=== PATIENT | female | born 1935 | race Caucasian/White ===

== ENCOUNTER → 2016-09-17 | Outpatient (CLI) | payer BC ==
[~2016-09-17] MED LIST: ATOR-24 PO; AZITTAB PO; DIAZ-165 PO; ERGO500037 PO; FOLI1TAB7 PO; FRS/40 PO; GABA-112 PO; HYDR-3124 PO; HYDR-4079 PO; ISOS60TA25 PO; LOSA25TA18 PO; METH2.5T PO; METO5TAB2 PO; OXGN; RIVA1.5T PO; TPRSR/25 PO; VENL-271 PO; VNTHFA/IN INH
[2016-09-17 12:11] LABS: BASO % 0.4 %; BASO ABS # 0.03 K/uL (0-0.2); COMPLETE YES; EOS % 1.9 %; HEMATOCRIT 44.9 % (37-47); IG% 0.4 %; LYMPH % 13.4 %; LYMPH ABS # 1.15 K/uL (1.2-3.4); MEAN CELL VOLUME 95.7 fL (80-100); MEAN CORPUSCULAR HEMOGLOBIN 30.1 pg (25-34); MEAN CORPUSCULAR HGB CONC 31.4 g/dl (32-36); MEAN PLATELET VOLUME 10.6 fL (7.4-10.4); MONO % 7.8 %; NEUT % 76.1 %; PLATELET COUNT 209 K/uL (130-400); RED BLOOD COUNT 4.69 M/uL (4.2-5.4); WHITE BLOOD COUNT 8.57 K/uL (4.8-10.8)
[2016-09-17 12:28] LABS: ALT/SGPT 19 U/L (12-78); AST/SGOT 14 U/L (15-37); CALCIUM 8.9 mg/dl (8.5-10.1); CREATININE 0.75 mg/dl (0.60-1.20)
[2016-09-17 12:30] LABS: ALKALINE PHOSPHATASE 82 U/L (45-117)
[2016-09-20 16:32] LABS: ALBUMIN 3.3 G/DL (3.8-4.8); GAMMA GLOBULIN 0.9 G/DL (0.8-1.7); TOTAL PROTEIN 6.2 G/DL (6.2-8.3)
== END | disposition home or self-care (01) ==
LOC: C.LAB1850 10:11
PROVIDERS: ATTEND Internal Medicine Rheumatology
DX: E11.49 Type 2 diabetes mellitus with other diabetic neurological complication (principal); M81.0 Age-related osteoporosis without current pathological fracture; E55.9 Vitamin D deficiency, unspecified; E61.8 Deficiency of other specified nutrient elements; L40.50 Arthropathic psoriasis, unspecified

== ENCOUNTER → 2016-10-04 | Outpatient (CLI) | payer BC ==
[2016-10-04 11:07] LABS: BASO % 0.3 %; BASO ABS # 0.02 K/uL (0-0.2); EOS % 1.5 %; HEMATOCRIT 40.8 % (37-47); IG% 0.2 %; LYMPH % 22.8 %; LYMPH ABS # 1.34 K/uL (1.2-3.4); MEAN CORPUSCULAR HEMOGLOBIN 30.9 pg (25-34); MEAN PLATELET VOLUME 9.8 fL (7.4-10.4); MONO % 11.1 %; NEUT % 64.1 %; PLATELET COUNT 259 K/uL (130-400); RED BLOOD COUNT 4.08 M/uL (4.2-5.4); WHITE BLOOD COUNT 5.87 K/uL (4.8-10.8)
[2016-10-04 11:10] LABS: COMPLETE YES; MEAN CORPUSCULAR HGB CONC 30.9 g/dl (32-36)
[2016-10-04 11:31] LABS: FERRITIN 85.4 ng/ml (8.0-388.0)
--- NOTE | 2016-10-04 11:37 | DIAGNOSTIC IMAGING REPORT ---
TWO VIEW CHEST CLINICAL HISTORY: Dyspnea. FINDINGS: PA and lateral chest radiographs are obtained. No prior studies are available for comparison at the time of dictation. The heart is enlarged and there is atherosclerotic calcification of the thoracic aorta. The pulmonary vasculature is noncongested. Nonspecific interstitial thickening is noted. There is no airspace consolidation or pleural effusion. There is no pneumothorax. The skeletal structures are osteopenic. Degenerative change and scoliosis are noted in the thoracic spine. A left shoulder arthroplasty is in place. There are healed right-sided rib fractures. Fusion hardware is partially imaged in the upper lumbar spine. Surgical clips are noted in the left axilla. Cholecystectomy clips are seen in the right upper quadrant. IMPRESSION: Cardiomegaly with no acute cardiopulmonary abnormality. Electronically signed by: Kavon Mohamud M.D. 10/04/2016 11:35 AM Dictated Date/Time: 10/04/2016 11:28 AM
[2016-10-04 11:55] LABS: ALKALINE PHOSPHATASE 76 U/L (45-117); ALT/SGPT 16 U/L (12-78); AST/SGOT 14 U/L (15-37); BLOOD UREA NITROGEN 13 mg/dl (7-18); BUN/CREATININE RATIO 17.3 (10-20); CALCIUM 8.6 mg/dl (8.5-10.1); CARBON DIOXIDE 44 mmol/L (21-32); CHLORIDE 98 mmol/L (98-107); CREATININE 0.74 mg/dl (0.60-1.20); GLUCOSE 117 mg/dl (70-99); MAGNESIUM 2.2 mg/dl (1.8-2.4); POTASSIUM 3.9 mmol/L (3.5-5.1); SODIUM 144 mmol/L (136-145)
== END | disposition home or self-care (01) ==
LOC: C.RAD 10:21
PROVIDERS: ATTEND Nurse Practitioner
DX: R06.02 Shortness of breath (principal); R53.1 Weakness; I51.7 Cardiomegaly

== ENCOUNTER → 2016-10-06 | Outpatient (CLI) | payer BC | END | disposition home or self-care (01) | LOC: C.MAMM 11:24 | PROVIDERS: ATTEND Internal Medicine Rheumatology | DX: M81.0 Age-related osteoporosis without current pathological fracture (principal); E55.9 Vitamin D deficiency, unspecified; E61.8 Deficiency of other specified nutrient elements; L40.50 Arthropathic psoriasis, unspecified ==

== ENCOUNTER → 2016-12-07 | Outpatient (CLI) | payer BC ==
[2016-12-07 12:33] LABS: HEMATOCRIT 40.9 % (37-47); MEAN CELL VOLUME 103.5 fL (80-100); MEAN CORPUSCULAR HEMOGLOBIN 33.7 pg (25-34); MEAN CORPUSCULAR HGB CONC 32.5 g/dl (32-36); MEAN PLATELET VOLUME 10.4 fL (7.4-10.4); PLATELET COUNT 190 K/uL (130-400); RED BLOOD COUNT 3.95 M/uL (4.2-5.4); WHITE BLOOD COUNT 5.37 K/uL (4.8-10.8)
[2016-12-07 13:04] LABS: ALB/GLOB RATIO 1.1 (0.9-2); ALT/SGPT 20 U/L (12-78); AST/SGOT 19 U/L (15-37); BLOOD UREA NITROGEN 22 mg/dl (7-18); BUN/CREATININE RATIO 32.4 (10-20); CALCIUM 8.6 mg/dl (8.5-10.1); CARBON DIOXIDE 38 mmol/L (21-32); CHLORIDE 100 mmol/L (98-107); CREATININE 0.67 mg/dl (0.60-1.20); GLUCOSE 85 mg/dl (70-99); POTASSIUM 3.6 mmol/L (3.5-5.1); SODIUM 142 mmol/L (136-145)
[2016-12-07 13:12] LABS: ALKALINE PHOSPHATASE 84 U/L (45-117); CHOLESTEROL 135 mg/dl (0-200); CHOLESTEROL/HDL RATIO 2.7; HDL CHOLESTEROL 50 mg/dl; LDL CHOLESTEROL CALCULATED 55 mg/dl; TRIGLYCERIDES 151 mg/dl (0-150); VERY LOW DENSITY LIPOPROT CALC 30 mg/dl
[2016-12-07 13:23] LABS: ESTIMATED AVERAGE GLUCOSE 123 mg/dl; HA1C FLAG Normal (Normal)
[2016-12-07 13:52] LABS: RATIO 8.3 mcg/mg (0-30.0)
== END | disposition home or self-care (01) ==
LOC: C.LAB1850 10:28
PROVIDERS: ATTEND Internal Medicine
DX: E78.5 Hyperlipidemia, unspecified (principal); E11.49 Type 2 diabetes mellitus with other diabetic neurological complication; I25.10 Atherosclerotic heart disease of native coronary artery without angina pectoris; Z79.899 Other long term (current) drug therapy

== ENCOUNTER → 2016-12-30 | Outpatient (CLI) | payer BC | END | disposition home or self-care (01) | LOC: C.LAB1850 13:49 | PROVIDERS: ATTEND Internal Medicine Rheumatology | DX: L40.50 Arthropathic psoriasis, unspecified (principal); I25.10 Atherosclerotic heart disease of native coronary artery without angina pectoris; E55.9 Vitamin D deficiency, unspecified; Z79.899 Other long term (current) drug therapy ==

== ENCOUNTER → 2017-01-03 | Outpatient (CLI) | payer BC ==
--- NOTE | 2017-01-03 14:22 | DIAGNOSTIC IMAGING REPORT ---
BONE SCAN WHOLE BODY CLINICAL HISTORY: Long-term immunosuppressant use. Right-sided pain. COMPARISON STUDY: No previous studies for comparison. FINDINGS: The patient was injected with 27 mCi of technetium 99m MDP. Three-hour delayed whole body images were acquired. There is a thoracolumbar scoliosis. There are foci of increased activity within the lower thoracic and lumbar spine. The distribution favors degenerative/arthritic change. There are foci of increased activity within the right wrist likely arthritic. There are photopenic defects and knees, consistent with bilateral knee arthroplasties. There is a subtle focus of increased activity mid left humerus, likely secondary to a muscular insertion. There are no areas of increased activity viewed as suspicious for metastatic disease. IMPRESSION: 1. Multiple foci of increased activity within the lower thoracic and lumbar spine, likely on a degenerative/arthritic basis 2. Area of increased activity within the right wrist likely arthritic. Electronically signed by: Alcon Camp M.D. 01/03/2017 2:20 PM Dictated Date/Time: 01/03/2017 2:18 PM
== END | disposition home or self-care (01) ==
LOC: C.NUCL 09:48
PROVIDERS: ATTEND Internal Medicine Rheumatology
DX: L40.50 Arthropathic psoriasis, unspecified (principal); L40.9 Psoriasis, unspecified; Z79.899 Other long term (current) drug therapy

== ENCOUNTER → 2017-03-23 | Outpatient (CLI) | payer BC ==
[2017-03-23 18:05] LABS: HEMATOCRIT 41.5 % (37-47); MEAN CORPUSCULAR HGB CONC 31.1 g/dl (32-36); MEAN PLATELET VOLUME 10.2 fL (7.4-10.4); PLATELET COUNT 262 K/uL (130-400); RED BLOOD COUNT 4.03 M/uL (4.2-5.4); WHITE BLOOD COUNT 7.09 K/uL (4.8-10.8)
[2017-03-23 18:23] LABS: ALT/SGPT 20 U/L (12-78); AST/SGOT 19 U/L (15-37); BLOOD UREA NITROGEN 19 mg/dl (7-18); BUN/CREATININE RATIO 28.5 (10-20); CALCIUM 8.7 mg/dl (8.5-10.1); CARBON DIOXIDE 38 mmol/L (21-32); CHLORIDE 98 mmol/L (98-107); CREATININE 0.67 mg/dl (0.60-1.20); GLUCOSE 92 mg/dl (70-99); POTASSIUM 3.7 mmol/L (3.5-5.1); SODIUM 142 mmol/L (136-145)
[2017-03-23 18:34] LABS: ALKALINE PHOSPHATASE 78 U/L (45-117)
== END | disposition home or self-care (01) ==
LOC: C.LAB1850 14:29
PROVIDERS: ATTEND Internal Medicine
DX: R53.83 Other fatigue (principal)

== ENCOUNTER → 2017-04-12 | Outpatient (CLI) | payer BC ==
--- NOTE | 2017-04-12 15:07 | DIAGNOSTIC IMAGING REPORT ---
CHEST 2 VIEWS ROUTINE CLINICAL HISTORY: R06.02 Shortness of [id number] dyspnea COMPARISON STUDY: 10/04/2016 FINDINGS: Mild emphysematous change. Stable postoperative changes left axilla. Diaphragms smooth. Lungs are clear. IMPRESSION: No acute process. The above report was generated using voice recognition software. It may contain grammatical, syntax or spelling errors. Electronically signed by: Gilbert Stroud M.D. 04/12/2017 3:05 PM Dictated Date/Time: 04/12/2017 3:01 PM
== END | disposition home or self-care (01) ==
LOC: C.RAD1850 14:47
PROVIDERS: ATTEND Physician Assistant
DX: R06.02 Shortness of breath (principal)

== ENCOUNTER 2017-05-02 15:31 | Emergency (ER) | payer BC ==
[2017-05-02 15:35] VITALS: TEMP 36.7; Ht 162.6 cm
[2017-05-02] MEDS ORDERED: ALBUT/IPRATROP 3MG/0.5MG NEB 3 ML VIAL INH STA (15:49)
[2017-05-02 16:00] VITALS: O2SAT 97
[2017-05-02 16:12] LABS: BASO % 0.3 %; BASO ABS # 0.03 K/uL (0-0.2); COMPLETE YES; EOS % 0.9 %; HEMATOCRIT 41.9 % (37-47); IG% 0.5 %; LYMPH % 18.4 %; LYMPH ABS # 1.62 K/uL (1.2-3.4); MEAN CELL VOLUME 101.5 fL (80-100); MEAN CORPUSCULAR HEMOGLOBIN 33.2 pg (25-34); MEAN CORPUSCULAR HGB CONC 32.7 g/dl (32-36); MEAN PLATELET VOLUME 9.8 fL (7.4-10.4); MONO % 8.6 %; NEUT % 71.3 %; PLATELET COUNT 232 K/uL (130-400); RED BLOOD COUNT 4.13 M/uL (4.2-5.4)
--- NOTE | 2017-05-02 16:20 | EMERGENCY ROOM VISIT NOTE ---
History Report prepared by Josefina: Varun Rodriguez Under the Supervision of: Dr. Kavon Diaz M.D. First contact with patient: 15:45 Chief Complaint: SHORTNESS OF BREATH Stated Complaint: HARD TO BRATH, SHORT OF BREATH History of Present Illness The patient is a 81 year old female who presents to the Emergency Room with complaints of constant shortness of breath beginning last night. She also complains of a cough, and "chest tightness". The patient is on 2 L of supplemental oxygen by nasal canula. She states that she took her pulse ox and found it to be 84 today, and has not been able to get it above 89. She denies any fevers or sore throat. Her shortness of breath and chest pain are worsened with exertion. The patient states that she has a stuffy nose, but this has been present for a while. She is on Xarelto. She notes that her pulse ox is normally 96. Source of History: patient Onset: Last night Quality: other (shortness of breath) Timing: constant Modifying Factors (Worsening): exertion Associated Symptoms: + cough, + chest pain ("tightness"), No fevers Review of Systems See HPI for pertinent positives & negatives. A total of 10 systems reviewed and were otherwise negative. Past Medical & Surgical Medical Problems: (1) Diabetes (2) HTN (hypertension) Family History No pertinent family history stated. Social History Smoking Status: Former Smoker Occupation Status: retired Current/Historical Medications Scheduled Albuterol Hfa (Ventolin Hfa), 3 PUFFS INH Q6H Atorvastatin (Lipitor), 40 MG PO QPM Azithromycin (Zithromax Z-Mikie), 0 PO UD Ergocalciferol (Vitamin D 25513 Unit), 50,000 INTER.UNIT PO 2XWK Folic Acid (Folvite), 1 MG PO DAILY Furosemide (Lasix), 40 MG PO QAM Gabapentin (Neurontin), 200 MG PO AMPM Home O2 Therapy (Oxygen), 2 LITERS NA CONTINOUS Isosorbide Mononitrate Ext Rel (Imdur Ext Rel), 60 MG PO QAM Losartan Potassium (Cozaar), 25 MG PO DAILY Methotrexate (Methotrexate), 6.25 MG PO WK Metoclopramide Hcl (Metoclopramide Hcl), 5 MG PO BID Metoprolol Succinate (Metoprolol Succinate ER), 25 MG PO DAILY Rivaroxaban (Xarelto), 15 MG PO QPM Venlafaxine Hcl (Venlafaxine Hcl Er), 37.5 MG PO DAILY Scheduled PRN Diazepam (Valium), 2.5 MG PO Q6H PRN for Anxiety Hydrocodone/Acetaminophen 10MG/325MG ([place] 10MG/325MG), 1-2 TABS PO DAILY PRN for Pain Hydroxyzine Hcl (Atarax), 25-50 MG PO DAILY PRN for Anxiety Allergies Coded Allergies: No Known Allergies (Unverified , 05/02/17) Physical Exam Vital Signs Date Time Temp Pulse Resp B/P (MAP) Pulse Ox O2 Delivery O2 Flow Rate FiO2 05/02/17 17:22 89 18 134/95 97 Nasal Cannula 2.0 05/02/17 16:20 79 05/02/17 16:00 97 Nasal Cannula 2.0 05/02/17 16:00 97 Nasal Cannula 2.0 05/02/17 15:35 36.7 78 18 130/71 90 Nasal Cannula 2.0 Physical Exam GENERAL: Patient is in no acute distress. HEENT: No acute trauma, normocephalic atraumatic, mucous membranes moist, no nasal congestion, no scleral icterus. NECK: No stridor, no adenopathy, no meningismus, trachea is midline. LUNGS: Significantly diminished breath sounds bilaterally. Breath sounds equal. No wheezing or rhonchi. HEART: 2/6 systolic murmur with an occasional extra beat. Normal rate. ABDOMEN: Soft, nontender, bowel sounds positive, no hernias, no peritonitis. EXTREMITIES: No cyanosis or edema, full range of motion of all the joints without pain or difficulty, no signs for acute trauma. NEUROLOGIC: Oriented x 3, no acute motor or sensory deficits, no focal weakness. SKIN: No rash, no jaundice, no diaphoresis. Medical Decision & Procedures ER Provider Diagnostic Interpretation: X-ray results as stated below per interpretation by me and the radiologist: CHEST ONE VIEW PORTABLE FINDINGS: Cardiomediastinal and hilar silhouettes are within normal limits. There is atherosclerosis of the aorta. No pneumothorax, pleural effusion or focal airspace consolidation. There are chronic appearing reticular opacities within the right perihilar distribution and bilateral lung apices suggesting scarring. Lungs are mildly hyperinflated with increased lucency suggesting emphysema. Surgical clips project over the left axilla. Postoperative changes from left shoulder arthroplasty. There are degenerative changes of the spine and shoulders. Multiple chronic right-sided rib fractures redemonstrated. IMPRESSION: Emphysema without acute cardiopulmonary process. The above report was generated using voice recognition software. It may contain grammatical, syntax or spelling errors. Electronically signed by: Masood Garg M.D. 05/02/2017 4:24 PM Laboratory Results 05/02/17 16:00 Red Blood Count 4.13, Mean Corpuscular Volume 101.5, Mean Corpuscular Hemoglobin 33.2, Mean Corpuscular Hemoglobin Concent 32.7, Mean Platelet Volume 9.8, Neutrophils (%) (Auto) 71.3, Lymphocytes (%) (Auto) 18.4, Monocytes (%) ( Auto) 8.6, Eosinophils (%) (Auto) 0.9, Basophils (%) (Auto) 0.3, Neutrophils # ( Auto) 6.27, Lymphocytes # (Auto) 1.62, Monocytes # (Auto) 0.76, Eosinophils # ( Auto) 0.08, Basophils # (Auto) 0.03 05/02/17 16:00 Test 05/02/17 16:00 White Blood Count 8.80 K/uL (4.8-10.8) Red Blood Count 4.13 M/uL (4.2-5.4) Hemoglobin 13.7 g/dL (12.0-16.0) Hematocrit 41.9 % (37-47) Mean Corpuscular Volume 101.5 fL (80-100) Mean Corpuscular Hemoglobin 33.2 pg (25-34) Mean Corpuscular Hemoglobin Concent 32.7 g/dl (32-36) Platelet Count 232 K/uL (130-400) Mean Platelet Volume 9.8 fL (7.4-10.4) Neutrophils (%) (Auto) 71.3 % Lymphocytes (%) (Auto) 18.4 % Monocytes (%) (Auto) 8.6 % Eosinophils (%) (Auto) 0.9 % Basophils (%) (Auto) 0.3 % Neutrophils # (Auto) 6.27 K/uL (1.4-6.5) Lymphocytes # (Auto) 1.62 K/uL (1.2-3.4) Monocytes # (Auto) 0.76 K/uL (0.11-0.59) Eosinophils # (Auto) 0.08 K/uL (0-0.5) Basophils # (Auto) 0.03 K/uL (0-0.2) RDW Standard Deviation 50.5 fL (36.4-46.3) RDW Coefficient of Variation 13.8 % (11.5-14.5) Immature Granulocyte % (Auto) 0.5 % Immature Granulocyte # (Auto) 0.04 K/uL (0.00-0.02) Prothrombin Time 10.8 SECONDS (9.0-12.0) Prothromb Time International Ratio 1.0 (0.9-1.1) Activated Partial Thromboplast Time 26.9 SECONDS (21.0-31.0) Partial Thromboplastin Ratio 1.0 Anion Gap 6.0 mmol/L (3-11) Estimated GFR () 90.8 Estimated GFR (Non- 78.3 BUN/Creatinine Ratio 15.0 (10-20) Calcium Level 9.0 mg/dl (8.5-10.1) Total Bilirubin 0.3 mg/dl (0.2-1) Aspartate Amino Transf (AST/SGOT) 29 U/L (15-37) Alanine Aminotransferase (ALT/SGPT) 22 U/L (12-78) Alkaline Phosphatase 101 U/L (45-117) Troponin I < 0.015 ng/ml (0-0.045) Total Protein 7.7 gm/dl (6.4-8.2) Albumin 3.7 gm/dl (3.4-5.0) Globulin 4.0 gm/dl (2.5-4.0) Albumin/Globulin Ratio 0.9 (0.9-2) Chemistry Specimen Hemolysis Laboratory results reviewed by me. Medications Administered Medications (Trade) Dose Ordered Sig/Rigoberto Route Start Time Stop Time Status Last Admin Dose Admin Albuterol/ Ipratropium (Duoneb) 3 ml NOW STAT INH 05/02/17 15:49 05/02/17 15:52 DC 05/02/17 16:25 3 ML ECG Indication: SOB/dyspnea Rate (beats per minute): 85 Rhythm: sinus rhythm Findings: PAC, no acute ischemic change, other (LVH. ) ED Course 5055: The patient was evaluated in room C9. A complete history and physical exam was performed. 1549: Ordered DuoNeb 3 mL INH. 1725: Reevaluated the patient. She feels that her symptoms may be related to anxiety. Her blood oxygen saturation stayed above 90% with ambulation. Discussed results and discharge instructions: she verbalized understanding and agreement. The patient is ready for discharge. Medical Decision The patient is a 81 year old female who presents to the ED with complaints of shortness of breath. Differential diagnoses considered include exacerbation of COPD, bronchitis, pneumonia, CHF, cardiac ischemia, anemia, and electrolyte imbalance. There is no leukocytosis or concerning anemia. Renal panel testing shows an elevation to the CO2, this appears chronic though looking back at previous testing. No hepatitis. EKG shows a sinus rhythm with PACs and LVH, no acute ischemia. Cardiac enzyme testing times one is not consistent with acute cardiac injury. Chest x-ray does not show pneumonia or CHF, chronic lung changes were noted. On exam, the patient was not hypoxic or toxic. She did walk around the ER with her walker, her O2 saturation was adequate with her typical 2 L of oxygen. The patient likely has an acute bronchitis. She did receive a DuoNeb while in the emergency room. She will be on albuterol frequently as an outpatient, I will avoid steroids as she is diabetic. The patient will be prescribed a Z-Mikie because of her chronic lung disease and because the diagnosis of acute bronchitis. She asked for a few Valium tablets as she feels anxious, she thinks this is worsening her situation. She has used Valium for anxiety successfully in the past. The patient appears stable, I do think she can be discharged with outpatient follow-up. She was encouraged to return for worsening dyspnea or symptoms. [place] Drug Monitoring Program Search Results: patient reviewed within database, no issues identified Medication Reconcilliation Current Medication List: was personally reviewed by me Blood Pressure Screening Patient's blood pressure: Normal blood pressure Blood pressure disposition: Did not require urgent referral Impression Primary Impression: SOB (shortness of breath) Additional Impressions: Acute bronchitis COPD exacerbation Scribe Attestation The scribe's documentation has been prepared under my direction and personally reviewed by me in its entirety. I confirm that the note above accurately reflects all work, treatment, procedures, and medical decision making performed by me. Departure Information Dispostion Home / Self-Care Prescriptions Diazepam (Valium) 5 Mg Tab 2.5 MG PO Q6H Y for Anxiety, #5 TAB Prov: Kavon Diaz M.D. 05/02/17 Albuterol Hfa (VENTOLIN HFA) 200 Puffs/24334 Mcg Aers 3 PUFFS INH Q6H, #1 INHALER Prov: Kavon Diaz M.D. 05/02/17 Azithromycin (ZITHROMAX Z-MIKIE) 250 Mg Tab 0 PO UD, #1 PKT Prov: Kavon Diaz M.D. 05/02/17 Referrals Jovanny Rae M.D. (PCP) Forms HOME CARE DOCUMENTATION FORM, IMPORTANT VISIT INFORMATION Patient Instructions My [facility] Additional Instructions zpac as directed albuterol by mdi 3 puffs every 4 hours or use your nebulizer valium 1/2 tab up to 3x per day for anxiety return for worsening breathing see onofre rodriguez this week for a recheck lab testing was all ok today Problem Qualifiers
[2017-05-02 16:21] LABS: PROTHROMBIN TIME (PATIENT) 10.8 SECONDS (9.0-12.0)
--- NOTE | 2017-05-02 16:25 | DIAGNOSTIC IMAGING REPORT ---
CHEST ONE VIEW PORTABLE HISTORY: 81 years-old Female EVALUATE RESPIRATORY DISTRESS.DYSPNEA acute respiratory failure COMPARISON: Chest radiograph 04/12/2017 TECHNIQUE: Portable upright AP view of the chest FINDINGS: Cardiomediastinal and hilar silhouettes are within normal limits. There is atherosclerosis of the aorta. No pneumothorax, pleural effusion or focal airspace consolidation. There are chronic appearing reticular opacities within the right perihilar distribution and bilateral lung apices suggesting scarring. Lungs are mildly hyperinflated with increased lucency suggesting emphysema. Surgical clips project over the left axilla. Postoperative changes from left shoulder arthroplasty. There are degenerative changes of the spine and shoulders. Multiple chronic right-sided rib fractures redemonstrated. IMPRESSION: Emphysema without acute cardiopulmonary process. The above report was generated using voice recognition software. It may contain grammatical, syntax or spelling errors. Electronically signed by: Masood Garg M.D. 05/02/2017 4:24 PM Dictated Date/Time: 05/02/2017 4:22 PM
[2017-05-02 16:40] LABS: ALB/GLOB RATIO 0.9 (0.9-2); ALKALINE PHOSPHATASE 101 U/L (45-117); ALT/SGPT 22 U/L (12-78); AST/SGOT 29 U/L (15-37); BLOOD UREA NITROGEN 11 mg/dl (7-18); CARBON DIOXIDE 41 mmol/L (21-32); CHLORIDE 93 mmol/L (98-107); CREATININE 0.73 mg/dl (0.60-1.20); GLUCOSE 177 mg/dl (70-99); POTASSIUM 3.6 mmol/L (3.5-5.1); SODIUM 140 mmol/L (136-145)
[2017-05-02] MEDS ORDERED: RIVA1.5T PO (16:41)
[2017-05-02] MEDS ORDERED: ERGO500037 PO (16:41)
[2017-05-02] MEDS ORDERED: HYDR-3124 PO (16:41)
[2017-05-02] MEDS ORDERED: METO5TAB2 PO (16:41)
[2017-05-02] MEDS ORDERED: LOSA25TA18 PO (16:41)
[2017-05-02] MEDS ORDERED: OXGN (16:41)
[2017-05-02] MEDS ORDERED: TPRSR/25 PO (16:41)
[2017-05-02] MEDS ORDERED: FOLI1TAB7 PO (16:41)
[2017-05-02] MEDS ORDERED: GABA-112 PO (16:41)
[2017-05-02] MEDS ORDERED: HYDR-4079 PO (16:41)
[2017-05-02] MEDS ORDERED: METH2.5T PO (16:41)
[2017-05-02] MEDS ORDERED: ATOR-24 PO (16:41)
[2017-05-02] MEDS ORDERED: ISOS60TA25 PO (16:41)
[2017-05-02] MEDS ORDERED: FRS/40 PO (16:41)
[2017-05-02] MEDS ORDERED: VENL-271 PO (16:41)
[2017-05-02] MEDS ORDERED: VNTHFA/IN INH (17:34)
[2017-05-02] MEDS ORDERED: DIAZ-165 PO (17:34)
[2017-05-02] MEDS ORDERED: AZITTAB PO (17:34)
[2017-05-02 18:07] VITALS: BP 144/57; PULSE 92; O2SAT 97
== END 2017-05-02 18:08 | disposition home or self-care (01) ==
LOC: C.EDB 15:32 → C.EDC 18:08
DX: J44.0 Chronic obstructive pulmonary disease with (acute) lower respiratory infection (principal); J44.1 Chronic obstructive pulmonary disease with (acute) exacerbation; J20.9 Acute bronchitis, unspecified; E11.9 Type 2 diabetes mellitus without complications; I10 Essential (primary) hypertension; Z87.891 Personal history of nicotine dependence; Z99.81 Dependence on supplemental oxygen

== ENCOUNTER → 2017-05-18 | Outpatient (CLI) | payer BC ==
[~2017-05-18] MED LIST changes: -AZITTAB PO
== END | disposition home or self-care (01) ==
LOC: C.RDSM 15:17
PROVIDERS: ATTEND Family Medicine Sports Medicine
DX: M54.5 Low back pain (principal)

== ENCOUNTER 2017-06-27 17:19 | Inpatient (IN) | payer BC, OTHER ==
[~2017-06-27] VITALS: Ht 160 cm; Wt 71.2 kg
[~2017-06-27 17:19] MED LIST changes: -FOLI1TAB7 PO; +FOLI1TAB8 PO
[2017-06-27] MEDS ORDERED: ALBUT/IPRATROP 3MG/0.5MG NEB 3 ML VIAL INH STA ×2 (17:46→19:31)
--- NOTE | 2017-06-27 18:37 | DIAGNOSTIC IMAGING REPORT ---
SINGLE VIEW CHEST CLINICAL HISTORY: Weakness. FINDINGS: An AP, portable, upright chest radiograph is compared to study dated 05/02/2017. The examination is degraded by portable technique and patient rotation. The heart is enlarged and there is atherosclerotic calcification of the thoracic aorta. The pulmonary vasculature is noncongested. Chronic interstitial thickening is unchanged. Trace pleural effusions are identified. There is no airspace consolidation typical for pneumonia. There is no pneumothorax. The skeletal structures are osteopenic. Degenerative change and scoliosis are noted in the thoracic spine. A left shoulder arthroplasty is in place. There are healed right-sided rib fractures. Surgical clips are noted in the left axilla. There is atherosclerotic calcification of the axillary arteries. IMPRESSION: 1. Cardiomegaly without radiographic evidence of congestive failure. 2. Trace pleural effusions. No airspace consolidation is seen typical for pneumonia. Electronically signed by: Kavon Mohamud M.D. 06/27/2017 6:36 PM Dictated Date/Time: 06/27/2017 6:34 PM
[2017-06-27 18:46] LABS: BASO % 0.2 %; BASO ABS # 0.02 K/uL (0-0.2); EOS % 0.2 %; EOS ABS # 0.02 K/uL (0-0.5); HEMATOCRIT 42.7 % (37-47); HEMOGLOBIN 13.2 g/dL (12.0-16.0); IG# 0.03 K/uL (0.00-0.02); LYMPH % 16.4 %; LYMPH ABS # 1.57 K/uL (1.2-3.4); MEAN CELL VOLUME 106.8 fL (80-100); MEAN CORPUSCULAR HGB CONC 30.9 g/dl (32-36); MEAN PLATELET VOLUME 10.5 fL (7.4-10.4); MONO ABS # 1.05 K/uL (0.11-0.59); NEUT % 71.9 %; NEUT ABS # 6.89 K/uL (1.4-6.5); PLATELET COUNT 231 K/uL (130-400); WHITE BLOOD COUNT 9.58 K/uL (4.8-10.8)
[2017-06-27 18:57] LABS: ALBUMIN 3.7 gm/dl (3.4-5.0); ALT/SGPT 18 U/L (12-78); AST/SGOT 15 U/L (15-37); BLOOD UREA NITROGEN 16 mg/dl (7-18); CALCIUM 8.9 mg/dl (8.5-10.1); CREATININE 0.75 mg/dl (0.60-1.20); GLUCOSE 128 mg/dl (70-99); POTASSIUM 3.2 mmol/L (3.5-5.1); SODIUM 138 mmol/L (136-145)
--- NOTE | 2017-06-27 18:57 | DIAGNOSTIC IMAGING REPORT ---
CT SCAN OF THE BRAIN WITHOUT IV CONTRAST CLINICAL HISTORY: Change in mental status. COMPARISON STUDY: No priors. TECHNIQUE: Unenhanced axial CT scan of the brain is performed from the vertex to the skull base. A dose lowering technique was utilized adhering to the principles of ALARA. CT DOSE: 537.48 mGy.cm FINDINGS: Brain parenchyma: There are age-related involutional changes noting mild/moderate patchy subcortical and periventricular microangiopathic change. There is no hemorrhage, mass effect, or evidence of acute territorial ischemia by CT criteria. Chronic lacunar infarcts are identified in the right basal ganglia. Aviles-white matter is preserved. No extra-axial fluid collection is seen. Ventricles, sulci, cisterns: Prominent secondary to involutional change. Intracranial vasculature: There is atherosclerotic calcification of the cavernous carotid and vertebral arteries. Calvarium: Unremarkable. Sinuses and mastoids: The visualized paranasal sinuses are clear. The mastoid air cells are well pneumatized. Orbits: The bony orbits are grossly intact. There are bilateral ocular lens implants. IMPRESSION: There is no hemorrhage, mass effect, or evidence of acute territorial ischemia by CT criteria. Electronically signed by: Kavon Mohamud M.D. 06/27/2017 6:56 PM Dictated Date/Time: 06/27/2017 6:54 PM
[2017-06-27 18:58] LABS: PTT PATIENT 24.4 SECONDS (21.0-31.0)
[2017-06-27] MEDS ORDERED: POTASSIUM CHLORIDE 10 MEQ TABCR PO STA ×2 (18:59→21:42)
[2017-06-27 19:07] LABS: ALKALINE PHOSPHATASE 83 U/L (45-117); TOTAL PROTEIN 7.4 gm/dl (6.4-8.2)
[2017-06-27 19:13] LABS: CARBON DIOXIDE 48 mmol/L (21-32)
[2017-06-27 19:20] LABS: INFLUENZA B ANTIGEN Neg for Influ B (NEG)
[2017-06-27] MEDS ORDERED: ETAN25IN2 INJ (19:21)
[2017-06-27] MEDS ORDERED: METHYLPREDNISOLONE 125 MG VIAL IV STA (19:31)
[2017-06-27 21:01] VITALS: PULSE 89; O2SAT 93
[2017-06-27] MEDS ORDERED: VANCOMYCIN INJ 1,000 MG in SODIUM CHLORIDE 0.9% 250ML 250 ML IV STA (21:37)
[2017-06-27] MEDS ORDERED: ONDANSETRON INJ 2 MG/ML 2 ML VIAL IV PRN (21:45)
[2017-06-27] MEDS ORDERED: HYDROCODONE/ACETAMI 10/325 TAB PO PRN (21:45)
[2017-06-27] MEDS ORDERED: ONDANSETRON 8MG OD TAB PO PRN (21:45)
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
[2017-06-27] MEDS ORDERED: LEVALBUTEROL 1.25MG/0.5ML NEB INH PRN (22:00)
[2017-06-27] MEDS ORDERED: IPRATROPIUM BROMIDE NEB SOLN 0.02% 2.5 ML VIAL INH PRN (22:00)
[2017-06-27] MEDS ORDERED: PIPERACILL/TAZOBAC IV 3.375 GM in DEXTROSE 5% 100ML 100 ML IV SCH (22:00)
[2017-06-27] MEDS ORDERED: OPTIRAY 320 IV PRN (22:15)
[2017-06-27] MEDS ORDERED: PATIENT'S HEIGHT AND/OR WEIGHT NEEDED SCH (22:30)
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
[2017-06-27 22:45] VITALS: BP 112/67; PULSE 90; TEMP 36.9; BMI 28.0
--- NOTE | 2017-06-27 22:57 | DIAGNOSTIC IMAGING REPORT ---
CT ANGIOGRAM OF THE CHEST CLINICAL HISTORY: Hypoxia. COMPARISON STUDY: Chest x-ray dated 06/27/2017. TECHNIQUE: Following the IV administration of 73 cc of Optiray 320, CT angiogram of the chest was performed from the upper abdomen to the thoracic inlet utilizing the pulmonary embolus protocol. Images are reviewed in the axial, sagittal, and coronal planes. 3-D MIPS images are created and assessed. IV contrast was administered without complication. A dose lowering technique was utilized adhering to the principles of ALARA. The examination is degraded by motion artifact, as well as by streak artifact from the arms which could not be elevated above the chest. CT DOSE: 484.22 mGy.cm FINDINGS: Thyroid: Imaged portions of the thyroid gland are normal in size and attenuation. Subcentimeter low-attenuation thyroid nodules are observed. Thoracic aorta: There is atherosclerotic calcification of the thoracic aorta, which is normal in caliber and demonstrates standard 3-vessel arch anatomy. No dissection is seen. Pulmonary vasculature: The pulmonary trunk is normal in caliber. There are no filling defects identified in main, lobar, or proximal segmental pulmonary branches to suggest pulmonary embolus. Evaluation of the peripheral branches is degraded by streak and motion artifact. Heart: The heart is enlarged and without pericardial effusion. The coronary arteries are densely calcified. Lungs and pleural spaces: There is a small right pleural effusion. Bibasilar atelectasis is observed. Scarring/fibrosis is present in the right middle lobe. No airspace consolidation is seen typical for pneumonia. The trachea and central airways are clear. There is a 2 cm tubular branching structure seen at the left apex on image #214. This likely represents mucus with an impacted bronchus. Mediastinum: There is no mediastinal lymphadenopathy. Roseann: Clear. Axillae: Surgical clips are noted in the left axilla. There is no axillary lymphadenopathy. 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 Upper abdomen: There is a tiny hiatal hernia. Adrenal adenomas are partially visualized. Skeletal structures: The skeletal structures are osteopenic. Degenerative change and scoliosis are noted throughout the thoracic spine. No lytic or blastic bony lesions are seen. A left shoulder arthroplasty is in place. Advanced arthritic change is seen in the right shoulder. IMPRESSION: 1. Streak and motion degraded examination. 2. There is no evidence of pulmonary embolus in the main, lobar, or proximal segmental pulmonary arteries. 3. Small right pleural effusion. 4. Cardiomegaly. 5. No airspace consolidation is seen typical for pneumonia. 6. A 2 cm branching tubular structure the left apex likely represents an impacted bronchus. This can be followed if clinically warranted. 7. Additional findings as above. Electronically signed by: Kavon Mohamud M.D. 06/27/2017 10:56 PM Dictated Date/Time: 06/27/2017 10:49 PM
[2017-06-28] VITALS (18 sets, daily range): BP systolic 133–181; BP diastolic 68–99; PULSE 71–109; TEMP 36.2–36.5; O2SAT 80–96; BMI 28.2
[2017-06-28] MEDS ORDERED: LEVOFLOXACIN / D5W 500 MG in PREMIXED IN D5W 100 ML IV SCH
[2017-06-28] MEDS ORDERED: PIPERACILL/TAZOBAC IV 3.375 GM in DEXTROSE 5% 100ML IV ONE (01:30)
[2017-06-28] MEDS ORDERED: VANCOMYCIN INJ 1,500 MG in SODIUM CHLORIDE 0.9% 500ML 500 ML IV SCH (01:30)
[2017-06-28] MEDS ORDERED: PIPERACILL/TAZOBAC CONSULT ACTIVE PRN (01:30)
[2017-06-28] MEDS ORDERED: VANCOMYCIN CONSULT ACTIVE PRN (01:30)
[2017-06-28] MEDS ORDERED: METHYLPREDNISOLONE IV 60 MG in SYRINGE 0 ML IV SCH (02:00)
[2017-06-28] MEDS ORDERED: LEVALBUTEROL/IPRATROPIUM NEB INH SCH (03:00)
[2017-06-28] MEDS ORDERED: PIPERACILL/TAZOBAC IV 3.375 GM in DEXTROSE 5% 100ML IV SCH (04:00)
[2017-06-28] MEDS: PIPERACILL/TAZOBAC IV 3.375 GM in DEXTROSE 5% 100ML IV SCH ×3 (05:58→21:30)
[2017-06-28] MEDS ORDERED: GLUCOSE 40% GEL 15 GM TUBE PO PRN (06:45)
[2017-06-28] MEDS ORDERED: DEXTROSE 50% 50 ML SYR IV PRN (06:45)
[2017-06-28] MEDS ORDERED: GLUCOSE 10 TABS/TUBE PO PRN (06:45)
[2017-06-28] MEDS ORDERED: GLUCAGON FOR INJ 1 MG VIAL SQ PRN (06:45)
[2017-06-28] MEDS: LEVALBUTEROL 1.25MG/0.5ML NEB INH SCH ×2 (07:03→13:32)
[2017-06-28] MEDS: IPRATROPIUM BROMIDE NEB SOLN 0.02% 2.5 ML VIAL INH SCH ×3 (07:03→19:08)
[2017-06-28] MEDS: BUDESONIDE 0.5 MG/2 ML VIAL (PULMICORT) INH SCH ×2 (07:08→19:09)
[2017-06-28 08:24] LABS: BASO % 0.1 %; BASO ABS # 0.01 K/uL (0-0.2); HEMATOCRIT 43.9 % (37-47); HEMOGLOBIN 14.3 g/dL (12.0-16.0); IG# 0.02 K/uL (0.00-0.02); LYMPH % 6.4 %; LYMPH ABS # 0.58 K/uL (1.2-3.4); MEAN CELL VOLUME 102.1 fL (80-100); MEAN CORPUSCULAR HEMOGLOBIN 33.3 pg (25-34); MEAN CORPUSCULAR HGB CONC 32.6 g/dl (32-36); MEAN PLATELET VOLUME 10.4 fL (7.4-10.4); MONO % 0.8 %; MONO ABS # 0.07 K/uL (0.11-0.59); NEUT % 92.5 %; NEUT ABS # 8.39 K/uL (1.4-6.5); PLATELET COUNT 197 K/uL (130-400); RED CELL DISTRIBUTION WIDTH CV 13.8 % (11.5-14.5); RED CELL DISTRIBUTION WIDTH SD 51.3 fL (36.4-46.3); WHITE BLOOD COUNT 9.07 K/uL (4.8-10.8)
[2017-06-28] MEDS: VENLAFAXINE HCL XR 37.5 MG CAPXR PO SCH (08:24)
[2017-06-28] MEDS: GUAIFENESIN 600 MG TABCR PO SCH ×2 (08:25→20:33)
[2017-06-28] MEDS: ISOSORBIDE MONONITRATE 60 MG TABCR PO SCH (08:25)
[2017-06-28] MEDS: GABAPENTIN 100 MG CAP PO SCH ×2 (08:25→20:33)
[2017-06-28] MEDS: METOCLOPRAMIDE HCL 5 MG TAB PO SCH ×2 (08:25→20:33)
[2017-06-28] MEDS: METOPROLOL SUCC 25MG EXT REL TAB PO SCH (08:26)
[2017-06-28] MEDS: INSULIN ASPART 100 UNITS/ML 3 ML PEN SC SCH ×4 (08:43→21:34)
[2017-06-28 09:12] LABS: CALCIUM 9.2 mg/dl (8.5-10.1); CREATININE 0.76 mg/dl (0.60-1.20); POTASSIUM 3.7 mmol/L (3.5-5.1)
--- NOTE | 2017-06-28 09:31 | Pharmacy Progress Note ---
Pharmacy Abx Initial Consult Date of Service Jun 28, 2017. Pharmacy Dosing Scope Date of Consult: 06/28/17 Pharmacy is consulted to initiate Vancomycin/Zosyn IV dosing therapy, order appropriate labs and adjust drug dose/frequency. Subjective The patient is a 82 year old female admitted on Jun 27, 2017 at 21:28 with weakness. Objective Height (Feet): 5 Height (Inches): 3.00 Weight (Kilograms): 72.300 Vital Signs (Past 12Hrs) Vital Signs Past 12 Hours Date Time Temp Pulse Resp B/P (MAP) Pulse Ox O2 Delivery O2 Flow Rate FiO2 06/28/17 07:09 82 18 94 Nasal Cannula 3.0 06/28/17 06:48 36.3 80 20 164/85 (111) 90 Humidified Oxygen 3.0 06/28/17 04:00 Nasal Cannula 3.0 06/28/17 03:17 36.5 75 18 147/71 (96) 90 Nasal Cannula 3.0 06/28/17 00:00 Nasal Cannula 3.0 06/27/17 22:45 36.9 90 24 112/67 5.0 06/27/17 22:01 36.6 89 22 100/52 93 06/27/17 21:55 5.0 Lab Results (24Hrs) Laboratory Tests (24 Hours) Test 06/27/17 21:51 06/28/17 08:13 Lactic Acid Level 1.9 mmol/L (0.4-2.0) White Blood Count 9.07 K/uL (4.8-10.8) Red Blood Count 4.30 M/uL (4.2-5.4) Hemoglobin 14.3 g/dL (12.0-16.0) Hematocrit 43.9 % (37-47) Mean Corpuscular Volume 102.1 fL (80-100) H Mean Corpuscular Hemoglobin 33.3 pg (25-34) Mean Corpuscular Hemoglobin Concent 32.6 g/dl (32-36) Platelet Count 197 K/uL (130-400) Mean Platelet Volume 10.4 fL (7.4-10.4) Neutrophils (%) (Auto) 92.5 % Lymphocytes (%) (Auto) 6.4 % Monocytes (%) (Auto) 0.8 % Eosinophils (%) (Auto) 0.0 % Basophils (%) (Auto) 0.1 % Neutrophils # (Auto) 8.39 K/uL (1.4-6.5) H Lymphocytes # (Auto) 0.58 K/uL (1.2-3.4) L Monocytes # (Auto) 0.07 K/uL (0.11-0.59) L Eosinophils # (Auto) 0.00 K/uL (0-0.5) Basophils # (Auto) 0.01 K/uL (0-0.2) Risk Factors for Resistance * Resident in a longterm or extended-care facility * Hospitalization for 48 hours or more within the past 90 days * Current hospitalization > 5 days * Chronic dialysis within the past 30 days * Immunocompromised (chronic steroid therapy, chemotherapy, immunomodulators) * History of infection with a multidrug-resistant organism: [organism] [site of infection] [date] * Antimicrobial use within the last 90 days [include specific drugs, if known] Assessment & Plan Assessment 82 year old female admitted with respiratory failure/pneumonia, initiated on Vancomycin/Zosyn IV. No cultures pending. Added MRSA nasal swab today. Plan Vancomycin IV * Loading dose: 1500 mg (21 mg/kg) * Maintenance dose: 1000 mg IV (14 mg/kg) every 14 hours * Goal trough level for lung source: 15 to 20 mcg/mL * Trough level ordered for 06/30/16 prior to 0930 dose. Piperacillin/tazobactam * 3.375 g bolus administered over 30 minutes, then 3.375 g IV extended infusion every 8 hours for CrCl greater than 20 mL/min Pharmacy will continue to follow and will adjust dose/frequency as necessary. Thank you.
[2017-06-28] MEDS: DIAZEPAM 5MG TAB PO PRN (10:23)
[2017-06-28] MEDS: MAGNESIUM SULFATE 1GM / D5W 1 GM in PREMIXED IN D5W 100 ML IV SCH ×2 (11:03→12:21)
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
[2017-06-28] MEDS ORDERED: HydrALAZINE HCL 20 MG/ML VIAL IV. PRN (12:15)
[2017-06-28] MEDS ORDERED: PANTOprazole SOD 40 MG TAB PO ONE (12:56)
[2017-06-28] MEDS ORDERED: INSULIN GLARGINE SOLOSTAR 100 UNITS/ML 3 ML PEN SC ONE (13:00)
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
[2017-06-28] MEDS ORDERED: hydrOXYzine HCL 25 MG TAB PO PRN (13:45)
[2017-06-28] MEDS: LOSARTAN POTASSIUM 25 MG TAB PO SCH (14:37)
[2017-06-28] MEDS: VANCOMYCIN INJ 1,000 MG in SODIUM CHLORIDE 0.9% 250ML 250 ML IV SCH (16:25)
[2017-06-28] MEDS: RIVAROXABAN TAB 15 MG TAB PO SCH (20:33)
[2017-06-28] MEDS: ATORVASTATIN 40 MG TAB PO SCH (20:33)
[2017-06-28] MEDS: METHYLPREDNISOLONE IV 40 MG in SYRINGE 0 ML IV SCH (20:39)
[2017-06-29] VITALS (11 sets, daily range): BP systolic 110–167; BP diastolic 56–78; PULSE 58–91; TEMP 35.9–37.1; O2SAT 85–95
[2017-06-29] MEDS: LEVALBUTEROL 1.25MG/0.5ML NEB INH SCH ×4 (02:07→20:50)
[2017-06-29] MEDS: IPRATROPIUM BROMIDE NEB SOLN 0.02% 2.5 ML VIAL INH SCH ×4 (02:08→20:50)
[2017-06-29] MEDS: VANCOMYCIN INJ 1,000 MG in SODIUM CHLORIDE 0.9% 250ML 250 ML IV SCH ×2 (05:44→20:00)
[2017-06-29] MEDS: PIPERACILL/TAZOBAC IV 3.375 GM in DEXTROSE 5% 100ML IV SCH ×3 (05:44→22:21)
[2017-06-29] MEDS: METHYLPREDNISOLONE IV 40 MG in SYRINGE 0 ML IV SCH ×2 (05:46→13:53)
[2017-06-29 06:02] LABS: HEMATOCRIT 42.7 % (37-47); HEMOGLOBIN 13.4 g/dL (12.0-16.0); IG# 0.03 K/uL (0.00-0.02); LYMPH % 5.2 %; MEAN CELL VOLUME 104.9 fL (80-100); MEAN CORPUSCULAR HEMOGLOBIN 32.9 pg (25-34); MEAN CORPUSCULAR HGB CONC 31.4 g/dl (32-36); MONO % 5.1 %; MONO ABS # 0.59 K/uL (0.11-0.59); NEUT % 89.4 %; NEUT ABS # 10.28 K/uL (1.4-6.5); PLATELET COUNT 226 K/uL (130-400); RED CELL DISTRIBUTION WIDTH SD 53.2 fL (36.4-46.3)
[2017-06-29 06:35] LABS: CALCIUM 9.4 mg/dl (8.5-10.1); CREATININE 0.63 mg/dl (0.60-1.20)
[2017-06-29 07:26] LABS: HEMOGLOBIN A1C 6.5 % (4.5-5.6)
[2017-06-29] MEDS: BUDESONIDE 0.5 MG/2 ML VIAL (PULMICORT) INH SCH ×2 (07:38→19:05)
[2017-06-29] MEDS: METOPROLOL SUCC 25MG EXT REL TAB PO SCH (08:24)
[2017-06-29] MEDS: METOCLOPRAMIDE HCL 5 MG TAB PO SCH ×2 (08:24→20:02)
[2017-06-29] MEDS: GUAIFENESIN 600 MG TABCR PO SCH ×2 (08:25→20:02)
[2017-06-29] MEDS: ISOSORBIDE MONONITRATE 60 MG TABCR PO SCH (08:25)
[2017-06-29] MEDS: LOSARTAN POTASSIUM 25 MG TAB PO SCH (08:26)
[2017-06-29] MEDS: GABAPENTIN 100 MG CAP PO SCH ×2 (08:26→20:02)
[2017-06-29] MEDS: VENLAFAXINE HCL XR 37.5 MG CAPXR PO SCH (08:26)
[2017-06-29] MEDS: PANTOprazole SOD 40 MG TAB PO SCH (08:27)
[2017-06-29] MEDS: FUROSEMIDE 40 MG TAB PO SCH (08:27)
[2017-06-29] MEDS: INSULIN ASPART 100 UNITS/ML 3 ML PEN SC SCH ×4 (08:30→20:11)
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
[2017-06-29] MEDS ORDERED: ACETAMINOPHEN 325 MG TAB PO PRN (12:15)
--- NOTE | 2017-06-29 13:26 | DIAGNOSTIC IMAGING REPORT ---
CHEST ONE VIEW PORTABLE HISTORY: Persistent hypoxia COMPARISON: Chest 06/27/2017. FINDINGS: Old, healed right-sided rib fractures. Left shoulder prosthesis is again noted. Surgical clips within the left axilla. The heart remains mildly enlarged. The upper lung zones are clear. No pneumothorax. No evidence for pulmonary edema. Trace bilateral pleural effusions. Bibasilar densities persist. IMPRESSION: 1. No change in the trace bilateral pleural effusions and bibasilar densities. This may represent atelectasis or pneumonia. 2. Stable cardiomegaly. No evidence for pulmonary edema. Electronically signed by: Kian Butler M.D. 06/29/2017 1:24 PM Dictated Date/Time: 06/29/2017 1:23 PM
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
[2017-06-29] MEDS ORDERED: INSULIN GLARGINE SOLOSTAR 100 UNITS/ML 3 ML PEN SC ONE ×2 (14:45→15:30)
--- NOTE | 2017-06-29 15:09 | DIAGNOSTIC IMAGING REPORT ---
BILATERAL CAROTID DOPPLER STUDY HISTORY: carotid bruit COMPARISON: None. TECHNIQUE: Real-time, grayscale, and color Doppler sonography of the carotid arteries was performed. Imaging reviewed in the transverse and longitudinal planes. All measurements were calculated based on NASCET criteria. FINDINGS: Antegrade flow is seen in the bilateral vertebral arteries. The brachial pressures were unable to be performed. Moderate calcified plaque seen within the right carotid bifurcation and bilateral common carotid arteries. Mild calcified plaque within the left carotid bifurcation. The peak systolic velocity within the right ICA is 292 cm/s proximally. The right systolic ratio is 2.1. Severe stenosis within the right external carotid artery with a peak systolic velocity of 519 cm/s. The peak systolic velocity within the left ICA is 174 cm/s proximally. The left systolic ratio is 0.9. Provided images suggest 50% stenosis within the mid common carotid artery. There is also likely 50% stenosis of the proximal left internal carotid artery. Moderate to severe stenosis within the left external carotid artery with a peak systolic velocity of 192 cm/s. IMPRESSION: 1. Greater than 70% stenosis within the proximal right internal carotid artery. 2. Approximately 50% stenosis within the left proximal internal carotid artery and left common carotid artery. 3. Bilateral external carotid artery stenosis. Electronically signed by: Kian Butler M.D. 06/29/2017 3:07 PM Dictated Date/Time: 06/29/2017 3:02 PM
[2017-06-29] MEDS: ATORVASTATIN 40 MG TAB PO SCH (20:02)
[2017-06-29] MEDS: RIVAROXABAN TAB 15 MG TAB PO SCH (20:02)
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
[2017-06-30] VITALS (15 sets, daily range): BP systolic 134–178; BP diastolic 68–82; PULSE 59–97; TEMP 36.3–36.8; O2SAT 90–97
[2017-06-30] MEDS: IPRATROPIUM BROMIDE NEB SOLN 0.02% 2.5 ML VIAL INH SCH ×4 (01:35→19:48)
[2017-06-30] MEDS: LEVALBUTEROL 1.25MG/0.5ML NEB INH SCH ×4 (01:35→19:48)
[2017-06-30] MEDS: METHYLPREDNISOLONE IV 40 MG in SYRINGE 0 ML IV SCH ×2 (02:31→14:09)
[2017-06-30] MEDS: PIPERACILL/TAZOBAC IV 3.375 GM in DEXTROSE 5% 100ML IV SCH ×3 (05:29→22:11)
[2017-06-30 05:46] LABS: HEMATOCRIT 43.7 % (37-47); HEMOGLOBIN 13.9 g/dL (12.0-16.0); MEAN CELL VOLUME 104.8 fL (80-100); MEAN CORPUSCULAR HEMOGLOBIN 33.3 pg (25-34); MEAN CORPUSCULAR HGB CONC 31.8 g/dl (32-36); MEAN PLATELET VOLUME 10.3 fL (7.4-10.4); PLATELET COUNT 205 K/uL (130-400); RED CELL DISTRIBUTION WIDTH CV 13.9 % (11.5-14.5); RED CELL DISTRIBUTION WIDTH SD 53.4 fL (36.4-46.3); WHITE BLOOD COUNT 9.78 K/uL (4.8-10.8)
[2017-06-30 06:40] LABS: CREATININE 0.67 mg/dl (0.60-1.20); POTASSIUM 3.4 mmol/L (3.5-5.1)
[2017-06-30] MEDS: BUDESONIDE 0.5 MG/2 ML VIAL (PULMICORT) INH SCH ×2 (07:04→19:48)
[2017-06-30] MEDS: INSULIN ASPART 100 UNITS/ML 3 ML PEN SC SCH ×4 (07:45→20:34)
[2017-06-30] MEDS: INSULIN GLARGINE SOLOSTAR 100 UNITS/ML 3 ML PEN SC SCH (07:45)
[2017-06-30] MEDS: ISOSORBIDE MONONITRATE 60 MG TABCR PO SCH (07:49)
[2017-06-30] MEDS: FUROSEMIDE 40 MG TAB PO SCH (07:49)
[2017-06-30] MEDS: GUAIFENESIN 600 MG TABCR PO SCH ×2 (07:50→20:35)
[2017-06-30] MEDS: METOCLOPRAMIDE HCL 5 MG TAB PO SCH ×2 (07:50→20:36)
[2017-06-30] MEDS: GABAPENTIN 100 MG CAP PO SCH ×2 (07:50→20:35)
[2017-06-30] MEDS: LOSARTAN POTASSIUM 25 MG TAB PO SCH (07:50)
[2017-06-30] MEDS: PANTOprazole SOD 40 MG TAB PO SCH (07:51)
[2017-06-30] MEDS: VENLAFAXINE HCL XR 37.5 MG CAPXR PO SCH (07:51)
[2017-06-30] MEDS: METOPROLOL SUCC 25MG EXT REL TAB PO SCH (07:51)
[2017-06-30] MEDS: DIAZEPAM 5MG TAB PO PRN (07:56)
[2017-06-30] MEDS ORDERED: POTASSIUM CHLORIDE 20 MEQ TABCR PO ONE (08:30)
[2017-06-30] MEDS ORDERED: VANCOMYCIN TROUGH SCH (09:30)
--- NOTE | 2017-06-30 10:30 | Pharmacy Progress Note ---
Pharmacy Abx Dose Short Note Date of Service Jun 30, 2017. Assessment & Plan Assessment 82 year old female receiving Vancomycin for treatment of pneumonia Day # 3 of antimicrobial therapy. Plan Vancomycin * Trough level of 12.9 mcg/mL is subtherapeutic. * Change to 1000 mg IV every 12 hours * Goal trough level for pneumonia : 15 to 20 mcg/mL * Trough level ordered for: 07/02/17 ~30 minutes before the 4th maintenance dose Pharmacy will continue to follow and will adjust dose/frequency as necessary. Thank you.
[2017-06-30] MEDS: VANCOMYCIN INJ 1,000 MG in SODIUM CHLORIDE 0.9% 250ML 250 ML IV SCH (10:55)
[2017-06-30] MEDS: BISACODYL 5 MG TABEC PO PRN (10:55)
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
--- NOTE | 2017-06-30 16:10 | Pulmonology Progress Note ---
Pulmonary Progress Note Date of Service Jun 30, 2017. Attending Dr. Curtis Subjective Mrs. Conn is an 82-year-old female who was admitted for shortness of breath. She was found to have hypoxia with hypercapnia. She has been placed on BiPAP and is showing some improvement however it is slow. She has been on high- dose steroids with methylprednisolone as well as leave albuterol bronchodilators with ipratropium. She was also placed on Pulmicort nebulizer treatments. Regarding antibiotics the patient is now on Zosyn. Vancomycin is been held. Patient is requiring more BiPAP. At this time she is on 14/6 with O2 bleeding and at 4 L/m. Patient continues to have trouble with oxygenation and is saturating in the low 90s with good effort. Initially patient's SaO2 on my exam was 84%. However, BiPAP mask showed a leak of 104. Leak was adjusted to below 30 and saturations improved to the low to mid 90s. Patient reports no fever or shortness breath. She does still have considerable amounts of anxiety and admits that this contributes to her shortness of breath. She has no other constitutional complaints. Objective Vital Signs - as noted below Laboratory Data - as noted below Physical Exam: General - NAD Eyes - No icterus, gaze conjugate ENT - Mucosa moist, no lesions or candidiasis Neck - Supple, No JVD Lungs - No rhonchi. Patient continues with scattered expiratory wheezes. She also continues with minimal aeration Heart - Regular, rate controlled Abdomen - Soft, NT, ND, BS present Extremities - No edema, pedal pulses intact. Patient does have generalized weakness of the upper extremities as well as lower extremities. Neuro - A&OX3. The patient does have significant weakness. Assessment & Plan Patient continues with respiratory distress. She is a level V DNR/DNI. If there is no improvement by the middle of the day tomorrow, we will need to discuss ongoing care which may involve palliative measures. ACUTE ON CHRONIC RESPIRATORY FAILURE * Hypoxia and Hypercapnia are persistent. ABGs this morning revealed a pH of 7.37/PCO2 79/PaO2 49/HCO3 45/81.3% on 3 L * Obstructive as well as restrictive airway disease * BiPAP adjusted to 14/6 * Continue antibiotic treatment for presumed pneumonia with Zosyn - Pro calcitonin elevated at 0.68. Check repeat Pro calcitonin tomorrow with a.m. labs * Will need pulmonary follow up as an outpatient * Continue Nebs, abx, and supplemental O2 * Patient with considerable anxiety and on anxiolytics at home. This may be contributing to hypercapnia. Limit anxiolytics as possible RIGHT PLEURAL EFFUSION * This is too small to significantly impact respiratory status * No current plans for thoracentesis * No change on yesterday's chest x-ray DVT PROPHYLAXIS * On Xarelto as an outpatient * TEDs/SCDs DISPOSITION * Patient will need outpatient follow-up with full PFTs on discharge Thank you for including us in the care of this patient. We will continue to follow. Please refer to Dr. Curtis's addendum for further recommendations Physician Supervision Note: I was present with Kavon Dominguez during the history and exam. I discussed the case with him and agree with the findings and plan as documented in the note. Any exceptions or clarifications are listed here: Patient with h/o rib fractures and TBI, RA on methotrexate, afib, admitted for acute on chronic respiratory failure with hypercarbia. At some point she was nearly comatose, but improved with bi-level NIV. Etiology is multifactorial, has restrictive and obstructive lung disease. Has some collapse of RML, AGUSTÍN nodule. Also has a small pleural effusion on the right. Imrpoved over the last couple of days Continue nocturnal NIV, avoid sedating agents. Doubt that the effusion is contributing to her symptoms, I see no benefit in tapping it. Continue steroids, bronchodilators She must wear nocturnal and prn BIPAP Empiric Abx for PNA Zac Curtis MD Data Medications: Current Inpatient Medications Medications (Trade) Dose Ordered Sig/Rigoberto Route Start Time Stop Time Status Last Admin Dose Admin Ondansetron HCl (Zofran Odt) 8 mg Q6H PRN PO 06/27/17 21:45 07/27/17 21:44 Ondansetron HCl (Zofran Inj) 4 mg Q6H PRN IV 06/27/17 21:45 07/27/17 21:44 Guaifenesin (Mucinex Contr Rel Tab) 600 mg BID PO 06/28/17 09:00 07/28/17 08:59 06/30/17 07:50 600 MG Atorvastatin Calcium (Lipitor Tab) 40 mg QPM PO 06/28/17 21:00 2/8/18 20:59 06/29/17 20:02 40 MG Diazepam (Valium Tab) 2.5 mg Q6H PRN PO 06/27/17 21:45 07/27/17 21:44 06/30/17 07:56 2.5 MG Folic Acid (Folvite Tab) 1 mg DAILY PO 06/28/17 09:00 07/28/17 08:59 06/30/17 07:52 1 MG Gabapentin (Neurontin Cap) 200 mg BID PO 06/28/17 09:00 07/28/17 08:59 06/30/17 07:50 200 MG Isosorbide Mononitrate (Imdur Ext Rel Tab) 60 mg QAM PO 06/28/17 09:00 07/28/17 08:59 06/30/17 07:49 60 MG Metoclopramide HCl (Reglan Tab) 5 mg BID PO 06/28/17 09:00 07/28/17 08:59 06/30/17 07:50 5 MG Metoprolol Succinate (Toprol Xl Tab) 25 mg DAILY PO 06/28/17 09:00 07/28/17 08:59 06/30/17 07:51 25 MG Rivaroxaban (Xarelto Tab) 15 mg QPM PO 06/28/17 21:00 07/28/17 20:59 06/29/17 20:02 15 MG Venlafaxine HCl (effeXOR EXTENDED REL CAP) 37.5 mg QAM PO 06/28/17 09:00 07/28/17 08:59 06/30/17 07:51 37.5 MG Ipratropium [place] (Atrovent 0.02% 0.5MG/2.5ML Neb) 0.5 mg Q6R INH 06/28/17 03:00 07/28/17 02:59 06/30/17 14:05 0.5 MG Levalbuterol (Xopenex 1.25MG/ 0.5ML Neb) 1.25 mg Q6R INH 06/28/17 03:00 07/28/17 02:59 06/30/17 14:05 1.25 MG Ipratropium [place] (Atrovent 0.02% 0.5MG/2.5ML Neb) 0.5 mg Q2H PRN INH 06/27/17 22:00 07/27/17 21:59 Levalbuterol (Xopenex 1.25MG/ 0.5ML Neb) 1.25 mg Q2H PRN INH 06/27/17 22:00 07/27/17 21:59 Ioversol (Optiray 320) 100 ml UD PRN IV 06/27/17 22:15 07/01/17 22:14 Piperacillin Sod/ Tazobactam Sod (Consult) 1 ea UD PRN N/A 06/28/17 01:30 07/28/17 01:29 Piperacillin Sod/ Tazobactam Sod 3.375 gm/Dextrose 115 ml @ 28.75 mls/ hr Q8H IV 06/28/17 06:00 07/05/17 05:59 06/30/17 14:09 28.75 MLS/HR Budesonide (Pulmicort Respules 0.5MG/ 2ML Neb Soln) 0.5 mg BIDR INH 06/28/17 08:00 07/28/17 07:59 06/30/17 07:04 0.5 MG Insulin Aspart (novoLOG ASPART) SLIDING SCALE If C... ACHS SC 06/28/17 07:00 07/28/17 06:59 06/30/17 11:54 5 UNITS Glucose (Glucose 40% Gel) UD PRN PO 06/28/17 06:45 07/28/17 06:44 Glucose (Glucose Chew Tab) 1 tabs UD PRN PO 06/28/17 06:45 07/28/17 06:44 Dextrose (Dextrose 50% 50ML Syringe) 50 ml UD PRN IV 06/28/17 06:45 07/28/17 06:44 Glucagon (Glucagon Inj) 1 mg UD PRN SQ 06/28/17 06:45 07/28/17 06:44 Hydralazine HCl (HydrALAZINE INJ) 10 mg Q8H PRN IV. 06/28/17 12:15 07/28/17 12:14 06/28/17 12:58 10 MG Losartan Potassium (coZAAR TAB) 25 mg DAILY PO 06/28/17 13:00 07/28/17 12:59 06/30/17 07:50 25 MG Furosemide (Lasix Tab) 40 mg QAM PO 06/29/17 09:00 07/29/17 08:59 06/30/17 07:49 40 MG Pantoprazole Sodium (Protonix Tab) 40 mg QAM PO 06/29/17 09:00 07/01/17 09:01 06/30/17 07:51 40 MG Acetaminophen (Tylenol Tab) 650 mg Q4H PRN PO 06/29/17 12:15 07/29/17 12:14 06/29/17 12:37 650 MG Methylprednisolone Sodium Succinate 40 mg/Syringe 0.64 ml @ 1.5 mls/min Q12H IV 06/30/17 02:00 06/30/17 21:59 06/30/17 14:09 1.5 MLS/MIN Insulin Glargine (Lantus Solostar Pen) 6 units DAILY SC 06/30/17 09:00 07/30/17 08:59 06/30/17 07:45 6 UNITS Bisacodyl (Dulcolax Tab) 5 mg DAILY PRN PO 06/30/17 10:00 07/30/17 09:59 06/30/17 10:55 5 MG Methylprednisolone Sodium Succinate 40 mg/Syringe 0.64 ml @ 1.5 mls/min DAILY@0900 IV 07/01/17 09:00 07/31/17 08:59 I & O: 24-Hour Column 07/01/17 07:59 Intake Total 360 ml Output Total 1050 ml Balance -690 ml Vital Signs: Date Time Temp Pulse Resp B/P (MAP) Pulse Ox O2 Delivery O2 Flow Rate FiO2 06/30/17 15:49 36.5 84 20 157/69 (98) 91 BiPAP 06/30/17 15:44 36.7 59 18 149/80 (103) 95 Room Air 06/30/17 14:07 78 20 90 BiPAP/CPAP 6.0 06/30/17 12:20 92 90 6.0 06/30/17 12:00 Nasal Cannula 3.0 06/30/17 11:02 36.3 97 24 147/82 (103) 90 Nasal Cannula 3.0 06/30/17 08:00 Nasal Cannula 3.0 06/30/17 07:25 36.8 80 24 160/81 (107) 95 BiPAP 6.0 06/30/17 07:17 92 6.0 06/30/17 07:04 82 20 92 BiPAP/CPAP 6.0 06/30/17 04:00 BiPAP 6.0 06/30/17 03:46 36.6 86 20 178/72 (107) 92 Nasal Cannula 6.0 06/30/17 01:35 83 20 95 BiPAP/CPAP 6.0 06/30/17 00:10 BiPAP 6.0 06/29/17 23:00 36.6 91 20 129/78 (95) 95 BiPAP 6.0 06/29/17 20:21 37.1 87 18 110/56 (74) 92 BiPAP 06/29/17 20:00 BiPAP 6.0 06/29/17 19:05 87 92 6.0 06/29/17 19:05 87 20 92 BiPAP/CPAP 6.0 Laboratory Results: Last 24 Hours Test 06/29/17 16:28 06/29/17 20:09 06/30/17 05:23 06/30/17 06:46 Bedside Glucose 142 mg/dl 198 mg/dl 204 mg/dl White Blood Count 9.78 K/uL Red Blood Count 4.17 M/uL Hemoglobin 13.9 g/dL Hematocrit 43.7 % Mean Corpuscular Volume 104.8 fL Mean Corpuscular Hemoglobin 33.3 pg Mean Corpuscular Hemoglobin Concent 31.8 g/dl RDW Standard Deviation 53.4 fL RDW Coefficient of Variation 13.9 % Platelet Count 205 K/uL Mean Platelet Volume 10.3 fL Sodium Level 140 mmol/L Potassium Level 3.4 mmol/L Chloride Level 91 mmol/L Carbon Dioxide Level 47 mmol/L Anion Gap 2.0 mmol/L Blood Urea Nitrogen 18 mg/dl Creatinine 0.67 mg/dl Est Creatinine Clear Calc Drug Dose 63.7 ml/min Estimated GFR () 96.2 Estimated GFR (Non- 83.0 BUN/Creatinine Ratio 26.9 Random Glucose 167 mg/dl Calcium Level 9.0 mg/dl Test 06/30/17 09:37 06/30/17 11:25 Arterial Blood pH 7.37 Arterial Blood Partial Pressure CO2 79 mmHg Arterial Blood Partial Pressure O2 49 mm/Hg Arterial Blood HCO3 45 mmol/L Arterial Blood Oxygen Saturation 81.3 % Arterial Blood Base Excess 15.5 mEq/L Arterial Blood Gas Delivery 3 L Leonidas Test POS Vancomycin Level Trough 12.9 mcg/ml Bedside Glucose 188 mg/dl
[2017-06-30] MEDS ORDERED: NURSING VERBAL MED ORDER ONE (18:30)
[2017-06-30] MEDS ORDERED: BISACODYL 5 MG TABEC PO SCH (18:45)
[2017-06-30] MEDS: RIVAROXABAN TAB 15 MG TAB PO SCH (20:35)
[2017-06-30] MEDS: ATORVASTATIN 40 MG TAB PO SCH (20:35)
[2017-06-30] MEDS ORDERED: VANCOMYCIN INJ 1,000 MG in SODIUM CHLORIDE 0.9% 250ML 250 ML IV SCH (22:00)
[2017-07-01] VITALS (15 sets, daily range): BP systolic 114–150; BP diastolic 65–86; PULSE 73–100; TEMP 36.5–36.9; O2SAT 82–98; Ht 160 cm; Wt 71.2 kg
[2017-07-01] MEDS: LEVALBUTEROL 1.25MG/0.5ML NEB INH SCH ×4 (01:53→19:25)
[2017-07-01] MEDS: IPRATROPIUM BROMIDE NEB SOLN 0.02% 2.5 ML VIAL INH SCH ×4 (01:53→19:25)
[2017-07-01] MEDS: PIPERACILL/TAZOBAC IV 3.375 GM in DEXTROSE 5% 100ML IV SCH ×3 (05:41→20:24)
[2017-07-01] MEDS: BUDESONIDE 0.5 MG/2 ML VIAL (PULMICORT) INH SCH ×2 (07:07→19:25)
[2017-07-01] MEDS: INSULIN ASPART 100 UNITS/ML 3 ML PEN SC SCH ×4 (08:05→20:22)
[2017-07-01] MEDS: METHYLPREDNISOLONE IV 40 MG in SYRINGE 0 ML IV SCH (08:06)
[2017-07-01] MEDS: INSULIN GLARGINE SOLOSTAR 100 UNITS/ML 3 ML PEN SC SCH (08:06)
[2017-07-01] MEDS: GUAIFENESIN 600 MG TABCR PO SCH ×2 (08:07→20:21)
[2017-07-01] MEDS: LOSARTAN POTASSIUM 25 MG TAB PO SCH (08:07)
[2017-07-01] MEDS: ISOSORBIDE MONONITRATE 60 MG TABCR PO SCH (08:07)
[2017-07-01] MEDS: PANTOprazole SOD 40 MG TAB PO SCH (08:09)
[2017-07-01] MEDS: VENLAFAXINE HCL XR 37.5 MG CAPXR PO SCH (08:09)
[2017-07-01] MEDS: GABAPENTIN 100 MG CAP PO SCH ×2 (08:09→20:19)
[2017-07-01] MEDS: METOPROLOL SUCC 25MG EXT REL TAB PO SCH (08:10)
[2017-07-01] MEDS: FUROSEMIDE 40 MG TAB PO SCH (08:10)
[2017-07-01] MEDS: METOCLOPRAMIDE HCL 5 MG TAB PO SCH ×2 (08:10→20:21)
--- NOTE | 2017-07-01 08:12 | DIAGNOSTIC IMAGING REPORT ---
CHEST ONE VIEW PORTABLE CLINICAL HISTORY: Persistent respiratory failure. COMPARISON STUDY: Chest CT June 27, 2017 and chest radiograph June 29, 2017. FINDINGS: Cardiomegaly is unchanged. There is no evidence for pulmonary edema. A left shoulder arthroplasty and left axillary surgical clips are noted. There are old right rib fractures. Small bilateral pleural effusions with associated bibasilar opacities persist. These are unchanged. There is no pneumothorax. IMPRESSION: 1. No change in small bilateral pleural effusions with bibasilar opacities which may reflect atelectasis or pneumonia. 2. Cardiomegaly without evidence for pulmonary edema. Electronically signed by: Francisco Ramos M.D. 07/01/2017 8:10 AM Dictated Date/Time: 07/01/2017 8:08 AM
[2017-07-01 08:41] LABS: HEMATOCRIT 43.5 % (37-47); HEMOGLOBIN 13.4 g/dL (12.0-16.0); MEAN CELL VOLUME 106.6 fL (80-100); MEAN CORPUSCULAR HEMOGLOBIN 32.8 pg (25-34); MEAN CORPUSCULAR HGB CONC 30.8 g/dl (32-36); MEAN PLATELET VOLUME 10.3 fL (7.4-10.4); PLATELET COUNT 189 K/uL (130-400); RED CELL DISTRIBUTION WIDTH SD 53.7 fL (36.4-46.3); WHITE BLOOD COUNT 9.85 K/uL (4.8-10.8)
[2017-07-01 09:12] LABS: CALCIUM 8.7 mg/dl (8.5-10.1); CREATININE 0.66 mg/dl (0.60-1.20); POTASSIUM 3.4 mmol/L (3.5-5.1)
[2017-07-01] MEDS ORDERED: POTASSIUM CHLORIDE 20 MEQ TABCR PO ONE (11:15)
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
[2017-07-01] MEDS: POTASSIUM CHLORIDE 20 MEQ TABCR PO SCH (20:20)
[2017-07-01] MEDS: RIVAROXABAN TAB 15 MG TAB PO SCH (20:20)
[2017-07-01] MEDS: ATORVASTATIN 40 MG TAB PO SCH (20:21)
[2017-07-02] VITALS (17 sets, daily range): BP systolic 97–151; BP diastolic 59–76; PULSE 64–97; TEMP 36.6–37.5; O2SAT 87–100
[2017-07-02] MEDS: IPRATROPIUM BROMIDE NEB SOLN 0.02% 2.5 ML VIAL INH SCH ×4 (03:07→19:12)
[2017-07-02] MEDS: LEVALBUTEROL 1.25MG/0.5ML NEB INH SCH ×4 (03:07→19:12)
[2017-07-02] MEDS: PIPERACILL/TAZOBAC IV 3.375 GM in DEXTROSE 5% 100ML IV SCH (05:23)
[2017-07-02] MEDS: BUDESONIDE 0.5 MG/2 ML VIAL (PULMICORT) INH SCH ×2 (06:55→19:12)
[2017-07-02] MEDS: METHYLPREDNISOLONE IV 40 MG in SYRINGE 0 ML IV SCH (08:31)
[2017-07-02] MEDS: LOSARTAN POTASSIUM 25 MG TAB PO SCH (08:32)
[2017-07-02] MEDS: ISOSORBIDE MONONITRATE 60 MG TABCR PO SCH (08:32)
[2017-07-02] MEDS: METOPROLOL SUCC 25MG EXT REL TAB PO SCH (08:32)
[2017-07-02] MEDS: GUAIFENESIN 600 MG TABCR PO SCH ×2 (08:33→20:33)
[2017-07-02] MEDS: FUROSEMIDE 40 MG TAB PO SCH (08:33)
[2017-07-02] MEDS: METOCLOPRAMIDE HCL 5 MG TAB PO SCH ×2 (08:34→20:33)
[2017-07-02] MEDS: VENLAFAXINE HCL XR 37.5 MG CAPXR PO SCH (08:35)
[2017-07-02 08:38] LABS: HEMOGLOBIN 13.2 g/dL (12.0-16.0); MEAN CELL VOLUME 107.8 fL (80-100); MEAN CORPUSCULAR HEMOGLOBIN 32.4 pg (25-34); MEAN PLATELET VOLUME 10.4 fL (7.4-10.4); PLATELET COUNT 182 K/uL (130-400); RED CELL DISTRIBUTION WIDTH CV 13.6 % (11.5-14.5); RED CELL DISTRIBUTION WIDTH SD 53.2 fL (36.4-46.3); WHITE BLOOD COUNT 9.64 K/uL (4.8-10.8)
[2017-07-02] MEDS: GABAPENTIN 100 MG CAP PO SCH ×2 (08:38→20:34)
[2017-07-02] MEDS: POTASSIUM CHLORIDE 20 MEQ TABCR PO SCH ×2 (08:38→20:34)
[2017-07-02] MEDS: INSULIN ASPART 100 UNITS/ML 3 ML PEN SC SCH ×4 (08:41→20:31)
[2017-07-02] MEDS: INSULIN GLARGINE SOLOSTAR 100 UNITS/ML 3 ML PEN SC SCH (08:42)
[2017-07-02 09:28] LABS: CALCIUM 8.6 mg/dl (8.5-10.1); CREATININE 0.66 mg/dl (0.60-1.20); POTASSIUM 4.1 mmol/L (3.5-5.1)
[2017-07-02] MEDS ORDERED: VANCOMYCIN TROUGH ONE (09:30)
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
--- NOTE | 2017-07-02 15:46 | Pulmonology Progress Note ---
Pulmonary Progress Note Date of Service Jul 02, 2017. Attending Dr. Curtis Subjective Patient appears more comfortable this morning and is in no acute distress. She slept well last night and tolerated the BiPAP well. She is on nasal cannula this morning with no distress. She denies a significant cough. Anxiety is been generally controlled. She denies any fever or chills. No sputum production. No hemoptysis. No pleuritic pain. She is tolerating diet with no evidence of dysphagia or aspiration Objective Vital Signs - as noted below Laboratory Data - as noted below Physical Exam: General - NAD Eyes - No icterus, gaze conjugate ENT - Mucosa moist, no lesions or candidiasis Neck - Supple, No JVD Lungs - Breath sounds continue to be decreased. Persistent scattered expiratory wheezes but improved from yesterday Heart - Regular, rate controlled Abdomen - Soft, NT, ND, BS present Extremities - No edema, pedal pulses intact. Persistent muscular weakness Neuro - A&OX3. The patient does have significant weakness. Assessment & Plan ACUTE ON CHRONIC RESPIRATORY FAILURE * Hypoxia and Hypercapnia are persistent. ABGs continue to reflect a normal pH with a and elevated PCO2 and low PaO2 * Obstructive as well as restrictive airway disease * BiPAP as tolerated * Continue antibiotic treatment for presumed pneumonia with Zosyn (Day #6) - Pro calcitonin elevated at 0.68. Repeat Pro calcitonin 0.39 (0.0 - 0.5) * Will need pulmonary follow up as an outpatient * Continue Nebs and supplemental O2 * Patient titrated off methylprednisolone and started on oral prednisone * Patient with considerable anxiety and on anxiolytics at home. This may be contributing to hypercapnia. Limit anxiolytics as possible RIGHT PLEURAL EFFUSION * This is too small to significantly impact respiratory status * Clinically improving * No current plans for thoracentesis DVT PROPHYLAXIS * On Xarelto as an outpatient * TEDs/SCDs DISPOSITION * Patient will need outpatient follow-up with full PFTs on discharge Thank you for including us in the care of this patient. We will continue to follow. Please refer to Dr. Curtis's addendum for further recommendations Data Medications: Current Inpatient Medications Medications (Trade) Dose Ordered Sig/Rigoberto Route Start Time Stop Time Status Last Admin Dose Admin Ondansetron HCl (Zofran Odt) 8 mg Q6H PRN PO 06/27/17 21:45 07/27/17 21:44 Ondansetron HCl (Zofran Inj) 4 mg Q6H PRN IV 06/27/17 21:45 07/27/17 21:44 Guaifenesin (Mucinex Contr Rel Tab) 600 mg BID PO 06/28/17 09:00 07/28/17 08:59 07/02/17 08:33 600 MG Atorvastatin Calcium (Lipitor Tab) 40 mg QPM PO 06/28/17 21:00 07/28/17 20:59 07/01/17 20:21 40 MG Diazepam (Valium Tab) 2.5 mg Q6H PRN PO 06/27/17 21:45 07/27/17 21:44 06/30/17 07:56 2.5 MG Folic Acid (Folvite Tab) 1 mg DAILY PO 06/28/17 09:00 07/28/17 08:59 07/02/17 08:35 1 MG Gabapentin (Neurontin Cap) 200 mg BID PO 06/28/17 09:00 07/28/17 08:59 07/02/17 08:38 200 MG Isosorbide Mononitrate (Imdur Ext Rel Tab) 60 mg QAM PO 06/28/17 09:00 07/28/17 08:59 07/02/17 08:32 60 MG Metoclopramide HCl (Reglan Tab) 5 mg BID PO 06/28/17 09:00 07/28/17 08:59 07/02/17 08:34 5 MG Metoprolol Succinate (Toprol Xl Tab) 25 mg DAILY PO 06/28/17 09:00 07/28/17 08:59 07/02/17 08:32 25 MG Rivaroxaban (Xarelto Tab) 15 mg QPM PO 06/28/17 21:00 07/28/17 20:59 07/01/17 20:20 15 MG Venlafaxine HCl (effeXOR EXTENDED REL CAP) 37.5 mg QAM PO 06/28/17 09:00 07/28/17 08:59 07/02/17 08:35 37.5 MG Ipratropium Moran (Atrovent 0.02% 0.5MG/2.5ML Neb) 0.5 mg Q6R INH 06/28/17 03:00 07/28/17 02:59 07/02/17 11:22 0.5 MG Levalbuterol (Xopenex 1.25MG/ 0.5ML Neb) 1.25 mg Q6R INH 06/28/17 03:00 07/28/17 02:59 07/02/17 11:22 1.25 MG Ipratropium Moran (Atrovent 0.02% 0.5MG/2.5ML Neb) 0.5 mg Q2H PRN INH 06/27/17 22:00 07/27/17 21:59 Levalbuterol (Xopenex 1.25MG/ 0.5ML Neb) 1.25 mg Q2H PRN INH 06/27/17 22:00 07/27/17 21:59 Budesonide (Pulmicort Respules 0.5MG/ 2ML Neb Soln) 0.5 mg BIDR INH 06/28/17 08:00 07/28/17 07:59 07/02/17 06:55 0.5 MG Insulin Aspart (novoLOG ASPART) SLIDING SCALE If C... ACHS SC 06/28/17 07:00 07/28/17 06:59 07/02/17 12:44 8 UNITS Glucose (Glucose 40% Gel) UD PRN PO 06/28/17 06:45 07/28/17 06:44 Glucose (Glucose Chew Tab) 1 tabs UD PRN PO 06/28/17 06:45 07/28/17 06:44 Dextrose (Dextrose 50% 50ML Syringe) 50 ml UD PRN IV 06/28/17 06:45 07/28/17 06:44 Glucagon (Glucagon Inj) 1 mg UD PRN SQ 06/28/17 06:45 07/28/17 06:44 Hydralazine HCl (HydrALAZINE INJ) 10 mg Q8H PRN IV. 06/28/17 12:15 07/28/17 12:14 06/28/17 12:58 10 MG Losartan Potassium (coZAAR TAB) 25 mg DAILY PO 06/28/17 13:00 07/28/17 12:59 07/02/17 08:32 25 MG Furosemide (Lasix Tab) 40 mg QAM PO 06/29/17 09:00 07/29/17 08:59 07/02/17 08:33 40 MG Acetaminophen (Tylenol Tab) 650 mg Q4H PRN PO 06/29/17 12:15 07/29/17 12:14 06/29/17 12:37 650 MG Insulin Glargine (Lantus Solostar Pen) 6 units DAILY SC 06/30/17 09:00 07/30/17 08:59 07/02/17 08:42 6 UNITS Bisacodyl (Dulcolax Tab) 5 mg DAILY PRN PO 06/30/17 10:00 07/30/17 09:59 06/30/17 10:55 5 MG Potassium Chloride (Klor-Con Tab) 20 meq BID PO 07/01/17 21:00 07/31/17 20:59 07/02/17 08:38 20 MEQ Amoxicillin/ Clavulanate Potassium (Augmentin Tab) 875 mg BIDM PO 07/02/17 16:45 07/05/17 23:59 Prednisone (PredniSONE TAB) 40 mg DAILY PO 07/03/17 09:00 08/02/17 08:59 Acetazolamide (Diamox Tab) 250 mg BID17 PO 07/02/17 17:00 08/01/17 16:59 I & O: 24-Hour Column 07/03/17 08:00 Intake Total 550 ml Output Total 900 ml Balance -350 ml Vital Signs: Date Time Temp Pulse Resp B/P (MAP) Pulse Ox O2 Delivery O2 Flow Rate FiO2 07/02/17 14:58 36.8 90 134/74 (94) 91 Nasal Cannula 5.0 07/02/17 12:00 91 Nasal Cannula 5.0 07/02/17 11:50 36.9 90 20 117/62 (80) 100 Nasal Cannula 5.0 07/02/17 11:23 64 16 96 Nasal Cannula 6.0 07/02/17 08:00 98 Nasal Cannula 5.0 07/02/17 07:26 36.6 97 20 151/70 (97) 91 BiPAP 07/02/17 06:55 81 16 87 BiPAP/CPAP 6.0 07/02/17 06:55 81 87 6.0 07/02/17 05:41 74 96 5.0 07/02/17 04:25 36.7 85 18 142/59 (86) 94 BiPAP 07/02/17 04:00 BiPAP 6.0 07/02/17 03:08 81 18 93 BiPAP/CPAP 6.0 07/02/17 00:19 37.0 83 16 108/68 (81) 94 BiPAP 07/02/17 00:00 BiPAP 6.0 07/01/17 22:40 82 96 5.0 07/01/17 20:00 95 Nasal Cannula 5.0 07/01/17 19:27 86 20 93 Nasal Cannula 4.0 07/01/17 18:57 36.6 100 22 139/65 (89) 97 Nasal Cannula 5.0 07/01/17 16:00 82 Nasal Cannula 6.0 Laboratory Results: Last 24 Hours Test 07/01/17 16:10 07/01/17 20:02 07/02/17 06:49 07/02/17 08:21 Bedside Glucose 325 mg/dl 121 mg/dl 130 mg/dl White Blood Count 9.64 K/uL Red Blood Count 4.08 M/uL Hemoglobin 13.2 g/dL Hematocrit 44.0 % Mean Corpuscular Volume 107.8 fL Mean Corpuscular Hemoglobin 32.4 pg Mean Corpuscular Hemoglobin Concent 30.0 g/dl RDW Standard Deviation 53.2 fL RDW Coefficient of Variation 13.6 % Platelet Count 182 K/uL Mean Platelet Volume 10.4 fL Sodium Level 143 mmol/L Potassium Level 4.1 mmol/L Chloride Level 92 mmol/L Carbon Dioxide Level 53 mmol/L Blood Urea Nitrogen 22 mg/dl Creatinine 0.66 mg/dl Est Creatinine Clear Calc Drug Dose 65.5 ml/min Estimated GFR () 96.7 Estimated GFR (Non- 83.4 BUN/Creatinine Ratio 33.4 Random Glucose 146 mg/dl Calcium Level 8.6 mg/dl Test 07/02/17 08:27 07/02/17 11:12 Arterial Blood pH 7.37 Arterial Blood Partial Pressure CO2 84 mmHg Arterial Blood Partial Pressure O2 93 mm/Hg Arterial Blood HCO3 48 mmol/L Arterial Blood Oxygen Saturation 96.5 % Arterial Blood Base Excess 18.5 mEq/L Arterial Blood Gas Delivery 5L Leonidas Test POS Bedside Glucose 233 mg/dl
[2017-07-02] MEDS: AMOXICILLIN/CLAVULANATE TAB 875 MG TAB PO SCH (18:11)
[2017-07-02] MEDS: AcetaZOLAMIDE 250 MG TAB PO SCH (18:11)
[2017-07-02] MEDS: RIVAROXABAN TAB 15 MG TAB PO SCH (20:33)
[2017-07-02] MEDS: ATORVASTATIN 40 MG TAB PO SCH (20:33)
[2017-07-03] VITALS (13 sets, daily range): BP systolic 99–133; BP diastolic 57–74; PULSE 73–87; TEMP 36.7–37.1; O2SAT 87–98
[2017-07-03] MEDS: IPRATROPIUM BROMIDE NEB SOLN 0.02% 2.5 ML VIAL INH SCH ×4 (01:45→20:13)
[2017-07-03] MEDS: LEVALBUTEROL 1.25MG/0.5ML NEB INH SCH ×4 (01:45→20:13)
[2017-07-03 07:23] LABS: HEMATOCRIT 42.8 % (37-47); HEMOGLOBIN 13.5 g/dL (12.0-16.0); MEAN CELL VOLUME 105.9 fL (80-100); MEAN CORPUSCULAR HEMOGLOBIN 33.4 pg (25-34); MEAN CORPUSCULAR HGB CONC 31.5 g/dl (32-36); MEAN PLATELET VOLUME 10.3 fL (7.4-10.4); PLATELET COUNT 184 K/uL (130-400); RED CELL DISTRIBUTION WIDTH CV 13.8 % (11.5-14.5); RED CELL DISTRIBUTION WIDTH SD 52.7 fL (36.4-46.3); WHITE BLOOD COUNT 9.99 K/uL (4.8-10.8)
[2017-07-03] MEDS: BUDESONIDE 0.5 MG/2 ML VIAL (PULMICORT) INH SCH ×2 (07:38→20:13)
[2017-07-03] MEDS: AMOXICILLIN/CLAVULANATE TAB 875 MG TAB PO SCH ×2 (07:51→17:13)
[2017-07-03] MEDS: POTASSIUM CHLORIDE 20 MEQ TABCR PO SCH ×2 (07:51→19:59)
[2017-07-03] MEDS: AcetaZOLAMIDE 250 MG TAB PO SCH ×2 (07:51→17:13)
[2017-07-03] MEDS: ISOSORBIDE MONONITRATE 60 MG TABCR PO SCH (07:52)
[2017-07-03] MEDS: GUAIFENESIN 600 MG TABCR PO SCH ×2 (07:52→20:00)
[2017-07-03] MEDS: LOSARTAN POTASSIUM 25 MG TAB PO SCH (07:52)
[2017-07-03] MEDS: GABAPENTIN 100 MG CAP PO SCH ×2 (07:52→20:00)
[2017-07-03] MEDS: METOCLOPRAMIDE HCL 5 MG TAB PO SCH ×2 (07:53→19:58)
[2017-07-03] MEDS: VENLAFAXINE HCL XR 37.5 MG CAPXR PO SCH (07:53)
[2017-07-03] MEDS: METOPROLOL SUCC 25MG EXT REL TAB PO SCH (07:53)
[2017-07-03] MEDS: FUROSEMIDE 40 MG TAB PO SCH (07:53)
[2017-07-03] MEDS: INSULIN GLARGINE SOLOSTAR 100 UNITS/ML 3 ML PEN SC SCH (07:59)
[2017-07-03] MEDS: INSULIN ASPART 100 UNITS/ML 3 ML PEN SC SCH ×4 (08:07→20:05)
[2017-07-03 08:10] LABS: CREATININE 0.66 mg/dl (0.60-1.20)
--- NOTE | 2017-07-03 10:22 | Pulmonology Progress Note ---
Pulmonary Progress Note Date of Service Jul 03, 2017. Attending Dr. Curtis Subjective Ms. Biswas seems to be improving daily but at a slow rate. She still requires BiPAP at night and with rest but is tolerating well. She is maintaining SaO2 with nasal cannula during the day. She spent several hours in a chair at bedside yesterday. She is tolerating diet without aspiration. She has no acute complaints. No further feelings of fever or chills. She continues with some anxiety that also seems to be better controlled. No other acute complaints Objective Vital Signs - as noted below Laboratory Data - as noted below Physical Exam: General - NAD Eyes - No icterus, gaze conjugate ENT - Mucosa moist, no lesions or candidiasis Neck - Supple, No JVD Lungs - Breath sounds continue to be decreased but this morning she is clear of any bronchospasm. There is no appreciation of rhonchi or Rales. Heart - Regular, rate controlled Abdomen - Soft, NT, ND, BS present Extremities - No edema, pedal pulses intact. Persistent muscular weakness Neuro - A&OX3. The patient does have significant weakness. Assessment & Plan ACUTE ON CHRONIC RESPIRATORY FAILURE * Hypoxia and Hypercapnia are persistent. ABGs continue to reflect a normal pH with a and elevated PCO2 and low PaO2 * Does not require further ABGs * Could check VBG's with a.m. lab if concerned * Obstructive as well as restrictive airway disease * BiPAP as tolerated * Continue antibiotic treatment for presumed pneumonia with Zosyn (Day #7) - Pro calcitonin elevated at 0.68. Repeat Pro calcitonin (07/01/17) 0.39 (0.0 - 0.5 ) * Check Pro calcitonin with tomorrow's a.m. labs * Will need pulmonary follow up as an outpatient * Continue Nebs and supplemental O2 * Patient titrated off methylprednisolone and started on oral prednisone 2017 * Patient with considerable anxiety and on anxiolytics at home. This may be contributing to hypercapnia. Limit anxiolytics as possible RIGHT PLEURAL EFFUSION * This is too small to significantly impact respiratory status * Clinically improving * No current plans for thoracentesis DVT PROPHYLAXIS * On Xarelto as an outpatient * TEDs/SCDs DISPOSITION * Patient will need outpatient follow-up with full PFTs on discharge Thank you for including us in the care of this patient. We will continue to follow. Please refer to Dr. Curtis's addendum for further recommendations. Dr. Hopkins will sweet pickle maker the service tomorrow. Data Medications: Current Inpatient Medications Medications (Trade) Dose Ordered Sig/Rigoberto Route Start Time Stop Time Status Last Admin Dose Admin Ondansetron HCl (Zofran Odt) 8 mg Q6H PRN PO 06/27/17 21:45 07/27/17 21:44 07/03/17 07:53 8 MG Ondansetron HCl (Zofran Inj) 4 mg Q6H PRN IV 06/27/17 21:45 07/27/17 21:44 Guaifenesin (Mucinex Contr Rel Tab) 600 mg BID PO 06/28/17 09:00 07/28/17 08:59 07/03/17 07:52 600 MG Atorvastatin Calcium (Lipitor Tab) 40 mg QPM PO 06/28/17 21:00 07/28/17 20:59 07/02/17 20:33 40 MG Diazepam (Valium Tab) 2.5 mg Q6H PRN PO 06/27/17 21:45 07/27/17 21:44 06/30/17 07:56 2.5 MG Folic Acid (Folvite Tab) 1 mg DAILY PO 06/28/17 09:00 07/28/17 08:59 07/03/17 07:52 1 MG Gabapentin (Neurontin Cap) 200 mg BID PO 06/28/17 09:00 07/28/17 08:59 07/03/17 07:52 200 MG Isosorbide Mononitrate (Imdur Ext Rel Tab) 60 mg QAM PO 06/28/17 09:00 07/28/17 08:59 07/03/17 07:52 60 MG Metoclopramide HCl (Reglan Tab) 5 mg BID PO 06/28/17 09:00 07/28/17 08:59 07/03/17 07:53 5 MG Metoprolol Succinate (Toprol Xl Tab) 25 mg DAILY PO 06/28/17 09:00 07/28/17 08:59 07/03/17 07:53 25 MG Rivaroxaban (Xarelto Tab) 15 mg QPM PO 06/28/17 21:00 07/28/17 20:59 07/02/17 20:33 15 MG Venlafaxine HCl (effeXOR EXTENDED REL CAP) 37.5 mg QAM PO 06/28/17 09:00 07/28/17 08:59 07/03/17 07:53 37.5 MG Ipratropium [place] (Atrovent 0.02% 0.5MG/2.5ML Neb) 0.5 mg Q6R INH 06/28/17 03:00 07/28/17 02:59 07/03/17 07:38 0.5 MG Levalbuterol (Xopenex 1.25MG/ 0.5ML Neb) 1.25 mg Q6R INH 06/28/17 03:00 07/28/17 02:59 07/03/17 07:38 1.25 MG Ipratropium [place] (Atrovent 0.02% 0.5MG/2.5ML Neb) 0.5 mg Q2H PRN INH 06/27/17 22:00 07/27/17 21:59 Levalbuterol (Xopenex 1.25MG/ 0.5ML Neb) 1.25 mg Q2H PRN INH 06/27/17 22:00 07/27/17 21:59 Budesonide (Pulmicort Respules 0.5MG/ 2ML Neb Soln) 0.5 mg BIDR INH 06/28/17 08:00 07/28/17 07:59 07/03/17 07:38 0.5 MG Insulin Aspart (novoLOG ASPART) SLIDING SCALE If C... ACHS SC 06/28/17 07:00 07/28/17 06:59 07/03/17 08:07 5 UNITS Glucose (Glucose 40% Gel) UD PRN PO 06/28/17 06:45 07/28/17 06:44 Glucose (Glucose Chew Tab) 1 tabs UD PRN PO 06/28/17 06:45 07/28/17 06:44 Dextrose (Dextrose 50% 50ML Syringe) 50 ml UD PRN IV 06/28/17 06:45 07/28/17 06:44 Glucagon (Glucagon Inj) 1 mg UD PRN SQ 06/28/17 06:45 07/28/17 06:44 Hydralazine HCl (HydrALAZINE INJ) 10 mg Q8H PRN IV. 06/28/17 12:15 2/8/18 12:14 06/28/17 12:58 10 MG Losartan Potassium (coZAAR TAB) 25 mg DAILY PO 06/28/17 13:00 07/28/17 12:59 07/03/17 07:52 25 MG Furosemide (Lasix Tab) 40 mg QAM PO 06/29/17 09:00 07/29/17 08:59 07/03/17 07:53 40 MG Acetaminophen (Tylenol Tab) 650 mg Q4H PRN PO 06/29/17 12:15 07/29/17 12:14 06/29/17 12:37 650 MG Insulin Glargine (Lantus Solostar Pen) 6 units DAILY SC 06/30/17 09:00 07/30/17 08:59 07/03/17 07:59 6 UNITS Bisacodyl (Dulcolax Tab) 5 mg DAILY PRN PO 06/30/17 10:00 07/30/17 09:59 06/30/17 10:55 5 MG Potassium Chloride (Klor-Con Tab) 20 meq BID PO 07/01/17 21:00 07/31/17 20:59 07/03/17 07:51 20 MEQ Amoxicillin/ Clavulanate Potassium (Augmentin Tab) 875 mg BIDM PO 07/02/17 16:45 07/05/17 23:59 07/03/17 07:51 875 MG Prednisone (PredniSONE TAB) 40 mg DAILY PO 07/03/17 09:00 08/02/17 08:59 07/03/17 07:51 40 MG Acetazolamide (Diamox Tab) 250 mg BID17 PO 07/02/17 17:00 08/01/17 16:59 07/03/17 07:51 250 MG Vital Signs: Date Time Temp Pulse Resp B/P (MAP) Pulse Ox O2 Delivery O2 Flow Rate FiO2 07/03/17 08:05 95 Nasal Cannula 4.0 07/03/17 07:56 36.7 81 20 124/61 (82) 97 BiPAP 07/03/17 07:43 77 16 96 BiPAP/CPAP 5.0 07/03/17 07:41 77 96 5.0 07/03/17 04:00 BiPAP 4.0 07/03/17 03:39 37.1 73 18 123/74 (90) 96 BiPAP 4.0 07/03/17 03:34 80 16 87 BiPAP/CPAP 4.0 07/03/17 00:00 92 BiPAP 4.0 07/02/17 23:15 37.5 79 16 97/59 (72) 97 BiPAP 4.0 07/02/17 22:11 85 94 4.0 07/02/17 20:00 96 Nasal Cannula 4.0 07/02/17 19:22 37.1 86 18 128/76 (93) 92 Nasal Cannula 4.0 07/02/17 19:15 96 16 91 Nasal Cannula 5.0 07/02/17 16:00 91 Nasal Cannula 5.0 07/02/17 14:58 36.8 90 134/74 (94) 91 Nasal Cannula 5.0 07/02/17 12:00 91 Nasal Cannula 5.0 07/02/17 11:50 36.9 90 20 117/62 (80) 100 Nasal Cannula 5.0 07/02/17 11:23 64 16 96 Nasal Cannula 6.0 Laboratory Results: Last 24 Hours Test 07/02/17 11:12 07/02/17 16:23 07/02/17 20:28 07/03/17 06:49 Bedside Glucose 233 mg/dl 177 mg/dl 127 mg/dl 155 mg/dl Test 07/03/17 07:03 White Blood Count 9.99 K/uL Red Blood Count 4.04 M/uL Hemoglobin 13.5 g/dL Hematocrit 42.8 % Mean Corpuscular Volume 105.9 fL Mean Corpuscular Hemoglobin 33.4 pg Mean Corpuscular Hemoglobin Concent 31.5 g/dl RDW Standard Deviation 52.7 fL RDW Coefficient of Variation 13.8 % Platelet Count 184 K/uL Mean Platelet Volume 10.3 fL Sodium Level 142 mmol/L Potassium Level 4.0 mmol/L Chloride Level 98 mmol/L Carbon Dioxide Level 40 mmol/L Anion Gap 1.0 mmol/L Blood Urea Nitrogen 26 mg/dl Creatinine 0.66 mg/dl Est Creatinine Clear Calc Drug Dose 65.2 ml/min Estimated GFR () 96.7 Estimated GFR (Non- 83.4 BUN/Creatinine Ratio 38.5 Random Glucose 136 mg/dl Calcium Level 9.0 mg/dl
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
[2017-07-03] MEDS: BISACODYL 5 MG TABEC PO PRN (17:17)
[2017-07-03] MEDS: ATORVASTATIN 40 MG TAB PO SCH (20:00)
[2017-07-03] MEDS: RIVAROXABAN TAB 15 MG TAB PO SCH (20:00)
[2017-07-04] VITALS (8 sets, daily range): BP systolic 96–148; BP diastolic 57–83; PULSE 72–87; TEMP 36.4–37.2; O2SAT 92–100
[2017-07-04] MEDS: LEVALBUTEROL 1.25MG/0.5ML NEB INH SCH ×4 (02:22→19:42)
[2017-07-04] MEDS: IPRATROPIUM BROMIDE NEB SOLN 0.02% 2.5 ML VIAL INH SCH ×4 (02:22→19:42)
[2017-07-04] MEDS: BUDESONIDE 0.5 MG/2 ML VIAL (PULMICORT) INH SCH ×2 (07:00→19:42)
[2017-07-04 08:56] LABS: CALCIUM 9.3 mg/dl (8.5-10.1); CREATININE 0.63 mg/dl (0.60-1.20); POTASSIUM 4.1 mmol/L (3.5-5.1)
[2017-07-04] MEDS: AcetaZOLAMIDE 250 MG TAB PO SCH ×2 (09:55→17:19)
[2017-07-04] MEDS: AMOXICILLIN/CLAVULANATE TAB 875 MG TAB PO SCH ×2 (09:55→17:19)
[2017-07-04] MEDS: METOPROLOL SUCC 25MG EXT REL TAB PO SCH (09:56)
[2017-07-04] MEDS: VENLAFAXINE HCL XR 37.5 MG CAPXR PO SCH (09:56)
[2017-07-04] MEDS: GABAPENTIN 100 MG CAP PO SCH ×2 (09:56→20:02)
[2017-07-04] MEDS: ISOSORBIDE MONONITRATE 60 MG TABCR PO SCH (09:56)
[2017-07-04] MEDS: FUROSEMIDE 40 MG TAB PO SCH (09:56)
[2017-07-04] MEDS: POTASSIUM CHLORIDE 20 MEQ TABCR PO SCH ×2 (09:56→20:02)
[2017-07-04] MEDS: GUAIFENESIN 600 MG TABCR PO SCH ×2 (09:56→20:03)
[2017-07-04] MEDS: LOSARTAN POTASSIUM 25 MG TAB PO SCH (09:57)
[2017-07-04] MEDS: METOCLOPRAMIDE HCL 5 MG TAB PO SCH ×2 (09:58→20:02)
[2017-07-04] MEDS: INSULIN ASPART 100 UNITS/ML 3 ML PEN SC SCH ×4 (10:03→20:01)
[2017-07-04] MEDS: INSULIN GLARGINE SOLOSTAR 100 UNITS/ML 3 ML PEN SC SCH (10:04)
[2017-07-04] MEDS: BISACODYL 5 MG TABEC PO SCH (13:08)
--- NOTE | 2017-07-04 16:31 | Hospitalist Progress Note ---
Hospitalist Progress Note Date of Service Jul 04, 2017. Subjective Pt evaluation today including: conversation w/ patient, physical exam, chart review, lab review, review of inpatient medication list Voiding: no voiding problems Ms. Biswas is feeling better today however she continues to be sob, requiring 1 more liter than her baseline home O2 at 4L NC. She does not feel confused and is appropriate in conversation. Her is bedside and is unsure if she has any confusion. She is very fatigued. ROS Constitutional: no chills, aches, sweats or fever Respiratory: see HPI Cardiac: no chest pain, palpitations, edema, orthopnea or lightheadedness GI: no abdominal pain, nausea, vomiting, she is experiencing some constipation : no dysuria or hesitancy Extremities: no joint pain or weakness Skin: no rash All other systems reviewed and negative Medications Medications Administered Medications (Trade) Dose Ordered Sig/Rigoberto Route Start Time Stop Time Status Last Admin Dose Admin Albuterol/ Ipratropium (Duoneb) 3 ml NOW STAT INH 06/27/17 17:46 06/27/17 17:48 DC 06/27/17 18:07 3 ML Potassium Chloride (Klor-Con M10) 40 meq NOW STAT PO 06/27/17 18:59 06/27/17 19:00 DC 06/27/17 19:21 40 MEQ Albuterol/ Ipratropium (Duoneb) 3 ml NOW STAT INH 06/27/17 19:31 06/27/17 19:33 DC 06/27/17 19:31 3 ML Methylprednisolone Sodium Succinate (Solu-Medrol IV) 125 mg NOW STAT IV 06/27/17 19:31 06/27/17 19:33 DC 06/27/17 19:31 125 MG Ondansetron HCl (Zofran Odt) 8 mg Q6H PRN PO 06/27/17 21:45 07/27/17 21:44 07/03/17 07:53 8 MG Methylprednisolone Sodium Succinate 60 mg/Syringe 0.96 ml @ 1.5 mls/min Q6H IV 06/28/17 02:00 06/28/17 06:46 DC 06/28/17 01:29 1.5 MLS/MIN Levofloxacin 500 mg/Prmx 100 ml @ 100 mls/hr TODAY@0000 IV 06/28/17 00:00 06/28/17 00:59 DC 06/28/17 00:14 100 MLS/HR Guaifenesin (Mucinex Contr Rel Tab) 600 mg BID PO 06/28/17 09:00 07/28/17 08:59 07/04/17 09:56 600 MG Atorvastatin Calcium (Lipitor Tab) 40 mg QPM PO 06/28/17 21:00 07/28/17 20:59 07/03/17 20:00 40 MG Diazepam (Valium Tab) 2.5 mg Q6H PRN PO 06/27/17 21:45 07/27/17 21:44 06/30/17 07:56 2.5 MG Folic Acid (Folvite Tab) 1 mg DAILY PO 06/28/17 09:00 07/28/17 08:59 07/04/17 09:55 1 MG Gabapentin (Neurontin Cap) 200 mg BID PO 06/28/17 09:00 07/28/17 08:59 07/04/17 09:56 200 MG Isosorbide Mononitrate (Imdur Ext Rel Tab) 60 mg QAM PO 06/28/17 09:00 07/28/17 08:59 07/04/17 09:56 60 MG Metoclopramide HCl (Reglan Tab) 5 mg BID PO 06/28/17 09:00 07/28/17 08:59 07/04/17 09:58 5 MG Metoprolol Succinate (Toprol Xl Tab) 25 mg DAILY PO 06/28/17 09:00 07/28/17 08:59 07/04/17 09:56 25 MG Rivaroxaban (Xarelto Tab) 15 mg QPM PO 06/28/17 21:00 07/28/17 20:59 07/03/17 20:00 15 MG Venlafaxine HCl (effeXOR EXTENDED REL CAP) 37.5 mg QAM PO 06/28/17 09:00 07/28/17 08:59 07/04/17 09:56 37.5 MG Ipratropium [place] (Atrovent 0.02% 0.5MG/2.5ML Neb) 0.5 mg Q6R INH 06/28/17 03:00 07/28/17 02:59 07/04/17 14:22 0.5 MG Levalbuterol (Xopenex 1.25MG/ 0.5ML Neb) 1.25 mg Q6R INH 06/28/17 03:00 07/28/17 02:59 07/04/17 14:22 1.25 MG Vancomycin HCl 1500 mg/Sodium Chloride 530 ml @ 200 mls/hr TODAY@0130 IV 06/28/17 01:30 06/28/17 04:08 DC 06/28/17 02:14 200 MLS/HR Piperacillin Sod/ Tazobactam Sod 3.375 gm/Dextrose 115 ml @ 230 mls/hr NOW ONCE IV 06/28/17 01:30 06/28/17 01:59 DC 06/28/17 01:29 230 MLS/HR Piperacillin Sod/ Tazobactam Sod 3.375 gm/Dextrose 115 ml @ 28.75 mls/ hr Q8H IV 06/28/17 06:00 07/02/17 12:43 DC 07/02/17 05:23 28.75 MLS/HR Budesonide (Pulmicort Respules 0.5MG/ 2ML Neb Soln) 0.5 mg BIDR INH 06/28/17 08:00 07/28/17 07:59 07/04/17 07:00 0.5 MG Insulin Aspart (novoLOG ASPART) SLIDING SCALE If C... ACHS SC 06/28/17 07:00 07/28/17 06:59 07/04/17 13:07 5 UNITS Vancomycin HCl 1000 mg/Sodium Chloride 270 ml @ 125 mls/hr Q14H IV 06/28/17 16:00 06/30/17 13:00 DC 06/30/17 10:55 125 MLS/HR Magnesium Sulfate 1 gm/Prmx 100 ml @ 100 mls/hr Q1H IV 06/28/17 11:00 06/28/17 12:59 DC 06/28/17 12:21 100 MLS/HR Hydralazine HCl (HydrALAZINE INJ) 10 mg Q8H PRN IV. 06/28/17 12:15 07/28/17 12:14 06/28/17 12:58 10 MG Losartan Potassium (coZAAR TAB) 25 mg DAILY PO 06/28/17 13:00 07/28/17 12:59 07/04/17 09:57 25 MG Furosemide (Lasix Tab) 40 mg QAM PO 06/29/17 09:00 07/29/17 08:59 07/04/17 09:56 40 MG Pantoprazole Sodium (Protonix Tab) 40 mg QAM PO 06/29/17 09:00 07/01/17 09:01 DC 07/01/17 08:09 40 MG Pantoprazole Sodium (Protonix Tab) 40 mg 1256 ONCE PO 06/28/17 12:56 06/28/17 13:28 DC 06/28/17 14:36 40 MG Insulin Glargine (Lantus Solostar Pen) 6 units NOW ONCE SC 06/28/17 13:00 06/28/17 13:32 DC 06/28/17 14:38 6 UNITS Hydroxyzine HCl (Vistaril Tab) 25 mg DAILY PRN PO 06/28/17 13:45 06/28/17 16:59 DC 06/28/17 14:40 25 MG Methylprednisolone Sodium Succinate 40 mg/Syringe 0.64 ml @ 1.5 mls/min Q8 IV 06/28/17 22:00 06/29/17 15:18 DC 06/29/17 13:53 1.5 MLS/MIN Acetaminophen (Tylenol Tab) 650 mg Q4H PRN PO 06/29/17 12:15 07/29/17 12:14 06/29/17 12:37 650 MG Methylprednisolone Sodium Succinate 40 mg/Syringe 0.64 ml @ 1.5 mls/min Q12H IV 06/30/17 02:00 06/30/17 21:59 DC 06/30/17 14:09 1.5 MLS/MIN Insulin Glargine (Lantus Solostar Pen) 6 units DAILY SC 06/30/17 09:00 07/30/17 08:59 07/04/17 10:04 6 UNITS Insulin Glargine (Lantus Solostar Pen) 6 units 1530 ONCE SC 06/29/17 15:30 06/29/17 15:31 DC 06/29/17 16:04 6 UNITS Potassium Chloride (Klor-Con Tab) 20 meq 0830 ONCE PO 06/30/17 08:30 06/30/17 08:31 DC 06/30/17 08:57 20 MEQ Bisacodyl (Dulcolax Tab) 5 mg DAILY PRN PO 06/30/17 10:00 07/04/17 11:02 DC 07/03/17 17:17 5 MG Methylprednisolone Sodium Succinate 40 mg/Syringe 0.64 ml @ 1.5 mls/min DAILY@0900 IV 07/01/17 09:00 07/02/17 12:43 DC 07/02/17 08:31 1.5 MLS/MIN Bisacodyl (Dulcolax Tab) 5 mg 1845 PO 06/30/17 18:45 06/30/17 18:46 DC 06/30/17 20:34 5 MG Potassium Chloride (Klor-Con Tab) 20 meq BID PO 07/01/17 21:00 07/31/17 20:59 07/04/17 09:56 20 MEQ Potassium Chloride (Klor-Con Tab) 20 meq NOW ONCE PO 07/01/17 11:15 07/01/17 11:16 DC 07/01/17 11:23 20 MEQ Amoxicillin/ Clavulanate Potassium (Augmentin Tab) 875 mg BIDM PO 07/02/17 16:45 07/05/17 23:59 07/04/17 09:55 875 MG Prednisone (PredniSONE TAB) 40 mg DAILY PO 07/03/17 09:00 08/02/17 08:59 07/04/17 09:56 40 MG Acetazolamide (Diamox Tab) 250 mg BID17 PO 07/02/17 17:00 08/01/17 16:59 07/04/17 09:55 250 MG Bisacodyl (Dulcolax Tab) 5 mg DAILY PO 07/04/17 11:15 07/30/17 09:59 07/04/17 13:08 5 MG Objective Vital Signs Date Time Temp Pulse Resp B/P (MAP) Pulse Ox O2 Delivery O2 Flow Rate FiO2 07/04/17 14:47 37.2 78 20 96/57 (70) 97 07/04/17 14:24 86 15 94 Nasal Cannula 5.0 07/04/17 08:10 Nasal Cannula 4.0 07/04/17 07:35 36.5 73 18 148/83 (104) 99 BiPAP 07/04/17 07:02 83 18 92 BiPAP/CPAP 5.0 07/04/17 07:02 76 98 5.0 07/04/17 02:23 72 16 97 BiPAP/CPAP 5.0 07/04/17 00:00 BiPAP 07/03/17 22:57 37.0 74 18 133/60 (84) 98 BiPAP 07/03/17 20:14 76 98 5.0 07/03/17 20:14 76 16 98 BiPAP/CPAP 5.0 07/03/17 20:00 BiPAP Physical Exam Notes: General: no distress Eyes: normal inspection, PERLL Respiratory: chest non tender, clear to auscultation, normal breath sounds, no respiratory distress, no accessory muscle use Cardiac: regular rate and rhythm, no rub or gallop, no murmur, no edema, no jvd GI/: active bowel sounds, no abd pain or tenderness, soft, non distended Extremities: normal range of motion, normal strength, non tender Neuro/Psych: alert and oriented x 3, normal mood and affect Skin: normal color, dry Laboratory Results Last 24 Hours Test 07/03/17 16:31 07/03/17 19:44 07/04/17 07:39 07/04/17 07:58 Bedside Glucose 240 mg/dl 174 mg/dl 137 mg/dl Sodium Level 141 mmol/L Potassium Level 4.1 mmol/L Chloride Level 98 mmol/L Carbon Dioxide Level 39 mmol/L Anion Gap 4.0 mmol/L Blood Urea Nitrogen 30 mg/dl Creatinine 0.63 mg/dl Est Creatinine Clear Calc Drug Dose 69.2 ml/min Estimated GFR () 98.2 Estimated GFR (Non- 84.7 BUN/Creatinine Ratio 47.6 Random Glucose 139 mg/dl Calcium Level 9.3 mg/dl Magnesium Level 2.1 mg/dl Test 07/04/17 11:00 Bedside Glucose 212 mg/dl Assessment and Plan The patient is an 82-year-old female here for respiratory failure and pneumonia. Acute on chronic respiratory failure w/ hypoxia and hypercapnia- on chronic 3 L O2, PNA, COPD, restrictive lung disease: - Cardiac enzymes negative x1 - IV Vancomycin + Zosyn + IV Levaquin in ED- Vancomycin + Zosyn at admission- d/ c'd Vancomycin, on Zosyn since 06/28- transition to PO Augmentin BID on 07/02 - Procalcitonin trended down from 0.68 - continue DuoNeb QID and PRN for SOB/wheezing - continue Mucinex 600 mg BID - Initially on IV Solu-Medrol 40 mg BID- started Prednisone 40 mg daily on - will continue to taper - Influenza negative; MRSA swab negative - Chest CT and CXR on 06/27- negative for infectious process or PE -- Repeat CXR on 06/29- atelectasis vs PNA -- repeat CXR 07/04 pending - Followed ABGs- STABLE - OOB in chair Qshift, continue working w/ PT - consulted pulmonology Metabolic alkalosis, compensation for chronic respiratory acidosis: continue Diamox 250mg BID Hypomagnesemia - replaced Confusion, hallucinations, disorientation, weakness, slurred speech: - TSH, b12/folate WNL - Head CT unremarkable for acute findings - UA negative - Consulted neurology -- Recommended brain MRI and carotid US - Patient does not think she can tolerate MRI- spoke w/ neurology, CT of little use - >70% stenosis on R- discussed w/ patient/family- agree to hold pending workup/treatment until outpatient when acute issues resolved - appears to have resolved a.fib, HTN, diastolic CHF, HLD: - Monitor I&Os and daily weights - No evidence of fluid overload on exam/imaging - Continue Imdur 30 mg QAM, Metoprolol 25 mg daily, Xarelto 15 mg daily, Lipitor 40 mg daily - Continue Lasix 40 mg daily and Losartan 25 mg daily - Hydralazine IV PRN T2DM w/ hyperglycemia, likely secondary to IV steroids- hgbA1c 6.5%: - Metformin 1000 mg BID held while inpatient - Hyperglycemia- continue Lantus 6 u daily while on IV steroids - BSG ACHS and ISS Arthritis, chronic pain syndrome: - Continue [place] 10/325 q6 hrs PRN discontinued due to respiratory depression effects - Continue Folic acid 1 mg daily, Enbrel and Methotrexate weekly - Tylenol PRN TBI, anxiety, depression: - Continue Gabapentin 200 mg BID, Effexor 37.5 mg daily, Diazepam 2.5 mg q6 hrs PRN - Hydroxyzine 25 mg daily PRN discontinued due to respiratory depression effects INGRIS: - Noncompliant w/ BiPAP at home - BiPAP HS and PRN throughout the day as needed GI prophylaxis: Protonix DVT prophylaxis: Xarelto Code Status: LEVEL V, DNR Dispo: From home, lives w/ - PT/OT and CM consulted- planning for rehab at discharge
--- NOTE | 2017-07-04 18:05 | PROGRESS NOTE ---
DATE: 07/04/2017 ATTENDING: Andrea Curtis MD. SUBJECTIVE: An 82-year-old white female who has tolerated BiPAP nocturnally and seems to be improving. Her O2 sats have been adequate and she feels less congested, less dyspneic with exertion. OBJECTIVE: VITAL SIGNS: Temperature 37.2, pulse 78 and regular, respiratory rate 20, blood pressure 196/57, O2 sat 97% on 5 liters nasal cannula. SKIN: Without lesion. HEENT: Atraumatic, normocephalic. PERRLA. LUNGS: Decreased breath sounds at the bases, otherwise distant P&A. CARDIAC: Regular rate and rhythm. I do not appreciate a gallop. ABDOMEN: Soft, scaphoid. No evidence of hepatosplenomegaly. EXTREMITIES: No significant pedal edema, clubbing or cyanosis. NEUROLOGIC: Intact. No lateralizing signs. LABORATORY DATA: Last white count 9900, H&H 13 and 42. ABGs: pH 7.37, pCO2 of 84, pO2 of 93 on 5 liters. PRP adequate. Serology negative for influenza A and B antigen. Chest x-ray on 07/01/2017 showed cardiomegaly with small bilateral pleural effusions and bibasilar opacities. CT angiogram performed on 06/27/2017 was reviewed. There is no evidence of pulmonary thromboembolic disease and small right greater than left pleural effusion was noted and a 2 cm branching tubular structure left apex, probably represented an impacted bronchus, although an underlying neoplasm cannot be ruled out. OVERALL ASSESSMENT AND PLAN: Acute on chronic respiratory failure. The patient is clearly well compensated and would continue BiPAP therapy. In fact, the patient would qualify for BiPAP therapy at home or at an extended care facility if that is where she is placed. I do think there is a degree of mucoid impaction but also she will continue to respond to methylprednisolone and now oral prednisone along with aerosolized bronchodilator and pulmonary toilet that would include mobilizing patient and restarting her anticoagulant therapy. I would be happy to follow patient as an outpatient once discharged and would repeat a chest x-ray tomorrow to reassess.
[2017-07-04] MEDS: ATORVASTATIN 40 MG TAB PO SCH (20:02)
[2017-07-04] MEDS: RIVAROXABAN TAB 15 MG TAB PO SCH (20:02)
[2017-07-05] VITALS (11 sets, daily range): BP systolic 113–142; BP diastolic 69–74; PULSE 74–97; TEMP 36.6–37.1; O2SAT 92–98
[2017-07-05] MEDS: LEVALBUTEROL 1.25MG/0.5ML NEB INH SCH ×4 (02:00→19:19)
[2017-07-05] MEDS: IPRATROPIUM BROMIDE NEB SOLN 0.02% 2.5 ML VIAL INH SCH ×4 (02:00→19:19)
[2017-07-05] MEDS: BUDESONIDE 0.5 MG/2 ML VIAL (PULMICORT) INH SCH ×2 (07:22→19:19)
[2017-07-05 07:28] LABS: CALCIUM 9.3 mg/dl (8.5-10.1); CREATININE 0.67 mg/dl (0.60-1.20)
--- NOTE | 2017-07-05 08:17 | DIAGNOSTIC IMAGING REPORT ---
CHEST 1 VW FRONT-NOT PORTABLE HISTORY: bilat pleural effusions COMPARISON: Chest 07/01/2017. FINDINGS: No change in the small bilateral pleural effusions. Bibasilar densities also persist and may be due to atelectasis from the pleural fluid. The heart remains mildly enlarged. The upper lung zones are clear. Old, healed right-sided rib fractures. Surgical clips within the left axilla. No pneumothorax. IMPRESSION: No change in the small bilateral pleural effusions. Electronically signed by: Kian Butler M.D. 07/05/2017 8:16 AM Dictated Date/Time: 07/05/2017 8:15 AM
[2017-07-05] MEDS: ISOSORBIDE MONONITRATE 60 MG TABCR PO SCH (08:48)
[2017-07-05] MEDS: AMOXICILLIN/CLAVULANATE TAB 875 MG TAB PO SCH ×2 (08:48→17:31)
[2017-07-05] MEDS: LOSARTAN POTASSIUM 25 MG TAB PO SCH (08:49)
[2017-07-05] MEDS: FUROSEMIDE 40 MG TAB PO SCH (08:49)
[2017-07-05] MEDS: VENLAFAXINE HCL XR 37.5 MG CAPXR PO SCH (08:50)
[2017-07-05] MEDS: POTASSIUM CHLORIDE 20 MEQ TABCR PO SCH ×2 (08:50→20:15)
[2017-07-05] MEDS: GUAIFENESIN 600 MG TABCR PO SCH ×2 (08:50→20:16)
[2017-07-05] MEDS: METOCLOPRAMIDE HCL 5 MG TAB PO SCH ×2 (08:51→20:17)
[2017-07-05] MEDS: METOPROLOL SUCC 25MG EXT REL TAB PO SCH (08:52)
[2017-07-05] MEDS: GABAPENTIN 100 MG CAP PO SCH ×2 (08:52→20:15)
[2017-07-05] MEDS: BISACODYL 5 MG TABEC PO SCH ×2 (08:55→20:20)
[2017-07-05] MEDS: INSULIN ASPART 100 UNITS/ML 3 ML PEN SC SCH ×4 (09:04→20:18)
[2017-07-05] MEDS: INSULIN GLARGINE SOLOSTAR 100 UNITS/ML 3 ML PEN SC SCH (09:05)
[2017-07-05] MEDS ORDERED: INSULIN GLARGINE SOLOSTAR 100 UNITS/ML 3 ML PEN SQ STA (12:15)
--- NOTE | 2017-07-05 12:18 | Hospitalist Progress Note ---
Hospitalist Progress Note Date of Service Jul 05, 2017. Subjective Pt evaluation today including: conversation w/ patient, physical exam, chart review, lab review, review of inpatient medication list Voiding: no voiding problems Ms. Biswas feels fatigued today but otherwise well. She denies sob or chest pain. She is sating 92% on 4L nc, baseline is 3L NC. ROS Constitutional: no chills, aches, sweats or fever Respiratory: no sob,cough, sputum, or wheezing Cardiac: no chest pain, palpitations, edema, orthopnea or lightheadedness GI: no abdominal pain, nausea, vomiting, diarrhea or constipation : no dysuria or hesitancy Extremities: no joint pain or weakness Skin: no rash All other systems reviewed and negative Medications Medications Administered Medications (Trade) Dose Ordered Sig/Rigoberto Route Start Time Stop Time Status Last Admin Dose Admin Albuterol/ Ipratropium (Duoneb) 3 ml NOW STAT INH 06/27/17 17:46 06/27/17 17:48 DC 06/27/17 18:07 3 ML Potassium Chloride (Klor-Con M10) 40 meq NOW STAT PO 06/27/17 18:59 06/27/17 19:00 DC 06/27/17 19:21 40 MEQ Albuterol/ Ipratropium (Duoneb) 3 ml NOW STAT INH 06/27/17 19:31 06/27/17 19:33 DC 06/27/17 19:31 3 ML Methylprednisolone Sodium Succinate (Solu-Medrol IV) 125 mg NOW STAT IV 06/27/17 19:31 06/27/17 19:33 DC 06/27/17 19:31 125 MG Ondansetron HCl (Zofran Odt) 8 mg Q6H PRN PO 06/27/17 21:45 07/27/17 21:44 07/03/17 07:53 8 MG Methylprednisolone Sodium Succinate 60 mg/Syringe 0.96 ml @ 1.5 mls/min Q6H IV 06/28/17 02:00 06/28/17 06:46 DC 06/28/17 01:29 1.5 MLS/MIN Levofloxacin 500 mg/Prmx 100 ml @ 100 mls/hr TODAY@0000 IV 06/28/17 00:00 06/28/17 00:59 DC 06/28/17 00:14 100 MLS/HR Guaifenesin (Mucinex Contr Rel Tab) 600 mg BID PO 06/28/17 09:00 07/28/17 08:59 07/05/17 08:50 600 MG Atorvastatin Calcium (Lipitor Tab) 40 mg QPM PO 06/28/17 21:00 07/28/17 20:59 07/04/17 20:02 40 MG Diazepam (Valium Tab) 2.5 mg Q6H PRN PO 06/27/17 21:45 07/27/17 21:44 06/30/17 07:56 2.5 MG Folic Acid (Folvite Tab) 1 mg DAILY PO 06/28/17 09:00 07/28/17 08:59 07/05/17 08:50 1 MG Gabapentin (Neurontin Cap) 200 mg BID PO 06/28/17 09:00 07/28/17 08:59 07/05/17 08:52 200 MG Isosorbide Mononitrate (Imdur Ext Rel Tab) 60 mg QAM PO 06/28/17 09:00 07/28/17 08:59 07/05/17 08:48 60 MG Metoclopramide HCl (Reglan Tab) 5 mg BID PO 06/28/17 09:00 07/28/17 08:59 07/05/17 08:51 5 MG Metoprolol Succinate (Toprol Xl Tab) 25 mg DAILY PO 06/28/17 09:00 07/28/17 08:59 07/05/17 08:52 25 MG Rivaroxaban (Xarelto Tab) 15 mg QPM PO 06/28/17 21:00 07/28/17 20:59 07/04/17 20:02 15 MG Venlafaxine HCl (effeXOR EXTENDED REL CAP) 37.5 mg QAM PO 06/28/17 09:00 07/28/17 08:59 07/05/17 08:50 37.5 MG Ipratropium [place] (Atrovent 0.02% 0.5MG/2.5ML Neb) 0.5 mg Q6R INH 06/28/17 03:00 07/28/17 02:59 07/05/17 07:22 0.5 MG Levalbuterol (Xopenex 1.25MG/ 0.5ML Neb) 1.25 mg Q6R INH 06/28/17 03:00 07/28/17 02:59 07/05/17 07:22 1.25 MG Vancomycin HCl 1500 mg/Sodium Chloride 530 ml @ 200 mls/hr TODAY@0130 IV 06/28/17 01:30 06/28/17 04:08 DC 06/28/17 02:14 200 MLS/HR Piperacillin Sod/ Tazobactam Sod 3.375 gm/Dextrose 115 ml @ 230 mls/hr NOW ONCE IV 06/28/17 01:30 06/28/17 01:59 DC 06/28/17 01:29 230 MLS/HR Piperacillin Sod/ Tazobactam Sod 3.375 gm/Dextrose 115 ml @ 28.75 mls/ hr Q8H IV 06/28/17 06:00 07/02/17 12:43 DC 07/02/17 05:23 28.75 MLS/HR Budesonide (Pulmicort Respules 0.5MG/ 2ML Neb Soln) 0.5 mg BIDR INH 06/28/17 08:00 07/28/17 07:59 07/05/17 07:22 0.5 MG Insulin Aspart (novoLOG ASPART) SLIDING SCALE If C... ACHS SC 06/28/17 07:00 07/28/17 06:59 07/05/17 09:04 4 UNITS Vancomycin HCl 1000 mg/Sodium Chloride 270 ml @ 125 mls/hr Q14H IV 06/28/17 16:00 06/30/17 13:00 DC 06/30/17 10:55 125 MLS/HR Magnesium Sulfate 1 gm/Prmx 100 ml @ 100 mls/hr Q1H IV 06/28/17 11:00 06/28/17 12:59 DC 06/28/17 12:21 100 MLS/HR Hydralazine HCl (HydrALAZINE INJ) 10 mg Q8H PRN IV. 06/28/17 12:15 07/28/17 12:14 06/28/17 12:58 10 MG Losartan Potassium (coZAAR TAB) 25 mg DAILY PO 06/28/17 13:00 07/28/17 12:59 07/05/17 08:49 25 MG Furosemide (Lasix Tab) 40 mg QAM PO 06/29/17 09:00 07/29/17 08:59 07/05/17 08:49 40 MG Pantoprazole Sodium (Protonix Tab) 40 mg QAM PO 06/29/17 09:00 07/01/17 09:01 DC 07/01/17 08:09 40 MG Pantoprazole Sodium (Protonix Tab) 40 mg 1256 ONCE PO 06/28/17 12:56 06/28/17 13:28 DC 06/28/17 14:36 40 MG Insulin Glargine (Lantus Solostar Pen) 6 units NOW ONCE SC 06/28/17 13:00 06/28/17 13:32 DC 06/28/17 14:38 6 UNITS Hydroxyzine HCl (Vistaril Tab) 25 mg DAILY PRN PO 06/28/17 13:45 06/28/17 16:59 DC 06/28/17 14:40 25 MG Methylprednisolone Sodium Succinate 40 mg/Syringe 0.64 ml @ 1.5 mls/min Q8 IV 06/28/17 22:00 06/29/17 15:18 DC 06/29/17 13:53 1.5 MLS/MIN Acetaminophen (Tylenol Tab) 650 mg Q4H PRN PO 06/29/17 12:15 07/29/17 12:14 06/29/17 12:37 650 MG Methylprednisolone Sodium Succinate 40 mg/Syringe 0.64 ml @ 1.5 mls/min Q12H IV 06/30/17 02:00 06/30/17 21:59 DC 06/30/17 14:09 1.5 MLS/MIN Insulin Glargine (Lantus Solostar Pen) 6 units DAILY SC 06/30/17 09:00 07/30/17 08:59 07/05/17 09:05 6 UNITS Insulin Glargine (Lantus Solostar Pen) 6 units 1530 ONCE SC 06/29/17 15:30 06/29/17 15:31 DC 06/29/17 16:04 6 UNITS Potassium Chloride (Klor-Con Tab) 20 meq 0830 ONCE PO 06/30/17 08:30 06/30/17 08:31 DC 06/30/17 08:57 20 MEQ Bisacodyl (Dulcolax Tab) 5 mg DAILY PRN PO 06/30/17 10:00 07/04/17 11:02 DC 07/03/17 17:17 5 MG Methylprednisolone Sodium Succinate 40 mg/Syringe 0.64 ml @ 1.5 mls/min DAILY@0900 IV 07/01/17 09:00 07/02/17 12:43 DC 07/02/17 08:31 1.5 MLS/MIN Bisacodyl (Dulcolax Tab) 5 mg 1845 PO 06/30/17 18:45 06/30/17 18:46 DC 06/30/17 20:34 5 MG Potassium Chloride (Klor-Con Tab) 20 meq BID PO 07/01/17 21:00 07/31/17 20:59 07/05/17 08:50 20 MEQ Potassium Chloride (Klor-Con Tab) 20 meq NOW ONCE PO 07/01/17 11:15 07/01/17 11:16 DC 07/01/17 11:23 20 MEQ Amoxicillin/ Clavulanate Potassium (Augmentin Tab) 875 mg BIDM PO 07/02/17 16:45 07/05/17 23:59 07/05/17 08:48 875 MG Prednisone (PredniSONE TAB) 40 mg DAILY PO 07/03/17 09:00 07/05/17 11:15 DC 07/05/17 08:51 40 MG Acetazolamide (Diamox Tab) 250 mg BID17 PO 07/02/17 17:00 07/05/17 08:05 DC 07/04/17 17:19 250 MG Bisacodyl (Dulcolax Tab) 5 mg DAILY PO 07/04/17 11:15 07/05/17 11:15 DC 07/05/17 08:55 5 MG Objective Vital Signs Date Time Temp Pulse Resp B/P (MAP) Pulse Ox O2 Delivery O2 Flow Rate FiO2 07/05/17 10:41 92 Nasal Cannula 4.0 07/05/17 08:00 92 Nasal Cannula 4.5 07/05/17 07:52 37.1 74 20 142/74 (96) 92 Nasal Cannula 4.5 07/05/17 07:22 77 16 94 Nasal Cannula 4.0 07/05/17 02:00 74 16 96 BiPAP/CPAP 5.0 07/05/17 02:00 74 96 5.0 07/05/17 00:58 76 98 5.0 07/04/17 23:41 36.4 79 20 119/83 (95) 100 BiPAP 5.0 07/04/17 22:17 98 6.0 07/04/17 20:00 Nasal Cannula 4.0 07/04/17 19:43 87 15 95 Nasal Cannula 5.0 07/04/17 16:20 Nasal Cannula 4.0 07/04/17 14:47 37.2 78 20 96/57 (70) 97 07/04/17 14:24 86 15 94 Nasal Cannula 5.0 Physical Exam Notes: General: no distress Eyes: normal inspection, PERLL Respiratory: chest non tender, diminished breath sounds in the bases, no respiratory distress, no accessory muscle use Cardiac: regular rate and rhythm, no rub or gallop, no murmur, no edema, no jvd GI/: active bowel sounds, no abd pain or tenderness, soft, non distended Extremities: normal range of motion, normal strength, non tender Neuro/Psych: alert and oriented x 3, normal mood and affect Skin: normal color, dry Laboratory Results Last 24 Hours Test 07/04/17 16:19 07/04/17 19:39 07/05/17 06:32 07/05/17 07:40 Bedside Glucose 204 mg/dl 203 mg/dl Sodium Level 142 mmol/L Potassium Level mmol/L 4.0 mmol/L Chloride Level 100 mmol/L Carbon Dioxide Level 39 mmol/L Anion Gap 3.0 mmol/L Blood Urea Nitrogen 31 mg/dl Creatinine 0.67 mg/dl Est Creatinine Clear Calc Drug Dose 65.0 ml/min Estimated GFR () 96.2 Estimated GFR (Non- 83.0 BUN/Creatinine Ratio 46.8 Random Glucose 98 mg/dl Calcium Level 9.3 mg/dl Magnesium Level mg/dl 2.0 mg/dl Test 07/05/17 07:45 07/05/17 10:58 Bedside Glucose 80 mg/dl 157 mg/dl Assessment and Plan The patient is an 82-year-old female here for respiratory failure and pneumonia. Acute on chronic respiratory failure w/ hypoxia and hypercapnia- on chronic 3 L O2, PNA, COPD, restrictive lung disease: - Cardiac enzymes negative x1 - IV Vancomycin + Zosyn + IV Levaquin in ED- Vancomycin + Zosyn at admission- d/ c'd Vancomycin, on Zosyn since 06/28- transition to PO Augmentin BID on 07/02 - will continue for a 10 day regimen - Procalcitonin trended down from 0.68 - continue DuoNeb QID and PRN for SOB/wheezing - continue Mucinex 600 mg BID - Initially on IV Solu-Medrol 40 mg BID- started Prednisone 40 mg daily on - will continue to taper - Influenza negative; MRSA swab negative - Chest CT and CXR on 06/27- negative for infectious process or PE -- Repeat CXR on 06/29- atelectasis vs PNA -- repeat CXR 07/04 pending - Followed ABGs- STABLE - OOB in chair Qshift, continue working w/ PT - consulted pulmonology Metabolic alkalosis, compensation for chronic respiratory acidosis: continue Diamox 250mg BID Hypomagnesemia - replaced Confusion, hallucinations, disorientation, weakness, slurred speech: - TSH, b12/folate WNL - Head CT unremarkable for acute findings - UA negative - Consulted neurology -- Recommended brain MRI and carotid US - Patient does not think she can tolerate MRI- spoke w/ neurology, CT of little use - >70% stenosis on R- discussed w/ patient/family- agree to hold pending workup/treatment until outpatient when acute issues resolved - appears to have resolved a.fib, HTN, diastolic CHF, HLD: - Monitor I&Os and daily weights - No evidence of fluid overload on exam/imaging - Continue Imdur 30 mg QAM, Metoprolol 25 mg daily, Xarelto 15 mg daily, Lipitor 40 mg daily - Continue Lasix 40 mg daily and Losartan 25 mg daily - Hydralazine IV PRN T2DM w/ hyperglycemia, likely secondary to IV steroids- hgbA1c 6.5%: - Metformin 1000 mg BID held while inpatient - Hyperglycemia- blood sugars running a little high towards evening - increased insulin glargine to 8 units daily - BSG ACHS and ISS Arthritis, chronic pain syndrome: - Continue [place] 10/325 q6 hrs PRN discontinued due to respiratory depression effects - Continue Folic acid 1 mg daily, Enbrel and Methotrexate weekly - Tylenol PRN TBI, anxiety, depression: - Continue Gabapentin 200 mg BID, Effexor 37.5 mg daily, Diazepam 2.5 mg q6 hrs PRN - Hydroxyzine 25 mg daily PRN discontinued due to respiratory depression effects [facility]GR[facility]: - Noncompliant w/ BiPAP at home - BiPAP HS and PRN throughout the day as needed Constipation - increased dulcolax tabs to bid per patient request GI prophylaxis: Protonix DVT prophylaxis: Xarelto Code Status: LEVEL V, DNR Dispo: To go to SNF, awaiting approval for [facility]
[2017-07-05] MEDS: RIVAROXABAN TAB 15 MG TAB PO SCH (20:15)
[2017-07-05] MEDS: ATORVASTATIN 40 MG TAB PO SCH (20:16)
[2017-07-06 01:25] VITALS: PULSE 80; O2SAT 97
[2017-07-06] MEDS: LEVALBUTEROL 1.25MG/0.5ML NEB INH SCH ×2 (01:25→07:06)
[2017-07-06] MEDS: IPRATROPIUM BROMIDE NEB SOLN 0.02% 2.5 ML VIAL INH SCH ×2 (01:25→07:06)
[2017-07-06 06:34] LABS: CALCIUM 8.8 mg/dl (8.5-10.1); CREATININE 0.64 mg/dl (0.60-1.20); POTASSIUM 4.1 mmol/L (3.5-5.1)
[2017-07-06] MEDS: BUDESONIDE 0.5 MG/2 ML VIAL (PULMICORT) INH SCH (07:06)
[2017-07-06 07:56] VITALS: PULSE 82; O2SAT 90
[2017-07-06 08:06] VITALS: BP 70/51; PULSE 89; TEMP 36.8; O2SAT 94
[2017-07-06] MEDS: LOSARTAN POTASSIUM 25 MG TAB PO SCH (08:28)
[2017-07-06 08:30] VITALS: BP 153/76; PULSE 109
[2017-07-06] MEDS: ISOSORBIDE MONONITRATE 60 MG TABCR PO SCH (08:31)
[2017-07-06] MEDS: METOCLOPRAMIDE HCL 5 MG TAB PO SCH (08:31)
[2017-07-06] MEDS: METOPROLOL SUCC 25MG EXT REL TAB PO SCH (08:32)
[2017-07-06] MEDS: GUAIFENESIN 600 MG TABCR PO SCH (08:33)
[2017-07-06] MEDS: VENLAFAXINE HCL XR 37.5 MG CAPXR PO SCH (08:34)
[2017-07-06] MEDS: GABAPENTIN 100 MG CAP PO SCH (08:34)
[2017-07-06] MEDS: FUROSEMIDE 40 MG TAB PO SCH (08:35)
[2017-07-06] MEDS: POTASSIUM CHLORIDE 20 MEQ TABCR PO SCH (08:36)
[2017-07-06] MEDS: BISACODYL 5 MG TABEC PO SCH (08:40)
[2017-07-06] MEDS: INSULIN ASPART 100 UNITS/ML 3 ML PEN SC SCH ×2 (08:44→12:23)
[2017-07-06] MEDS ORDERED: INSULIN GLARGINE SOLOSTAR 100 UNITS/ML 3 ML PEN SC SCH (09:00)
[2017-07-06 09:33] LABS: HEMATOCRIT 42.2 % (37-47); HEMOGLOBIN 13.3 g/dL (12.0-16.0); MEAN CELL VOLUME 105.2 fL (80-100); MEAN CORPUSCULAR HEMOGLOBIN 33.2 pg (25-34); PLATELET COUNT 202 K/uL (130-400); RED CELL DISTRIBUTION WIDTH CV 13.9 % (11.5-14.5); RED CELL DISTRIBUTION WIDTH SD 52.9 fL (36.4-46.3); WHITE BLOOD COUNT 10.23 K/uL (4.8-10.8)
[2017-07-06 09:35] LABS: MEAN CORPUSCULAR HGB CONC 31.5 g/dl (32-36)
[2017-07-06 09:52] LABS: CREATININE 0.68 mg/dl (0.60-1.20)
[2017-07-06 10:04] VITALS: BP 153/76; PULSE 109; TEMP 36.8; O2SAT 94
[2017-07-06] MEDS ORDERED: DLC5 PO (10:23)
[2017-07-06] MEDS ORDERED: PLMINS INH (10:23)
[2017-07-06] MEDS ORDERED: PRD10 PO (10:23)
[2017-07-06] MEDS ORDERED: MCRK20 PO (10:23)
[2017-07-06] MEDS ORDERED: DIAZ-165 PO (10:23)
[2017-07-06] MEDS ORDERED: INSDGIPEN SC (10:28)
[2017-07-06] MEDS ORDERED: NVLGIPEN SC (10:28)
--- NOTE | 2017-07-06 10:33 | Discharge Instructions ---
Discharge Instructions Date of Service Jul 06, 2017. Admission Reason for Admission: Acute Respiratory Failure W/ Hypoxia, Hypercapnia Discharge Discharge Diagnosis / Problem: Acute respiratory failure with hypoxia, pneumonia Discharge Goals Goal(s): Improve disease control Activity Recommendations Activity Level: Assistance Required Therapies: Physical Therapy, Occupational Therapy . Additional Information Patient informed of condition: Yes Advance Directives: No DNR: Yes Level of Care: Acute Rehab Communicable Disease: No Prognosis: Improving Oxygen at (LPM): 4 Ho Catheter: No Instructions / Follow-Up Instructions / Follow-Up Please have patient follow up with pulmonology within a week. Patient was started on insulin as her blood sugars began to rise while she was on prednisone. Would continue with insulin while finishing the prednisone taper Prednisone taper is as follows: 20 mg x 2 days 10 mg x 2 days Current Hospital Diet Patient's current hospital diet: AHA Diet (Heart Healthy), Diabetes Type 2 Diet Discharge Diet Recommended Diet: AHA Diet (Heart Healthy), Diabetes Type 2 Diet Pending Studies Studies pending at discharge: no Physician Orders On Transfer POLST Discussion: without POLST completion Laboratory Results Last 24 Hours Test 07/05/17 10:58 07/05/17 16:27 07/05/17 20:15 07/06/17 05:39 Bedside Glucose 157 mg/dl 190 mg/dl 151 mg/dl Sodium Level 141 mmol/L Potassium Level 4.1 mmol/L Chloride Level 99 mmol/L Carbon Dioxide Level 40 mmol/L Anion Gap 2.0 mmol/L Blood Urea Nitrogen 33 mg/dl Creatinine 0.64 mg/dl Est Creatinine Clear Calc Drug Dose 68.1 ml/min Estimated GFR () 97.7 Estimated GFR (Non- 84.3 BUN/Creatinine Ratio 52.0 Random Glucose 102 mg/dl Calcium Level 8.8 mg/dl Magnesium Level 2.0 mg/dl Test 07/06/17 07:34 07/06/17 09:23 Bedside Glucose 109 mg/dl White Blood Count 10.23 K/uL Red Blood Count 4.01 M/uL Hemoglobin 13.3 g/dL Hematocrit 42.2 % Mean Corpuscular Volume 105.2 fL Mean Corpuscular Hemoglobin 33.2 pg Mean Corpuscular Hemoglobin Concent 31.5 g/dl RDW Standard Deviation 52.9 fL RDW Coefficient of Variation 13.9 % Platelet Count 202 K/uL Mean Platelet Volume 10.0 fL Sodium Level 142 mmol/L Potassium Level 4.0 mmol/L Chloride Level 98 mmol/L Carbon Dioxide Level 40 mmol/L Anion Gap 4.0 mmol/L Blood Urea Nitrogen 30 mg/dl Creatinine 0.68 mg/dl Est Creatinine Clear Calc Drug Dose 62.4 ml/min Estimated GFR () 95.8 Estimated GFR (Non- 82.6 BUN/Creatinine Ratio 43.5 Random Glucose 189 mg/dl Calcium Level 9.0 mg/dl Magnesium Level 2.0 mg/dl Hemoglobin A1c Test 06/29/17 05:35 Range/Units Estimated Average Glucose 140 mg/dl Hemoglobin A1c 6.5 H 4.5-5.6 % Medical Emergencies . Who to Call and When: Medical Emergencies: If at any time you feel your situation is an emergency, please call 911 immediately. . Non-Emergent Contact Non-Emergency issues call your: Primary Care Provider Call Non-Emergent contact if: you have any medication questions . Past History Medical & Surgical History: (1) Acute respiratory failure with hypoxia and hypercapnia (2) Pneumonia involving right lung (3) Altered mental status (4) COPD (chronic obstructive pulmonary disease) (5) Diabetes (6) HTN (hypertension) (7) Anxiety (8) Constipation . "Provider Documentation" section prepared by Fanny Mustafa. . Core Measure Problem Core Measures: None
--- NOTE | 2017-07-06 11:33 | Consultant Recommendations ---
[employer] Recommendations Date of Service Jul 06, 2017. [employer] Recommendations Follow up with Pulmonary 07/11/17 at 3:15pm with Renetta Parra PA-C at [address] [place] [address] option #3
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
== END 2017-07-06 13:05 | DRG 189 ==
LOC: C.EDB 17:21 → C.2T 21:28 → ENRESERV 21:51 → C.MS2W 07-03 12:34
PROVIDERS: ADMIT Hospitalist; ATTEND Hospitalist
DX: J96.21 Acute and chronic respiratory failure with hypoxia (principal); J44.1 Chronic obstructive pulmonary disease with (acute) exacerbation; E87.2 Acidosis; I50.30 Unspecified diastolic (congestive) heart failure; E11.65 Type 2 diabetes mellitus with hyperglycemia; Z87.891 Personal history of nicotine dependence; S06.9X9S Unspecified intracranial injury with loss of consciousness of unspecified duration, sequela; E87.6 Hypokalemia; J96.02 Acute respiratory failure with hypercapnia; Z99.81 Dependence on supplemental oxygen; I48.91 Unspecified atrial fibrillation; I11.0 Hypertensive heart disease with heart failure; G89.4 Chronic pain syndrome; E83.42 Hypomagnesemia; T38.0X5A Adverse effect of glucocorticoids and synthetic analogues, initial encounter; Y92.019 Unspecified place in single-family (private) house as the place of occurrence of the external cause; E78.5 Hyperlipidemia, unspecified; Z79.84 Long term (current) use of oral hypoglycemic drugs; M19.90 Unspecified osteoarthritis, unspecified site; G47.33 Obstructive sleep apnea (adult) (pediatric); K59.00 Constipation, unspecified; V89.2XXS Person injured in unspecified motor-vehicle accident, traffic, sequela; Z79.01 Long term (current) use of anticoagulants

== ENCOUNTER → 2017-07-26 | Outpatient (CLI) | payer BC ==
[~2017-07-26] MED LIST changes: +DLC5 PO; +ETAN25IN2 INJ; -HYDR-3124 PO; -HYDR-4079 PO; +INSDGIPEN SC; +MCRK20 PO; +NVLGIPEN SC; +PLMINS INH; +PRD10 PO
[2017-07-26 15:26] LABS: ALBUMIN 3.2 gm/dl (3.4-5.0); ALKALINE PHOSPHATASE 99 U/L (45-117); ALT/SGPT 22 U/L (12-78); AST/SGOT 13 U/L (15-37); BLOOD UREA NITROGEN 23 mg/dl (7-18); CALCIUM 9.2 mg/dl (8.5-10.1); CARBON DIOXIDE 45 mmol/L (21-32); CREATININE 0.68 mg/dl (0.60-1.20); GLUCOSE 256 mg/dl (70-99); POTASSIUM 3.9 mmol/L (3.5-5.1); SODIUM 137 mmol/L (136-145); TOTAL PROTEIN 7.1 gm/dl (6.4-8.2); TRANSFERRIN 217 mg/dl (200-360)
[2017-07-27 06:53] LABS: HEMOGLOBIN A1C 6.6 % (4.5-5.6)
== END | disposition home or self-care (01) ==
LOC: C.LAB1850 13:56
PROVIDERS: ATTEND Physician Assistant
DX: R53.81 Other malaise (principal); E11.49 Type 2 diabetes mellitus with other diabetic neurological complication

== ENCOUNTER 2017-08-09 10:38 | Inpatient (IN) | payer BC, OTHER ==
[~2017-08-09] VITALS: Ht 160 cm; Wt 73.7 kg
[2017-08-09] VITALS (9 sets, daily range): BP systolic 104–141; BP diastolic 55–83; PULSE 77–124; TEMP 37.1–37.3; O2SAT 92–99; Ht 160 cm; Wt 73.7 kg
[2017-08-09] MEDS ORDERED: ALBUT/IPRATROP 3MG/0.5MG NEB 3 ML VIAL ONE (10:42)
[2017-08-09] MEDS ORDERED: ALBUTEROL 0.083% NEBU SOLN 3 ML VIAL INH ONE (10:43)
[2017-08-09] MEDS ORDERED: GLC/500 PO (11:07)
[2017-08-09] MEDS ORDERED: XPNINS NEB (11:07)
[2017-08-09] MEDS ORDERED: CLR10 PO (11:07)
[2017-08-09] MEDS ORDERED: LEVAQUIN 750MG / 150ML D5W IV STA (11:20)
[2017-08-09] MEDS ORDERED: ALBUTEROL 0.083% NEBU SOLN 3 ML VIAL INH STA (11:22)
[2017-08-09] MEDS ORDERED: METHYLPREDNISOLONE IV 125 MG in SYRINGE 0 ML IV ONE (11:30)
[2017-08-09] MEDS ORDERED: METHYLPREDNISOLONE 125 MG VIAL ONE (11:32)
--- NOTE | 2017-08-09 12:06 | DIAGNOSTIC IMAGING REPORT ---
CHEST ONE VIEW PORTABLE HISTORY: EVALUATE RESPIRATORY DISTRESS.DYSPNEA COMPARISON: Chest 07/05/2017. FINDINGS: Trace bilateral pleural effusions have improved. The heart remains mildly enlarged. No evidence for pulmonary edema. Mild bibasilar interstitial thickening has also improved. Old, healed right-sided rib fractures. Surgical clips within the left axilla. Left shoulder prosthesis remains unchanged. This continues to demonstrate superior subluxation of the humeral head in relation to the glenoid. No pneumothorax. IMPRESSION: 1. Interval improvement in the trace bilateral pleural effusions and bibasilar interstitial thickening. 2. Stable cardiomegaly. Electronically signed by: Kian Butler M.D. 08/09/2017 12:05 PM Dictated Date/Time: 08/09/2017 12:03 PM
[2017-08-09 12:07] LABS: BASO % 0.2 %; BASO ABS # 0.03 K/uL (0-0.2); EOS % 0.2 %; EOS ABS # 0.02 K/uL (0-0.5); HEMATOCRIT 39.4 % (37-47); HEMOGLOBIN 12.4 g/dL (12.0-16.0); IG# 0.08 K/uL (0.00-0.02); LYMPH % 14.4 %; LYMPH ABS # 1.91 K/uL (1.2-3.4); MEAN CELL VOLUME 105.3 fL (80-100); MEAN CORPUSCULAR HEMOGLOBIN 33.2 pg (25-34); MEAN CORPUSCULAR HGB CONC 31.5 g/dl (32-36); MEAN PLATELET VOLUME 9.8 fL (7.4-10.4); MONO % 6.5 %; MONO ABS # 0.87 K/uL (0.11-0.59); NEUT % 78.1 %; NEUT ABS # 10.38 K/uL (1.4-6.5); PLATELET COUNT 240 K/uL (130-400); RED CELL DISTRIBUTION WIDTH CV 14.7 % (11.5-14.5); RED CELL DISTRIBUTION WIDTH SD 54.9 fL (36.4-46.3); WHITE BLOOD COUNT 13.29 K/uL (4.8-10.8)
[2017-08-09 12:21] LABS: INR 1.1 (0.9-1.1)
[2017-08-09 12:34] LABS: ALBUMIN 3.2 gm/dl (3.4-5.0); ALT/SGPT 14 U/L (12-78); AST/SGOT 14 U/L (15-37); BLOOD UREA NITROGEN 14 mg/dl (7-18); CALCIUM 9.2 mg/dl (8.5-10.1); CARBON DIOXIDE 44 mmol/L (21-32); GLUCOSE 176 mg/dl (70-99); POTASSIUM 3.8 mmol/L (3.5-5.1); SODIUM 139 mmol/L (136-145)
[2017-08-09 12:37] LABS: ALKALINE PHOSPHATASE 89 U/L (45-117); TOTAL PROTEIN 7.3 gm/dl (6.4-8.2)
[2017-08-09] MEDS ORDERED: METHOTREXATE 2.5 MG TAB PO ONE (13:08)
[2017-08-09] MEDS ORDERED: GABAPENTIN 100 MG CAP PO ONE (13:08)
[2017-08-09] MEDS ORDERED: ONDANSETRON INJ 2 MG/ML 2 ML VIAL IV PRN (13:15)
[2017-08-09] MEDS ORDERED: ETANERCEPT INJ SCH (13:15)
[2017-08-09] MEDS ORDERED: MAGNESIUM HYDROXIDE SUSP 30 ML UDC PO PRN (13:15)
[2017-08-09] MEDS ORDERED: ACETAMINOPHEN 325 MG TAB PO PRN (13:15)
--- NOTE | 2017-08-09 13:40 | History and Physical ---
History & Physical Date & Time of Service: Aug 09, 2017 at 13:17 Chief Complaint: SOB Primary Care Physician: Jovanny Rae M.D. History of Present Illness Source: patient, family 82 y/o F who was brought to the ED by her family due to AMS. Daughter states that pt was a bit confused yesterday when she called her, but that it was worse today. Daughter last saw pt last Tuesday and has been out of town. She lives with her who is her main health care legal assistant. Pt was so weak today that she could not move per daughter. Pt was d/c'd from [facility] to [facility] on . She left [facility] about 2 weeks ago and had been doing well until the last two days. She does note that she felt confused during this time. She has been nauseated without emesis during the 2 weeks since her d/c from [facility] , but states she was started on a new "stomach pill" and that her appetite has been much better. She was eating only a few bites at a time prior to this and is now eating entire meals. She has not had a bowel movement x5 days. Denies abd pain. She was quite SOB prior, but feels this is improving. Pt denies fever, chest pain, LE pain or swelling. Pt has had a neb, solu-medrol, levaquin, and BIPAP since arrival to the ED. She has no SOB now and feels that her confusion is improving. Daughter states that when this happened last month, pt had been with increasing confusion for about 1 week. Pt wears 3L continuous at home with BIPAP for sleep. She does occasionally turn her O2 to 4L. She states she wears her O2 continuously as she should and her BIPAP regularly at night and her family agrees to this. does state that she frequently takes an afternoon nap and does not wear her BIPAP for this. She is also supposed to use her nebs TID but he states she generally only gets one tx a day. Daughter states pt is a mouth breather even when at rest. Her home O2 is NC. Past Medical/Surgical History Medical Problems: (1) Diabetes Status: Chronic (2) HTN (hypertension) Status: Chronic COPD with CRF, baseline is 3L continuous with HS BIPAP Afib, xarelto Anxiety Psoriatic arthritis Recent PNA with d/c to [facility] and home x2 weeks Family History Mother with hx of CVA Social History Smoking Status: Former Smoker (quit x25 years) Alcohol Use: none Drug Use: none Marital Status: Housing status: lives with family Occupational Status: retired Multi-Drug Resistant Organisms History of MDRO: No Allergies Coded Allergies: No Known Allergies (Unverified , 08/09/17) Home Medications Scheduled Albuterol Hfa (Ventolin Hfa), 3 PUFFS INH Q6H Atorvastatin (Lipitor), 40 MG PO QPM Budesonide (Inhalation) (Pulmicort Respules 0.5MG/2ML), 0.5 MG INH BIDR Ergocalciferol (Vitamin D 62727 Unit), 50,000 INTER.UNIT PO 2XWK Etanercept (Enbrel), 1 DOSE INJ WK Folic Acid (Folvite), 1 MG PO DAILY Furosemide (Lasix), 40 MG PO QAM Gabapentin (Neurontin), 200 MG PO AMPM Home O2 Therapy (Oxygen), 3-4 LITERS NA CONTINOUS Isosorbide Mononitrate Ext Rel (Imdur Ext Rel), 60 MG PO QAM Levalbuterol (Levalbuterol HCl), 1 DOSE NEB TID Loratadine (Claritin), 10 MG PO DAILY Losartan Potassium (Cozaar), 25 MG PO DAILY Metformin Hcl (Glucophage), 500 MG PO DAILY Methotrexate (Methotrexate), 6 TAB PO WK Metoclopramide Hcl (Metoclopramide Hcl), 5 MG PO BID Metoprolol Succinate (Metoprolol Succinate ER), 25 MG PO DAILY Potassium Chloride (Klor-Con M20), 20 MEQ PO BID Rivaroxaban (Xarelto), 15 MG PO QPM Venlafaxine Hcl (Venlafaxine Hcl Er), 37.5 MG PO DAILY Scheduled PRN Bisacodyl (Bisacodyl EC), 5 MG PO BID PRN for constipation Review of Systems Pertinent positives and negatives reviewed in HPI--all others negative Physical Exam Vital Signs Date Time Temp Pulse Resp B/P (MAP) Pulse Ox O2 Delivery O2 Flow Rate FiO2 08/09/17 12:34 124 96 60 08/09/17 12:18 94 BiPAP 08/09/17 12:08 112 26 94 08/09/17 11:38 102 19 96 08/09/17 11:23 96 Oxymask 10.0 08/09/17 11:23 96 Oxymask 10.0 08/09/17 11:08 102 19 95 08/09/17 10:51 113 08/09/17 10:44 92 Nasal Cannula 6.0 08/09/17 10:44 36.7 112 18 159/75 90 Nasal Cannula 6.0 08/09/17 10:42 159/75 General Appearance: WD/WN, no apparent distress Head: normocephalic, atraumatic Eyes: EOMI, sclerae normal Respiratory/Chest: no respiratory distress, + decreased breath sounds, + pertinent finding (neg for crackles or wheezing) Cardiovascular: no edema, normal peripheral pulses, + tachycardia Abdomen/GI: non tender, soft Extremities/Musculoskelatal: no calf tenderness, no pedal edema Neurologic/Psych: alert, normal mood/affect, oriented x 3 Skin: normal color, warm/dry Diagnostics Laboratory Results Results Past 24 Hours Test 08/09/17 11:49 Range/Units White Blood Count 13.29 4.8-10.8 K/uL Red Blood Count 3.74 4.2-5.4 M/uL Hemoglobin 12.4 12.0-16.0 g/dL Hematocrit 39.4 37-47 % Mean Corpuscular Volume 105.3 80-100 fL Mean Corpuscular Hemoglobin 33.2 25-34 pg Mean Corpuscular Hemoglobin Concent 31.5 32-36 g/dl Platelet Count 240 130-400 K/uL Mean Platelet Volume 9.8 7.4-10.4 fL Neutrophils (%) (Auto) 78.1 % Lymphocytes (%) (Auto) 14.4 % Monocytes (%) (Auto) 6.5 % Eosinophils (%) (Auto) 0.2 % Basophils (%) (Auto) 0.2 % Neutrophils # (Auto) 10.38 1.4-6.5 K/uL Lymphocytes # (Auto) 1.91 1.2-3.4 K/uL Monocytes # (Auto) 0.87 0.11-0.59 K/uL Eosinophils # (Auto) 0.02 0-0.5 K/uL Basophils # (Auto) 0.03 0-0.2 K/uL RDW Standard Deviation 54.9 36.4-46.3 fL RDW Coefficient of Variation 14.7 11.5-14.5 % Immature Granulocyte % (Auto) 0.6 % Immature Granulocyte # (Auto) 0.08 0.00-0.02 K/uL Prothrombin Time 11.9 9.0-12.0 SECONDS Prothromb Time International Ratio 1.1 0.9-1.1 Activated Partial Thromboplast Time 30.0 21.0-31.0 SECONDS Partial Thromboplastin Ratio 1.2 Venous Blood pH 7.29 7.36-7.41 Venous Blood Partial Pressure CO2 102 38.0-50.0 mmHg Venous Blood Partial Pressure O2 42 mmHg Venous Blood HCO3 48 mmol/L Venous Blood Oxygen Saturation 71.5 % Venous Blood Base Excess 16.6 mEq/L Sodium Level 139 136-145 mmol/L Potassium Level 3.8 3.5-5.1 mmol/L Chloride Level 92 98-107 mmol/L Carbon Dioxide Level 44 21-32 mmol/L Anion Gap 3.0 3-11 mmol/L Blood Urea Nitrogen 14 7-18 mg/dl Creatinine 0.70 0.60-1.20 mg/dl Est Creatinine Clear Calc Drug Dose 61.8 ml/min Estimated GFR () 94.8 Estimated GFR (Non- 81.8 BUN/Creatinine Ratio 19.3 10-20 Random Glucose 176 70-99 mg/dl Calcium Level 9.2 8.5-10.1 mg/dl Total Bilirubin 0.4 0.2-1 mg/dl Aspartate Amino Transf (AST/SGOT) 14 15-37 U/L Alanine Aminotransferase (ALT/SGPT) 14 12-78 U/L Alkaline Phosphatase 89 45-117 U/L Troponin I < 0.015 0-0.045 ng/ml Pro-B-Type Natriuretic Peptide 407 0-1800 pg/ml Total Protein 7.3 6.4-8.2 gm/dl Albumin 3.2 3.4-5.0 gm/dl Globulin 4.1 2.5-4.0 gm/dl Albumin/Globulin Ratio 0.8 0.9-2 Diagnostic Radiology CXR neg for acute Impression Assessment and Plan 82 y/o F who was admitted on 08/09 with AMS AMS: resulting from acute on chronic respiratory failure with hypercapnia and hx of COPD Likely related at least in part to pt noncompliance Advised to use BIPAP/CPAP with all sleep, including naps (which she does not do currently) Advised compliance with nebs TID as written (only taking them QD) Advised to switch to simple face mask from NC given mouth breathing or even using BIPAP when awake and not ambulating Improving s/p neb, steroids, BIPAP Continue with xopenex amber and solu-medrol 60mg BID Hold on abx for now given no s/sx of PNA on CXR with WBC WNL and afebrile Will need script for facemask on d/c if this is plan of care DM: holding metformin given uncertain PO intake with BIPAP SSI PRN (insulin naive) HTN/afib: continue home meds, including xarelto Psoriatic arthritis: continue methotrexate Embral weekly, due today to administer and will bring in Other: For cardiac resuscitation but DNI, family is present and agrees Xarelto for DVT proph DM diet if able to tolerate breaks from BIPAP, currently on low level IVF in case of low PO intake Level of Care Telemetry Advanced Directives Existing Living Will: Yes Existing Power of School Curriculum Developer: Yes Resuscitation Status FULL NO MECH VENTILATION VTE Prophylaxis VTE Risk Assessment Done? Y/N: Yes Risk Level: Low
[2017-08-09] MEDS ORDERED: DEXTROSE 50% 50 ML SYR IV PRN (13:45)
[2017-08-09] MEDS ORDERED: GLUCAGON FOR INJ 1 MG VIAL SQ PRN (13:45)
[2017-08-09] MEDS ORDERED: GLUCOSE 40% GEL 15 GM TUBE PO PRN (13:45)
[2017-08-09] MEDS ORDERED: GLUCOSE 10 TABS/TUBE PO PRN (13:45)
--- NOTE | 2017-08-09 14:55 | EMERGENCY ROOM VISIT NOTE ---
History Report prepared by Josefina: Ezio Morales Under the Supervision of: Dr. Rober Tapia D.O. 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 Patient on 3L O2 chronically at home. Increased home O2 to 4L. Shortness of breath progressed this morning. Contacted EMS. Per EMS, patient's SpO2 on 4L at home was 85%. Denies any recent sick contacts. No cough. History of Present Illness The patient is an 82 year old female who presents to the Emergency Room with complaints of constant shortness of breath starting yesterday. The patient additionally has been nauseous for the past two weeks, and she notes that she has not had a bowel movement for the past 5 days. The patient's family states that the patient was discharged from [facility] two weeks ago after having COPD, restrictive lung disease, and a case of pneumonia. The patient is additionally complaining of some urinary burning for the past few days, and she has been weaker the last few days. She reports that she has a chronic runny nose , and this has been unchanged. The family additionally notes that the patient has been disoriented, confused, and her words were slurred. The family notes that the symptoms are similar to the last time that the patient was admitted. The patient has a history of A-fib, and she is currently on Xarelto and has not missed any doses. Pt denies headache, change in vision, fevers, chest pain, nausea, vomiting, diarrhea, and melena. Source of History: patient, family Onset: yesterday Position: other (global) Quality: other (shortness of breath) Timing: constant Associated Symptoms: + nausea, + weakness Note: Associated symptoms: Urinary burning, disoriented, confused, and words are slurred. Review of Systems See HPI for pertinent positives & negatives. A total of 10 systems reviewed and were otherwise negative. Past Medical & Surgical Medical Problems: (1) Acute respiratory failure with hypoxia and hypercapnia (2) Anxiety (3) Constipation (4) COPD (chronic obstructive pulmonary disease) (5) Diabetes (6) HTN (hypertension) (7) Pneumonia involving right lung (8) Traumatic brain injury Social History Smoking Status: Former Smoker Drug Use: none Marital Status: Housing Status: lives with family Occupation Status: retired Current/Historical Medications Scheduled Albuterol Hfa (Ventolin Hfa), 3 PUFFS INH Q6H Atorvastatin (Lipitor), 40 MG PO QPM Budesonide (Inhalation) (Pulmicort Respules 0.5MG/2ML), 0.5 MG INH BIDR Ergocalciferol (Vitamin D 82310 Unit), 50,000 INTER.UNIT PO 2XWK Etanercept (Enbrel), 1 DOSE INJ WK Folic Acid (Folvite), 1 MG PO DAILY Furosemide (Lasix), 40 MG PO QAM Gabapentin (Neurontin), 200 MG PO AMPM Home O2 Therapy (Oxygen), 3-4 LITERS NA CONTINOUS Isosorbide Mononitrate Ext Rel (Imdur Ext Rel), 60 MG PO QAM Levalbuterol (Levalbuterol HCl), 1 DOSE NEB TID Loratadine (Claritin), 10 MG PO DAILY Losartan Potassium (Cozaar), 25 MG PO DAILY Metformin Hcl (Glucophage), 500 MG PO DAILY Methotrexate (Methotrexate), 6 TAB PO WK Metoclopramide Hcl (Metoclopramide Hcl), 5 MG PO BID Metoprolol Succinate (Metoprolol Succinate ER), 25 MG PO DAILY Potassium Chloride (Klor-Con M20), 20 MEQ PO BID Rivaroxaban (Xarelto), 15 MG PO QPM Venlafaxine Hcl (Venlafaxine Hcl Er), 37.5 MG PO DAILY Scheduled PRN Bisacodyl (Bisacodyl EC), 5 MG PO BID PRN for constipation Allergies Coded Allergies: No Known Allergies (Unverified , 08/09/17) Physical Exam Vital Signs Date Time Temp Pulse Resp B/P (MAP) Pulse Ox O2 Delivery O2 Flow Rate FiO2 08/09/17 13:13 107 13 95 08/09/17 12:43 110 24 98 08/09/17 12:34 124 96 60 08/09/17 12:18 94 BiPAP 08/09/17 12:13 114 29 95 08/09/17 12:08 112 26 94 08/09/17 11:38 102 19 96 08/09/17 11:23 96 Oxymask 10.0 08/09/17 11:23 96 Oxymask 10.0 08/09/17 11:08 102 19 95 08/09/17 10:51 113 08/09/17 10:44 92 Nasal Cannula 6.0 08/09/17 10:44 36.7 112 18 159/75 90 Nasal Cannula 6.0 08/09/17 10:42 159/75 Physical Exam GENERAL: Sitting up in bed, moderate distress, on face mask oxygen at 10L EYE EXAM: normal conjunctiva. OROPHARYNX: no exudate, no erythema, lips, buccal mucosa, and tongue normal and mucous membranes are moist NECK: supple, no nuchal rigidity, no adenopathy, non-tender LUNGS: Minimal air movement bilaterally. Normal chest wall mechanics HEART: tachycardic, no murmurs, S1 normal and S2 normal ABDOMEN: abdomen soft, non-tender, normo-active bowel sounds, no masses, no rebound or guarding. BACK: Back is symmetrical on inspection and there is no deformity, no midline tenderness, no CVA tenderness. SKIN: no rashes and no bruising UPPER EXTREMITIES: upper extremities are grossly normal. LOWER EXTREMITIES: Calves are equal bilaterally. No pitting edema. NEURO EXAM: Normal sensorium, cranial nerves II-XII grossly intact, normal speech, no gross weakness of arms, no gross weakness of legs. Medical Decision & Procedures ER Provider Diagnostic Interpretation: Radiology results as stated below per my review and the radiologist's interpretation: CHEST ONE VIEW PORTABLE HISTORY: EVALUATE RESPIRATORY DISTRESS.DYSPNEA COMPARISON: Chest 07/05/2017. FINDINGS: Trace bilateral pleural effusions have improved. The heart remains mildly enlarged. No evidence for pulmonary edema. Mild bibasilar interstitial thickening has also improved. Old, healed right-sided rib fractures. Surgical clips within the left axilla. Left shoulder prosthesis remains unchanged. This continues to demonstrate superior subluxation of the humeral head in relation to the glenoid. No pneumothorax. IMPRESSION: 1. Interval improvement in the trace bilateral pleural effusions and bibasilar interstitial thickening. 2. Stable cardiomegaly. Electronically signed by: Kian Butler M.D. 08/09/2017 12:05 PM Dictated Date/Time: 08/09/2017 12:03 PM Laboratory Results 08/09/17 11:49 Red Blood Count 3.74, Mean Corpuscular Volume 105.3, Mean Corpuscular Hemoglobin 33.2, Mean Corpuscular Hemoglobin Concent 31.5, Mean Platelet Volume 9.8, Neutrophils (%) (Auto) 78.1, Lymphocytes (%) (Auto) 14.4, Monocytes (%) ( Auto) 6.5, Eosinophils (%) (Auto) 0.2, Basophils (%) (Auto) 0.2, Neutrophils # ( Auto) 10.38, Lymphocytes # (Auto) 1.91, Monocytes # (Auto) 0.87, Eosinophils # ( Auto) 0.02, Basophils # (Auto) 0.03 08/09/17 11:49 Test 08/09/17 11:49 White Blood Count 13.29 K/uL (4.8-10.8) Red Blood Count 3.74 M/uL (4.2-5.4) Hemoglobin 12.4 g/dL (12.0-16.0) Hematocrit 39.4 % (37-47) Mean Corpuscular Volume 105.3 fL (80-100) Mean Corpuscular Hemoglobin 33.2 pg (25-34) Mean Corpuscular Hemoglobin Concent 31.5 g/dl (32-36) Platelet Count 240 K/uL (130-400) Mean Platelet Volume 9.8 fL (7.4-10.4) Neutrophils (%) (Auto) 78.1 % Lymphocytes (%) (Auto) 14.4 % Monocytes (%) (Auto) 6.5 % Eosinophils (%) (Auto) 0.2 % Basophils (%) (Auto) 0.2 % Neutrophils # (Auto) 10.38 K/uL (1.4-6.5) Lymphocytes # (Auto) 1.91 K/uL (1.2-3.4) Monocytes # (Auto) 0.87 K/uL (0.11-0.59) Eosinophils # (Auto) 0.02 K/uL (0-0.5) Basophils # (Auto) 0.03 K/uL (0-0.2) RDW Standard Deviation 54.9 fL (36.4-46.3) RDW Coefficient of Variation 14.7 % (11.5-14.5) Immature Granulocyte % (Auto) 0.6 % Immature Granulocyte # (Auto) 0.08 K/uL (0.00-0.02) Prothrombin Time 11.9 SECONDS (9.0-12.0) Prothromb Time International Ratio 1.1 (0.9-1.1) Activated Partial Thromboplast Time 30.0 SECONDS (21.0-31.0) Partial Thromboplastin Ratio 1.2 Venous Blood pH 7.29 (7.36-7.41) Venous Blood Partial Pressure CO2 102 mmHg (38.0-50.0) Venous Blood Partial Pressure O2 42 mmHg Venous Blood HCO3 48 mmol/L Venous Blood Oxygen Saturation 71.5 % Venous Blood Base Excess 16.6 mEq/L Anion Gap 3.0 mmol/L (3-11) Est Creatinine Clear Calc Drug Dose 61.8 ml/min Estimated GFR () 94.8 Estimated GFR (Non- 81.8 BUN/Creatinine Ratio 19.3 (10-20) Calcium Level 9.2 mg/dl (8.5-10.1) Total Bilirubin 0.4 mg/dl (0.2-1) Aspartate Amino Transf (AST/SGOT) 14 U/L (15-37) Alanine Aminotransferase (ALT/SGPT) 14 U/L (12-78) Alkaline Phosphatase 89 U/L (45-117) Troponin I < 0.015 ng/ml (0-0.045) Pro-B-Type Natriuretic Peptide 407 pg/ml (0-1800) Total Protein 7.3 gm/dl (6.4-8.2) Albumin 3.2 gm/dl (3.4-5.0) Globulin 4.1 gm/dl (2.5-4.0) Albumin/Globulin Ratio 0.8 (0.9-2) Laboratory results per my review. Medications Administered Medications (Trade) Dose Ordered Sig/Rigoberto Route Start Time Stop Time Status Last Admin Dose Admin Levofloxacin (Levaquin / D5W) 750 mg NOW STAT IV 08/09/17 11:20 08/09/17 11:21 DC 08/09/17 11:34 750 MG Albuterol Sulfate (Ventolin 0.083% 2.5MG/3ML [facility]) 5 mg NOW STAT INH 08/09/17 11:22 08/09/17 11:23 DC 08/09/17 11:34 5 MG Methylprednisolone Sodium Succinate 125 mg/Syringe 2 ml @ 1.5 mls/min ONE ONCE IV 08/09/17 11:30 08/09/17 11:31 DC 2/20/18 11:34 1.5 MLS/MIN ECG Per My Interpretation Indication: SOB/dyspnea Rate (beats per minute): 117 Rhythm: sinus tachycardia Findings: nonspecific-ST abn (Lateral), PAC, other (Poor baseline) ED Course ED COURSE: Vital signs were reviewed and showed hypoxia and tachycardia The patients medical record was reviewed The above diagnostic studies were performed and reviewed. ED treatments and interventions as stated above. 1111: The patient was evaluated in room B2. A complete history and physical examination was performed. 1120: Levofloxacin 750mg IV 1122: Albuterol Sulfate 5mg INH 1130: Methylprednisone Sodium Succinate 125mg 2ml @ 1.5mls/min IV 1224: Upon reevaluation, the patient is going to put on BIPAP.I discussed my findings with the patient and she understands and agrees with the treatment plan. Based on the patients age, coexisting illnesses, exam and lab findings the decision to treat as an inpatient was made. The patient remained stable while under my care. The patient will be evaluated for further management. 1226: I reviewed the patient's case with Dr. Juan Carlos BACK Hospitalist. She will evaluate the patient for further management. 1256: I reevaluated the patient, and she was doing fine. Medical Decision Differential diagnoses includes but is not limited to pneumonia, bronchitis, COPD/Asthma exacerbation, pneumothorax, pulmonary embolism, congestive heart failure, acute coronary syndrome. Patient is an 82-year-old female who presents the ER for shortness of breath thought in by EMS. She is on oxygen mask at 10-11 L. She is significantly short of breath and has been also some pain with urination. CBC shows a mild leukocytosis. Troponin was negative. LFTs and bilirubin were normal. ABG shows a pH of 7.29 along with a CO2 of 102. She does take a Xa inhibitor and has not missed any doses. Chest x-ray shows improvement from previous x-rays. She was given neb treatment and steroids. She is also covered with antibiotics. She continued to be significantly short of breath and slightly hypoxic. She is placed on BiPAP and had significant improvement of her symptoms. She is monitored closely. She was admitted to internal medicine with hypercarbic respiratory failure and hypoxia on BiPAP. Medication Reconcilliation Current Medication List: was personally reviewed by me Blood Pressure Screening Patient's blood pressure: Elevated blood pressure Monitored by the hospitalist Consults Time Called: 1223 Consulting Physician: Dr. Juan Carlos BACK Hospitalist Returned Call: 1226 I reviewed the patient's case with Dr. Juan Carlos BACK Hospitalist. She will evaluate the patient for further management. Impression Primary Impression: Acute respiratory failure with hypoxia and hypercapnia Additional Impression: COPD (chronic obstructive pulmonary disease) Critical Care I have personally spent 35 minutes of critical care time in the direct management of this patient. This includes bedside care, interpretation of diagnostic studies, and testing, discussion with consultants, patient, and family members, and other required patient management activities. This 35 minutes is in excess of all separately billable procedures. Scribe Attestation The scribe's documentation has been prepared under my direction and personally reviewed by me in its entirety. I confirm that the note above accurately reflects all work, treatment, procedures, and medical decision making performed by me. Departure Information Dispostion Being Evaluated By Hospitalist Referrals Jovanny Rae M.D. (PCP) Patient Instructions My [facility] Problem Qualifiers Additional Impression: COPD (chronic obstructive pulmonary disease) COPD type: unspecified COPD Qualified Codes: J44.9 - Chronic obstructive pulmonary disease, unspecified
[2017-08-09] MEDS ORDERED: ISOSORBIDE MONONITRATE 60 MG TABCR PO ONE (14:57)
[2017-08-09] MEDS ORDERED: LORATADINE 10 MG TAB PO ONE (14:57)
[2017-08-09] MEDS ORDERED: LOSARTAN POTASSIUM 25 MG TAB PO ONE (14:58)
[2017-08-09] MEDS ORDERED: METOPROLOL SUCC 25MG EXT REL TAB PO ONE (14:58)
[2017-08-09] MEDS ORDERED: FUROSEMIDE 40 MG TAB PO ONE (15:00)
[2017-08-09] MEDS: NSS + 20MEQ KCL 1000ML 1,000 ML IV SCH (15:05)
[2017-08-09] MEDS: LEVALBUTEROL 0.63MG/3 ML NEB INH SCH ×2 (15:19→19:09)
[2017-08-09] MEDS ORDERED: NURSING VERBAL MED ORDER ONE (16:00)
[2017-08-09] MEDS: INSULIN ASPART 100 UNITS/ML 3 ML PEN SC SCH ×2 (17:59→21:51)
[2017-08-09] MEDS ORDERED: ALBUTEROL HFA 8 GM INHALER INH SCH (18:00)
[2017-08-09] MEDS: BUDESONIDE 0.5 MG/2 ML VIAL (PULMICORT) INH SCH (19:09)
[2017-08-09] MEDS: GABAPENTIN 100 MG CAP PO SCH (19:38)
[2017-08-09] MEDS: RIVAROXABAN TAB 15 MG TAB PO SCH (19:38)
[2017-08-09] MEDS: METOCLOPRAMIDE HCL 5 MG TAB PO SCH (19:38)
[2017-08-09] MEDS: POTASSIUM CHLORIDE 20 MEQ TABCR PO SCH (19:38)
[2017-08-09] MEDS: ATORVASTATIN 40 MG TAB PO SCH (19:38)
[2017-08-09] MEDS: METHYLPREDNISOLONE IV 60 MG in SYRINGE 0 ML IV SCH (21:49)
[2017-08-10] VITALS (17 sets, daily range): BP systolic 94–126; BP diastolic 56–84; PULSE 63–100; TEMP 36.5–37.1; O2SAT 87–100
[2017-08-10] MEDS: LEVALBUTEROL 0.63MG/3 ML NEB INH SCH ×4 (01:42→19:20)
[2017-08-10] MEDS: BUDESONIDE 0.5 MG/2 ML VIAL (PULMICORT) INH SCH ×2 (07:04→19:20)
[2017-08-10 07:30] LABS: CALCIUM 8.7 mg/dl (8.5-10.1); CREATININE 0.75 mg/dl (0.60-1.20)
[2017-08-10] MEDS: METHYLPREDNISOLONE IV 60 MG in SYRINGE 0 ML IV SCH ×2 (07:51→20:18)
[2017-08-10] MEDS: LOSARTAN POTASSIUM 25 MG TAB PO SCH (07:52)
[2017-08-10] MEDS: LORATADINE 10 MG TAB PO SCH (07:52)
[2017-08-10] MEDS: VENLAFAXINE HCL XR 37.5 MG CAPXR PO SCH (07:52)
[2017-08-10] MEDS: ISOSORBIDE MONONITRATE 60 MG TABCR PO SCH (07:53)
[2017-08-10] MEDS: METOCLOPRAMIDE HCL 5 MG TAB PO SCH ×2 (07:54→20:18)
[2017-08-10] MEDS: POTASSIUM CHLORIDE 20 MEQ TABCR PO SCH ×2 (07:54→20:18)
[2017-08-10] MEDS: FUROSEMIDE 40 MG TAB PO SCH (07:54)
[2017-08-10] MEDS: GABAPENTIN 100 MG CAP PO SCH ×2 (07:54→20:17)
[2017-08-10] MEDS: METOPROLOL SUCC 25MG EXT REL TAB PO SCH (07:55)
--- NOTE | 2017-08-10 08:27 | Hospitalist Progress Note ---
Hospitalist Progress Note Date of Service Aug 10, 2017. (Teresa Medrano PA-C) Subjective Pt evaluation today including: conversation w/ patient, conversation w/ family , physical exam, chart review, lab review, review of studies, review of inpatient medication list Patient seen and evaluated. Feeling a little bit better but states she only feels good when on bipap. States this came on suddenly for her and didn't have any symptoms leading up to this. Currently does not feel like she has congestion in her chest but reports sinus congestion and post-nasal drip. Constitutional: No fever, No chills, No fatigue ENT: + nasal symptoms, + sore throat, No trouble swallowing Respiratory: + cough, + wheezing, + shortness of breath, No sputum Cardiovascular: No chest pain Abdomen: No pain, No nausea, No vomiting, No diarrhea, No constipation Musculoskeletal: No swelling, No calf pain Female : No dysuria Heme: No abnormal bleeding/bruising Skin: No rash (Teresa Medrano, LESLYEC) Medications Current Inpatient Medications Medications (Trade) Dose Ordered Sig/Rigoberto Route Start Time Stop Time Status Last Admin Dose Admin Potassium Chloride/Sodium Chloride 1,000 ml @ 50 mls/hr Q20H IV 08/09/17 15:00 09/08/17 13:07 08/09/17 15:05 50 MLS/HR Acetaminophen (Tylenol Tab) 650 mg Q4H PRN PO 08/09/17 13:15 09/08/17 13:14 Magnesium Hydroxide (Milk Of Magnesia Susp) 30 ml Q12H PRN PO 08/09/17 13:15 09/08/17 13:14 Ondansetron HCl (Zofran Inj) 4 mg Q6H PRN IV 08/09/17 13:15 09/08/17 13:14 Atorvastatin Calcium (Lipitor Tab) 40 mg QPM PO 08/09/17 21:00 09/08/17 20:59 08/09/17 19:38 40 MG Bisacodyl (Dulcolax Tab) 5 mg BID PRN PO 08/09/17 13:15 09/08/17 13:14 Budesonide (Pulmicort Respules 0.5MG/ 2ML Neb Soln) 0.5 mg BIDR INH 08/09/17 20:00 09/08/17 19:59 08/10/17 07:04 0.5 MG Folic Acid (Folvite Tab) 1 mg DAILY PO 08/10/17 09:00 09/09/17 08:59 08/10/17 07:53 1 MG Furosemide (Lasix Tab) 40 mg QAM PO 08/10/17 09:00 09/09/17 08:59 08/10/17 07:54 40 MG Gabapentin (Neurontin Cap) 200 mg BID PO 08/09/17 21:00 09/08/17 20:59 08/10/17 07:54 200 MG Isosorbide Mononitrate (Imdur Ext Rel Tab) 60 mg QAM PO 08/10/17 09:00 09/09/17 08:59 08/10/17 07:53 60 MG Loratadine (Claritin Tab) 10 mg DAILY PO 08/10/17 09:00 09/09/17 08:59 08/10/17 07:52 10 MG Losartan Potassium (coZAAR TAB) 25 mg DAILY PO 08/10/17 09:00 09/09/17 08:59 08/10/17 07:52 25 MG Methotrexate (Methotrexate Tab) 15 mg Mo@0900 PO 08/15/17 09:00 09/14/17 08:59 Metoclopramide HCl (Reglan Tab) 5 mg BID PO 08/09/17 21:00 09/08/17 20:59 08/10/17 07:54 5 MG Metoprolol Succinate (Toprol Xl Tab) 25 mg DAILY PO 08/10/17 09:00 09/09/17 08:59 08/10/17 07:55 25 MG Potassium Chloride (Klor-Con Tab) 20 meq BID PO 08/09/17 21:00 09/08/17 20:59 08/10/17 07:54 20 MEQ Rivaroxaban (Xarelto Tab) 15 mg QPM PO 08/09/17 21:00 09/08/17 20:59 08/09/17 19:38 15 MG Venlafaxine HCl (effeXOR EXTENDED REL CAP) 37.5 mg DAILY PO 08/10/17 09:00 09/09/17 08:59 08/10/17 07:52 37.5 MG Miscellaneous Information (Order Awaiting Action) 1 ea QS N/A 08/09/17 16:00 09/08/17 15:59 Levalbuterol (Xopenex 0.63 Mg/ 3 Ml Neb) 0.63 mg Q6R INH 08/09/17 15:00 09/08/17 14:59 08/10/17 07:04 0.63 MG Methylprednisolone Sodium Succinate 60 mg/Syringe 0.96 ml @ 1.5 mls/min BID IV 08/09/17 21:00 09/08/17 20:59 08/10/17 07:51 1.5 MLS/MIN Insulin Aspart (novoLOG ASPART) SLIDING SCALE If C... ACHS SC 08/09/17 16:15 09/08/17 16:14 08/09/17 21:51 3 UNITS Glucose (Glucose 40% Gel) 15-30 GRAMS 15 GRAMS... UD PRN PO 08/09/17 13:45 09/08/17 13:44 Glucose (Glucose Chew Tab) 4-8 Tablets 4 Tabl... UD PRN PO 08/09/17 13:45 09/08/17 13:44 Dextrose (Dextrose 50% 50ML Syringe) 25-50ML OF 50% DW IV FOR... UD PRN IV 08/09/17 13:45 09/08/17 13:44 Glucagon (Glucagon Inj) 1 mg UD PRN SQ 08/09/17 13:45 09/08/17 13:44 (Teresa Medrano, PA-C) Objective Vital Signs Date Time Temp Pulse Resp B/P (MAP) Pulse Ox O2 Delivery O2 Flow Rate FiO2 08/10/17 07:41 36.9 100 114/56 (75) 87 Room Air 3.0 08/10/17 07:16 36.6 77 24 123/63 (83) 97 BiPAP 08/10/17 07:06 72 18 97 BiPAP/CPAP 60 08/10/17 07:06 72 97 60 08/10/17 04:02 36.7 71 18 96/63 (74) 98 08/10/17 04:00 93 BiPAP 08/10/17 01:43 88 18 96 BiPAP/CPAP 60 08/10/17 00:08 36.9 81 18 94/61 (72) 99 08/10/17 00:00 93 BiPAP 08/09/17 20:00 93 BiPAP 08/09/17 19:10 92 96 60 08/09/17 19:09 95 18 96 BiPAP/CPAP 60 08/09/17 18:57 37.1 78 22 104/64 (77) 98 BiPAP 08/09/17 16:00 BiPAP 08/09/17 15:58 92 95 60 08/09/17 15:23 99 18 92 Mask 6.0 08/09/17 15:00 37.3 77 18 113/83 (93) 93 Oxymask 6.0 08/09/17 15:00 106 22 141/55 (83) 99 Non-Rebreather 15.0 08/09/17 14:14 109 13 159/75 95 08/09/17 13:52 109 08/09/17 13:13 107 13 95 08/09/17 12:43 110 24 98 08/09/17 12:34 124 96 60 08/09/17 12:18 94 BiPAP 08/09/17 12:13 114 29 95 08/09/17 12:08 112 26 94 08/09/17 11:38 102 19 96 08/09/17 11:23 96 Oxymask 10.0 08/09/17 11:23 96 Oxymask 10.0 08/09/17 11:08 102 19 95 08/09/17 10:51 113 08/09/17 10:44 92 Nasal Cannula 6.0 08/09/17 10:44 36.7 112 18 159/75 90 Nasal Cannula 6.0 08/09/17 10:42 159/75 (Teresa Medrano, PA-C) Physical Exam General Appearance: WD/WN, no apparent distress, + pertinent finding (on BiPap Mask) ENT: hearing grossly normal Neck: supple, no JVD, trachea midline Respiratory/Chest: no respiratory distress, no accessory muscle use, + decreased breath sounds (bases b/l with reduced air flow - airflow improves approx mid lung to apices; no wheezing) Cardiovascular: regular rate, rhythm, no murmur Abdomen: normal bowel sounds, non tender, soft Neurologic/Psychiatric: alert Skin: normal color, warm/dry (Teresa Medrano, PA-C) Laboratory Results Last 24 Hours Test 08/09/17 11:49 08/09/17 20:19 08/10/17 06:21 08/10/17 06:30 White Blood Count 13.29 K/uL Red Blood Count 3.74 M/uL Hemoglobin 12.4 g/dL Hematocrit 39.4 % Mean Corpuscular Volume 105.3 fL Mean Corpuscular Hemoglobin 33.2 pg Mean Corpuscular Hemoglobin Concent 31.5 g/dl Platelet Count 240 K/uL Mean Platelet Volume 9.8 fL Neutrophils (%) (Auto) 78.1 % Lymphocytes (%) (Auto) 14.4 % Monocytes (%) (Auto) 6.5 % Eosinophils (%) (Auto) 0.2 % Basophils (%) (Auto) 0.2 % Neutrophils # (Auto) 10.38 K/uL Lymphocytes # (Auto) 1.91 K/uL Monocytes # (Auto) 0.87 K/uL Eosinophils # (Auto) 0.02 K/uL Basophils # (Auto) 0.03 K/uL RDW Standard Deviation 54.9 fL RDW Coefficient of Variation 14.7 % Immature Granulocyte % (Auto) 0.6 % Immature Granulocyte # (Auto) 0.08 K/uL Prothrombin Time 11.9 SECONDS Prothromb Time International Ratio 1.1 Activated Partial Thromboplast Time 30.0 SECONDS Partial Thromboplastin Ratio 1.2 Venous Blood pH 7.29 Venous Blood Partial Pressure CO2 102 mmHg Venous Blood Partial Pressure O2 42 mmHg Venous Blood HCO3 48 mmol/L Venous Blood Oxygen Saturation 71.5 % Venous Blood Base Excess 16.6 mEq/L Sodium Level 139 mmol/L 139 mmol/L Potassium Level 3.8 mmol/L 5.0 mmol/L Chloride Level 92 mmol/L 92 mmol/L Carbon Dioxide Level 44 mmol/L 45 mmol/L Anion Gap 3.0 mmol/L 2.0 mmol/L Blood Urea Nitrogen 14 mg/dl 19 mg/dl Creatinine 0.70 mg/dl 0.75 mg/dl Est Creatinine Clear Calc Drug Dose 61.8 ml/min 57.3 ml/min Estimated GFR () 94.8 87.3 Estimated GFR (Non- 81.8 75.3 BUN/Creatinine Ratio 19.3 25.4 Random Glucose 176 mg/dl 188 mg/dl Calcium Level 9.2 mg/dl 8.7 mg/dl Total Bilirubin 0.4 mg/dl Aspartate Amino Transf (AST/SGOT) 14 U/L Alanine Aminotransferase (ALT/SGPT) 14 U/L Alkaline Phosphatase 89 U/L Troponin I < 0.015 ng/ml Pro-B-Type Natriuretic Peptide 407 pg/ml Total Protein 7.3 gm/dl Albumin 3.2 gm/dl Globulin 4.1 gm/dl Albumin/Globulin Ratio 0.8 Bedside Glucose 233 mg/dl Urine Color YELLOW Urine Appearance CLEAR Urine pH 5.0 Urine Specific Strang 1.014 Urine Protein NEG Urine Glucose (UA) NEG Urine Ketones NEG Urine Occult Blood NEG Urine Nitrite NEG Urine Bilirubin NEG Urine Urobilinogen NEG Urine Leukocyte Esterase MODERATE Urine WBC (Auto) >30 /hpf Urine RBC (Auto) 0-4 /hpf Urine Hyaline Casts (Auto) >30 /lpf Urine Epithelial Cells (Auto) >30 /lpf Urine Bacteria (Auto) NEG Urine Renal Epithelial Cells /lpf Urine Pathogenic Casts 0-3 GRANULAR CASTS /lpf Test 08/10/17 06:53 Bedside Glucose 158 mg/dl (Teresa Medrano, PAAishwaryaC) Assessment and Plan 82 y/o F who was admitted on 08/09 with AMS Metabolic Encephalopathy 2/2 Hypoxia: RESOLVED - Treatment as below Acute on Chronic Hypoxic/Hypercarbic Respiratory Failure 2/2 COPD Exacerbation with Respiratory Acidosis - Element of noncompliance as she has not used bipap with naps and only using home nebs daily instead of TID as prescribed - may need Rx for face mask on D/C as patient is largely a mouth breather - Reviewed outpatient pulm records - PFTs from October 2016 reveal mild obstructive disease but moderate to severe restrictive findings that did not improve with bronchodilator administration - Continue BiPAP at rest with trials of wean - per outpatient Pulm they would recommend maintaining sats between 88-92% as patient has long standing CO2 retention - patient seems to not tolerate when sats go around 89% - continue to try and wean - Solu-Medrol 60 mg IV BID - Continue nebulizers; Pulmicort BID; T2DM: - Hold Metformin and cover with SSI given limited po intake with BiPAP and steroids Paroxysmal Atrial Fibrillation and HTN: Currently NSR - Toprol XL 25 mg daily and Xarelto 15 mg daily - Losartan 25 mg daily Psoriatic Arthritis: STABLE - Methotrexate 15 mg on Mondays; Enbrel given on 08/09 HLD: - Lipitor 40 mg daily DVT Prophylaxis: Xarelto Code Status: FULL WITHOUT MECH VENTILATION Disposition: - Continue to wean O2 Continued [facility] stay due to: abnormal vital signs Discharge planning: home (Teresa Medrano, PAAishwaryaC) Attending Attestation: Pt seen/examined, chart reviewed, care plan d/w MARIA ISABEL Medrano. I agree w/ the hawkins components of her documentation. Tele overnight normal. Feels "a little better." Reports that her breathing issues started about 1 year ago. Was never a smoker. BIPAP off this AM; now on NC O2. VSS afebrile o2 sats wnl gen - nad neck - no JVD heart - RRR lungs - very poor air movement, no adventitious sounds, no distress abd - soft, NT ext - no edema A/P: 1. acute/chronic hypercarbic/hypoxic resp failure - improving; BIPAP at HS/naps , NC O2 during the day 2. metabolic encephalopathy 2nd to hypercarbia - resolved. 3. COPD w/ exacerbation - steroids. 4. T2DM - adjust novolog; may need basal insulin. leave on tele Zachary Mcghee MD (Zachary Mcghee MD)
[2017-08-10] MEDS: INSULIN ASPART 100 UNITS/ML 3 ML PEN SC SCH ×4 (08:38→20:17)
[2017-08-10] MEDS: BISACODYL 5 MG TABEC PO PRN (08:42)
[2017-08-10] MEDS: NSS + 20MEQ KCL 1000ML 1,000 ML IV SCH (09:23)
--- NOTE | 2017-08-10 10:21 | Clinical Documentation Query ---
CLINICAL DOCUMENTATION QUERY 82 yo female admitted with altered mental status from acute respiratory failure. In your clinical opinion is this patient being managed for: ( x ) Encephalopathy ( ) Not Agree ( ) Other explanation of clinical findings (Please Explain) ( ) Unable to determine (Please Define) ( ) Need to Discuss The medical record reflects the following clinical findings, treatment, and risk factors. Clinical Indicators: As above Treatment: O2, telemetry, albuterol nebulizers, pulmicort, methylprednisolone Risk Factors: Age, COPD, noncompliance Please clarify and document your clinical opinion in the progress notes and discharge summary. Terms such as "probable", "suspected", "likely", "questionable", "possible", or "still to be ruled out" are acceptable. IF IN AGREEMENT, YOU MUST DOCUMENT ABOVE DIAGNOSTIC STATEMENT IN DAILY PROGRESS NOTES AND DISCHARGE SUMMARY. This document is not part of the patient's record. Thank You, Lamar Aguilar RN [phone]
[2017-08-10 14:52] LABS: INFLUENZA B ANTIGEN Neg for Influ B (NEG)
[2017-08-10] MEDS ORDERED: BISACODYL 10 MG SUPP PR STA (17:41)
[2017-08-10] MEDS: RIVAROXABAN TAB 15 MG TAB PO SCH (20:18)
[2017-08-10] MEDS: ATORVASTATIN 40 MG TAB PO SCH (20:19)
[2017-08-11] VITALS (14 sets, daily range): BP systolic 119–175; BP diastolic 52–80; PULSE 75–92; TEMP 36.5–37; O2SAT 91–100
[2017-08-11] MEDS: LEVALBUTEROL 0.63MG/3 ML NEB INH SCH ×2 (02:25→09:00)
[2017-08-11] MEDS: NSS + 20MEQ KCL 1000ML 1,000 ML IV SCH (05:27)
[2017-08-11 06:48] LABS: HEMATOCRIT 35.5 % (37-47); HEMOGLOBIN 11.2 g/dL (12.0-16.0); MEAN CELL VOLUME 102.9 fL (80-100); MEAN CORPUSCULAR HEMOGLOBIN 32.5 pg (25-34); MEAN CORPUSCULAR HGB CONC 31.5 g/dl (32-36); MEAN PLATELET VOLUME 10.1 fL (7.4-10.4); PLATELET COUNT 240 K/uL (130-400); RED CELL DISTRIBUTION WIDTH CV 14.2 % (11.5-14.5); RED CELL DISTRIBUTION WIDTH SD 52.9 fL (36.4-46.3); WHITE BLOOD COUNT 9.79 K/uL (4.8-10.8)
[2017-08-11 07:22] LABS: CALCIUM 8.1 mg/dl (8.5-10.1); CREATININE 0.68 mg/dl (0.60-1.20); POTASSIUM 5.1 mmol/L (3.5-5.1)
[2017-08-11] MEDS: BUDESONIDE 0.5 MG/2 ML VIAL (PULMICORT) INH SCH ×2 (08:00→18:56)
[2017-08-11] MEDS: METHYLPREDNISOLONE IV 60 MG in SYRINGE 0 ML IV SCH ×2 (08:03→19:57)
[2017-08-11] MEDS: FUROSEMIDE 40 MG TAB PO SCH (08:04)
[2017-08-11] MEDS: POTASSIUM CHLORIDE 20 MEQ TABCR PO SCH ×2 (08:04→19:59)
[2017-08-11] MEDS: VENLAFAXINE HCL XR 37.5 MG CAPXR PO SCH (08:04)
[2017-08-11] MEDS: METOCLOPRAMIDE HCL 5 MG TAB PO SCH ×2 (08:04→19:58)
[2017-08-11] MEDS: ISOSORBIDE MONONITRATE 60 MG TABCR PO SCH (08:05)
[2017-08-11] MEDS: LOSARTAN POTASSIUM 25 MG TAB PO SCH (08:05)
[2017-08-11] MEDS: GABAPENTIN 100 MG CAP PO SCH ×2 (08:05→19:59)
[2017-08-11] MEDS: LORATADINE 10 MG TAB PO SCH (08:05)
[2017-08-11] MEDS: METOPROLOL SUCC 25MG EXT REL TAB PO SCH (08:05)
[2017-08-11] MEDS: INSULIN ASPART 100 UNITS/ML 3 ML PEN SC SCH ×4 (08:20→20:12)
[2017-08-11] MEDS ORDERED: MAGNESIUM SULFATE 1GM / D5W 1 GM in PREMIXED IN D5W 100 ML IV ONE (08:30)
[2017-08-11] MEDS ORDERED: MAGNESIUM SULFATE 1GM / D5W 1 GM in PREMIXED IN D5W 100 ML IV SCH (08:45)
[2017-08-11] MEDS ORDERED: IPRATROPIUM BROMIDE NEB SOLN 0.02% 2.5 ML VIAL INH SCH (09:00)
[2017-08-11] MEDS ORDERED: ALBUT/IPRATROP 3MG/0.5MG NEB 3 ML VIAL INH PRN (12:30)
--- NOTE | 2017-08-11 13:08 | Hospitalist Progress Note ---
Hospitalist Progress Note Date of Service Aug 11, 2017. (Teresa Medrano PA-C) Subjective Pt evaluation today including: conversation w/ patient, conversation w/ family , physical exam, chart review, lab review, review of inpatient medication list Patient seen and evaluated. Reports having some "loopy" feelings overnight and confusion that she recalls. States she leslie that way after her breathing treatment and refused further breathing treatments. Also states that she had 2 panic attacks last night. She was hoping for something to help with this but states she knows "those anxiety pills are not good for people with breathing problems" States she was on Valium in the past for anxiety and reports she was tapered from this and rarely took it as needed. Review of outpatient notes state she has known issues with hallucinations which may be related to possible hypoxia? But question if this is more ? Daughter is concerned about generalized weakness and patient agrees she is weak but does not want to go to SNF. Will assess PT/OT. Constitutional: + weakness (generalized), No fever, No chills ENT: + nasal symptoms Respiratory: + cough, + shortness of breath (intermittent but improved from yesterday), No sputum Cardiovascular: No chest pain, No orthopnea Abdomen: No pain, No nausea, No vomiting, No diarrhea, No constipation Musculoskeletal: No swelling, No calf pain Female : No dysuria Heme: No abnormal bleeding/bruising Skin: No rash (Teresa Medrano, MARIA ISABEL-C) Medications Current Inpatient Medications Medications (Trade) Dose Ordered Sig/Rigoberto Route Start Time Stop Time Status Last Admin Dose Admin Acetaminophen (Tylenol Tab) 650 mg Q4H PRN PO 08/09/17 13:15 09/08/17 13:14 Magnesium Hydroxide (Milk Of Magnesia Susp) 30 ml Q12H PRN PO 08/09/17 13:15 09/08/17 13:14 Ondansetron HCl (Zofran Inj) 4 mg Q6H PRN IV 08/09/17 13:15 09/08/17 13:14 Atorvastatin Calcium (Lipitor Tab) 40 mg QPM PO 08/09/17 21:00 09/08/17 20:59 08/10/17 20:19 40 MG Bisacodyl (Dulcolax Tab) 5 mg BID PRN PO 2/20/18 13:15 09/08/17 13:14 08/10/17 08:42 5 MG Budesonide (Pulmicort Respules 0.5MG/ 2ML Neb Soln) 0.5 mg BIDR INH 08/09/17 20:00 09/08/17 19:59 08/10/17 19:20 0.5 MG Folic Acid (Folvite Tab) 1 mg DAILY PO 08/10/17 09:00 09/09/17 08:59 08/11/17 08:04 1 MG Furosemide (Lasix Tab) 40 mg QAM PO 08/10/17 09:00 09/09/17 08:59 08/11/17 08:04 40 MG Gabapentin (Neurontin Cap) 200 mg BID PO 08/09/17 21:00 09/08/17 20:59 08/11/17 08:05 200 MG Isosorbide Mononitrate (Imdur Ext Rel Tab) 60 mg QAM PO 08/10/17 09:00 09/09/17 08:59 08/11/17 08:05 60 MG Loratadine (Claritin Tab) 10 mg DAILY PO 08/10/17 09:00 09/09/17 08:59 08/11/17 08:05 10 MG Losartan Potassium (coZAAR TAB) 25 mg DAILY PO 08/10/17 09:00 09/09/17 08:59 08/11/17 08:05 25 MG Methotrexate (Methotrexate Tab) 15 mg Mo@0900 PO 08/15/17 09:00 09/14/17 08:59 Metoclopramide HCl (Reglan Tab) 5 mg BID PO 08/09/17 21:00 09/08/17 20:59 08/11/17 08:04 5 MG Metoprolol Succinate (Toprol Xl Tab) 25 mg DAILY PO 08/10/17 09:00 09/09/17 08:59 08/11/17 08:05 25 MG Potassium Chloride (Klor-Con Tab) 20 meq BID PO 08/09/17 21:00 09/08/17 20:59 08/11/17 08:04 20 MEQ Rivaroxaban (Xarelto Tab) 15 mg QPM PO 08/09/17 21:00 09/08/17 20:59 08/10/17 20:18 15 MG Venlafaxine HCl (effeXOR EXTENDED REL CAP) 37.5 mg DAILY PO 08/10/17 09:00 09/09/17 08:59 08/11/17 08:04 37.5 MG Miscellaneous Information (Order Awaiting Action) 1 ea QS N/A 08/09/17 16:00 09/08/17 15:59 08/10/17 08:00 1 EA Methylprednisolone Sodium Succinate 60 mg/Syringe 0.96 ml @ 1.5 mls/min BID IV 08/09/17 21:00 09/08/17 20:59 08/11/17 08:03 1.5 MLS/MIN Insulin Aspart (novoLOG ASPART) SLIDING SCALE If C... ACHS SC 08/09/17 16:15 09/08/17 16:14 08/11/17 08:20 7 UNITS Glucose (Glucose 40% Gel) 15-30 GRAMS 15 GRAMS... UD PRN PO 08/09/17 13:45 09/08/17 13:44 Glucose (Glucose Chew Tab) 4-8 Tablets 4 Tabl... UD PRN PO 08/09/17 13:45 09/08/17 13:44 Dextrose (Dextrose 50% 50ML Syringe) 25-50ML OF 50% DW IV FOR... UD PRN IV 08/09/17 13:45 09/08/17 13:44 Glucagon (Glucagon Inj) 1 mg UD PRN SQ 08/09/17 13:45 09/08/17 13:44 Albuterol/ Ipratropium (Duoneb) 3 ml Q6R INH 08/11/17 15:00 09/10/17 14:59 Albuterol/ Ipratropium (Duoneb) 3 ml Q2H PRN INH 08/11/17 12:30 09/10/17 12:29 (Teresa Medrano, RUDDY) Objective Vital Signs Date Time Temp Pulse Resp B/P (MAP) Pulse Ox O2 Delivery O2 Flow Rate FiO2 08/11/17 11:49 36.7 84 22 175/77 (109) 91 Nasal Cannula 4.0 08/11/17 08:03 85 16 147/73 (97) 92 Nasal Cannula 5.0 08/11/17 08:00 BiPAP 08/11/17 05:25 83 92 40 08/11/17 04:00 BiPAP 08/11/17 03:38 36.9 81 16 150/69 (96) 97 08/11/17 02:25 91 94 40 08/11/17 02:06 147/61 (89) 08/11/17 00:13 37.0 92 18 119/62 (81) 100 08/11/17 00:00 BiPAP 08/10/17 23:43 98 99 50 08/10/17 20:00 BiPAP 08/10/17 19:32 36.9 94 22 118/67 (84) 100 BiPAP 08/10/17 19:20 83 28 98 BiPAP/CPAP 50 08/10/17 19:11 83 98 50 08/10/17 16:00 BiPAP 08/10/17 15:26 36.9 90 23 112/60 (77) 94 BiPAP 08/10/17 14:14 78 96 50 08/10/17 14:12 78 28 96 BiPAP/CPAP 50 (Teresa Medrano, PA-C) Physical Exam General Appearance: no apparent distress, + pertinent finding (currently on NC and no respiratory distress) Eyes: sclerae normal ENT: hearing grossly normal Neck: supple, no JVD, trachea midline Respiratory/Chest: no respiratory distress, no accessory muscle use, + decreased breath sounds (with improvement in airflow in upper rust) Cardiovascular: regular rate, rhythm, no gallop, no murmur Abdomen: normal bowel sounds, non tender, soft Extremities: no pedal edema Neurologic/Psychiatric: alert Skin: normal color, warm/dry (Teresa Medrano, PA-C) Laboratory Results Last 24 Hours Test 08/10/17 16:32 08/10/17 20:10 08/11/17 06:22 08/11/17 06:27 Bedside Glucose 175 mg/dl 178 mg/dl 173 mg/dl White Blood Count 9.79 K/uL Red Blood Count 3.45 M/uL Hemoglobin 11.2 g/dL Hematocrit 35.5 % Mean Corpuscular Volume 102.9 fL Mean Corpuscular Hemoglobin 32.5 pg Mean Corpuscular Hemoglobin Concent 31.5 g/dl RDW Standard Deviation 52.9 fL RDW Coefficient of Variation 14.2 % Platelet Count 240 K/uL Mean Platelet Volume 10.1 fL Sodium Level 140 mmol/L Potassium Level 5.1 mmol/L Chloride Level 100 mmol/L Carbon Dioxide Level 39 mmol/L Anion Gap 1.0 mmol/L Blood Urea Nitrogen 25 mg/dl Creatinine 0.68 mg/dl Est Creatinine Clear Calc Drug Dose 63.2 ml/min Estimated GFR () 95.8 Estimated GFR (Non- 82.6 BUN/Creatinine Ratio 36.8 Random Glucose 180 mg/dl Calcium Level 8.1 mg/dl Magnesium Level 1.7 mg/dl Chemistry Specimen Hemolysis Test 08/11/17 11:21 Bedside Glucose 270 mg/dl (Teresa Medrano, PAAishwaryaC) Assessment and Plan 82 y/o F who was admitted on 08/09 with AMS Metabolic Encephalopathy 2/2 Hypoxia: Wax and Wanes - Largely appearing baseline but likely having some sundowning at night; review of outpatient records state she has had hallucinations in the past and she was reporting this last night with panic attacks - Avoid benzos given CO2 retention; will start Seroquel 12.5 mg HS Acute on Chronic Hypoxic/Hypercarbic Respiratory Failure 2/2 COPD Exacerbation with Respiratory Acidosis: IMPROVING - Has not been compliant with nebs here stating they are "too strong" will convert to Duoneb and try this - Obtain CT Chest to assess for any interstitial lung disease given her immunological history - PFTs from October 2016 reveal mild obstructive disease but moderate to severe restrictive findings that did not improve with bronchodilator administration - Continue BiPAP at rest with trials of wean - per outpatient Pulm they would recommend maintaining sats between 88-92% as patient has long standing CO2 retention - Will change Solu-Medrol to 60 mg IV daily - Continue nebulizers; Pulmicort BID T2DM: Averaging 170s and hopefully will improve with steroid tapering - Hold Metformin and cover with SSI Paroxysmal Atrial Fibrillation and HTN: Currently NSR - Has intermittent A Fib on monitor overnight - Toprol XL 25 mg daily and Xarelto 15 mg daily - Losartan 25 mg daily Psoriatic Arthritis: STABLE - Methotrexate 15 mg on Mondays; Enbrel given on 08/09 HLD: - Lipitor 40 mg daily DVT Prophylaxis: Xarelto Code Status: FULL WITHOUT MECH VENTILATION Disposition: - Continue to wean O2 - Obtain PT/OT evaluations - likely will need rehab however patient is somewhat reluctant at this time Continued [facility] stay due to: multiple IV medications needed Discharge planning: uncertain (Teresa Medrano, PAAishwaryaC) Attending Attestation: Pt seen/examined, chart reviewed, care plan d/w MARIA ISABEL Medrano. I agree w/ the hawkins components of her documentation. Tele normal. Feeling better. Minimal cough. +dyspnea. No pain in any location. VSS afebrile o2 sats wnl on NC o2 gen - nad neck - no JVD heart - RRR lungs - air movement much improved today; some scattered wheezes; no rales abd - soft, NT ext - no edema A/P: 1. acute/chronic hypercarbic/hypoxic resp failure - improving; can wean steroids; BIPAP at HS/naps, NC O2 during the day 2. metabolic encephalopathy 2nd to hypercarbia - largely resolved; some nocturnal sundowning; agree w/ seroquel. 3. COPD w/ exacerbation - steroids, but wean today. nebs, pulmonary toilet. agree w/ Chest CT to r/o ILD given her autoimmune arthritis. 4. T2DM - adjust novolog; add lantus daily and titrate. leave on tele overall improving Zachary Mcghee MD (Zachary Mcghee MD)
[2017-08-11] MEDS: ALBUT/IPRATROP 3MG/0.5MG NEB 3 ML VIAL INH SCH ×2 (14:04→18:56)
--- NOTE | 2017-08-11 15:12 | DIAGNOSTIC IMAGING REPORT ---
CT SCAN OF THE CHEST WITHOUT IV CONTRAST CLINICAL HISTORY: Dyspnea. COPD. COMPARISON STUDY: Chest CT scan dated 06/27/2017 and chest x-ray dated 08/09/2017. TECHNIQUE: CT scan of the thorax was performed from the thoracic inlet to the upper abdomen. Images are reviewed in the axial, sagittal, and coronal planes. IV contrast was not administered for this examination as per the referring clinician. A dose lowering technique was utilized adhering to the principles of ALARA. The examination is degraded by motion artifact, as well as by streak artifact from the arms which could not be elevated above the chest. CT DOSE: 441.36 mGy.cm FINDINGS: Thyroid: Atrophic. Thoracic aorta: There is atherosclerotic calcification of the thoracic aorta. There is mild ectasia of the ascending thoracic aorta which measures up to 3.9 cm. The remainder of the thoracic aorta is normal in caliber. The arch demonstrates standard 3-vessel anatomy. Heart: The heart is enlarged and without pericardial effusion. The coronary arteries are densely calcified. Lungs and pleural spaces: There are small pleural effusions with bibasilar atelectasis. The trachea and central airways are clear. No airspace consolidation is seen typical for pneumonia. Segmental atelectasis is present in the right middle lobe. Nodularity at the left apex has resolved as compared to 06/27/2017. This was likely on an inflammatory basis. Mediastinum: There is no mediastinal lymphadenopathy. Roseann: Not well assessed without IV contrast. Axillae: There is no axillary lymphadenopathy. Surgical clips are noted in the left axilla. Upper abdomen: There is a tiny hiatal hernia. Bilateral adrenal adenomas are unchanged. Skeletal structures: The skeletal structures are osteopenic. There is degenerative change and kyphoscoliosis noted in the thoracic spine. Advanced arthritic change is seen in the right shoulder. No lytic or blastic bony lesions are seen. There are healed right-sided rib fractures. A left shoulder arthroplasty is in place. Soft tissues: The left breast is surgically absent. IMPRESSION: 1. Streak and motion compromised examination. 2. Small pleural effusions with bibasilar atelectasis. 3. No airspace consolidation is seen typical for pneumonia. 4. Cardiomegaly. 5. Additional findings as above. Electronically signed by: Kavon Mohamud M.D. 08/11/2017 3:11 PM Dictated Date/Time: 08/11/2017 3:06 PM
[2017-08-11] MEDS ORDERED: INSULIN GLARGINE SOLOSTAR 100 UNITS/ML 3 ML PEN SC ONE (16:15)
[2017-08-11] MEDS: RIVAROXABAN TAB 15 MG TAB PO SCH (19:57)
[2017-08-11] MEDS: ATORVASTATIN 40 MG TAB PO SCH (19:58)
[2017-08-11] MEDS: QUETIAPINE FUMARATE 25 MG TAB PO SCH (19:58)
[2017-08-12] VITALS (17 sets, daily range): BP systolic 114–142; BP diastolic 54–77; PULSE 66–104; TEMP 36.4–37; O2SAT 92–100
[2017-08-12] MEDS: ALBUT/IPRATROP 3MG/0.5MG NEB 3 ML VIAL INH SCH ×4 (01:30→19:47)
[2017-08-12 06:04] LABS: HEMATOCRIT 36.5 % (37-47); HEMOGLOBIN 11.6 g/dL (12.0-16.0); MEAN CELL VOLUME 103.7 fL (80-100); MEAN CORPUSCULAR HGB CONC 31.8 g/dl (32-36); PLATELET COUNT 232 K/uL (130-400); RED CELL DISTRIBUTION WIDTH CV 14.6 % (11.5-14.5); RED CELL DISTRIBUTION WIDTH SD 54.9 fL (36.4-46.3); WHITE BLOOD COUNT 8.72 K/uL (4.8-10.8)
[2017-08-12 06:58] LABS: CALCIUM 8.8 mg/dl (8.5-10.1); CREATININE 0.71 mg/dl (0.60-1.20)
[2017-08-12] MEDS: BUDESONIDE 0.5 MG/2 ML VIAL (PULMICORT) INH SCH ×2 (07:14→19:47)
[2017-08-12] MEDS: LORATADINE 10 MG TAB PO SCH (08:31)
[2017-08-12] MEDS: LOSARTAN POTASSIUM 25 MG TAB PO SCH (08:31)
[2017-08-12] MEDS: ISOSORBIDE MONONITRATE 60 MG TABCR PO SCH (08:31)
[2017-08-12] MEDS: METOCLOPRAMIDE HCL 5 MG TAB PO SCH ×2 (08:32→19:54)
[2017-08-12] MEDS: VENLAFAXINE HCL XR 37.5 MG CAPXR PO SCH (08:32)
[2017-08-12] MEDS: METOPROLOL SUCC 25MG EXT REL TAB PO SCH (08:32)
[2017-08-12] MEDS: POTASSIUM CHLORIDE 20 MEQ TABCR PO SCH ×2 (08:33→19:55)
[2017-08-12] MEDS: GABAPENTIN 100 MG CAP PO SCH ×2 (08:33→19:55)
[2017-08-12] MEDS: FUROSEMIDE 40 MG TAB PO SCH (08:33)
[2017-08-12] MEDS: INSULIN ASPART 100 UNITS/ML 3 ML PEN SC SCH ×4 (08:42→20:40)
[2017-08-12] MEDS: INSULIN GLARGINE SOLOSTAR 100 UNITS/ML 3 ML PEN SC SCH (08:46)
[2017-08-12] MEDS ORDERED: INSULIN GLARGINE SOLOSTAR 100 UNITS/ML 3 ML PEN SC SCH (09:00)
[2017-08-12] MEDS: POLYETHYLENE (MIRALAX) 17 GM PACK PO SCH (09:28)
[2017-08-12] MEDS: SENNA 8.6 MG TAB PO SCH (09:28)
[2017-08-12] MEDS: METHYLPREDNISOLONE IV 30 MG in SYRINGE 0 ML IV SCH ×2 (09:29→19:56)
[2017-08-12 10:50] LABS: POTASSIUM 4.2 mmol/L (3.5-5.1)
[2017-08-12] MEDS ORDERED: NURSING VERBAL MED ORDER ONE (12:15)
[2017-08-12] MEDS: ATORVASTATIN 40 MG TAB PO SCH (19:54)
[2017-08-12] MEDS: FEXOFENADINE HCL 60 MG TAB PO SCH (19:54)
[2017-08-12] MEDS: RIVAROXABAN TAB 15 MG TAB PO SCH (19:55)
[2017-08-12] MEDS: QUETIAPINE FUMARATE 25 MG TAB PO SCH (19:55)
[2017-08-13] VITALS (13 sets, daily range): BP systolic 131–157; BP diastolic 64–83; PULSE 62–91; TEMP 36.5–36.8; O2SAT 93–100
--- NOTE | 2017-08-13 01:02 | Progress Note ---
Subjective Date of Service: late entry for visit Aug 12, 2017. Subjective Pt evaluation today including: conversation w/ patient, conversation w/ family ( at bedside), physical exam, chart review, lab review, review of studies (outpatient records from [facility], old echo (dated August 2016 - diastolic CHF, but normal EF, and normal RV function)), review of inpatient medication list Pain: denies PO Intake: normal Voiding: no voiding problems tele - several brief runs of PAF vs PAT; favor former she has occasional palpitations from the PAF she reports her breathing is much improved no cough still dyspneic with moving/going to the bathroom IS willing to reconsider rehab but NOT at [facility] she reports she slept better last night but still woke up with "hallucinations" reports memory loss for the last 6 months, maybe longer Problem List Medical Problems: (1) Acute bronchitis Status: Acute (2) Altered mental status Status: Acute (3) Anemia Status: Acute (4) COPD exacerbation Status: Acute (5) Hypercapnic respiratory failure Status: Acute (6) Hypokalemia Status: Acute (7) SOB (shortness of breath) Status: Acute Review of Systems Constitutional: No fever Respiratory: No cough, No wheezing Cardiac: + palpitations, No chest pain, No orthopnea, No edema Abdomen: + constipation, No pain Objective Vital Signs Date Time Temp Pulse Resp B/P (MAP) Pulse Ox O2 Delivery O2 Flow Rate FiO2 08/13/17 00:01 BiPAP 3.0 40 08/12/17 23:00 37.0 81 18 114/64 (81) 98 BiPAP 40 08/12/17 22:03 100 92 40 08/12/17 20:00 Nasal Cannula 3.0 08/12/17 19:47 104 22 95 Nasal Cannula 3.0 08/12/17 18:42 36.9 94 19 137/77 (97) 93 Nasal Cannula 4.0 08/12/17 16:00 98 BiPAP 40 08/12/17 15:20 36.8 86 21 136/71 (92) 98 BiPAP 08/12/17 14:35 75 97 40 08/12/17 14:34 75 26 97 BiPAP/CPAP 40 08/12/17 12:11 36.8 83 20 137/70 (92) 100 Nasal Cannula 4.0 83 08/12/17 12:00 Nasal Cannula 3.0 08/12/17 08:00 98 BiPAP 40 08/12/17 07:36 36.4 66 22 122/60 (80) 98 BiPAP 4.0 08/12/17 07:34 71 98 40 08/12/17 07:32 71 28 98 BiPAP/CPAP 40 08/12/17 05:15 75 95 40 08/12/17 04:05 BiPAP 08/12/17 03:37 36.5 84 18 142/54 (83) 99 BiPAP 08/12/17 01:30 71 24 98 BiPAP/CPAP 40 08/12/17 01:30 71 98 40 Physical Exam General Appearance: no apparent distress ENT: pharynx normal Neck: no JVD Respiratory/Chest: no respiratory distress, no accessory muscle use, + wheezing (very mild end-exp), + pertinent finding (air movement fair today) Cardiovascular: regular rate, rhythm, no gallop, + systolic murmur (2/6 LLSB) Abdomen: normal bowel sounds, non tender, soft, no organomegaly Extremities: no pedal edema Neurologic/Psychiatric: alert, oriented x 3 Laboratory Results Last 24 Hours Test 08/12/17 05:37 08/12/17 06:41 08/12/17 09:50 08/12/17 11:51 White Blood Count 8.72 K/uL Red Blood Count 3.52 M/uL Hemoglobin 11.6 g/dL Hematocrit 36.5 % Mean Corpuscular Volume 103.7 fL Mean Corpuscular Hemoglobin 33.0 pg Mean Corpuscular Hemoglobin Concent 31.8 g/dl RDW Standard Deviation 54.9 fL RDW Coefficient of Variation 14.6 % Platelet Count 232 K/uL Mean Platelet Volume 10.0 fL Sodium Level 141 mmol/L Potassium Level mmol/L 4.2 mmol/L Chloride Level 97 mmol/L Carbon Dioxide Level 43 mmol/L Anion Gap 1.0 mmol/L Blood Urea Nitrogen 30 mg/dl Creatinine 0.71 mg/dl Est Creatinine Clear Calc Drug Dose 60.6 ml/min Estimated GFR () 93.2 Estimated GFR (Non- 80.4 BUN/Creatinine Ratio 42.2 Random Glucose 219 mg/dl Calcium Level 8.8 mg/dl Magnesium Level mg/dl 2.2 mg/dl Bedside Glucose 209 mg/dl 251 mg/dl Test 08/12/17 16:16 08/12/17 20:29 Bedside Glucose 159 mg/dl 124 mg/dl Assessment and Plan 82yo female with: 1. acute/chronic hypercarbic/hypoxic resp failure - improving; can wean steroids once gain (start prednisone 60mg qam tomorrow); BIPAP at HS/naps, NC O2 during the day 3 L; o2 sat goal 88-92% * outpatient records reviewed - mild obstruction, mod-severe restriction on PFTs ; cause of latter is uncertain; CT chest this admission without ILD/PF 2. metabolic encephalopathy 2nd to hypercarbia - largely resolved; some nocturnal sundowning; cont seroqule * patient seems to have mild cognitive impairment at baseline at least per the 's history; b12, TSH, etc in the past all normal; check B1 level to be complete 3. COPD w/ exacerbation - improved; wean steroids. Continue nebs, pulmonary toilet. 4. T2DM - improved with addition of lantus. 5. pulmonary HTN - as seen on echo in the outpatient record from 08/2016; repeat echo this admission to reassess EF, RV function, PA pressures, etc 6. PAF - continue xarelto but dose should be 20mg once daily based on renal function. 7. macrocytosis - B12, TSH, folate levels all wnl; uncertain etiology. 8. ?INGRIS - outpatient records talk about sleep study but I don't see a result in the EMR. Will check overnight oximetry to see if current amount of blended O2 is sufficient or does she need more/less. 9. DVT proph - xarelto 10. h/o CAD - no ischemic symptoms at this time; continue BB, imdur, etc. Uncertain why she is not on aspirin. 11. deconditioning - PT, OT; both modalities recommending rehab again; she is considering such. 12. psoriatic arthritis - enbrel, weekly methotrexate, folic acid. No PF on CT chest. 13. gastroparesis - reglan. updated will address rehab issue in am if tele is stable overnight can likely go to med/surg time spent today about 50 minutes including researching outpatient records Continued [facility] stay due to: multiple IV medications needed Discharge planning: uncertain
[2017-08-13] MEDS: ALBUT/IPRATROP 3MG/0.5MG NEB 3 ML VIAL INH SCH ×4 (01:50→19:35)
[2017-08-13] MEDS: BUDESONIDE 0.5 MG/2 ML VIAL (PULMICORT) INH SCH ×2 (07:26→19:36)
[2017-08-13] MEDS: INSULIN ASPART 100 UNITS/ML 3 ML PEN SC SCH ×4 (07:52→20:40)
[2017-08-13] MEDS: INSULIN GLARGINE SOLOSTAR 100 UNITS/ML 3 ML PEN SC SCH (08:20)
[2017-08-13] MEDS: METOPROLOL SUCC 25MG EXT REL TAB PO SCH (08:21)
[2017-08-13] MEDS: FEXOFENADINE HCL 60 MG TAB PO SCH ×2 (08:21→19:21)
[2017-08-13] MEDS: VENLAFAXINE HCL XR 37.5 MG CAPXR PO SCH (08:21)
[2017-08-13] MEDS: METOCLOPRAMIDE HCL 5 MG TAB PO SCH ×2 (08:21→19:22)
[2017-08-13] MEDS: FUROSEMIDE 40 MG TAB PO SCH (08:21)
[2017-08-13] MEDS: SENNA 8.6 MG TAB PO SCH (08:22)
[2017-08-13] MEDS: LOSARTAN POTASSIUM 25 MG TAB PO SCH (08:22)
[2017-08-13] MEDS: ISOSORBIDE MONONITRATE 60 MG TABCR PO SCH (08:22)
[2017-08-13] MEDS: POLYETHYLENE (MIRALAX) 17 GM PACK PO SCH ×2 (08:23→19:22)
[2017-08-13] MEDS: GABAPENTIN 100 MG CAP PO SCH ×2 (08:23→19:22)
[2017-08-13 09:31] LABS: CALCIUM 8.7 mg/dl (8.5-10.1); CREATININE 0.83 mg/dl (0.60-1.20); POTASSIUM 4.2 mmol/L (3.5-5.1)
[2017-08-13] MEDS: POTASSIUM CHLORIDE 20 MEQ TABCR PO SCH ×2 (11:48→19:22)
--- NOTE | 2017-08-13 17:36 | ECHOCARDIOGRAM REPORT ---
*NOTICE TO RECEIVING LIBERTARIAN AGENCY This information is strictly Confidential and protected under [place] law. [place] law prohibits you from making any further disclosure of this information unless further disclosure is expressly permitted by the written consent of the person to whom it pertains or is authorized by law. A general authorization for the release of medical or other information is not sufficient for this purpose. Hospital accepts no responsibility if the information is made available to any other person, INCLUDING THE PATIENT. Interpretation Summary * Name: MARTHA VELASCO Study Date: 08/13/2017 06:27 AM BP: 125/79 mmHg * Patient Location: C.2T\S\S238\S\2 HR: 66 * : 1935 (M/d/yyyy) Gender: Female Height: 63 in * Age: 82 yrs Ethnicity: [place] Weight: 161 lb * Ordering Physician: Zachary Mcghee * Referring Physician: Self, Referred * Performed By: Bryan Brown RDCS * * Reason For Study: A-fib, Severe respiratory failure, SOB, COPD * BSA: 1.8 m2 * -- Conclusions -- * 1. Normal left ventricular size and systolic function. EF 55-60%. No regional wall motion abnormalities. No left ventricular hypertrophy. Type 1 diastolic dysfunction. * 2. Aortic valve sclerosis mild, without significant aortic valvular stenosis. Mild aortic regurgitation. * 3. Mildly elevated right ventricular systolic pressure; 41mmHg. * 4. No prior study available for comparison. Procedure Details * A complete two-dimensional transthoracic echocardiogram was performed (2D, M-mode, Doppler and color flow Doppler). * The study was technically adequate. Left Ventricle * Normal left ventricular size and systolic function. EF 55-60%. No regional wall motion abnormalities. No left ventricular hypertrophy. Type 1 diastolic dysfunction. Right Ventricle * The right ventricle is normal in size and function. * The right ventricular systolic function is normal as assessed by tricuspid annular plane systolic excursion (TAPSE) (normal >1.5 cm). Atria * The left atrial size is normal. * Right atrial size is normal. * There is no evidence of atrial septal defect, but resolution does not allow assessment for a patent foramen ovale. Mitral Valve * The mitral valve is grossly normal. * There is no mitral valve stenosis. * There is trace mitral regurgitation. Tricuspid Valve * The tricuspid valve is not well visualized, but is grossly normal. * There is no tricuspid stenosis. * There is mild tricuspid regurgitation. Aortic Valve * The aortic valve is trileaflet. * Aortic valve sclerosis mild, without significant aortic valvular stenosis. * No hemodynamically significant valvular aortic stenosis. * Mild aortic regurgitation. Pulmonic Valve * The pulmonary valve is inadequately visualized, but the Doppler data is adequate for interpretation. * There is no pulmonic valvular stenosis. * Trace pulmonic valvular regurgitation. Great Vessels * The aortic root is normal size. * Ascending aorta of normal dimension * Normal pulmonary venous flow pattern. Pericardium/Pleural * There is no pericardial effusion. Great Vessels * Normal IVC size without significant inspiratory collapse. MMode 2D Measurements and Calculations IVSd 1.1 cm IVSs 1.2 cm LVIDd 4.5 cm LVIDs 3.4 cm LVPWd 0.98 cm LVPWs 1.3 cm IVS/LVPW 1.1 FS 25.8 % EDV(Teich) 94.5 ml ESV(Teich) 46.5 ml EF(Teich) 50.8 % EDV(cubed) 93.7 ml ESV(cubed) 38.3 ml EF(cubed) 59.1 % % IVS thick 14.7 % % LVPW thick 28.7 % LV mass(C)d 159.3 grams LV mass(C)dI 90.4 grams/m\S\2 LV mass(C)s 134.7 grams LV mass(C)sI 76.4 grams/m\S\2 SV(Teich) 48.0 ml SI(Teich) 27.2 ml/m\S\2 SV(cubed) 55.3 ml SI(cubed) 31.4 ml/m\S\2 Ao root diam 3.3 cm Ao root area 8.4 cm\S\2 ACS 1.4 cm LA dimension 3.5 cm asc Aorta Diam 3.2 cm LA/Ao 1.1 LVOT diam 2.0 cm LVOT area 3.1 cm\S\2 LVAd ap4 26.4 cm\S\2 LVLd ap4 7.3 cm EDV(MOD-sp4) 78.1 ml EDV(sp4-el) 81.0 ml LVAs ap4 15.7 cm\S\2 LVLs ap4 6.5 cm ESV(MOD-sp4) 31.4 ml ESV(sp4-el) 32.0 ml EF(MOD-sp4) 59.8 % EF(sp4-el) 60.4 % LVAd ap2 27.4 cm\S\2 LVLd ap2 8.0 cm EDV(MOD-sp2) 80.6 ml EDV(sp2-el) 79.6 ml LVAs ap2 15.1 cm\S\2 LVLs ap2 6.3 cm ESV(MOD-sp2) 32.0 ml ESV(sp2-el) 30.6 ml EF(MOD-sp2) 60.3 % EF(sp2-el) 61.5 % LVLd %diff 8.9 % EDV(MOD-bp) 81.2 ml LVLs %diff -3.54 % ESV(MOD-bp) 31.6 ml EF(MOD-bp) 61.1 % SV(MOD-sp4) 46.7 ml SI(MOD-sp4) 26.5 ml/m\S\2 SV(MOD-sp2) 48.6 ml SI(MOD-sp2) 27.6 ml/m\S\2 SV(MOD-bp) 49.6 ml SI(MOD-bp) 28.1 ml/m\S\2 SV(sp4-el) 48.9 ml SI(sp4-el) 27.7 ml/m\S\2 SV(sp2-el) 48.9 ml SI(sp2-el) 27.8 ml/m\S\2 Doppler Measurements and Calculations MV E max turner 101.1 cm/sec MV A max turner 109.3 cm/sec MV E/A 0.93 MV dec time 0.16 sec Ao V2 max 118.6 cm/sec Ao max PG 5.6 mmHg Ao max PG (full) 2.8 mmHg ELKIN(V,A) 2.2 cm\S\2 ELKIN(V,D) 2.2 cm\S\2 AI max turner 386.1 cm/sec AI max PG 59.6 mmHg AI dec slope 229.1 cm/sec\S\2 AI P1/2t 493.5 msec LV V1 max PG 2.8 mmHg LV V1 max 83.7 cm/sec PA V2 max 82.2 cm/sec PA max PG 2.7 mmHg PA acc slope 744.1 cm/sec\S\2 PA acc time 0.08 sec PI end-d turner 95.0 cm/sec TR max turner 288.8 cm/sec RVSP(TR) 41.4 mmHg RAP systole 8.0 mmHg PA pr(Accel) 41.5 mmHg
--- NOTE | 2017-08-13 18:40 | Progress Note ---
Subjective Date of Service: Aug 13, 2017. Subjective Pt evaluation today including: conversation w/ patient, conversation w/ family ( at bedside; daughter by phone ), physical exam, chart review, lab review, review of studies (echo), review of inpatient medication list Pain: denies PO Intake: normal Voiding: no voiding problems tele - occasional run of PAF no issues overnight slept well no sundowning/hallucinations overnight oximetry study reviewed - no desats detected on current O2 amount she denies any dyspnea at rest, orthopnea, or significant cough patient IS willing to go to rehab after d/c patient reports having a muscle bx years ago in [place] and was 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 that did not require treatment then but "would ultimately get worse and need Rx" she cannot recall where the bx was done or who did it she mentions fasciculations of her muscles for about 6 months as well Problem List Medical Problems: (1) Acute bronchitis Status: Acute (2) Altered mental status Status: Acute (3) Anemia Status: Acute (4) COPD exacerbation Status: Acute (5) Hypercapnic respiratory failure Status: Acute (6) Hypokalemia Status: Acute (7) SOB (shortness of breath) Status: Acute Review of Systems Constitutional: No fever Respiratory: No cough, No sputum Cardiac: No chest pain, No orthopnea, No PND, No edema Abdomen: No pain, No nausea Objective Vital Signs Date Time Temp Pulse Resp B/P (MAP) Pulse Ox O2 Delivery O2 Flow Rate FiO2 08/13/17 16:00 99 Room Air 3.0 40 08/13/17 15:50 36.6 65 18 131/72 (91) 99 08/13/17 14:40 77 97 40 08/13/17 14:38 77 22 97 BiPAP/CPAP 40 08/13/17 11:48 36.7 70 18 93 3.0 08/13/17 11:34 36.7 70 18 146/83 (104) 93 Room Air 08/13/17 08:00 BiPAP 3.0 08/13/17 07:40 36.8 71 20 157/64 (95) 99 BiPAP 08/13/17 07:26 76 20 96 Nasal Cannula 3.0 08/13/17 05:24 91 16 93 BiPAP 40 08/13/17 04:00 BiPAP 40 08/13/17 03:57 36.5 73 18 139/73 (95) 100 BiPAP 40 08/13/17 02:02 62 93 40 08/13/17 00:01 BiPAP 40 08/12/17 23:00 37.0 81 18 114/64 (81) 98 BiPAP 40 08/12/17 22:03 100 92 40 08/12/17 20:00 Nasal Cannula 3.0 08/12/17 19:47 104 22 95 Nasal Cannula 3.0 08/12/17 18:42 36.9 94 19 137/77 (97) 93 Nasal Cannula 4.0 Physical Exam General Appearance: no apparent distress, + pertinent finding (sitting in chair comfortably) ENT: pharynx normal Neck: no JVD Respiratory/Chest: no respiratory distress, no accessory muscle use, + pertinent finding (air movement unchanged from yesterday; scant end-exp wheeze; no distress) Cardiovascular: regular rate, rhythm, no gallop, + systolic murmur (1/6 LLSB) Abdomen: normal bowel sounds, non tender, soft, no organomegaly Extremities: no pedal edema Neurologic/Psychiatric: alert, oriented x 3 Laboratory Results Last 24 Hours Test 08/12/17 20:29 08/13/17 07:13 08/13/17 08:43 08/13/17 11:02 Bedside Glucose 124 mg/dl 160 mg/dl 173 mg/dl Sodium Level 140 mmol/L Potassium Level 4.2 mmol/L Chloride Level 95 mmol/L Carbon Dioxide Level 41 mmol/L Anion Gap 5.0 mmol/L Blood Urea Nitrogen 30 mg/dl Creatinine 0.83 mg/dl Est Creatinine Clear Calc Drug Dose 52.0 ml/min Estimated GFR () 77.2 Estimated GFR (Non- 66.6 BUN/Creatinine Ratio 36.2 Random Glucose 209 mg/dl Calcium Level 8.7 mg/dl Test 08/13/17 17:06 Bedside Glucose 193 mg/dl Assessment and Plan 82yo female with: 1. acute/chronic hypercarbic/hypoxic resp failure - acute component resolved; start prednisone 60mg qam today; BIPAP at HS/naps, NC O2 during the day 3 L; o2 sat goal 88-92% * outpatient records reviewed - mild obstruction, mod-severe restriction on PFTs ; cause of latter is uncertain; CT chest this admission without ILD/PF 2. metabolic encephalopathy 2nd to hypercarbia - largely resolved. * cont seroquel at HS * patient seems to have mild cognitive impairment at baseline at least per the 's history; b12, TSH, etc in the past all normal; checked B1 level to be complete - pending 3. COPD w/ exacerbation - improved; wean steroids. Continue nebs, pulmonary toilet. 4. T2DM - improved with addition of lantus. 5. pulmonary HTN - as seen on echo in the outpatient record from 08/2016; repeat echo this admission with mild pul HTN only; RV function NORMAL 6. PAF - continue xarelto 20mg daily 7. macrocytosis - B12, TSH, folate levels all wnl; uncertain etiology. 8. ?INGRIS - outpatient records talk about sleep study but I don't see a result in the EMR. Overnight oximetry study showed that amount of current O2 w/ her BIPAP was adequate 9. DVT proph - xarelto 10. h/o CAD - no ischemic symptoms at this time; continue BB, imdur, etc. Uncertain why she is not on aspirin. 11. deconditioning - PT, OT; both modalities recommending rehab again; she is willing; make referral on Tuesday 12. psoriatic arthritis - enbrel, weekly methotrexate, folic acid. No PF on CT chest. 13. gastroparesis - reglan. 14. restrictive lung disease - uncertain etiology. could she have a neuromuscular disease causing such?? d/w neuro by phone today - outpatient f/u recommended. check sed rate, CPK, and aldolase in AM. updated daughter updated by phone total time about 50 min today spent at bedside, talking with daughter by phone, talking with neuro by phone, researching records once again, etc Continued [facility] stay due to: ambulation difficulties Discharge planning: [facility] facility
[2017-08-13] MEDS: RIVAROXABAN 10 MG TAB PO SCH (19:21)
[2017-08-13] MEDS: ATORVASTATIN 40 MG TAB PO SCH (19:21)
[2017-08-13] MEDS: QUETIAPINE FUMARATE 25 MG TAB PO SCH (19:23)
[2017-08-14] VITALS (10 sets, daily range): BP systolic 97–163; BP diastolic 59–78; PULSE 68–80; TEMP 36.3–36.8; O2SAT 95–100
[2017-08-14] MEDS: ALBUT/IPRATROP 3MG/0.5MG NEB 3 ML VIAL INH SCH ×4 (01:31→20:03)
[2017-08-14] MEDS: BUDESONIDE 0.5 MG/2 ML VIAL (PULMICORT) INH SCH ×2 (07:54→20:03)
[2017-08-14] MEDS: METOPROLOL SUCC 25MG EXT REL TAB PO SCH (09:07)
[2017-08-14] MEDS: METOCLOPRAMIDE HCL 5 MG TAB PO SCH ×2 (09:07→20:39)
[2017-08-14] MEDS: FEXOFENADINE HCL 60 MG TAB PO SCH ×2 (09:08→20:41)
[2017-08-14] MEDS: SENNA 8.6 MG TAB PO SCH (09:09)
[2017-08-14] MEDS: FUROSEMIDE 40 MG TAB PO SCH (09:14)
[2017-08-14] MEDS: VENLAFAXINE HCL XR 37.5 MG CAPXR PO SCH (09:14)
[2017-08-14] MEDS: ISOSORBIDE MONONITRATE 60 MG TABCR PO SCH (09:15)
[2017-08-14] MEDS: POLYETHYLENE (MIRALAX) 17 GM PACK PO SCH ×2 (09:15→20:37)
[2017-08-14] MEDS: GABAPENTIN 100 MG CAP PO SCH ×2 (09:15→20:37)
[2017-08-14] MEDS: POTASSIUM CHLORIDE 20 MEQ TABCR PO SCH ×2 (09:16→20:39)
[2017-08-14] MEDS: INSULIN ASPART 100 UNITS/ML 3 ML PEN SC SCH ×4 (09:18→20:36)
[2017-08-14] MEDS: INSULIN GLARGINE SOLOSTAR 100 UNITS/ML 3 ML PEN SC SCH (09:19)
[2017-08-14] MEDS: LOSARTAN POTASSIUM 25 MG TAB PO SCH (09:20)
[2017-08-14 09:33] LABS: CALCIUM 8.9 mg/dl (8.5-10.1); CREATININE 0.55 mg/dl (0.60-1.20); POTASSIUM 4.6 mmol/L (3.5-5.1)
[2017-08-14] MEDS ORDERED: BISACODYL 5 MG TABEC PO ONE (11:45)
[2017-08-14] MEDS: DOXYCYCLINE HYCLATE 100 MG CAP PO SCH ×2 (12:25→20:41)
--- NOTE | 2017-08-14 15:29 | Progress Note ---
Subjective Date of Service: Aug 14, 2017. Subjective Pt evaluation today including: conversation w/ patient, conversation w/ family ( at bedside), physical exam, chart review, lab review, review of inpatient medication list Pain: none PO Intake: good breakfast today Voiding: no voiding problems no issues overnight feels pretty good some cough with occasional sputum no dyspnea at rest slept good last pm with use of seroquel no hallucinations or sundowning still willing to go to rehab at a SNF in [place] pt DOES remember name of physician who did muscle bx -- Dr. Arcos at [facility] Problem List Medical Problems: (1) Acute bronchitis Status: Acute (2) Altered mental status Status: Acute (3) Anemia Status: Acute (4) COPD exacerbation Status: Acute (5) Hypercapnic respiratory failure Status: Acute (6) Hypokalemia Status: Acute (7) SOB (shortness of breath) Status: Acute Review of Systems Constitutional: No fever Respiratory: + cough, No dyspnea at rest, No hemoptysis Cardiac: No chest pain, No orthopnea, No edema Abdomen: + constipation, No pain Objective Vital Signs Date Time Temp Pulse Resp B/P (MAP) Pulse Ox O2 Delivery O2 Flow Rate FiO2 08/14/17 14:11 75 18 98 BiPAP/CPAP 40 08/14/17 14:11 98 40 08/14/17 10:41 99 BiPAP 08/14/17 07:57 73 20 96 BiPAP/CPAP 40 08/14/17 07:56 36.3 76 20 163/78 (106) 99 BiPAP 2.0 08/14/17 01:32 74 20 95 BiPAP/CPAP 40 08/14/17 00:14 36.3 74 18 128/71 (90) 100 BiPAP 08/14/17 00:05 Room Air 3.0 08/13/17 21:04 79 97 40 08/13/17 19:36 71 20 94 Nasal Cannula 3.0 08/13/17 16:00 99 Room Air 3.0 40 08/13/17 15:50 36.6 65 18 131/72 (91) 99 Physical Exam General Appearance: no apparent distress ENT: pharynx normal Neck: no JVD Respiratory/Chest: no respiratory distress, no accessory muscle use, + pertinent finding (lungs clear but airation/air movement is quite poor (baseline )) Cardiovascular: regular rate, rhythm, no gallop, + systolic murmur (1/6 LLSB) Abdomen: normal bowel sounds, non tender, soft, no organomegaly Extremities: no pedal edema Neurologic/Psychiatric: alert, oriented x 3 Laboratory Results Last 24 Hours Test 08/13/17 17:06 08/13/17 19:55 08/14/17 07:48 08/14/17 08:16 Bedside Glucose 193 mg/dl 236 mg/dl 78 mg/dl Erythrocyte Sedimentation Rate 19 mm/hr Sodium Level 143 mmol/L Potassium Level 4.6 mmol/L Chloride Level 96 mmol/L Carbon Dioxide Level 46 mmol/L Anion Gap 1.0 mmol/L Blood Urea Nitrogen 25 mg/dl Creatinine 0.55 mg/dl Est Creatinine Clear Calc Drug Dose 78.4 ml/min Estimated GFR () 102.7 Estimated GFR (Non- 88.6 BUN/Creatinine Ratio 44.7 Random Glucose 89 mg/dl Calcium Level 8.9 mg/dl Total Creatine Kinase 32 U/L Test 08/14/17 11:22 Bedside Glucose 202 mg/dl Assessment and Plan 82yo female with: 1. acute/chronic hypercarbic/hypoxic resp failure - acute component resolved. Acute component was 2nd to COPD flare. Wean prednisone to 50mg qam tomorrow; BIPAP at HS/naps, NC O2 during the day 3 L; o2 sat goal 88-92% * outpatient records reviewed - mild obstruction, mod-severe restriction on PFTs ; cause of latter is uncertain; CT chest this admission without ILD/PF 2. metabolic encephalopathy 2nd to hypercarbia - resolved with seroquel at HS * patient seems to have mild cognitive impairment at baseline at least per the 's history; b12, TSH, etc in the past all normal; checked B1 level to be complete - pending 3. COPD w/ exacerbation - improved; wean steroids. Continue nebs, pulmonary toilet. 4. T2DM - improved with addition of lantus but ac sugars still uncontrolled; adjust novolog today 5. pulmonary HTN - as seen on echo in the outpatient record from 08/2016; repeat echo this admission with mild pulmonary HTN only; RV function NORMAL 6. PAF - continue xarelto 20mg daily 7. macrocytosis - B12, TSH, folate levels all wnl; uncertain etiology. 8. ?INGRIS - outpatient records talk about sleep study but I don't see a result in the EMR. Overnight oximetry study showed that amount of current O2 w/ her BIPAP was adequate 9. DVT proph - xarelto 10. h/o CAD - no ischemic symptoms at this time; continue BB, imdur, etc. Uncertain why she is not on aspirin. 11. deconditioning - PT, OT; both modalities recommending rehab again; she is willing; make referral on Tuesday to local SNF (does NOT want to return to [facility]) 12. psoriatic arthritis - enbrel, weekly methotrexate, folic acid. No pulmonary fibrosis on CT chest. 13. gastroparesis - reglan. 14. restrictive lung disease - uncertain etiology. could she have a neuromuscular disease causing such?? She reports muscle fasciculations at times - ALS? Other primary muscle disorder leading to chest wall muscle weakness? d/w neuro by phone today - outpatient f/u recommended. patient reports having had a muscle biopsy in [place] years ago and was told she had "some condition" that did not require treatment but would ultimately cause problems down the line (and hence need treatment). She cannot recall the name of the condition. records requested from [facility] for that muscle bx. She thinks a Dr. Arcos performed the biopsy. aldolase level sent and is pending. updated once again today daughter updated by phone 08/13/17 dispo - patient requesting referral to SNF in [place] for rehab Continued [facility] stay due to: ambulation difficulties Discharge planning: nursing home facility
[2017-08-14] MEDS: ATORVASTATIN 40 MG TAB PO SCH (20:39)
[2017-08-14] MEDS: QUETIAPINE FUMARATE 25 MG TAB PO SCH (20:39)
[2017-08-14] MEDS: RIVAROXABAN 10 MG TAB PO SCH (20:40)
[2017-08-15] VITALS (13 sets, daily range): BP systolic 89–171; BP diastolic 49–85; PULSE 54–99; TEMP 34.7–36.7; O2SAT 90–97
[2017-08-15] MEDS: ALBUT/IPRATROP 3MG/0.5MG NEB 3 ML VIAL INH SCH ×4 (01:52→18:59)
[2017-08-15 07:21] LABS: CALCIUM 8.7 mg/dl (8.5-10.1); CREATININE 0.54 mg/dl (0.60-1.20); POTASSIUM 4.3 mmol/L (3.5-5.1)
[2017-08-15] MEDS: BUDESONIDE 0.5 MG/2 ML VIAL (PULMICORT) INH SCH ×2 (07:24→18:59)
[2017-08-15] MEDS: DOXYCYCLINE HYCLATE 100 MG CAP PO SCH ×2 (08:28→20:34)
[2017-08-15] MEDS: VENLAFAXINE HCL XR 37.5 MG CAPXR PO SCH (08:29)
[2017-08-15] MEDS: GABAPENTIN 100 MG CAP PO SCH ×2 (08:29→20:33)
[2017-08-15] MEDS: SENNA 8.6 MG TAB PO SCH (08:29)
[2017-08-15] MEDS: LOSARTAN POTASSIUM 25 MG TAB PO SCH (08:30)
[2017-08-15] MEDS: POTASSIUM CHLORIDE 20 MEQ TABCR PO SCH ×2 (08:30→20:33)
[2017-08-15] MEDS: METOCLOPRAMIDE HCL 5 MG TAB PO SCH ×2 (08:31→20:33)
[2017-08-15] MEDS: FUROSEMIDE 40 MG TAB PO SCH (08:31)
[2017-08-15] MEDS: ISOSORBIDE MONONITRATE 60 MG TABCR PO SCH (08:31)
[2017-08-15] MEDS: METOPROLOL SUCC 25MG EXT REL TAB PO SCH (08:35)
[2017-08-15] MEDS: POLYETHYLENE (MIRALAX) 17 GM PACK PO SCH ×2 (08:36→20:00)
[2017-08-15] MEDS: FEXOFENADINE HCL 60 MG TAB PO SCH ×2 (08:37→20:33)
[2017-08-15] MEDS: INSULIN GLARGINE SOLOSTAR 100 UNITS/ML 3 ML PEN SC SCH (08:44)
[2017-08-15] MEDS: INSULIN ASPART 100 UNITS/ML 3 ML PEN SC SCH ×4 (08:51→20:42)
[2017-08-15] MEDS ORDERED: METHOTREXATE 2.5 MG TAB PO SCH (09:00)
[2017-08-15] MEDS ORDERED: ALL60 PO (14:57)
[2017-08-15] MEDS ORDERED: MRLP17 PO (14:57)
[2017-08-15] MEDS ORDERED: XRL10 PO (14:57)
[2017-08-15] MEDS ORDERED: PRD10 PO (14:57)
[2017-08-15] MEDS ORDERED: SENN-61 PO (14:57)
[2017-08-15] MEDS ORDERED: SRQ25 PO (14:57)
[2017-08-15] MEDS ORDERED: IPRASOL4 INH (15:00)
[2017-08-15] MEDS ORDERED: DXY100 PO (15:00)
--- NOTE | 2017-08-15 15:06 | Discharge Instructions ---
Discharge Instructions Date of Service Aug 16, 2017. Admission Reason for Admission: Acute Resp Failure W/Hypoxia And Hypercapnia Discharge Discharge Diagnosis / Problem: Acute respiratory failure Discharge Goals Goal(s): Decrease discomfort, Improve function, Diagnostic testing, Therapeutic intervention Activity Recommendations Activity Limitations: resume your previous activity (as tolerated) . Instructions / Follow-Up Instructions / Follow-Up You were admitted to the hospital with acute on chronic respiratory failure, COPD exacerbation, and restrictive lung disease. You were treated with nebulizers, steroids, antibiotics, and BiPAP. As your breathing has improved, you are medically stable for discharge. Medications: *Please use DuoNeb nebulizers four times a day. You may stop the levalbuterol nebulizer as a similar medication is included in the DuoNeb. *Please take doxycycline 100 mg twice a day for 3 more days. This is an antibiotic to cover for possible bacterial infection. *Please take Nallely 60 mg twice a day. *Please take the following prednisone taper: -Take 50 mg (5 tablets) by mouth daily for 2 more days, first dose on 08/17, then -Take 40 mg (4 tablets) by mouth daily for 3 days, then -Take 30 mg (3 tablets) by mouth daily for 3 days, then -Take 20 mg (2 tablets) by mouth daily for 3 days, then -Take 10 mg (1 tablet) by mouth daily for 3 days, then stop. *You may take Seroquel 12.5 mg at bedtime to help you sleep. *You can take MiraLAX twice a day and Senokot (2 tablets) daily for constipation. *Your Xarelto dose was corrected to 20 mg as your kidney function is improved. *Hold your losartan (blood pressure medication) for now until you follow up with Dr. Rae and have your blood pressure checked again. If your blood pressure has remained stable, you may be able to resume this medication then. *Your dose of isosorbide was also lowered to 30mg (from 60mg) due to low blood pressures. *Continue your other home medications as prescribed. Follow up: *Please keep your previously scheduled appointment with your primary doctor on and your appointment with Dr. Porter on Tuesday. *You will be scheduled to follow up with neurology to help rule out a neuromuscular disorder that may be contributing to your troubles breathing. Please seek medical attention if you experience fevers, chills, sweats, dizziness/lightheadedness, loss of consciousness, chest pain, shortness of breath, nausea, vomiting, numbness or tingling. Current Hospital Diet Patient's current hospital diet: Diabetes Type 2 Diet Discharge Diet Recommended Diet: Diabetes Type 2 Diet Pending Studies Studies pending at discharge: no Laboratory Results Hemoglobin A1c Test 07/26/17 14:05 Range/Units Estimated Average Glucose 143 mg/dl Hemoglobin A1c 6.6 H 4.5-5.6 % Medical Emergencies . Who to Call and When: Medical Emergencies: If at any time you feel your situation is an emergency, please call 911 immediately. . Non-Emergent Contact Non-Emergency issues call your: Primary Care Provider, Building Energy Retrofit Technician Call Non-Emergent contact if: you have a fever, you have any medication questions . Past History Medical & Surgical History: (1) Acute respiratory failure with hypoxia and hypercapnia (2) COPD (chronic obstructive pulmonary disease) . "Provider Documentation" section prepared by Annmarie Haywood. . VTE Core Measure Inpt VTE Proph given/why not?: Other Anticoagulation
--- NOTE | 2017-08-15 15:27 | Discharge Summary ---
Discharge Summary Date of Service Aug 16, 2017. Discharge Summary Admission Date: Aug 09, 2017 at 13:16 Discharge Date: Aug 16, 2017 Discharge Disposition: Home with services Principal Diagnosis: Acute respiratory failure, COPD exacerbation Problems/Secondary Diagnoses: Respiratory acidosis, metabolic encephalopathy, DM II, PAF, HTN, HLD, psoriatic arthritis Procedures: CHEST ONE VIEW PORTABLE HISTORY: EVALUATE RESPIRATORY DISTRESS.DYSPNEA COMPARISON: Chest 07/05/2017. FINDINGS: Trace bilateral pleural effusions have improved. The heart remains mildly enlarged. No evidence for pulmonary edema. Mild bibasilar interstitial thickening has also improved. Old, healed right-sided rib fractures. Surgical clips within the left axilla. Left shoulder prosthesis remains unchanged. This continues to demonstrate superior subluxation of the humeral head in relation to the glenoid. No pneumothorax. IMPRESSION: 1. Interval improvement in the trace bilateral pleural effusions and bibasilar interstitial thickening. 2. Stable cardiomegaly. CT SCAN OF THE CHEST WITHOUT IV CONTRAST CLINICAL HISTORY: Dyspnea. COPD. COMPARISON STUDY: Chest CT scan dated 06/27/2017 and chest x-ray dated 08/09/2017. TECHNIQUE: CT scan of the thorax was performed from the thoracic inlet to the upper abdomen. Images are reviewed in the axial, sagittal, and coronal planes. IV contrast was not administered for this examination as per the referring clinician. A dose lowering technique was utilized adhering to the principles of ALARA. The examination is degraded by motion artifact, as well as by streak artifact from the arms which could not be elevated above the chest. CT DOSE: 441.36 mGy.cm FINDINGS: Thyroid: Atrophic. Thoracic aorta: There is atherosclerotic calcification of the thoracic aorta. There is mild ectasia of the ascending thoracic aorta which measures up to 3.9 cm. The remainder of the thoracic aorta is normal in caliber. The arch demonstrates standard 3-vessel anatomy. Heart: The heart is enlarged and without pericardial effusion. The coronary arteries are densely calcified. Lungs and pleural spaces: There are small pleural effusions with bibasilar atelectasis. The trachea and central airways are clear. No airspace consolidation is seen typical for pneumonia. Segmental atelectasis is present in the right middle lobe. Nodularity at the left apex has resolved as compared to 06/27/2017. This was likely on an inflammatory basis. Mediastinum: There is no mediastinal lymphadenopathy. Roseann: Not well assessed without IV contrast. Axillae: There is no axillary lymphadenopathy. Surgical clips are noted in the left axilla. Upper abdomen: There is a tiny hiatal hernia. Bilateral adrenal adenomas are unchanged. Skeletal structures: The skeletal structures are osteopenic. There is degenerative change and kyphoscoliosis noted in the thoracic spine. Advanced arthritic change is seen in the right shoulder. No lytic or blastic bony lesions are seen. There are healed right-sided rib fractures. A left shoulder arthroplasty is in place. Soft tissues: The left breast is surgically absent. IMPRESSION: 1. Streak and motion compromised examination. 2. Small pleural effusions with bibasilar atelectasis. 3. No airspace consolidation is seen typical for pneumonia. 4. Cardiomegaly. 5. Additional findings as above. Interpretation Summary * Name: MARTHA VELASCO Study Date: 08/13/2017 06:27 AM BP: 125/79 mmHg * Patient Location: [facility]\S\38\S\2 HR: 66 * : 1935 (M/d/yyyy) Gender: Female Height: 63 in * Age: 82 yrs Ethnicity: [place] Weight: 161 lb * Ordering Physician: Zachary Mcghee * Referring Physician: Self, Referred * Performed By: Bryan Brown RDCS * * Reason For Study: A-fib, Severe respiratory failure, SOB, COPD * BSA: 1.8 m2 * -- Conclusions -- * 1. Normal left ventricular size and systolic function. EF 55-60%. No regional wall motion abnormalities. No left ventricular hypertrophy. Type 1 diastolic dysfunction. * 2. Aortic valve sclerosis mild, without significant aortic valvular stenosis. Mild aortic regurgitation. * 3. Mildly elevated right ventricular systolic pressure; 41mmHg. * 4. No prior study available for comparison. Procedure Details * A complete two-dimensional transthoracic echocardiogram was performed (2D, M- mode, Doppler and color flow Doppler). * The study was technically adequate. Left Ventricle * Normal left ventricular size and systolic function. EF 55-60%. No regional wall motion abnormalities. No left ventricular hypertrophy. Type 1 diastolic dysfunction. Right Ventricle * The right ventricle is normal in size and function. * The right ventricular systolic function is normal as assessed by tricuspid annular plane systolic excursion (TAPSE) (normal >1.5 cm). Atria * The left atrial size is normal. * Right atrial size is normal. * There is no evidence of atrial septal defect, but resolution does not allow assessment for a patent foramen ovale. Mitral Valve * The mitral valve is grossly normal. * There is no mitral valve stenosis. * There is trace mitral regurgitation. Tricuspid Valve * The tricuspid valve is not well visualized, but is grossly normal. * There is no tricuspid stenosis. * There is mild tricuspid regurgitation. Aortic Valve * The aortic valve is trileaflet. * Aortic valve sclerosis mild, without significant aortic valvular stenosis. * No hemodynamically significant valvular aortic stenosis. * Mild aortic regurgitation. Pulmonic Valve * The pulmonary valve is inadequately visualized, but the Doppler data is adequate for interpretation. * There is no pulmonic valvular stenosis. * Trace pulmonic valvular regurgitation. Great Vessels * The aortic root is normal size. * Ascending aorta of normal dimension * Normal pulmonary venous flow pattern. Pericardium/Pleural * There is no pericardial effusion. Great Vessels * Normal IVC size without significant inspiratory collapse. Medication Reconciliation New Medications: Prednisone (Prednisone) 10 Mg Tab 10 MG PO UD for 14 Days, #40 TABS 50 mg (5 tabs) x 2 days, 40 mg (4 tabs) x 3 days, 30 mg (3 tabs) x 3 days, 20 mg (2 tabs) x 3 days, 10 mg (1 tab) x 3 days Doxycycline Hyclate (Doxycycline Hyclate) 100 Mg Cap 100 MG PO BID for 3 Days, #6 CAP Fexofenadine HCl (Fexofenadine HCl) 60 Mg Tab 60 MG PO BID for 30 Days, #60 TAB Ipratropium-Albuterol (Duoneb) 3 Ml Nebu 3 ML INH Q6R for 30 Days, #120 DOSE Polyethylene (Miralax) 17 Gm Pow 17 GM PO BID for 30 Days, #60 DOSE Quetiapine Fumarate (Quetiapine Fumarate) 25 Mg Tab 12.5 MG PO HS for 30 Days, #15 TAB Take half tablet at bedtime. Rivaroxaban (Xarelto) 10 Mg Tab 20 MG PO QPM for 30 Days, #30 TAB Senna (Senokot) 8.6 Mg Tab 17.2 MG PO QAM for 30 Days, #60 TAB Continued Medications: Albuterol Hfa (Ventolin Hfa) 200 Puffs/92350 Mcg Aers 3 PUFFS INH Q6H, #1 INHALER Atorvastatin (Lipitor) 40 Mg Tab 40 MG PO QPM, TAB Bisacodyl (Bisacodyl EC) 5 Mg Tabec 5 MG PO BID PRN for constipation for 30 Days, #60 TAB Budesonide (Inhalation) (Pulmicort Respules 0.5MG/2ML) 0.5 Mg/2 Ml Jessica 0.5 MG INH BIDR for 30 Days, #1 INHALER Ergocalciferol (Vitamin D 68074 Unit) 50,000 Unit Cap 46412 INTER.UNIT PO 2XWK, CAP TAKE ONE CAPSULE EVERY TUESDAY AND TUESDAY Etanercept (Enbrel) 25 Mg Inj 1 DOSE INJ WK Folic Acid (Folvite) 1 Mg Tab 1 MG PO DAILY, TAB Furosemide (Lasix) 40 Mg Tab 40 MG PO QAM, TAB Gabapentin (Neurontin) 100 Mg Cap 200 MG PO AMPM, CAP Home O2 Therapy (Oxygen) Gas 3-4 LITERS NA CONTINOUS, BTL Isosorbide Mononitrate Ext Rel (Imdur Ext Rel) 60 Mg Ertab 60 MG PO QAM, TAB Loratadine (Claritin) 10 Mg Tab 10 MG PO DAILY, TAB Losartan Potassium (Cozaar) 25 Mg Tab 25 MG PO DAILY, TAB Metformin Hcl (Glucophage) 500 Mg Tab 500 MG PO DAILY, TAB Methotrexate (Methotrexate) 2.5 Mg Tab 6 TAB PO WK, TAB TAKE THIS MEDICATION EVERY TUESDAY Metoclopramide Hcl (Metoclopramide Hcl) 5 Mg Tab 5 MG PO BID Metoprolol Succinate (Metoprolol Succinate ER) 25 Mg Tabcr 25 MG PO DAILY Potassium Chloride (Klor-Con M20) 20 Meq Tabcr 20 MEQ PO BID for 30 Days, #30 DOSE Venlafaxine Hcl (Venlafaxine Hcl Er) 37.5 Mg Tab 37.5 MG PO DAILY Discontinued Medications: Levalbuterol (Levalbuterol HCl) 0.63 Mg/3 Ml Nebu 1 DOSE NEB TID Rivaroxaban (Xarelto) 15 Mg Tab 15 MG PO QPM, TAB Discharge Exam Patient reports feeling well and is eager to return home. She denies any complaints. The patient denies fevers, chills, sweats, chest pain, palpitations , claudication, cough, wheezing, shortness of breath, nausea, vomiting, abdominal pain, dysuria, hematuria, urinary retention, paralysis, weakness, numbness and tingling. Constitutional: No fever, No chills, No sweats Eyes: No worsening of vision, No eye pain, No diplopia ENT: No hearing loss, No nasal symptoms, No trouble swallowing Respiratory: No cough, No wheezing, No shortness of breath Cardiovascular: No chest pain, No claudication, No palpitations Abdomen: No pain, No nausea, No vomiting Musculoskeletal: No joint pain, No muscle pain, No swelling Genitourinary - Female: No dysuria, No urinary retention, No hematuria Neurologic: No paralysis, No weakness, No numbness/tingling Integumentary: No rash, No itch, No color change General appearance: Well-developed, well-nourished, no apparent distress Head: Normocephalic, atraumatic Eyes: Normal inspection, PERRL, EOMI ENT: Normal ENT inspection, hearing grossly normal, pharynx normal Neck: Supple, no JVD, trachea midline Respiratory/Chest: +Markedly decreased breath sounds throughout, at baseline. Lungs clear to auscultation, no respiratory distress Cardiovascular: Regular rate & rhythm, no gallop, no murmur Abdomen/GI: Normal bowel sounds, non-tender, soft Extremities/Musculoskeletal: Normal inspection, no calf tenderness, no pedal edema Neurological/Psych: Alert, normal mood/affect, oriented x 3 Skin: Normal color, warm/dry, no rash Hospital Course 82 y/o female with a history of PAF, HTN, HLD, DM II and psoriatic arthritis who presents with altered mental status. Metabolic Encephalopathy secondary to Hypoxia--resolved - Question of sundowning at night - Started on Seroquel 12.5 mg PO hs, pt has been tolerating well and sleeping through the night. No hallucinations Acute on Chronic Hypoxic/Hypercarbic Respiratory Failure due COPD Exacerbation with Respiratory Acidosis--resolving, about baseline - DuoNebs Q6R, Pulmicort BID - Chest CT no acute findings - PFTs from October 2016 reveal mild obstructive disease but moderate to severe restrictive findings that did not improve with bronchodilator administration - Continue BiPAP w/naps and at bedtime - Per outpatient Pulm recommend maintaining sats between 88-92% as patient has long standing CO2 retention - Prednisone 50 mg today, d/c with taper: 50 mg x 2 more days, 40 mg x 3 days, 30 mg x 3 days, 20 mg x 3 days, 10 mg x 3 days, then stop - Doxycycline 100 mg PO BID, received 2 days while inpatient, continue at d/c for total 5 day course Restrictive lung disease - uncertain etiology -Reportedly had muscle biopsy some years ago and was diagnosed with some muscular disorder, not clear which. Was told no tx needed at that time but could progress and require tx eventually -Case d/w neuro, recommend outpatient follow up to assess for possible neuromuscular disease that could be contributing to restrictive disease Paroxysmal Atrial Fibrillation--stable, NSR - Continue Toprol 25 mg PO qd and Xarelto 20 mg PO qd HTN, HLD--stable -Had some low BPs yesterday/last night -Losartan held and Imdur decreased to 30 mg PO qd. BP improved prior to discharge. Pt instructed to continue to hold losartan until f/u with PCP on 08/18 and maintain lowered Imdur dose -Continue metoprolol as above, Lipitor 40 mg PO qd DM II--HgbA1c 6.6 on 07/26/17 - Hold Metformin, resume on discharge. Steroids tapering down - Lantus 15 units SC qam while inpt due to IV steroids - Insulin sliding scale - Check BSGs q ac and qhs Psoriatic Arthritis--stable - Methotrexate 15 mg on Mondays; Enbrel given on 08/09 DVT Prophylaxis -Xarelto Code Status -Level III, FULL WITHOUT MECH VENTILATION Disposition: - PT/OT recommend rehab, pt refusing. D/c home with home health Total Time Spent: Greater than 30 minutes This includes examination of the patient, discharge planning, medication reconciliation, and communication with other providers. Discharge Instructions Please refer to the electronic Patient Visit Report (Discharge Instructions) for additional information. Additional Copies To Bryan Porter DO; Jovanny Rae M.D.
--- NOTE | 2017-08-15 17:31 | Progress Note ---
Progress Note Date of Service Aug 15, 2017. (Annmarie Haywood ., RUDDY) Progress Note Patient reports feeling well. She reports feeling slightly more short of breath today but is on her baseline O2. She denies any other complaints currently and states she slept well. The patient denies fevers, chills, sweats , chest pain, palpitations, claudication, cough, wheezing, nausea, vomiting, abdominal pain, dysuria, hematuria, urinary retention, paralysis, weakness, numbness and tingling. Constitutional: No fever, No chills, No sweats Eyes: No worsening of vision, No eye pain, No diplopia ENT: No hearing loss, No nasal symptoms, No trouble swallowing Respiratory: +SOB. No cough, No wheezing Cardiovascular: No chest pain, No claudication, No palpitations Abdomen: No pain, No nausea, No vomiting Musculoskeletal: No joint pain, No muscle pain, No swelling Genitourinary - Female: No dysuria, No urinary retention, No hematuria Neurologic: No paralysis, No weakness, No numbness/tingling Integumentary: No rash, No itch, No color change General appearance: Well-developed, well-nourished, no apparent distress Head: Normocephalic, atraumatic Eyes: Normal inspection, PERRL, EOMI ENT: Normal ENT inspection, hearing grossly normal, pharynx normal Neck: Supple, no JVD, trachea midline Respiratory/Chest: +Markedly decreased breath sounds throughout. Lungs clear to auscultation, no respiratory distress Cardiovascular: Regular rate & rhythm, no gallop, no murmur Abdomen/GI: Normal bowel sounds, non-tender, soft Extremities/Musculoskeletal: Normal inspection, no calf tenderness, no pedal edema Neurological/Psych: Alert, normal mood/affect, oriented x 3 Skin: Normal color, warm/dry, no rash A/P: 82 y/o female with a history of PAF, HTN, HLD, DM II and psoriatic arthritis who presents with altered mental status. Metabolic Encephalopathy secondary to Hypoxia--resolved - Question of sundowning at night - Started on Seroquel 12.5 mg PO hs, pt has been tolerating well and sleeping through the night. No hallucinations Acute on Chronic Hypoxic/Hypercarbic Respiratory Failure due COPD Exacerbation with Respiratory Acidosis--resolving, about baseline - DuoNebs Q6R, Pulmicort BID - Chest CT no acute findings - PFTs from October 2016 reveal mild obstructive disease but moderate to severe restrictive findings that did not improve with bronchodilator administration - Continue BiPAP w/naps and at bedtime - Per outpatient Pulm recommend maintaining sats between 88-92% as patient has long standing CO2 retention - Prednisone 50 mg today, d/c with taper: 50 mg x 2 more days, 40 mg x 3 days, 30 mg x 3 days, 20 mg x 3 days, 10 mg x 3 days, then stop - Doxycycline 100 mg PO BID, received 2 days while inpatient, continue at d/c for total 5 day course Restrictive lung disease - uncertain etiology -Reportedly had muscle biopsy some years ago and was diagnosed with some muscular disorder, not clear which. Was told no tx needed at that time but could progress and require tx eventually -Case d/w neuro, recommend outpatient follow up to assess for possible neuromuscular disease that could be contributing to restrictive disease Paroxysmal Atrial Fibrillation--stable, NSR - Continue Toprol 25 mg PO qd and Xarelto 20 mg PO qd HTN, HLD--stable -Continue metoprolol as above, losartan 25 mg PO qd, Lipitor 40 mg PO qd DM II--HgbA1c 6.6 on 07/26/17 - Hold Metformin, resume on discharge. Steroids tapering down - Lantus 15 units SC qam while inpt due to IV steroids - Insulin sliding scale - Check BSGs q ac and qhs Psoriatic Arthritis--stable - Methotrexate 15 mg on Mondays; Enbrel given on 08/09 DVT Prophylaxis -Xarelto Code Status -Level III, FULL WITHOUT MECH VENTILATION Disposition: - PT/OT recommend rehab, pt refusing. D/c home with home health - Hold off discharge today, no ride (Annmarie Haywood ., PAAishwaryaC) Attending Note & Attestation: Pt seen/examined, chart reviewed, care plan d/w MARIA ISABEL Haywood. I agree w/ the hawkins components of her documentation. Pt denies any complaints today; no issues per staff. She refuses to go to SNF for rehab. apparently left the hospital and by report (from daughter in law) they were disagreeing about the SNF placement. She states "I can do just as much at home as they did for me at rehab" Last PT note states only walked 12 feet. Mild cough, but no dyspnea at rest or orthopnea. VSS except BPs low or low-normal o2 sats wnl gen - nad neck - no JVD heart - RRR, s1, s2 lungs - poor airation throughout with scant end-exp wheeze; no rales abd - soft ext - no edema A/P: 1. acute/chronic hypercarbic/hypoxic resp failure - acute component 2nd to COPD flare - finish doxy course, finish slow prednisone taper 2. mod-severe restrictive lung disease - etiology uncertain; neuromuscular in origin? awaiting muscle bx pathology report from [facility] - have not received yet; neuro referral after d/c; awaiting aldolase level 3. severe deconditioning - I am disappointed she changed her mind at the last second about rehab; she is incredibly weak and only walking 12 feet with PT counseled her today she is at high risk of readmission - she voiced understanding since she is declining rehab will get home PT, OT for her 4. psoriatic arthritis - followed by Dr. Seo 5. low normal BPs - hold ARB, lower imdur to 30mg daily; CBC, BMP am home tomorrow daughter in law updated by phone Zachary Mcghee MD (Zachary Mcghee MD)
[2017-08-15] MEDS: ATORVASTATIN 40 MG TAB PO SCH (20:34)
[2017-08-15] MEDS: RIVAROXABAN 10 MG TAB PO SCH (20:34)
[2017-08-15] MEDS: QUETIAPINE FUMARATE 25 MG TAB PO SCH (20:35)
[2017-08-16] VITALS (7 sets, daily range): BP systolic 100–137; BP diastolic 63–73; PULSE 72–78; TEMP 36.6–36.7; O2SAT 97–98
[2017-08-16] MEDS: ALBUT/IPRATROP 3MG/0.5MG NEB 3 ML VIAL INH SCH ×3 (02:00→14:10)
[2017-08-16] MEDS: BUDESONIDE 0.5 MG/2 ML VIAL (PULMICORT) INH SCH (07:10)
[2017-08-16] MEDS ORDERED: ISOSORBIDE MONONITRATE 30 MG TABCR PO SCH (08:00)
[2017-08-16] MEDS: SENNA 8.6 MG TAB PO SCH (08:00)
[2017-08-16 08:20] LABS: HEMATOCRIT 41.6 % (37-47); HEMOGLOBIN 13.2 g/dL (12.0-16.0); MEAN CELL VOLUME 104.3 fL (80-100); MEAN CORPUSCULAR HEMOGLOBIN 33.1 pg (25-34); MEAN CORPUSCULAR HGB CONC 31.7 g/dl (32-36); PLATELET COUNT 225 K/uL (130-400); RED CELL DISTRIBUTION WIDTH CV 14.8 % (11.5-14.5); RED CELL DISTRIBUTION WIDTH SD 56.8 fL (36.4-46.3); WHITE BLOOD COUNT 10.82 K/uL (4.8-10.8)
[2017-08-16] MEDS: VENLAFAXINE HCL XR 37.5 MG CAPXR PO SCH (08:41)
[2017-08-16] MEDS: METOPROLOL SUCC 25MG EXT REL TAB PO SCH (08:41)
[2017-08-16] MEDS: FUROSEMIDE 40 MG TAB PO SCH (08:41)
[2017-08-16] MEDS: METOCLOPRAMIDE HCL 5 MG TAB PO SCH (08:42)
[2017-08-16] MEDS: DOXYCYCLINE HYCLATE 100 MG CAP PO SCH (08:42)
[2017-08-16] MEDS: GABAPENTIN 100 MG CAP PO SCH (08:43)
[2017-08-16] MEDS: FEXOFENADINE HCL 60 MG TAB PO SCH (08:43)
[2017-08-16] MEDS: POTASSIUM CHLORIDE 20 MEQ TABCR PO SCH (08:43)
[2017-08-16] MEDS: POLYETHYLENE (MIRALAX) 17 GM PACK PO SCH (08:47)
[2017-08-16] MEDS: INSULIN ASPART 100 UNITS/ML 3 ML PEN SC SCH ×2 (08:50→12:46)
[2017-08-16] MEDS: INSULIN GLARGINE SOLOSTAR 100 UNITS/ML 3 ML PEN SC SCH (08:51)
[2017-08-16] MEDS: BISACODYL 5 MG TABEC PO PRN (08:54)
[2017-08-16 09:03] LABS: CALCIUM 9.2 mg/dl (8.5-10.1); CREATININE 0.66 mg/dl (0.60-1.20); POTASSIUM 3.8 mmol/L (3.5-5.1)
[2017-08-16] MEDS ORDERED: IMDSR30 PO (13:55)
[2017-08-19] MEDS ORDERED: THM100 PO (16:27)
== END 2017-08-16 15:12 | disposition home health service (06) | DRG 189 ==
LOC: EDBD 10:38 → C.EDB 10:41 → C.2T 13:16 → ENRESERV 14:04 → C.2T 17:42 → C.MS4W 08-13 09:39 → ENRESERV 08-13 10:10
PROVIDERS: ADMIT Family Medicine; ATTEND Family Medicine
DX: J96.22 Acute and chronic respiratory failure with hypercapnia (principal); G93.41 Metabolic encephalopathy; F05 Delirium due to known physiological condition; J44.1 Chronic obstructive pulmonary disease with (acute) exacerbation; E87.2 Acidosis; J96.21 Acute and chronic respiratory failure with hypoxia; Z99.81 Dependence on supplemental oxygen; Z91.128 Patient's intentional underdosing of medication regimen for other reason; J98.4 Other disorders of lung; E11.43 Type 2 diabetes mellitus with diabetic autonomic (poly)neuropathy; I27.20 Pulmonary hypertension, unspecified; I10 Essential (primary) hypertension; I48.0 Paroxysmal atrial fibrillation; D75.89 Other specified diseases of blood and blood-forming organs; G47.33 Obstructive sleep apnea (adult) (pediatric); M62.81 Muscle weakness (generalized); L40.50 Arthropathic psoriasis, unspecified; E78.5 Hyperlipidemia, unspecified; Z86.79 Personal history of other diseases of the circulatory system; Z79.01 Long term (current) use of anticoagulants; Z79.51 Long term (current) use of inhaled steroids; Z79.899 Other long term (current) drug therapy; Z82.3 Family history of stroke

== ENCOUNTER → 2017-09-23 | Outpatient (CLI) | payer BC ==
[~2017-09-23] MED LIST changes: +ALL60 PO; +CLR10 PO; -DIAZ-165 PO; +DXY100 PO; +GLC/500 PO; +IMDSR30 PO; -INSDGIPEN SC; +IPRASOL4 INH; -ISOS60TA25 PO; +MRLP17 PO; -NVLGIPEN SC; -RIVA1.5T PO; +SENN-61 PO; +SRQ25 PO; +THM100 PO; +XRL10 PO
[2017-09-23 12:25] LABS: BASO % 0.9 %; BASO ABS # 0.07 K/uL (0-0.2); EOS % 0.5 %; EOS ABS # 0.04 K/uL (0-0.5); HEMATOCRIT 36.8 % (37-47); HEMOGLOBIN 11.7 g/dL (12.0-16.0); IG# 0.08 K/uL (0.00-0.02); LYMPH % 17.6 %; LYMPH ABS # 1.43 K/uL (1.2-3.4); MEAN CELL VOLUME 103.1 fL (80-100); MEAN CORPUSCULAR HEMOGLOBIN 32.8 pg (25-34); MEAN CORPUSCULAR HGB CONC 31.8 g/dl (32-36); MEAN PLATELET VOLUME 10.1 fL (7.4-10.4); MONO % 8.3 %; MONO ABS # 0.67 K/uL (0.11-0.59); NEUT % 71.7 %; NEUT ABS # 5.83 K/uL (1.4-6.5); PLATELET COUNT 288 K/uL (130-400); RED CELL DISTRIBUTION WIDTH CV 14.8 % (11.5-14.5); RED CELL DISTRIBUTION WIDTH SD 55.2 fL (36.4-46.3); WHITE BLOOD COUNT 8.12 K/uL (4.8-10.8)
[2017-09-23 16:17] LABS: ALBUMIN 3.2 gm/dl (3.4-5.0); TOTAL PROTEIN 6.8 gm/dl (6.4-8.2)
== END | disposition home or self-care (01) ==
LOC: C.LAB1850 10:50
PROVIDERS: ATTEND Internal Medicine Rheumatology
DX: L40.50 Arthropathic psoriasis, unspecified (principal); Z79.899 Other long term (current) drug therapy

== ENCOUNTER 2017-09-30 16:49 | Emergency (ER) | payer BC ==
[2017-09-30 17:07] VITALS: TEMP 36.7
[2017-09-30 17:31] LABS: HEMATOCRIT 36.8 % (37-47); HEMOGLOBIN 11.6 g/dL (12.0-16.0); MEAN CELL VOLUME 102.8 fL (80-100); MEAN CORPUSCULAR HEMOGLOBIN 32.4 pg (25-34); MEAN CORPUSCULAR HGB CONC 31.5 g/dl (32-36); PLATELET COUNT 301 K/uL (130-400); RED CELL DISTRIBUTION WIDTH CV 14.7 % (11.5-14.5)
[2017-09-30 17:39] LABS: INR 1.1 (0.9-1.1); PTT PATIENT 28.9 SECONDS (21.0-31.0)
[2017-09-30 17:48] LABS: ALBUMIN 3.5 gm/dl (3.4-5.0); ALT/SGPT 19 U/L (12-78); BLOOD UREA NITROGEN 11 mg/dl (7-18); CALCIUM 8.9 mg/dl (8.5-10.1); CARBON DIOXIDE 39 mmol/L (21-32); GLUCOSE 134 mg/dl (70-99); POTASSIUM 4.5 mmol/L (3.5-5.1); SODIUM 140 mmol/L (136-145)
[2017-09-30 17:51] LABS: ALKALINE PHOSPHATASE 66 U/L (45-117); AST/SGOT 19 U/L (15-37); TOTAL PROTEIN 6.7 gm/dl (6.4-8.2)
[2017-09-30] MEDS ORDERED: METOCLOPRAMIDE HCL INJ 5 MG/ML 2 ML VIAL IV. STA (18:39)
[2017-09-30] MEDS ORDERED: LACTULOSE SYRUP 20 GM/30 ML UDC PO STA (18:39)
--- NOTE | 2017-09-30 18:42 | EMERGENCY ROOM VISIT NOTE ---
History Report prepared by Josefina: Wei Salas Under the Supervision of: Dr. Ancelmo Manrique M.D. First contact with patient: 18:01 Chief Complaint: CONSTIPATION Stated Complaint: RETUM BLEEDING,CAN NOT MAKE IT STOP Nursing Triage Summary: constipation hx of hemorrhoids History of Present Illness The patient is a 82 year old white female with a past medical history of hemorrhoids, COPD, HT, DM who presents to the ED with a cc of intermittent rectal bleeding beginning today. She rates her discomfort as an 8/10 in severity. The patient states her last bowel movement was two days ago. She reports she has not been able to have bowel movement since despite Laxative use since. The patient states she tried to have a bowel movement today and notes she had to strain. She reports that since her attempt at having bowel movement, she has noticed some bright red blood from her rectum. The patient states she put a paper towel by her rectum and saw some drops of blood after wearing the paper towel. Positive constipation. Negative prior rectal bleeding, trauma, injury, lightheadedness, dizziness, abdominal pain, bruising anywhere. The patient states she uses 3 L of oxygen at baseline. She reports she takes Xarelto for her history of atrial fibrillation. The patient states she also had a recent ear infection, which she has been taking antibiotics for. Source of History: patient Onset: today Position: other (rectum) Symptom Intensity: 8/10 Quality: other (bleeding) Timing: intermittent Associated Symptoms: No abdominal pain Note: Positive: Constipation Negative prior rectal bleeding, trauma, injury, lightheadedness, dizziness, bruising anywhere Review of Systems See HPI for pertinent positives and negatives. A total of ten systems were reviewed and were otherwise negative. Past Medical & Surgical Medical Problems: (1) Acute respiratory failure with hypoxia and hypercapnia (2) Anxiety (3) Constipation (4) COPD (chronic obstructive pulmonary disease) (5) Diabetes (6) HTN (hypertension) (7) Pneumonia involving right lung (8) Traumatic brain injury Family History Patient reports no known family medical history. Social History Smoking Status: Never Smoker Drug Use: none Marital Status: Housing Status: lives with family Occupation Status: retired Current/Historical Medications Scheduled Albuterol Hfa (Ventolin Hfa), 3 PUFFS INH Q6H Atorvastatin (Lipitor), 40 MG PO QPM Budesonide (Inhalation) (Pulmicort Respules 0.5MG/2ML), 0.5 MG INH BIDR Doxycycline Hyclate (Doxycycline Hyclate), 100 MG PO BID Ergocalciferol (Vitamin D 35646 Unit), 50,000 INTER.UNIT PO 2XWK Etanercept (Enbrel), 1 DOSE INJ WK Fexofenadine HCl (Fexofenadine HCl), 60 MG PO BID Folic Acid (Folvite), 1 MG PO DAILY Furosemide (Lasix), 40 MG PO QAM Gabapentin (Neurontin), 200 MG PO AMPM Home O2 Therapy (Oxygen), 3-4 LITERS NA CONTINOUS Ipratropium-Albuterol (Duoneb), 3 ML INH Q6R Isosorbide Mononitrate (Isosorbide Mononitrate ER), 30 MG PO QAM Loratadine (Claritin), 10 MG PO DAILY Losartan Potassium (Cozaar), 25 MG PO DAILY Metformin Hcl (Glucophage), 500 MG PO DAILY Methotrexate (Methotrexate), 6 TAB PO WK Metoclopramide Hcl (Metoclopramide Hcl), 5 MG PO BID Metoprolol Succinate (Metoprolol Succinate ER), 25 MG PO DAILY Polyethylene (Miralax), 17 GM PO BID Potassium Chloride (Klor-Con M20), 20 MEQ PO BID Prednisone (Prednisone), 10 MG PO UD Quetiapine Fumarate (Quetiapine Fumarate), 12.5 MG PO HS Rivaroxaban (Xarelto), 20 MG PO QPM Senna (Senokot), 17.2 MG PO QAM Thiamine HCl (Vitamin B-1), 200 MG PO BID Venlafaxine Hcl (Venlafaxine Hcl Er), 37.5 MG PO DAILY Scheduled PRN Bisacodyl (Bisacodyl EC), 5 MG PO BID PRN for constipation Allergies Coded Allergies: No Known Allergies (Unverified , 08/09/17) Physical Exam Vital Signs Date Time Temp Pulse Resp B/P (MAP) Pulse Ox O2 Delivery O2 Flow Rate FiO2 09/30/17 18:18 82 18 118/49 95 Nasal Cannula 2.0 09/30/17 17:07 36.7 87 18 90/54 97 Nasal Cannula 3.0 Physical Exam GENERAL: Wearing glasses, awake, alert, well-appearing, NAD, nasal canula in place. HENT: Normocephalic, atraumatic. EYES: Normal conjunctiva. Sclera non-icteric. NECK: Supple. No nuchal rigidity. FROM. RESPIRATORY: CTAB, no rhonchi, wheezing, crackles CARDIAC: RRR, no MRG, systolic ejection murmur at aortic position. ABDOMEN: Soft, NTND, BS+ MSK: No chest wall TTP, no LE edema NEURO: GCS 15, CN 2-12 intact, moves all 4s on command SKIN: No rash or jaundice noted. RECTUM: One external hemorrhoid noted. Stool in vault. No bright red blood. No melanic stool. Hemoccult positive. Medical Decision & Procedures Laboratory Results 09/30/17 17:17 09/30/17 17:17 Test 09/30/17 17:17 Red Blood Count 3.58 M/uL (4.2-5.4) Mean Corpuscular Volume 102.8 fL (80-100) Mean Corpuscular Hemoglobin 32.4 pg (25-34) Mean Corpuscular Hemoglobin Concent 31.5 g/dl (32-36) RDW Standard Deviation 55.0 fL (36.4-46.3) RDW Coefficient of Variation 14.7 % (11.5-14.5) Mean Platelet Volume 10.0 fL (7.4-10.4) Prothrombin Time 11.8 SECONDS (9.0-12.0) Prothromb Time International Ratio 1.1 (0.9-1.1) Activated Partial Thromboplast Time 28.9 SECONDS (21.0-31.0) Partial Thromboplastin Ratio 1.1 Anion Gap 2.0 mmol/L (3-11) Estimated GFR () 80.7 Estimated GFR (Non- 69.6 BUN/Creatinine Ratio 14.0 (10-20) Calcium Level 8.9 mg/dl (8.5-10.1) Total Bilirubin 0.4 mg/dl (0.2-1) Aspartate Amino Transf (AST/SGOT) 19 U/L (15-37) Alanine Aminotransferase (ALT/SGPT) 19 U/L (12-78) Alkaline Phosphatase 66 U/L (45-117) Total Protein 6.7 gm/dl (6.4-8.2) Albumin 3.5 gm/dl (3.4-5.0) Globulin 3.2 gm/dl (2.5-4.0) Albumin/Globulin Ratio 1.1 (0.9-2) Laboratory results reviewed by me ED Course 1803: The patient was evaluated in room B10. A complete history and physical exam was performed. 1841: I reevaluated the patient. Discussed results and discharge instructions: She verbalized understanding and agreement. The patient is ready for discharge. Medical Decision Nursing notes reviewed. Ancillary studies and prior records reviewed. The patient is a 82 year old white female with a past medical history of hemorrhoids, COPD, HT, DM who presents to the ED with a cc of intermittent rectal bleeding beginning today. The patient's presentation and history were concerning for etiologies such as diverticulosis, AVM, coagulopathy, colitis, inflammatory bowel disease, malignancy, Yeni-Valadez tear, esophagitis, peptic ulcer disease, variceal bleed, gastritis, epistaxis, fissure, hemorrhoids, as well as others were entertained. Patient was seen and evaluated the bedside. Patient is an 82-year-old with a prior history of medical comorbidities including COPD on 2-3 L chronically paroxysmal A. fib on Xarelto. Patient is noticed some constipation with a bowel movement 2 days prior. Patient noted that she had a little bit of scant rectal bleeding today. Patient denies any dizziness or lightheadedness. Patient states when she wore depends she had some scant drops in the diaper. Patient denies any trauma. Patient has used antibiotics of late for some sort of sinus or ear infection. On exam the patient is well-appearing given her chronic comorbidities. Patient did have a questionable lower blood pressure however the patient is not tachycardic and the patient is otherwise a symptomatically. Patient did have blood work completed. Patient does have some chronic but stable anemia. Platelet count normal. Coags normal. Exam did show a external hemorrhoid and she may have an area internally that is exposed. No bright red blood per rectum the patient did not have melanotic stool. It was Hemoccult positive. Patient states that it is mildly uncomfortable. I believe this may be related to straining and/or the hemorrhoid. Patient was given some medications to help with her bowel movement. I do not believe that she requires any further imaging or treatment at this time as the patient has chronic but stable anemia with normal platelets and coagulation studies. Patient has soft abdomen without any nausea vomiting. Patient was told to follow-up with her PCP and return if she any worsening symptoms. Patient was told to continue to take docusate and senna high fiber in the diet as well as fluids as tolerated. Patient was given strict follow-up, discharge, and return precautions. All questions were answered. Patient was deemed suitable for outpatient follow-up at this time. Patient agreed with the plan of care and was safely discharged home. Medication Reconcilliation Current Medication List: was personally reviewed by me Blood Pressure Screening Patient's blood pressure: Normal blood pressure Impression Primary Impression: Constipation Additional Impressions: Hemorrhoid Rectal bleeding Anemia Scribe Attestation The scribe's documentation has been prepared under my direction and personally reviewed by me in its entirety. I confirm that the note above accurately reflects all work, treatment, procedures, and medical decision making performed by me. Departure Information Dispostion Home / Self-Care Referrals Jovanny Rae M.D. (PCP) Patient Instructions Bleeding Rectal, Bleeding Rectal Evaluate Treat, Diet High Fiber, Hemorrhoids Self Care, My [facility] Additional Instructions Please return to the emergency department if you have worsening or recurrent symptoms not amenable to at-home treatment. Please call for a follow-up appointment with her primary care physician. Please take your medications as prescribed. If you have other concerns and/or complaints please feel free to also call your primary care physician's office or return the ED for further evaluation, management, and treatment. Consider diet high in fiber, increase fluid intake as you were able and only up to the amount if you have any restrictions with fluid intake, docusate and senna , and a laxative to help with her bowel movements. Take your medications as prescribed. You have been examined and treated today on an emergency basis only. This is not a substitute for, or an effort to provide, complete comprehensive medical care. It is impossible to recognize and treat all injuries or illnesses in a single emergency department visit. It is therefore important that you follow up closely with [facility], your PCP, and/or your specialist(s). Call as soon as possible for an appointment. Thank you for your time and consideration. I look forward to speaking with you again soon. Please don't hesitate to call us if you have any questions. Problem Qualifiers Primary Impression: Constipation Constipation type: unspecified constipation type Qualified Codes: K59.00 - Constipation, unspecified Additional Impressions: Hemorrhoid Hemorrhoid type: unspecified Qualified Codes: K64.9 - Unspecified hemorrhoids Anemia Anemia type: unspecified type Qualified Codes: D64.9 - Anemia, unspecified
[2017-09-30] MEDS ORDERED: DOCUSATE SODIUM/SENNA 50/8.6MG TAB PO ONE (18:45)
[2017-09-30 19:36] VITALS: BP 136/65; PULSE 88; O2SAT 96
== END 2017-09-30 19:35 | disposition home or self-care (01) ==
LOC: C.EDB 16:50
DX: K59.00 Constipation, unspecified (principal); K64.9 Unspecified hemorrhoids; D64.9 Anemia, unspecified; J44.9 Chronic obstructive pulmonary disease, unspecified; Z99.81 Dependence on supplemental oxygen; Z79.01 Long term (current) use of anticoagulants; I48.91 Unspecified atrial fibrillation; F41.9 Anxiety disorder, unspecified; E11.9 Type 2 diabetes mellitus without complications; I10 Essential (primary) hypertension; Z87.01 Personal history of pneumonia (recurrent); Z87.820 Personal history of traumatic brain injury; Z79.84 Long term (current) use of oral hypoglycemic drugs; Z79.899 Other long term (current) drug therapy

== ENCOUNTER 2017-10-13 22:30 | Inpatient (IN) | payer BC, OTHER ==
[~2017-10-13] VITALS: Ht 162.6 cm; Wt 75.7 kg
[~2017-10-13 22:30] MED LIST changes: -ATR25 PO; -ATRINS INH; -ATRINS NEB; -BSP5 PO; -FEXO5TAB2 PO; -ISOS30TA35 PO; -LVQ500 PO; -NITR-5 PO; -ONDA4TAB10 SL; -PLMINSR5 INH; -POTA-639 PO; -PRED10TA PO; -QUET1TAB30 PO; -RIVA1TAB4 PO; -THIA1TAB11 PO; -XPNINS INH
[2017-10-13] MEDS ORDERED: CEFTRIAXONE SOD INJ 1 GM ADDVIAL IV STA (22:47)
[2017-10-13] MEDS ORDERED: SODIUM CHLORIDE 0.9% 500ML 500 ML IV STA ×2 (22:47→23:32)
[2017-10-13] MEDS ORDERED: ACETAMINOPHEN 500 MG TAB PO STA (22:51)
[2017-10-13] MEDS ORDERED: DAPTOMYCIN IV STA (23:03)
[2017-10-13] MEDS ORDERED: IMIPENEM/CILASTATIN IV 500 MG in DEXTROSE 5% 100ML 100 ML IV STA (23:03)
[2017-10-13] MEDS ORDERED: SODIUM CHLORIDE 0.9% IV STA (23:03)
[2017-10-13] MEDS ORDERED: SODIUM CHLORIDE 0.9% 150ML 150 ML IV STA (23:16)
[2017-10-13] MEDS ORDERED: SODIUM CHLORIDE 0.9% 1000ML 2,000 ML IV STA (23:16)
[2017-10-13 23:32] LABS: BASO % 0.4 %; BASO ABS # 0.04 K/uL (0-0.2); EOS % 1.3 %; EOS ABS # 0.13 K/uL (0-0.5); HEMATOCRIT 36.6 % (37-47); HEMOGLOBIN 11.8 g/dL (12.0-16.0); IG# 0.03 K/uL (0.00-0.02); LYMPH ABS # 2.46 K/uL (1.2-3.4); MEAN CELL VOLUME 101.7 fL (80-100); MEAN CORPUSCULAR HEMOGLOBIN 32.8 pg (25-34); MEAN CORPUSCULAR HGB CONC 32.2 g/dl (32-36); MEAN PLATELET VOLUME 9.7 fL (7.4-10.4); MONO % 8.5 %; MONO ABS # 0.87 K/uL (0.11-0.59); NEUT % 65.5 %; NEUT ABS # 6.73 K/uL (1.4-6.5); PLATELET COUNT 241 K/uL (130-400); RED CELL DISTRIBUTION WIDTH CV 14.4 % (11.5-14.5); RED CELL DISTRIBUTION WIDTH SD 53.2 fL (36.4-46.3); WHITE BLOOD COUNT 10.26 K/uL (4.8-10.8)
[2017-10-13 23:41] LABS: INR 1.4 (0.9-1.1); PTT PATIENT 36.4 SECONDS (21.0-31.0)
[2017-10-13 23:54] LABS: ALBUMIN 3.6 gm/dl (3.4-5.0); ALT/SGPT 20 U/L (12-78); AST/SGOT 19 U/L (15-37); BLOOD UREA NITROGEN 14 mg/dl (7-18); CALCIUM 9.4 mg/dl (8.5-10.1); CARBON DIOXIDE 39 mmol/L (21-32); CREATININE 0.83 mg/dl (0.60-1.20); GLUCOSE 159 mg/dl (70-99); LIPASE 198 U/L (73-393); POTASSIUM 3.5 mmol/L (3.5-5.1); SODIUM 140 mmol/L (136-145)
[2017-10-13] MEDS ORDERED: POTA-639 PO (23:56)
[2017-10-13] MEDS ORDERED: ISOS30TA35 PO (23:56)
[2017-10-13] MEDS ORDERED: RIVA1TAB4 PO (23:56)
[2017-10-13] MEDS ORDERED: QUET1TAB30 PO (23:56)
[2017-10-13] MEDS ORDERED: VNTHFA/IN INH (23:56)
[2017-10-13] MEDS ORDERED: THIA1TAB11 PO (23:56)
[2017-10-13] MEDS ORDERED: PLMINSR5 INH (23:56)
[2017-10-13] MEDS ORDERED: XPNINS INH (23:58)
[2017-10-13] MEDS ORDERED: ONDA4TAB10 SL (23:58)
[2017-10-13] MEDS ORDERED: FEXO5TAB2 PO (23:58)
[2017-10-13 23:59] LABS: ALKALINE PHOSPHATASE 75 U/L (45-117); TOTAL PROTEIN 7.2 gm/dl (6.4-8.2)
[2017-10-14] VITALS (12 sets, daily range): BP systolic 120–156; BP diastolic 55–79; PULSE 82–107; TEMP 36.5–37.1; O2SAT 92–99; Ht 162.6 cm; Wt 75.7 kg
[2017-10-14] MEDS ORDERED: MAGNESIUM SULFATE 1GM / D5W 1 GM BAG IV STA (00:04)
[2017-10-14 00:40] LABS: INFLUENZA A PCR Neg for Influ A (NEG); INFLUENZA B PCR Neg for Influ B (NEG)
--- NOTE | 2017-10-14 01:00 | EMERGENCY ROOM VISIT NOTE ---
History First contact with patient: 22:37 Chief Complaint: SHORTNESS OF BREATH Stated Complaint: SOB Nursing Triage Summary: Patient arrived via ALS from home. Patient c/o increasing SOB over the last week with chest heaviness. Patient states has hx of anxiety, believes it might be somewhat related to her anxiety. Patient wears 3-4L O2 chronically. Patient received duoneb en route, SAT 100% on 4L O2. Patient went to see PCP today and was diagnosed with UTI. History of Present Illness The patient is a 82 year old female who presents to the Emergency Room with complaints of not feeling well with fever and chills and urinary problems for the past day who has had increasing mild shortness of breath for the past week. Patient dropped her urine off the family doctor's office today and was told she had a urine infection. Patient denies chest pain, abdominal pain, vomiting , diarrhea, headache, sore throat. She is tolerating p.o. fluids and food. She is chronically on 3-4 L of oxygen who has COPD. No history of CHF. Review of Systems An 10 system review of systems was completed with positives and pertinent negatives listed in the HPI. Past Medical/Surgical History Medical Problems: (1) Acute respiratory failure with hypoxia and hypercapnia (2) Anxiety (3) Constipation (4) COPD (chronic obstructive pulmonary disease) (5) Diabetes (6) HTN (hypertension) (7) Pneumonia involving right lung (8) Traumatic brain injury Family History Patient reports no known family medical history. Social History Smoking Status: Former Smoker Drug Use: none Marital Status: Housing Status: lives with family Occupation Status: retired Current/Historical Medications Scheduled Atorvastatin (Lipitor), 40 MG PO QPM Budesonide (Pulmicort Respules 0.5MG/2ML), 2 ML INH BID Ergocalciferol (Vitamin D 35368 Unit), 50,000 INTER.UNIT PO 2XWK Etanercept (Enbrel), 1 DOSE INJ WK Folic Acid (Folvite), 1 MG PO DAILY Furosemide (Lasix), 40 MG PO QAM Gabapentin (Neurontin), 200 MG PO AMPM Home O2 Therapy (Oxygen), 3-4 LITERS NA CONTINOUS Isosorbide Mononitrate Ext Rel (Imdur Ext Rel), 30 MG PO QAM Levalbuterol (Levalbuterol HCl), 1 DOSE INH TID Losartan Potassium (Cozaar), 25 MG PO DAILY Metformin Hcl (Glucophage), 500 MG PO DAILY Methotrexate (Methotrexate), 6 TAB PO WK Metoprolol Succinate (Metoprolol Succinate ER), 25 MG PO DAILY Potassium Ext Rel (Klor-Con), 20 MEQ PO BID Quetiapine Fumarate (Seroquel), 12.5 MG PO HS Rivaroxaban (Xarelto), 20 MG PO QPM Thiamine Mononitrate (Vitamin B1), 200 MG PO BID Venlafaxine Hcl (Venlafaxine Hcl Er), 37.5 MG PO DAILY Scheduled PRN Albuterol Hfa (Ventolin Hfa), 3 PUFFS INH DIRECTED PRN for "OUT & ABOUT" Fexofenadine-Pseudoephedrine (Nallely-D 12 Hour Allergy), 1 TAB PO BID PRN for Seasonal Allergies Ondasetron Odt (Zofran Odt), 4 MG SL Q8 PRN for Nausea or Vomiting Physical Exam Vital Signs Date Time Temp Pulse Resp B/P (MAP) Pulse Ox O2 Delivery O2 Flow Rate FiO2 10/13/17 23:44 100 22 109/63 94 Nasal Cannula 3.0 10/13/17 22:43 103 10/13/17 22:40 94 Nasal Cannula 4.0 10/13/17 22:40 94 Nasal Cannula 4.0 10/13/17 22:40 94 Nasal Cannula 4.0 10/13/17 22:40 38.1 101 22 99/73 94 Nasal Cannula 4.0 Physical Exam VITALS: Vitals are noted on the nurse's note and reviewed by myself. Vital signs febrile. GENERAL: Pleasant elderly female wearing oxygen mildly ill-appearing . SKIN: The skin was without rashes, erythema, edema, or bruising. There is no tenting of the skin. Capillary reflex less than 2 seconds. HEAD: Normocephalic atraumatic. EARS: External auditory canals clear, tympanic membranes pearly taylor without erythema or effusion bilaterally. EYES: Pupils equal round and reactive to light and accommodation. Conjunctivae without injection, sclerae without icterus. Extraocular movements intact. NOSE: Patent, turbinates without inflammation or discharge. No sinus tenderness. MOUTH: Mucous membranes mildly dry. Pharynx without erythema or exudate. Uvula midline. Airway patent. Tongue does not deviate. NECK: Supple without nuchal rigidity. No lymphadenopathy. No thyromegaly. Cervical spine is nontender. No JVD. HEART: Irregularly irregular tachycardic LUNGS: Mild diffuse end expiratory wheezes, without rales or rhonchi. No retractions or accessory muscle use. ABDOMEN: Positive bowel sounds x 4. Normal tympanic percussion. Soft, nontender, without masses or organomegaly. Worrell sign negative. No guarding or rebound tenderness. No CVA tenderness MUSCULOSKELETAL: No muscle atrophy, erythema, or edema noted. NEURO: Patient was alert and oriented to person place and time. Normal sensation to light and sharp touch. No focal neurological deficits. Medical Decision & Procedures Laboratory Results 10/13/17 23:19 Red Blood Count 3.60, Mean Corpuscular Volume 101.7, Mean Corpuscular Hemoglobin 32.8, Mean Corpuscular Hemoglobin Concent 32.2, Mean Platelet Volume 9.7, Neutrophils (%) (Auto) 65.5, Lymphocytes (%) (Auto) 24.0, Monocytes (%) ( Auto) 8.5, Eosinophils (%) (Auto) 1.3, Basophils (%) (Auto) 0.4, Neutrophils # ( Auto) 6.73, Lymphocytes # (Auto) 2.46, Monocytes # (Auto) 0.87, Eosinophils # ( Auto) 0.13, Basophils # (Auto) 0.04 10/13/17 23:19 Test 10/13/17 23:19 10/13/17 23:28 10/13/17 23:30 White Blood Count 10.26 K/uL (4.8-10.8) Red Blood Count 3.60 M/uL (4.2-5.4) Hemoglobin 11.8 g/dL (12.0-16.0) Hematocrit 36.6 % (37-47) Mean Corpuscular Volume 101.7 fL (80-100) Mean Corpuscular Hemoglobin 32.8 pg (25-34) Mean Corpuscular Hemoglobin Concent 32.2 g/dl (32-36) Platelet Count 241 K/uL (130-400) Mean Platelet Volume 9.7 fL (7.4-10.4) Neutrophils (%) (Auto) 65.5 % Lymphocytes (%) (Auto) 24.0 % Monocytes (%) (Auto) 8.5 % Eosinophils (%) (Auto) 1.3 % Basophils (%) (Auto) 0.4 % Neutrophils # (Auto) 6.73 K/uL (1.4-6.5) Lymphocytes # (Auto) 2.46 K/uL (1.2-3.4) Monocytes # (Auto) 0.87 K/uL (0.11-0.59) Eosinophils # (Auto) 0.13 K/uL (0-0.5) Basophils # (Auto) 0.04 K/uL (0-0.2) RDW Standard Deviation 53.2 fL (36.4-46.3) RDW Coefficient of Variation 14.4 % (11.5-14.5) Immature Granulocyte % (Auto) 0.3 % Immature Granulocyte # (Auto) 0.03 K/uL (0.00-0.02) Prothrombin Time 14.8 SECONDS (9.0-12.0) Prothromb Time International Ratio 1.4 (0.9-1.1) Activated Partial Thromboplast Time 36.4 SECONDS (21.0-31.0) Partial Thromboplastin Ratio 1.4 Anion Gap 3.0 mmol/L (3-11) Est Creatinine Clear Calc Drug Dose 51.9 ml/min Estimated GFR () 77.2 Estimated GFR (Non- 66.6 BUN/Creatinine Ratio 16.8 (10-20) Calcium Level 9.4 mg/dl (8.5-10.1) Magnesium Level 1.1 mg/dl (1.8-2.4) Total Bilirubin 0.4 mg/dl (0.2-1) Direct Bilirubin 0.1 mg/dl (0-0.2) Aspartate Amino Transf (AST/SGOT) 19 U/L (15-37) Alanine Aminotransferase (ALT/SGPT) 20 U/L (12-78) Alkaline Phosphatase 75 U/L (45-117) Troponin I < 0.015 ng/ml (0-0.045) Total Protein 7.2 gm/dl (6.4-8.2) Albumin 3.6 gm/dl (3.4-5.0) Lipase 198 U/L (73-393) Bedside Lactic Acid Venous 2.01 mmol/L (0.90-1.70) Bedside Troponin I < 0.030 ng/ml (0-0.045) Influenza Type A (RT-PCR) Neg for Influ A (NEG) Influenza Type B (RT-PCR) Neg for Influ B (NEG) Medications Administered Medications (Trade) Dose Ordered Sig/Rigoberto Route Start Time Stop Time Status Last Admin Dose Admin Acetaminophen (Tylenol Tab) 1,000 mg NOW STAT PO 10/13/17 22:51 10/13/17 22:52 DC 10/13/17 23:23 1,000 MG Imipenem/ Cilastatin Sodium 500 mg/Dextrose 110 ml @ 100 mls/hr NOW STAT IV 10/13/17 23:03 10/14/17 00:08 DC 10/13/17 23:40 100 MLS/HR Daptomycin 420 mg/ Sodium Chloride 58.4 ml @ 100 mls/hr NOW STAT IV 10/13/17 23:03 10/13/17 23:38 DC 10/13/17 23:40 100 MLS/HR Sodium Chloride 2,000 ml @ 999 mls/hr Q2H1M STAT IV 10/13/17 23:16 10/14/17 01:16 10/13/17 23:23 999 MLS/HR Sodium Chloride 150 ml @ 999 mls/hr Q10M STAT IV 10/13/17 23:16 10/13/17 23:25 DC 10/13/17 23:16 999 MLS/HR Sodium Chloride 500 ml @ 999 mls/hr Q31M STAT IV 10/13/17 23:32 10/14/17 00:02 DC 10/13/17 23:32 999 MLS/HR ED Course Prior records/ancillary studies reviewed. Triage Nursing notes reviewed. Additional history obtained from family and EMS. The patient's history was concerning for fever, UTI and SOB who has COPD. Differential diagnosis: Etiologies such as sepsis, UTI, pneumonia, metabolic, electrolyte abnormalities , cardiac sources, intracerebral event, toxicologic, neurologic, as well as others were entertained. Physical examination: As above. Pertinent findings were fever, SOB and UTI. Vital signs reviewed and revealed febrile. ER treatment provided: IV fluid resuscitation with Normal saline solution, 2100 mL bolus. IV fluid hydration with Normal saline solution at 125 mL/hr. Blood and urine cultures Antibiotics: Imipenem, daptomycin Magnesium Sepsis alert was initiated On reassessment the patient vital signs improved. Diagnostics interpretation by me: ECG: Irregularly irregular with poor baseline with no obvious acute ST-T wave changes with rate of 101. Prior EKG was reviewed. Impression show fibrillation with RVR of 101 interpreted by myself The labs revealed mild anemia on CBC. Chemistry panel revealed low magnesium. LFTs reviewed. Cardiac enzymes were negative. Serum Lactate measurement was 2. Blood and urine cultures are pending. Urine was done earlier today and consistent with UTI. Urine culture is pending. Imaging studies: Chest xray revealed no acute consolidation, pneumothorax or free of my interpretation. Consultation: A consultation was placed with Dr Gonzalez, hospitalist. The case was discussed and diagnostics were reviewed. The patient was evaluated in the ER for further treatment. Exam and history seem consistent with UTI with sepsis. Patient was febrile tachycardic slightly hypotensive and had a urine done earlier today that was consistent with UTI. Patient had no pneumonia on x-ray. She was hydrated as above. Magnesium was replaced. She was immediately started on antibiotics and 2 lines were initiated. Patient is agreeable to treatment plan of admission. She is reassessed multiple times. Case reviewed with my attending The chart was completed utilizing [employer] Speech voice recognition software. Grammatical errors, random word insertions, pronoun errors, and incomplete sentences are an occassional consequence of this system due to software limitations, ambient noise, and hardware issues. Any formal questions or concerns about the content, text, or information contained within the body of this dictation should be directly addressed to the physician graduate assistant athletic trainer for clarification. Medical Decision as above Medication Reconcilliation Current Medication List: was personally reviewed by me Blood Pressure Screening Patient's blood pressure: Normal blood pressure Impression Primary Impression: Sepsis Additional Impressions: UTI (urinary tract infection) Hypomagnesemia Anemia Departure Information Dispostion Being Evaluated By Hospitalist Condition FAIR Referrals Jovanny Rae M.D. (PCP) Forms HOME CARE DOCUMENTATION FORM, IMPORTANT VISIT INFORMATION Patient Instructions My [facility] [address] Problem Qualifiers Primary Impression: Sepsis Sepsis type: sepsis due to unspecified organism Qualified Codes: A41.9 - Sepsis, unspecified organism
[2017-10-14] MEDS ORDERED: ALBUT/IPRATROP 3MG/0.5MG NEB 3 ML VIAL INH STA (01:33)
--- NOTE | 2017-10-14 01:37 | EMERGENCY ROOM VISIT NOTE ---
ED Visit Note First contact with patient: 22:37 I have seen and examined this patient with Chari Sinha and generally agree with the treatment plan as discussed. Problem List Medical Problems: (1) Diabetes Status: Chronic (2) HTN (hypertension) Status: Chronic Current/Historical Medications Scheduled Atorvastatin (Lipitor), 40 MG PO QPM Budesonide (Pulmicort Respules 0.5MG/2ML), 2 ML INH BID Ergocalciferol (Vitamin D 78609 Unit), 50,000 INTER.UNIT PO 2XWK Etanercept (Enbrel), 1 DOSE INJ WK Folic Acid (Folvite), 1 MG PO DAILY Furosemide (Lasix), 40 MG PO QAM Gabapentin (Neurontin), 200 MG PO AMPM Home O2 Therapy (Oxygen), 3-4 LITERS NA CONTINOUS Isosorbide Mononitrate Ext Rel (Imdur Ext Rel), 30 MG PO QAM Levalbuterol (Levalbuterol HCl), 1 DOSE INH TID Losartan Potassium (Cozaar), 25 MG PO DAILY Metformin Hcl (Glucophage), 500 MG PO DAILY Methotrexate (Methotrexate), 6 TAB PO WK Metoprolol Succinate (Metoprolol Succinate ER), 25 MG PO DAILY Potassium Ext Rel (Klor-Con), 20 MEQ PO BID Quetiapine Fumarate (Seroquel), 12.5 MG PO HS Rivaroxaban (Xarelto), 20 MG PO QPM Thiamine Mononitrate (Vitamin B1), 200 MG PO BID Venlafaxine Hcl (Venlafaxine Hcl Er), 37.5 MG PO DAILY Scheduled PRN Albuterol Hfa (Ventolin Hfa), 3 PUFFS INH DIRECTED PRN for "OUT & ABOUT" Fexofenadine-Pseudoephedrine (Nallely-D 12 Hour Allergy), 1 TAB PO BID PRN for Seasonal Allergies Ondasetron Odt (Zofran Odt), 4 MG SL Q8 PRN for Nausea or Vomiting Allergies Coded Allergies: No Known Allergies (Unverified , 10/13/17) Vital Signs Date Time Temp Pulse Resp B/P (MAP) Pulse Ox O2 Delivery O2 Flow Rate FiO2 10/14/17 01:29 97 24 130/96 94 Nasal Cannula 3.0 10/13/17 23:44 100 22 109/63 94 Nasal Cannula 3.0 10/13/17 22:43 103 10/13/17 22:40 94 Nasal Cannula 4.0 10/13/17 22:40 94 Nasal Cannula 4.0 10/13/17 22:40 94 Nasal Cannula 4.0 10/13/17 22:40 38.1 101 22 99/73 94 Nasal Cannula 4.0 Laboratory Results 10/13/17 23:19 Red Blood Count 3.60, Mean Corpuscular Volume 101.7, Mean Corpuscular Hemoglobin 32.8, Mean Corpuscular Hemoglobin Concent 32.2, Mean Platelet Volume 9.7, Neutrophils (%) (Auto) 65.5, Lymphocytes (%) (Auto) 24.0, Monocytes (%) ( Auto) 8.5, Eosinophils (%) (Auto) 1.3, Basophils (%) (Auto) 0.4, Neutrophils # ( Auto) 6.73, Lymphocytes # (Auto) 2.46, Monocytes # (Auto) 0.87, Eosinophils # ( Auto) 0.13, Basophils # (Auto) 0.04 10/13/17 23:19 Test 10/13/17 23:19 10/13/17 23:28 10/13/17 23:30 White Blood Count 10.26 K/uL (4.8-10.8) Red Blood Count 3.60 M/uL (4.2-5.4) Hemoglobin 11.8 g/dL (12.0-16.0) Hematocrit 36.6 % (37-47) Mean Corpuscular Volume 101.7 fL (80-100) Mean Corpuscular Hemoglobin 32.8 pg (25-34) Mean Corpuscular Hemoglobin Concent 32.2 g/dl (32-36) Platelet Count 241 K/uL (130-400) Mean Platelet Volume 9.7 fL (7.4-10.4) Neutrophils (%) (Auto) 65.5 % Lymphocytes (%) (Auto) 24.0 % Monocytes (%) (Auto) 8.5 % Eosinophils (%) (Auto) 1.3 % Basophils (%) (Auto) 0.4 % Neutrophils # (Auto) 6.73 K/uL (1.4-6.5) Lymphocytes # (Auto) 2.46 K/uL (1.2-3.4) Monocytes # (Auto) 0.87 K/uL (0.11-0.59) Eosinophils # (Auto) 0.13 K/uL (0-0.5) Basophils # (Auto) 0.04 K/uL (0-0.2) RDW Standard Deviation 53.2 fL (36.4-46.3) RDW Coefficient of Variation 14.4 % (11.5-14.5) Immature Granulocyte % (Auto) 0.3 % Immature Granulocyte # (Auto) 0.03 K/uL (0.00-0.02) Prothrombin Time 14.8 SECONDS (9.0-12.0) Prothromb Time International Ratio 1.4 (0.9-1.1) Activated Partial Thromboplast Time 36.4 SECONDS (21.0-31.0) Partial Thromboplastin Ratio 1.4 Anion Gap 3.0 mmol/L (3-11) Est Creatinine Clear Calc Drug Dose 51.9 ml/min Estimated GFR () 77.2 Estimated GFR (Non- 66.6 BUN/Creatinine Ratio 16.8 (10-20) Calcium Level 9.4 mg/dl (8.5-10.1) Magnesium Level 1.1 mg/dl (1.8-2.4) Total Bilirubin 0.4 mg/dl (0.2-1) Direct Bilirubin 0.1 mg/dl (0-0.2) Aspartate Amino Transf (AST/SGOT) 19 U/L (15-37) Alanine Aminotransferase (ALT/SGPT) 20 U/L (12-78) Alkaline Phosphatase 75 U/L (45-117) Troponin I < 0.015 ng/ml (0-0.045) Total Protein 7.2 gm/dl (6.4-8.2) Albumin 3.6 gm/dl (3.4-5.0) Lipase 198 U/L (73-393) Bedside Lactic Acid Venous 2.01 mmol/L (0.90-1.70) Bedside Troponin I < 0.030 ng/ml (0-0.045) Influenza Type A (RT-PCR) Neg for Influ A (NEG) Influenza Type B (RT-PCR) Neg for Influ B (NEG) Medications Administered Medications (Trade) Dose Ordered Sig/Rigoberto Route Start Time Stop Time Status Last Admin Dose Admin Acetaminophen (Tylenol Tab) 1,000 mg NOW STAT PO 10/13/17 22:51 10/13/17 22:52 DC 10/13/17 23:23 1,000 MG Imipenem/ Cilastatin Sodium 500 mg/Dextrose 110 ml @ 100 mls/hr NOW STAT IV 10/13/17 23:03 10/14/17 00:08 DC 10/13/17 23:40 100 MLS/HR Daptomycin 420 mg/ Sodium Chloride 58.4 ml @ 100 mls/hr NOW STAT IV 10/13/17 23:03 10/13/17 23:38 DC 10/13/17 23:40 100 MLS/HR Sodium Chloride 2,000 ml @ 999 mls/hr Q2H1M STAT IV 10/13/17 23:16 10/14/17 01:16 DC 10/13/17 23:23 999 MLS/HR Sodium Chloride 150 ml @ 999 mls/hr Q10M STAT IV 10/13/17 23:16 10/13/17 23:25 DC 10/13/17 23:16 999 MLS/HR Sodium Chloride 500 ml @ 999 mls/hr Q31M STAT IV 10/13/17 23:32 10/14/17 00:02 DC 10/13/17 23:32 999 MLS/HR Magnesium Sulfate (Magnesium Sulfate 1gm / D5W) 2 gm NOW STAT IV 10/14/17 00:04 10/14/17 00:05 DC 10/14/17 01:00 2 GM Departure Information Impression Primary Impression: Sepsis Additional Impressions: Anemia UTI (urinary tract infection) Hypomagnesemia Dispostion Being Evaluated By Hospitalist Condition FAIR Referrals Jovanny Rae M.D. (PCP) Forms HOME CARE DOCUMENTATION FORM, IMPORTANT VISIT INFORMATION Patient Instructions [facility] Problem Qualifiers Primary Impression: Sepsis Sepsis type: sepsis due to unspecified organism Qualified Codes: A41.9 - Sepsis, unspecified organism
[2017-10-14] MEDS ORDERED: PREMIXED IN D5W 150 ML IV SCH (02:45)
[2017-10-14] MEDS ORDERED: ACETAMINOPHEN 325 MG TAB PO PRN (02:45)
[2017-10-14] MEDS ORDERED: ALUMINUM/MAGNESIUM/SIMETH (MAALOX MAX) 30 ML UDC PO PRN (02:45)
[2017-10-14] MEDS ORDERED: MAGNESIUM HYDROXIDE SUSP 30 ML UDC PO PRN (02:45)
[2017-10-14] MEDS ORDERED: POLYETHYLENE (MIRALAX) 17 GM PACK PO PRN (02:45)
[2017-10-14] MEDS ORDERED: ONDANSETRON INJ 2 MG/ML 2 ML VIAL IV PRN (02:45)
[2017-10-14] MEDS ORDERED: DEXTROSE 50% 50 ML SYR IV PRN (03:45)
[2017-10-14] MEDS ORDERED: GLUCOSE 10 TABS/TUBE PO PRN (03:45)
[2017-10-14] MEDS ORDERED: GLUCOSE 40% GEL 15 GM TUBE PO PRN (03:45)
[2017-10-14] MEDS ORDERED: GLUCAGON FOR INJ 1 MG VIAL SQ PRN (03:45)
[2017-10-14] MEDS ORDERED: FEXOFENADINE 60MG/PSEUDOEPHEDRINE 120MG TAB PO PRN (04:00)
--- NOTE | 2017-10-14 04:05 | History and Physical ---
History & Physical Date & Time of Service: Oct 14, 2017 at 03:06 Chief Complaint: SOB Primary Care Physician: Jovanny Rae M.D. History of Present Illness Source: patient, hospital records 82 yo F with COPD on home O2 3-4 L continuous, BIPAP at night presenting with 1 week history of worsening cough, SOB. She tried home nebulizer treatments which gave her no relief. She tried using BIPAP the evening of arrival and received some benefit but it was insufficient relief. She reports ongoing dry cough (baseline) but denies subjective fever chills, chest pain, nausea//vomiting,abdominal pain/ diarrhea. She also reports urinary frequency, but denies urgency dysuria, hematuria, She told her PCP and was told to come in for UA which was positive for UTI. Patient would have been started on outpatient abx however, due to worsening SOB, decided to come into hospital Past Medical/Surgical History 1) HTN 2) COPD with CRF - 3L 02 continuous with HS BIPAP 3) Afib, Xarelto 4) Anxiety 5) Psoriatic arthritis 6) DM II Family History Patient reports no known family medical history. Social History Smoking Status: Former Smoker Drug Use: none Marital Status: Housing status: lives with family Occupational Status: retired Allergies Coded Allergies: No Known Allergies (Unverified , 10/13/17) Home Medications Scheduled Atorvastatin (Lipitor), 40 MG PO QPM Budesonide (Pulmicort Respules 0.5MG/2ML), 2 ML INH BID Ergocalciferol (Vitamin D 35829 Unit), 50,000 INTER.UNIT PO 2XWK Etanercept (Enbrel), 1 DOSE INJ WK Folic Acid (Folvite), 1 MG PO DAILY Furosemide (Lasix), 40 MG PO QAM Gabapentin (Neurontin), 200 MG PO AMPM Home O2 Therapy (Oxygen), 3-4 LITERS NA CONTINOUS Isosorbide Mononitrate Ext Rel (Imdur Ext Rel), 30 MG PO QAM Levalbuterol (Levalbuterol HCl), 1 DOSE INH TID Losartan Potassium (Cozaar), 25 MG PO DAILY Metformin Hcl (Glucophage), 500 MG PO DAILY Methotrexate (Methotrexate), 6 TAB PO WK Metoprolol Succinate (Metoprolol Succinate ER), 25 MG PO DAILY Potassium Ext Rel (Klor-Con), 20 MEQ PO BID Quetiapine Fumarate (Seroquel), 12.5 MG PO HS Rivaroxaban (Xarelto), 20 MG PO QPM Thiamine Mononitrate (Vitamin B1), 200 MG PO BID Venlafaxine Hcl (Venlafaxine Hcl Er), 37.5 MG PO DAILY Scheduled PRN Albuterol Hfa (Ventolin Hfa), 3 PUFFS INH DIRECTED PRN for "OUT & ABOUT" Fexofenadine-Pseudoephedrine (Nallely-D 12 Hour Allergy), 1 TAB PO BID PRN for Seasonal Allergies Ondasetron Odt (Zofran Odt), 4 MG SL Q8 PRN for Nausea or Vomiting Review of Systems Constitutional: + fever, No chills, No weakness Respiratory: + cough, + sputum, + shortness of breath Cardiovascular: + chest pain, + edema, + palpitations Abdomen: No pain, No nausea, No vomiting, No diarrhea Genitourinary - Female: + urinary frequency, No dysuria, No urinary urgency, No hematuria Integumentary: No rash, No itch Physical Exam Vital Signs Date Time Temp Pulse Resp B/P (MAP) Pulse Ox O2 Delivery O2 Flow Rate FiO2 10/14/17 01:29 97 24 130/96 94 Nasal Cannula 3.0 10/13/17 23:44 100 22 109/63 94 Nasal Cannula 3.0 10/13/17 22:43 103 10/13/17 22:40 94 Nasal Cannula 4.0 10/13/17 22:40 94 Nasal Cannula 4.0 10/13/17 22:40 94 Nasal Cannula 4.0 10/13/17 22:40 38.1 101 22 99/73 94 Nasal Cannula 4.0 Diagnostics Laboratory Results Results Past 24 Hours Test 10/13/17 23:19 10/13/17 23:28 10/13/17 23:30 Range/Units White Blood Count 10.26 4.8-10.8 K/uL Red Blood Count 3.60 4.2-5.4 M/uL Hemoglobin 11.8 12.0-16.0 g/dL Hematocrit 36.6 37-47 % Mean Corpuscular Volume 101.7 80-100 fL Mean Corpuscular Hemoglobin 32.8 25-34 pg Mean Corpuscular Hemoglobin Concent 32.2 32-36 g/dl Platelet Count 241 130-400 K/uL Mean Platelet Volume 9.7 7.4-10.4 fL Neutrophils (%) (Auto) 65.5 % Lymphocytes (%) (Auto) 24.0 % Monocytes (%) (Auto) 8.5 % Eosinophils (%) (Auto) 1.3 % Basophils (%) (Auto) 0.4 % Neutrophils # (Auto) 6.73 1.4-6.5 K/uL Lymphocytes # (Auto) 2.46 1.2-3.4 K/uL Monocytes # (Auto) 0.87 0.11-0.59 K/uL Eosinophils # (Auto) 0.13 0-0.5 K/uL Basophils # (Auto) 0.04 0-0.2 K/uL RDW Standard Deviation 53.2 36.4-46.3 fL RDW Coefficient of Variation 14.4 11.5-14.5 % Immature Granulocyte % (Auto) 0.3 % Immature Granulocyte # (Auto) 0.03 0.00-0.02 K/uL Prothrombin Time 14.8 9.0-12.0 SECONDS Prothromb Time International Ratio 1.4 0.9-1.1 Activated Partial Thromboplast Time 36.4 21.0-31.0 SECONDS Partial Thromboplastin Ratio 1.4 Sodium Level 140 136-145 mmol/L Potassium Level 3.5 3.5-5.1 mmol/L Chloride Level 98 98-107 mmol/L Carbon Dioxide Level 39 21-32 mmol/L Anion Gap 3.0 3-11 mmol/L Blood Urea Nitrogen 14 7-18 mg/dl Creatinine 0.83 0.60-1.20 mg/dl Est Creatinine Clear Calc Drug Dose 51.9 ml/min Estimated GFR () 77.2 Estimated GFR (Non- 66.6 BUN/Creatinine Ratio 16.8 10-20 Random Glucose 159 70-99 mg/dl Calcium Level 9.4 8.5-10.1 mg/dl Magnesium Level 1.1 1.8-2.4 mg/dl Total Bilirubin 0.4 0.2-1 mg/dl Direct Bilirubin 0.1 0-0.2 mg/dl Aspartate Amino Transf (AST/SGOT) 19 15-37 U/L Alanine Aminotransferase (ALT/SGPT) 20 12-78 U/L Alkaline Phosphatase 75 45-117 U/L Troponin I < 0.015 0-0.045 ng/ml Total Protein 7.2 6.4-8.2 gm/dl Albumin 3.6 3.4-5.0 gm/dl Lipase 198 73-393 U/L Bedside Lactic Acid Venous 2.01 0.90-1.70 mmol/L Bedside Troponin I < 0.030 0-0.045 ng/ml Influenza Type A (RT-PCR) Neg for Influ A NEG Influenza Type B (RT-PCR) Neg for Influ B NEG Microbiology Results 10/13/17 Blood Culture, Received Pending 10/13/17 Blood Culture, Received Pending Impression Assessment and Plan 82 yo F with COPD on home O2 3-4 L continuous, BIPAP at night presenting with 1 week history of worsening cough, SOB, fever ,found have a UTI SOB cough, fever -Admit to Tele - COPD exacerbation likely, Pneumonia considered but less likely based on CXR - IV Solumedrol 40 q8 - Start Levaquin IV - duonebs - Oxygen 3L-4 L continuous - Bipap qhs UTI + urinary freq. also possible source of fever Levaquin as above F/u Urine cx Afib -remains in Afib, HR now controlled monitor HR, tachy on arrival thougth may be due to nebulizer use c/w Xarelto, Metoprolol HLD c/w Statin HTN stable c/w Metoprolol , Losartan DM2, Neuropathy - metformin held -ISS -c/w Gabapentin Psoriatic arthritis c/w Methotrexate, Enbrel Depression/Anxiety c/w Seroquel DVT ppx: Heparin Code status: full Resident Physician Supervision Note: I was present with Dr. Kuhn during the history and exam. I discussed the case with the resident and agree with the findings and plan as documented in the note. Any exceptions or clarifications are listed here: 82 y/o F Hx HTN, DM II - COPD - chronic resp failure - 3L continuous 02 - presenting with progressive SOB - states she is not responding to her meds. Pt was febrile on arrival - UA is positive - POC lactic was mildly elevated. OE AAO x 3 S1,2 R Very poor BL air movement NT, ND + edema P: Pt was initially treated for sepsis and received broad spectrum antibiotics with 3L fluid - we are pending a repeat lactic - she is placed on Levaquin only based on clinical status on admission and pending culture results. Presentation is consistent with COPD exacerbation - placed on IV steroids, nebs , 02 - Levaquin to cover UTI should serve to treat COPD as well Documented By: Bhupinder Gonzalez Resuscitation Status VTE Prophylaxis Will order VTE Prophylaxis: Yes Resident Tracking Resident Involvement: Resident Care Provided Care Provided: Adult Hospital Medicine
[2017-10-14 04:49] LABS: BASO % 0.4 %; BASO ABS # 0.03 K/uL (0-0.2); EOS % 0.9 %; EOS ABS # 0.07 K/uL (0-0.5); HEMOGLOBIN 11.8 g/dL (12.0-16.0); IG# 0.05 K/uL (0.00-0.02); LYMPH % 20.2 %; LYMPH ABS # 1.64 K/uL (1.2-3.4); MEAN CELL VOLUME 101.9 fL (80-100); MEAN CORPUSCULAR HEMOGLOBIN 32.5 pg (25-34); MEAN CORPUSCULAR HGB CONC 31.9 g/dl (32-36); MEAN PLATELET VOLUME 9.8 fL (7.4-10.4); MONO % 7.7 %; MONO ABS # 0.63 K/uL (0.11-0.59); NEUT % 70.2 %; NEUT ABS # 5.71 K/uL (1.4-6.5); PLATELET COUNT 227 K/uL (130-400); RED CELL DISTRIBUTION WIDTH CV 14.1 % (11.5-14.5); RED CELL DISTRIBUTION WIDTH SD 52.1 fL (36.4-46.3); WHITE BLOOD COUNT 8.13 K/uL (4.8-10.8)
[2017-10-14 05:06] LABS: CALCIUM 8.8 mg/dl (8.5-10.1); CREATININE 0.66 mg/dl (0.60-1.20); POTASSIUM 3.5 mmol/L (3.5-5.1)
[2017-10-14] MEDS ORDERED: HEPARIN SOD 5000 UNIT/0.5 ML CARP SQ SCH (06:00)
[2017-10-14] MEDS: LEVOFLOXACIN / D5W 750 MG in PREMIXED IN D5W 150 ML IV SCH (06:35)
[2017-10-14] MEDS: METHYLPREDNISOLONE IV 40 MG in SYRINGE 0 ML IV SCH ×3 (06:35→21:23)
[2017-10-14] MEDS: INSULIN ASPART 100 UNITS/ML 3 ML PEN SC SCH ×4 (07:00→21:23)
[2017-10-14] MEDS: ALBUT/IPRATROP 3MG/0.5MG NEB 3 ML VIAL INH SCH ×3 (07:05→15:08)
--- NOTE | 2017-10-14 08:09 | DIAGNOSTIC IMAGING REPORT ---
CHEST ONE VIEW PORTABLE HISTORY: Atypical CHEST PAIN COMPARISON: Chest 08/09/2017. FINDINGS: No pneumothorax. No pleural effusions. No focal lung consolidations to suggest pneumonia. Old, healed right rib fractures. The heart has slightly decreased in size. No evidence for pulmonary edema. Left shoulder prosthesis. IMPRESSION: No acute process. Electronically signed by: Kian Butler M.D. 10/14/2017 8:08 AM Dictated Date/Time: 10/14/2017 8:03 AM
[2017-10-14] MEDS: METOPROLOL SUCC 25MG EXT REL TAB PO SCH (08:14)
[2017-10-14] MEDS: GABAPENTIN 100 MG CAP PO SCH ×2 (08:14→20:47)
[2017-10-14] MEDS: POTASSIUM CHLORIDE 20 MEQ TABCR PO SCH ×2 (08:14→20:46)
[2017-10-14] MEDS: LOSARTAN POTASSIUM 25 MG TAB PO SCH (08:15)
[2017-10-14] MEDS: GUAIFENESIN 200 MG TAB PO SCH ×5 (08:15→23:50)
[2017-10-14] MEDS: VENLAFAXINE HCL XR 37.5 MG CAPXR PO SCH (08:15)
[2017-10-14] MEDS ORDERED: QUETIAPINE FUMARATE 25 MG TAB PO STA (10:34)
--- NOTE | 2017-10-14 15:53 | Family Medicine Progress Note ---
Progress Note Date of Service Oct 14, 2017. Subjective Pt evaluation today including: conversation w/ patient, physical exam, chart review, lab review Pain: denies any discomfort this AM PO Intake: tolerating Voiding: no voiding problems (increased urinary frequency) This AM pt reported sob (feels like she can't get air into her lungs) and increased urinary frequency but no dysuria. Shortly after being seen, pt reported feeling anxious as well. Pt reports using walker around the house, lives with her and uses a wheelchair when outside the house. Constitutional: No fever Respiratory: + shortness of breath Cardiovascular: No chest pain Abdomen: No pain, No nausea, No vomiting Female : + urinary frequency, No dysuria Psychiatric: + anxiety Medications Current Inpatient Medications Medications (Trade) Dose Ordered Sig/Rigoberto Route Start Time Stop Time Status Last Admin Dose Admin Methylprednisolone Sodium Succinate 40 mg/Syringe 0.64 ml @ 1.5 mls/min Q8H IV 10/14/17 06:00 11/13/17 05:59 10/14/17 14:02 1.5 MLS/MIN Guaifenesin (Organidin Nr Tab) 200 mg Q4 PO 10/14/17 08:00 11/13/17 07:59 10/14/17 11:59 200 MG Albuterol/ Ipratropium (Duoneb) 3 ml QIDR INH 10/14/17 08:00 11/13/17 07:59 10/14/17 15:08 3 ML Acetaminophen (Tylenol Tab) 650 mg Q4H PRN PO 10/14/17 02:45 11/13/17 02:44 Al Hydrox/Mg Hydrox/Simethicone (Maalox Max Susp) 15 ml Q4H PRN PO 10/14/17 02:45 11/13/17 02:44 Magnesium Hydroxide (Milk Of Magnesia Susp) 30 ml Q12H PRN PO 10/14/17 02:45 11/13/17 02:44 Ondansetron HCl (Zofran Inj) 4 mg Q6H PRN IV 10/14/17 02:45 11/13/17 02:44 Polyethylene (Miralax Powder Packet) 17 gm DAILY PRN PO 10/14/17 02:45 11/13/17 02:44 Insulin Aspart (novoLOG ASPART) SLIDING SCALE G... ACHS SC 10/14/17 07:00 11/13/17 06:59 10/14/17 11:52 3 UNITS Glucose (Glucose 40% Gel) 15-30 GRAMS 15 GRAMS... UD PRN PO 10/14/17 03:45 11/13/17 03:44 Glucose (Glucose Chew Tab) 4-8 Tablets 4 Tabl... UD PRN PO 10/14/17 03:45 11/13/17 03:44 Dextrose (Dextrose 50% 50ML Syringe) 25-50ML OF 50% DW IV FOR... UD PRN IV 10/14/17 03:45 11/13/17 03:44 Glucagon (Glucagon Inj) 1 mg UD PRN SQ 10/14/17 03:45 11/13/17 03:44 Atorvastatin Calcium (Lipitor Tab) 40 mg QPM PO 10/14/17 21:00 11/13/17 20:59 Fexofenadine HCl/ Pseudoephedrine (Nallely-D 12 Hr Tab) 1 tab BID PRN PO 10/14/17 04:00 11/13/17 03:59 Losartan Potassium (coZAAR TAB) 25 mg DAILY PO 10/14/17 09:00 11/13/17 08:59 10/14/17 08:15 25 MG Metoprolol Succinate (Toprol Xl Tab) 25 mg DAILY PO 10/14/17 09:00 11/13/17 08:59 10/14/17 08:14 25 MG Potassium Chloride (Klor-Con Tab) 20 meq BID PO 10/14/17 09:00 11/13/17 08:59 10/14/17 08:14 20 MEQ Quetiapine Fumarate (seroQUEL TAB) 12.5 mg HS PO 10/14/17 21:00 11/13/17 20:59 Rivaroxaban (Xarelto Tab) 20 mg QDD PO 10/14/17 16:45 11/13/17 16:44 Miscellaneous Information (Order Awaiting Action) 1 ea QS N/A 10/14/17 08:00 11/13/17 07:59 Venlafaxine HCl (effeXOR EXTENDED REL CAP) 37.5 mg DAILY PO 10/14/17 09:00 11/13/17 08:59 10/14/17 08:15 37.5 MG Gabapentin (Neurontin Cap) 200 mg BID PO 10/14/17 09:00 11/13/17 08:59 10/14/17 08:14 200 MG Levofloxacin 750 mg/Prmx 150 ml @ 100 mls/hr Q24H IV 10/14/17 06:00 10/21/17 05:59 10/14/17 06:35 100 MLS/HR Objective Vital Signs Date Time Temp Pulse Resp B/P (MAP) Pulse Ox O2 Delivery O2 Flow Rate FiO2 10/14/17 15:11 83 18 98 BiPAP/CPAP 3.0 10/14/17 12:37 82 98 3.0 10/14/17 12:00 Nasal Cannula 3.0 10/14/17 11:29 36.8 90 18 155/79 (104) 98 3.0 10/14/17 11:07 92 18 98 Nasal Cannula 3.0 10/14/17 08:00 Nasal Cannula 3.0 10/14/17 07:40 36.7 85 18 133/71 (91) 99 3.0 10/14/17 07:08 87 18 96 Nasal Cannula 3.0 10/14/17 04:00 Nasal Cannula 3.0 10/14/17 03:50 36.7 94 18 154/74 92 Nasal Cannula 2.0 10/14/17 03:38 87 18 123/72 98 10/14/17 02:41 91 18 123/72 96 Nasal Cannula 3.0 10/14/17 01:29 97 24 130/96 94 Nasal Cannula 3.0 10/13/17 23:44 100 22 109/63 94 Nasal Cannula 3.0 10/13/17 22:43 103 10/13/17 22:40 94 Nasal Cannula 4.0 10/13/17 22:40 94 Nasal Cannula 4.0 10/13/17 22:40 94 Nasal Cannula 4.0 10/13/17 22:40 38.1 101 22 99/73 94 Nasal Cannula 4.0 Physical Exam General Appearance: + pertinent finding (appears somewhat anxious) Eyes: normal inspection Neck: supple Respiratory/Chest: lungs clear, + decreased breath sounds (diffusely dimished breath sounds) Cardiovascular: regular rate, rhythm, no murmur Abdomen: normal bowel sounds, non tender, soft Extremities: non-tender, no pedal edema Neurologic/Psychiatric: alert Skin: warm/dry Laboratory Results 10/14/17 04:37 Red Blood Count 3.63, Mean Corpuscular Volume 101.9, Mean Corpuscular Hemoglobin 32.5, Mean Corpuscular Hemoglobin Concent 31.9, Mean Platelet Volume 9.8, Neutrophils (%) (Auto) 70.2, Lymphocytes (%) (Auto) 20.2, Monocytes (%) ( Auto) 7.7, Eosinophils (%) (Auto) 0.9, Basophils (%) (Auto) 0.4, Neutrophils # ( Auto) 5.71, Lymphocytes # (Auto) 1.64, Monocytes # (Auto) 0.63, Eosinophils # ( Auto) 0.07, Basophils # (Auto) 0.03 10/14/17 04:37 Test 10/13/17 23:19 10/13/17 23:28 10/13/17 23:30 10/14/17 04:37 Prothrombin Time 14.8 SECONDS (9.0-12.0) Prothromb Time International Ratio 1.4 (0.9-1.1) Activated Partial Thromboplast Time 36.4 SECONDS (21.0-31.0) Partial Thromboplastin Ratio 1.4 Magnesium Level 1.1 mg/dl (1.8-2.4) Total Bilirubin 0.4 mg/dl (0.2-1) Direct Bilirubin 0.1 mg/dl (0-0.2) Aspartate Amino Transf (AST/SGOT) 19 U/L (15-37) Alanine Aminotransferase (ALT/SGPT) 20 U/L (12-78) Alkaline Phosphatase 75 U/L (45-117) Troponin I < 0.015 ng/ml (0-0.045) Total Protein 7.2 gm/dl (6.4-8.2) Albumin 3.6 gm/dl (3.4-5.0) Lipase 198 U/L (73-393) Bedside Lactic Acid Venous 2.01 mmol/L (0.90-1.70) Bedside Troponin I < 0.030 ng/ml (0-0.045) Influenza Type A (RT-PCR) Neg for Influ A (NEG) Influenza Type B (RT-PCR) Neg for Influ B (NEG) White Blood Count 8.13 K/uL (4.8-10.8) Red Blood Count 3.63 M/uL (4.2-5.4) Hemoglobin 11.8 g/dL (12.0-16.0) Hematocrit 37.0 % (37-47) Mean Corpuscular Volume 101.9 fL (80-100) Mean Corpuscular Hemoglobin 32.5 pg (25-34) Mean Corpuscular Hemoglobin Concent 31.9 g/dl (32-36) Platelet Count 227 K/uL (130-400) Mean Platelet Volume 9.8 fL (7.4-10.4) Neutrophils (%) (Auto) 70.2 % Lymphocytes (%) (Auto) 20.2 % Monocytes (%) (Auto) 7.7 % Eosinophils (%) (Auto) 0.9 % Basophils (%) (Auto) 0.4 % Neutrophils # (Auto) 5.71 K/uL (1.4-6.5) Lymphocytes # (Auto) 1.64 K/uL (1.2-3.4) Monocytes # (Auto) 0.63 K/uL (0.11-0.59) Eosinophils # (Auto) 0.07 K/uL (0-0.5) Basophils # (Auto) 0.03 K/uL (0-0.2) RDW Standard Deviation 52.1 fL (36.4-46.3) RDW Coefficient of Variation 14.1 % (11.5-14.5) Immature Granulocyte % (Auto) 0.6 % Immature Granulocyte # (Auto) 0.05 K/uL (0.00-0.02) Anion Gap 1.0 mmol/L (3-11) Est Creatinine Clear Calc Drug Dose 65.3 ml/min Estimated GFR () 96.7 Estimated GFR (Non- 83.4 BUN/Creatinine Ratio 15.7 (10-20) Lactic Acid Level 1.1 mmol/L (0.4-2.0) Calcium Level 8.8 mg/dl (8.5-10.1) Test 10/14/17 11:23 Bedside Glucose 234 mg/dl (70-90) Assessment and Plan 82 yoF with hx of COPD (on home O2 3-4 L continuous, BIPAP at night and during the day from 2pm-4pm), Afib, HLD, HTN, DM2 with neuropathy, psoriatic arthritis, depression and anxiety presents with 1 week history of SOB associated with cough and fever. Pt also reported increased urinary frequency and was found to have a UTI. SOB, cough - likely from COPD exacerbation vs. bronchitis vs. pneumonia - CXR negative - Continue IV Solumedrol 40mg Q8H - Continue Levaquin 750mg IV - day 1 - Continue Guaifenasin 200mg Q4H - Continue duonebs - Continue Oxygen 3L-4 L continuous - Provide Bipap qhs and 2hrs during the day UTI - increased urinary frequency - Levaquin should provide adequate coverage Afib - SR 80-90s on monitor - In Sinus rhythm as of this AM - Continue metoprolol 25mg daily and Xarelto 20mg HLD - Continue Lipitor 40mg daily HTN - BP stable - Continue Metoprolol 25mg daily and Losartan 25mg daily DM2, Neuropathy - metformin held - ISS - Continue Gabapentin 200mg BID Psoriatic arthritis - Continue Methotrexate, and Enbrel Depression/Anxiety - Continue Seroquel 12.5mg QHS (given one dose this AM for anxiety as pt did not receive Seroquel dose last night) - Continue Effexor 375mg daily DVT ppx: Xarelto Code status: full Resident Involvement: Resident Care Provided Care Provided: Adult Hospital Medicine Assessment/Plan Resident Physician Supervision Note: I was present with Dr. Lucia during the history and exam. I discussed the case with the resident and agree with the findings and plan as documented in the note. Any exceptions or clarifications are listed here: SOB and cough continue to improve with decreased breath sounds throughout without appreciable wheeze. Pt c/o anxiety after not taking her Seroquel last night, improvement of complaint with administration of medication. Would gradually taper IV steroid and maintain neb therapy. Pt would prefer to be discharged for EMG testing outpatient on Tuesday.
[2017-10-14] MEDS: RIVAROXABAN 10 MG TAB PO SCH (17:52)
[2017-10-14] MEDS: IPRATROPIUM BROMIDE NEB SOLN 0.02% 2.5 ML VIAL INH SCH (18:57)
[2017-10-14] MEDS: LEVALBUTEROL 0.63MG/3 ML NEB INH SCH (18:57)
[2017-10-14] MEDS: ATORVASTATIN 40 MG TAB PO SCH (20:48)
[2017-10-14] MEDS: QUETIAPINE FUMARATE 25 MG TAB PO SCH (20:49)
[2017-10-14] MEDS ORDERED: LEVALBUTEROL/IPRATROPIUM NEB INH SCH (21:00)
[2017-10-15] VITALS (12 sets, daily range): BP systolic 131–167; BP diastolic 62–89; PULSE 70–104; TEMP 36.3–37.1; O2SAT 90–100
[2017-10-15] MEDS: GUAIFENESIN 200 MG TAB PO SCH ×5 (04:40→20:36)
[2017-10-15] MEDS: LEVOFLOXACIN / D5W 750 MG in PREMIXED IN D5W 150 ML IV SCH (06:04)
[2017-10-15] MEDS: METHYLPREDNISOLONE IV 40 MG in SYRINGE 0 ML IV SCH ×3 (06:04→22:09)
[2017-10-15 06:26] LABS: BASO % 0.1 %; BASO ABS # 0.01 K/uL (0-0.2); HEMATOCRIT 38.4 % (37-47); HEMOGLOBIN 12.4 g/dL (12.0-16.0); IG# 0.04 K/uL (0.00-0.02); LYMPH % 9.8 %; LYMPH ABS # 0.86 K/uL (1.2-3.4); MEAN CELL VOLUME 101.6 fL (80-100); MEAN CORPUSCULAR HEMOGLOBIN 32.8 pg (25-34); MEAN CORPUSCULAR HGB CONC 32.3 g/dl (32-36); MEAN PLATELET VOLUME 9.7 fL (7.4-10.4); MONO % 5.4 %; MONO ABS # 0.47 K/uL (0.11-0.59); NEUT % 84.2 %; NEUT ABS # 7.37 K/uL (1.4-6.5); PLATELET COUNT 233 K/uL (130-400); RED CELL DISTRIBUTION WIDTH CV 14.2 % (11.5-14.5); RED CELL DISTRIBUTION WIDTH SD 52.4 fL (36.4-46.3); WHITE BLOOD COUNT 8.75 K/uL (4.8-10.8)
[2017-10-15] MEDS: IPRATROPIUM BROMIDE NEB SOLN 0.02% 2.5 ML VIAL INH SCH ×3 (06:58→15:09)
[2017-10-15] MEDS: LEVALBUTEROL 0.63MG/3 ML NEB INH SCH ×3 (06:59→15:09)
[2017-10-15 07:23] LABS: CALCIUM 8.7 mg/dl (8.5-10.1); CREATININE 0.61 mg/dl (0.60-1.20); POTASSIUM 4.5 mmol/L (3.5-5.1)
[2017-10-15] MEDS: POTASSIUM CHLORIDE 20 MEQ TABCR PO SCH (07:29)
[2017-10-15] MEDS: GABAPENTIN 100 MG CAP PO SCH ×2 (07:29→20:36)
[2017-10-15] MEDS: VENLAFAXINE HCL XR 37.5 MG CAPXR PO SCH (07:30)
[2017-10-15] MEDS: LOSARTAN POTASSIUM 25 MG TAB PO SCH (07:34)
[2017-10-15] MEDS: METOPROLOL SUCC 25MG EXT REL TAB PO SCH (07:34)
[2017-10-15] MEDS: INSULIN ASPART 100 UNITS/ML 3 ML PEN SC SCH ×4 (08:08→20:41)
[2017-10-15] MEDS: LORAZEPAM 0.5 MG TAB PO PRN ×2 (08:43→17:46)
--- NOTE | 2017-10-15 15:05 | Family Medicine Progress Note ---
Progress Note Date of Service Oct 15, 2017. Subjective No acute events overnight, pt is resting comfortably in bed, with at bedside. Pt reports that she follows with Dr. Porter on outpatient basis and would like to see him here in hospital. She is not tolerating BiPAP apparently , she says she is starting to have "panic attacks" when she puts it on. Her endorses that this has happened once or twice at home as well with her home BiPAP. Pt has found Ativan 0.25mg PO PRN dose to be helpful with this. Currently denies chest pain, difficulty breathing, abdominal pain, lightheadedness. Is eating and voiding well. Objective Physical Exam Notes: GENERAL: Awake, alert, well-appearing, in no distress. Obese. HENT: Normocephalic, atraumatic. EYES: Normal conjunctiva. Sclera non-icteric. NECK: Supple. FROM. RESPIRATORY: Diminished breath sounds bilaterally CARDIAC: Regular rate, normal rhythm. Extremities warm and well perfused. Pulses equal. ABDOMEN: Soft, non-distended. No tenderness to palpation. No rebound or guarding. No masses. LOWER EXTREMITIES: Calves are equal size bilaterally and non-tender. No edema. No discoloration. NEURO: No motor deficits noted. SKIN: No rash or jaundice noted. Assessment and Plan 82F here for COPD exacerbation and UTI with h/o COPD, restrictive lung disease, muscle weakness and chronic respiratory failure Assessement 1. Acute on chronic respiratory failure 2. Urinary tract infection 3. Atrial fibrillation, rate controlled 4. Anxiety 5. Diabetes mellitus type II, hyperglycemia 6. Hyperlipidemia 7. Psoriatic arthritis Plan 1. Discussed case with Dr. Porter who sees her on an outpatient basis. Pt is on home O2 and BiPAP and has complex history of an enzyme deficiency that in in the process of being worked up. Think it reasonable to consult Dr. Porter for further management. Ordered. 2. Albuterol changed to levalbuterol to decrease symptom of jitteriness contributing to her anxiety. Modest effect. 3. Continue Ipratropium nebulizer tx .5mg q6h, Xopenex 0.63mg q6r, IV Methylprednisolone 40mg q8h. 4. Levofloxacin changed to PO starting tomorrow 10/16. Today is day 2. 5. Continue home psych meds Effexor 37.5mg PO daily and Seroquel 12.5mg PO HS. 6. Continue low dose ativan PO for BiPAP treatments PRN. 7. ISS, BSG. Have tightened parameters some, hyperglycemia due to steroid dosing. 8. Continue home Cozaar 25mg daily, Toprol Xl 25mg daily, Lipitor 40 QPM PO Anticoagulation: continue home Xarelto 20mg code status: full Dispo: med/surg Current Inpatient Medications Medications (Trade) Dose Ordered Sig/Rigoberto Route Start Time Stop Time Status Last Admin Dose Admin Methylprednisolone Sodium Succinate 40 mg/Syringe 0.64 ml @ 1.5 mls/min Q8H IV 10/14/17 06:00 11/13/17 05:59 10/15/17 14:12 1.5 MLS/MIN Guaifenesin (Organidin Nr Tab) 200 mg Q4 PO 10/14/17 08:00 11/13/17 07:59 10/15/17 12:02 200 MG Acetaminophen (Tylenol Tab) 650 mg Q4H PRN PO 10/14/17 02:45 11/13/17 02:44 Al Hydrox/Mg Hydrox/Simethicone (Maalox Max Susp) 15 ml Q4H PRN PO 10/14/17 02:45 11/13/17 02:44 Magnesium Hydroxide (Milk Of Magnesia Susp) 30 ml Q12H PRN PO 10/14/17 02:45 11/13/17 02:44 Ondansetron HCl (Zofran Inj) 4 mg Q6H PRN IV 10/14/17 02:45 11/13/17 02:44 Polyethylene (Miralax Powder Packet) 17 gm DAILY PRN PO 10/14/17 02:45 11/13/17 02:44 Insulin Aspart (novoLOG ASPART) SLIDING SCALE G... ACHS SC 10/14/17 07:00 11/13/17 06:59 10/15/17 12:07 7 UNITS Glucose (Glucose 40% Gel) 15-30 GRAMS 15 GRAMS... UD PRN PO 10/14/17 03:45 11/13/17 03:44 Glucose (Glucose Chew Tab) 4-8 Tablets 4 Tabl... UD PRN PO 10/14/17 03:45 11/13/17 03:44 Dextrose (Dextrose 50% 50ML Syringe) 25-50ML OF 50% DW IV FOR... UD PRN IV 10/14/17 03:45 11/13/17 03:44 Glucagon (Glucagon Inj) 1 mg UD PRN SQ 10/14/17 03:45 11/13/17 03:44 Atorvastatin Calcium (Lipitor Tab) 40 mg QPM PO 10/14/17 21:00 11/13/17 20:59 10/14/17 20:48 40 MG Fexofenadine HCl/ Pseudoephedrine (Nallely-D 12 Hr Tab) 1 tab BID PRN PO 10/14/17 04:00 11/13/17 03:59 Losartan Potassium (coZAAR TAB) 25 mg DAILY PO 10/14/17 09:00 11/13/17 08:59 10/15/17 07:34 25 MG Metoprolol Succinate (Toprol Xl Tab) 25 mg DAILY PO 10/14/17 09:00 11/13/17 08:59 10/15/17 07:34 25 MG Potassium Chloride (Klor-Con Tab) 20 meq BID PO 10/14/17 09:00 11/13/17 08:59 10/15/17 07:29 20 MEQ Quetiapine Fumarate (seroQUEL TAB) 12.5 mg HS PO 10/14/17 21:00 11/13/17 20:59 10/14/17 20:49 12.5 MG Rivaroxaban (Xarelto Tab) 20 mg QDD PO 10/14/17 16:45 11/13/17 16:44 10/14/17 17:52 20 MG Miscellaneous Information (Order Awaiting Action) 1 ea QS N/A 10/14/17 08:00 11/13/17 07:59 Venlafaxine HCl (effeXOR EXTENDED REL CAP) 37.5 mg DAILY PO 10/14/17 09:00 11/13/17 08:59 10/15/17 07:30 37.5 MG Gabapentin (Neurontin Cap) 200 mg BID PO 10/14/17 09:00 11/13/17 08:59 10/15/17 07:29 200 MG Levofloxacin 750 mg/Prmx 150 ml @ 100 mls/hr Q24H IV 10/14/17 06:00 10/21/17 05:59 Future Hold 10/15/17 06:04 100 MLS/HR Ipratropium Sedan (Atrovent 0.02% 0.5MG/2.5ML Neb) 0.5 mg Q6R INH 10/14/17 21:00 11/13/17 20:59 10/15/17 15:09 0.5 MG Levalbuterol (Xopenex 0.63 Mg/ 3 Ml Neb) 0.63 mg Q6R INH 10/14/17 21:00 11/13/17 20:59 10/15/17 15:09 0.63 MG Lorazepam (Ativan Tab) 0.25 mg Q6H PRN PO 10/14/17 16:15 11/13/17 16:14 10/15/17 08:43 0.25 MG Levofloxacin (Levaquin Tab) 500 mg DAILY@11 PO 10/16/17 11:00 10/23/17 10:59 10/15/17 06:08 Red Blood Count 3.78, Mean Corpuscular Volume 101.6, Mean Corpuscular Hemoglobin 32.8, Mean Corpuscular Hemoglobin Concent 32.3, Mean Platelet Volume 9.7, Neutrophils (%) (Auto) 84.2, Lymphocytes (%) (Auto) 9.8, Monocytes (%) ( Auto) 5.4, Eosinophils (%) (Auto) 0.0, Basophils (%) (Auto) 0.1, Neutrophils # ( Auto) 7.37, Lymphocytes # (Auto) 0.86, Monocytes # (Auto) 0.47, Eosinophils # ( Auto) 0.00, Basophils # (Auto) 0.01 10/15/17 06:08 Test 10/15/17 06:08 10/15/17 11:21 White Blood Count 8.75 K/uL (4.8-10.8) Red Blood Count 3.78 M/uL (4.2-5.4) Hemoglobin 12.4 g/dL (12.0-16.0) Hematocrit 38.4 % (37-47) Mean Corpuscular Volume 101.6 fL (80-100) Mean Corpuscular Hemoglobin 32.8 pg (25-34) Mean Corpuscular Hemoglobin Concent 32.3 g/dl (32-36) Platelet Count 233 K/uL (130-400) Mean Platelet Volume 9.7 fL (7.4-10.4) Neutrophils (%) (Auto) 84.2 % Lymphocytes (%) (Auto) 9.8 % Monocytes (%) (Auto) 5.4 % Eosinophils (%) (Auto) 0.0 % Basophils (%) (Auto) 0.1 % Neutrophils # (Auto) 7.37 K/uL (1.4-6.5) Lymphocytes # (Auto) 0.86 K/uL (1.2-3.4) Monocytes # (Auto) 0.47 K/uL (0.11-0.59) Eosinophils # (Auto) 0.00 K/uL (0-0.5) Basophils # (Auto) 0.01 K/uL (0-0.2) RDW Standard Deviation 52.4 fL (36.4-46.3) RDW Coefficient of Variation 14.2 % (11.5-14.5) Immature Granulocyte % (Auto) 0.5 % Immature Granulocyte # (Auto) 0.04 K/uL (0.00-0.02) Anion Gap 0.0 mmol/L (3-11) Est Creatinine Clear Calc Drug Dose 73.3 ml/min Estimated GFR () 99.2 Estimated GFR (Non- 85.6 BUN/Creatinine Ratio 26.0 (10-20) Calcium Level 8.7 mg/dl (8.5-10.1) Magnesium Level 1.8 mg/dl (1.8-2.4) Bedside Glucose 296 mg/dl (70-90) Date Time Temp Pulse Resp B/P (MAP) Pulse Ox O2 Delivery O2 Flow Rate FiO2 10/15/17 15:13 98 90 3.0 10/15/17 15:10 98 17 91 BiPAP/CPAP 3.0 10/15/17 15:01 37.0 86 18 97 3.0 10/15/17 12:30 37.0 86 18 137/69 (91) 97 10/15/17 12:00 Nasal Cannula 3.0 10/15/17 11:15 96 18 96 Nasal Cannula 3.0 10/15/17 08:00 Nasal Cannula 3.0 10/15/17 07:35 36.3 104 18 167/62 (97) 100 Nasal Cannula 3.0 10/15/17 06:59 102 18 96 Nasal Cannula 3.0 10/15/17 04:00 Nasal Cannula 3.0 Humidified Oxygen BiPAP 10/15/17 03:35 36.7 83 20 144/82 (102) 95 Nasal Cannula 3.0 10/15/17 00:05 Nasal Cannula 3.0 Humidified Oxygen BiPAP 10/14/17 23:43 37.1 87 20 120/55 (76) 96 BiPAP 10/14/17 22:30 107 96 3.0 10/14/17 20:00 Nasal Cannula 3.0 Humidified Oxygen BiPAP 10/14/17 19:32 36.8 89 18 156/77 (103) 95 Nasal Cannula 3.0 10/14/17 18:58 91 18 98 Nasal Cannula 3.0 10/14/17 16:00 Nasal Cannula 3.0 Humidified Oxygen BiPAP Continued [facility] stay due to: multiple IV medications needed Discharge planning: home Resident Tracking Resident Involvement: Resident Care Provided Care Provided: Adult [facility] Medicine Assessment/Plan Resident Physician Supervision Note: I was present with Dr. Momin during the history and exam. I discussed the case with the resident and agree with the findings and plan as documented in the note. Any exceptions or clarifications are listed here: Pt seen and examined at bedside - she continues to gradually improve in shortness of breath/ cough. Anxiety persists, though ameliorated somewhat by small doses of ativan, we have encouraged her to use them sparsely and may d/c at pulmonology's discretion, but continue seroquel. Pulmonology consultation appreciated. EMG testing is outpatient on Tuesday, not Tuesday.
[2017-10-15] MEDS: RIVAROXABAN 10 MG TAB PO SCH (17:37)
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
[2017-10-15] MEDS: QUETIAPINE FUMARATE 25 MG TAB PO SCH (20:36)
[2017-10-15] MEDS: ATORVASTATIN 40 MG TAB PO SCH (20:36)
[2017-10-16] VITALS (12 sets, daily range): BP systolic 110–146; BP diastolic 56–67; PULSE 63–80; TEMP 36.5–36.7; O2SAT 95–99
[2017-10-16] MEDS: LEVALBUTEROL 0.63MG/3 ML NEB INH SCH ×4 (01:46→19:25)
[2017-10-16] MEDS: IPRATROPIUM BROMIDE NEB SOLN 0.02% 2.5 ML VIAL INH SCH ×4 (01:46→19:25)
[2017-10-16] MEDS: GUAIFENESIN 200 MG TAB PO SCH ×3 (03:48→08:43)
[2017-10-16] MEDS: METHYLPREDNISOLONE IV 40 MG in SYRINGE 0 ML IV SCH (06:06)
[2017-10-16 07:18] LABS: BASO % 0.1 %; BASO ABS # 0.01 K/uL (0-0.2); HEMATOCRIT 38.3 % (37-47); HEMOGLOBIN 12.4 g/dL (12.0-16.0); IG# 0.04 K/uL (0.00-0.02); LYMPH % 11.1 %; LYMPH ABS # 1.08 K/uL (1.2-3.4); MEAN CELL VOLUME 101.3 fL (80-100); MEAN CORPUSCULAR HEMOGLOBIN 32.8 pg (25-34); MEAN CORPUSCULAR HGB CONC 32.4 g/dl (32-36); MEAN PLATELET VOLUME 10.1 fL (7.4-10.4); MONO ABS # 0.49 K/uL (0.11-0.59); NEUT % 83.4 %; NEUT ABS # 8.11 K/uL (1.4-6.5); PLATELET COUNT 258 K/uL (130-400); RED CELL DISTRIBUTION WIDTH CV 14.3 % (11.5-14.5); RED CELL DISTRIBUTION WIDTH SD 52.3 fL (36.4-46.3); WHITE BLOOD COUNT 9.73 K/uL (4.8-10.8)
[2017-10-16 08:02] LABS: CALCIUM 8.8 mg/dl (8.5-10.1); CREATININE 0.67 mg/dl (0.60-1.20)
[2017-10-16] MEDS: GABAPENTIN 100 MG CAP PO SCH ×2 (08:43→21:30)
[2017-10-16] MEDS: LOSARTAN POTASSIUM 25 MG TAB PO SCH (08:43)
[2017-10-16] MEDS: METOPROLOL SUCC 25MG EXT REL TAB PO SCH (08:44)
[2017-10-16] MEDS: VENLAFAXINE HCL XR 37.5 MG CAPXR PO SCH (08:44)
[2017-10-16] MEDS: INSULIN ASPART 100 UNITS/ML 3 ML PEN SC SCH ×4 (08:48→21:31)
[2017-10-16] MEDS: LEVOFLOXACIN 500 MG TAB PO SCH (12:14)
[2017-10-16] MEDS: BISACODYL 5 MG TABEC PO SCH (12:17)
--- NOTE | 2017-10-16 13:09 | PULMONARY PROGRESS NOTE ---
DATE: 10/16/2017 Pulmonary progress note. TIME: 12:20 p.m. SUBJECTIVE: The patient states that she slept well last night. She gave me information about when she received her Ativan and went to bed, but it was not accurate at all according to what nurses told me. Nursing staff verbally tells me that her saturations went down during the night to the upper 70s and the nurse went in and observed apneas. I could not find this documented; however, in the nurse's progress note. She has been having central sleep apneas based upon compliance data we have from her usage at home. This is partly why we are trying to get her a noninvasive ventilator at home. The patient still feels short of breath this morning. When I went in to see her she had put the BiPAP back on. I believe she is getting fearful all the time. She says she feels that she cannot take a deep breath. This could be progression of her neuromuscular disease if indeed that is her problem. OBJECTIVE: GENERAL: The patient looked very comfortable. Temperature was 36.5. EARS, NOSE, THROAT: Exam unchanged. VITAL SIGNS: Heart rate is 63 per minute. Rhythm regular. Blood pressure 110/67. LUNGS: Lung rust are clear. Breath sounds are mildly diminished. Saturation is reported as 99%. We obviously do not want it that high. We would like to have it lowered to stimulate ventilation. EXTREMITIES: Showed no edema. LABORATORY DATA: White count is 9.73. Hemoglobin 12.4. platelets 258,000. Blood gas done late yesterday afternoon showed a pH of 7.37 with a pCO2 of 70 and a pO2 of 79. It is unknown how much oxygen she was receiving at that time, but she was on nasal cannula. Electrolytes report sodium 140, chloride 102, bicarbonate 36. The specimen was hemolyzed and thus potassium was not run. Blood sugar was 220 this morning. IMPRESSIONS: 1. Respiratory failure -- acute on chronic. 2. Restrictive lung disease. 3. Possible neuromuscular weakness. 4. Chronic obstructive pulmonary disease. 5. Complex sleep apnea. COMMENTS AND RECOMMENDATIONS: Case was discussed with Dr. Valera. I do not believe we should be using Ativan if at all possible because of the effects on respiratory suppression. Would prefer to try buspirone. This would be much less respiratory suppression and less sedating. The patient is fixated on the various psych medicine she has, but she does not know their names. I tried to confirm ultimately that she indeed is on Effexor and Seroquel both. She acknowledges that. She continues to ask what she can take for panic. With her muscle weakness, it is very difficult to separate a true panic attack from 1 associated with neuromuscular weakness. I am hopeful she may be able to get home tomorrow. I believe we should change the methylprednisolone to prednisone. I will make that change. We are going to use a BiPAP with a backup rate for her. This may help with the apneas during the nighttime. I will be off the hospital service as of tomorrow. Someone from pulmonary will check in on her, however.
[2017-10-16] MEDS ORDERED: NURSING VERBAL MED ORDER ONE ×2 (14:45)
--- NOTE | 2017-10-16 16:04 | Family Medicine Progress Note ---
Progress Note Date of Service Oct 16, 2017. Subjective Per nursing, overnight pt did display some apneic episodes while on BiPAP, sats down to high 70s. Pt has not needed antianxiety medication to tolerate BiPAP today, however she is currently feeling some anxiety and says she is glad she is staying another night as she does not feel safe with her breathing at home. Dr. Porter saw her today, and suggested Buspirone would be a safer choice given her risk of respiratory depression and she is amenable to this idea. Currently denies chest pain, difficulty breathing, abdominal pain, lightheadedness. Is eating and voiding well. ROS See HPI for pertinent positives and negatives. Objective Physical Exam Notes: GENERAL: Awake, alert, well-appearing, in no distress. Obese. HENT: Normocephalic, atraumatic. EYES: Normal conjunctiva. Sclera non-icteric. NECK: Supple. FROM. RESPIRATORY: Diminished breath sounds bilaterally CARDIAC: Regular rate, normal rhythm. Extremities warm and well perfused. Pulses equal. ABDOMEN: Soft, non-distended. No tenderness to palpation. No rebound or guarding. No masses. LOWER EXTREMITIES: Calves are equal size bilaterally and non-tender. No edema. No discoloration. NEURO: No motor deficits noted. SKIN: No rash or jaundice noted. Assessment and Plan 82F here for COPD exacerbation and UTI with h/o COPD, restrictive lung disease, muscle weakness and chronic respiratory failure Assessement 1. Acute on chronic respiratory failure 2. Urinary tract infection 3. Atrial fibrillation, rate controlled 4. Anxiety 5. Diabetes mellitus type II, hyperglycemia 6. Hyperlipidemia 7. Psoriatic arthritis Plan 1. Discussed case with Dr. Porter who sees her on an outpatient basis. Pt is on home O2 and BiPAP and has complex history of an enzyme deficiency that in in the process of being worked up. Appreciate recs. 2. Albuterol changed to levalbuterol to decrease symptom of jitteriness contributing to her anxiety. Modest effect. 3. Continue Ipratropium nebulizer tx .5mg q6h, Xopenex 0.63mg q6r. IV Methylprednisolone 40mg q8h being converted to PO per Pulm. 4. Levofloxacin changed to PO today - is day 3. 5. Continue home psych meds Effexor 37.5mg PO daily and Seroquel 12.5mg PO HS. 6. AVOID ativan due to respiratory depression. DC'ed. Switched to Buspirone - 5mg BID x 3 days, then can increase to 7.5 mg BID x 3 days, and can increase by 5 mg q2-3 days till anxiety controlled. Max 60mg/day. Will be discharged on this medication, and can be followed by PCP for further changes. 7. ISS, BSG. Have tightened parameters some, hyperglycemia due to steroid dosing. 8. Continue home Cozaar 25mg daily, Toprol Xl 25mg daily, Lipitor 40 QPM PO Anticoagulation: continue home Xarelto 20mg code status: full Dispo: med/surg Current Inpatient Medications Medications (Trade) Dose Ordered Sig/Rigoberto Route Start Time Stop Time Status Last Admin Dose Admin Acetaminophen (Tylenol Tab) 650 mg Q4H PRN PO 10/14/17 02:45 11/13/17 02:44 Al Hydrox/Mg Hydrox/Simethicone (Maalox Max Susp) 15 ml Q4H PRN PO 10/14/17 02:45 11/13/17 02:44 Magnesium Hydroxide (Milk Of Magnesia Susp) 30 ml Q12H PRN PO 10/14/17 02:45 11/13/17 02:44 Ondansetron HCl (Zofran Inj) 4 mg Q6H PRN IV 10/14/17 02:45 11/13/17 02:44 Polyethylene (Miralax Powder Packet) 17 gm DAILY PRN PO 10/14/17 02:45 11/13/17 02:44 Insulin Aspart (novoLOG ASPART) SLIDING SCALE G... ACHS SC 10/14/17 07:00 11/13/17 06:59 10/16/17 12:36 5 UNITS Glucose (Glucose 40% Gel) 15-30 GRAMS 15 GRAMS... UD PRN PO 10/14/17 03:45 11/13/17 03:44 Glucose (Glucose Chew Tab) 4-8 Tablets 4 Tabl... UD PRN PO 10/14/17 03:45 11/13/17 03:44 Dextrose (Dextrose 50% 50ML Syringe) 25-50ML OF 50% DW IV FOR... UD PRN IV 10/14/17 03:45 11/13/17 03:44 Glucagon (Glucagon Inj) 1 mg UD PRN SQ 10/14/17 03:45 11/13/17 03:44 Atorvastatin Calcium (Lipitor Tab) 40 mg QPM PO 10/14/17 21:00 11/13/17 20:59 10/15/17 20:36 40 MG Fexofenadine HCl/ Pseudoephedrine (Nallely-D 12 Hr Tab) 1 tab BID PRN PO 10/14/17 04:00 11/13/17 03:59 Losartan Potassium (coZAAR TAB) 25 mg DAILY PO 10/14/17 09:00 11/13/17 08:59 10/16/17 08:43 25 MG Metoprolol Succinate (Toprol Xl Tab) 25 mg DAILY PO 10/14/17 09:00 11/13/17 08:59 10/16/17 08:44 25 MG Potassium Chloride (Klor-Con Tab) 20 meq BID PO 10/14/17 09:00 11/13/17 08:59 Future Hold 10/15/17 07:29 20 MEQ Quetiapine Fumarate (seroQUEL TAB) 12.5 mg HS PO 10/14/17 21:00 11/13/17 20:59 10/15/17 20:36 12.5 MG Rivaroxaban (Xarelto Tab) 20 mg QDD PO 10/14/17 16:45 11/13/17 16:44 10/15/17 17:37 20 MG Miscellaneous Information (Order Awaiting Action) 1 ea QS N/A 10/14/17 08:00 11/13/17 07:59 Venlafaxine HCl (effeXOR EXTENDED REL CAP) 37.5 mg DAILY PO 10/14/17 09:00 11/13/17 08:59 10/16/17 08:44 37.5 MG Gabapentin (Neurontin Cap) 200 mg BID PO 10/14/17 09:00 11/13/17 08:59 10/16/17 08:43 200 MG Levofloxacin 750 mg/Prmx 150 ml @ 100 mls/hr Q24H IV 10/14/17 06:00 10/21/17 05:59 Future Hold 10/15/17 06:04 100 MLS/HR Ipratropium [place] (Atrovent 0.02% 0.5MG/2.5ML Neb) 0.5 mg Q6R INH 10/14/17 21:00 11/13/17 20:59 10/16/17 14:51 0.5 MG Levalbuterol (Xopenex 0.63 Mg/ 3 Ml Neb) 0.63 mg Q6R INH 10/14/17 21:00 11/13/17 20:59 10/16/17 14:51 0.63 MG Levofloxacin (Levaquin Tab) 500 mg DAILY@11 PO 10/16/17 11:00 10/23/17 10:59 10/16/17 12:14 500 MG Insulin Glargine (Lantus Solostar Pen) 5 units QPM SC 10/16/17 21:00 11/15/17 20:59 Bisacodyl (Dulcolax Tab) 10 mg DAILY PO 10/16/17 10:45 11/15/17 10:44 10/16/17 12:17 10 MG Prednisone (PredniSONE TAB) 40 mg DAILY PO 10/17/17 09:00 11/16/17 08:59 Buspirone HCl (Buspar Tab) 5 mg BID PO 10/17/17 09:00 11/16/17 08:59 Date Time Temp Pulse Resp B/P (MAP) Pulse Ox O2 Delivery O2 Flow Rate FiO2 10/16/17 14:53 36.5 80 18 146/62 (90) 98 Nasal Cannula 3.0 10/16/17 14:51 77 18 98 BiPAP/CPAP 3.0 10/16/17 14:51 77 98 3.0 10/16/17 08:00 99 Room Air 3.0 10/16/17 07:13 36.5 63 20 110/67 (81) 99 BiPAP 10/16/17 06:49 64 98 3.0 10/16/17 06:49 64 18 98 BiPAP/CPAP 3.0 10/16/17 01:48 71 14 97 BiPAP/CPAP 3.0 10/16/17 01:47 71 97 3.0 10/16/17 00:22 36.7 71 20 122/64 (83) 95 BiPAP 10/16/17 00:00 BiPAP 2.0 10/15/17 23:14 70 95 3.0 10/15/17 20:00 BiPAP 2.0 10/15/17 19:39 37.0 100 20 131/80 (97) 95 Nasal Cannula 2.0 10/15/17 19:28 103 97 3.0 10/15/17 18:34 Nasal Cannula 3.0 10/15/17 16:57 37.1 102 18 160/89 (112) 100 10/15/17 16:05 Nasal Cannula 3.0 Last Resulted 10/16/17 06:43 Red Blood Count 3.78, Mean Corpuscular Volume 101.3, Mean Corpuscular Hemoglobin 32.8, Mean Corpuscular Hemoglobin Concent 32.4, Mean Platelet Volume 10.1, Neutrophils (%) (Auto) 83.4, Lymphocytes (%) (Auto) 11.1, Monocytes (%) ( Auto) 5.0, Eosinophils (%) (Auto) 0.0, Basophils (%) (Auto) 0.1, Neutrophils # ( Auto) 8.11, Lymphocytes # (Auto) 1.08, Monocytes # (Auto) 0.49, Eosinophils # ( Auto) 0.00, Basophils # (Auto) 0.01 Last Resulted 10/16/17 06:43 Continued [facility] stay due to: abnormal vital signs Discharge planning: home Resident Tracking Resident Involvement: Resident Care Provided Care Provided: Adult Hospital Medicine Assessment/Plan Resident Physician Supervision Note: I was present with Dr. Momin during the history and exam. I discussed the case with the resident and agree with the findings and plan as documented in the note. Any exceptions or clarifications are listed here: Pt seen and examined at bedside - gradual improvement in shortness of breath but still with persistent sx. Regarding anxiety, these episodes seem to be precipitated by hypoxia (coming off BIPAP, etc). Per pulm recommendations, will transition from ativan to buspirone for sx 2/2 lack of respiratory depression with the latter, continue with slow weaning of steroids and O2. EMG testing is outpatient on Tuesday
[2017-10-16] MEDS: RIVAROXABAN 10 MG TAB PO SCH (17:15)
--- NOTE | 2017-10-16 18:47 | DIAGNOSTIC IMAGING REPORT ---
SINGLE VIEW CHEST CLINICAL HISTORY: Dyspnea. FINDINGS: An AP, portable, upright chest radiograph is compared to study dated 10/13/2017 and correlated with chest CT dated 08/11/2017. The examination is degraded by portable technique and patient rotation. The heart is enlarged and there is atherosclerotic calcification of the thoracic aorta. The pulmonary vasculature is noncongested. Chronic interstitial thickening is unchanged. Small pleural effusions are identified an there is bibasilar atelectasis. There is no airspace consolidation typical for pneumonia. There is no pneumothorax. The skeletal structures are osteopenic. Degenerative change and scoliosis are noted in the thoracic spine. A left shoulder arthroplasty is in place. There are healed right-sided rib fractures. Surgical clips are noted in the left axilla. There is atherosclerotic calcification of the axillary arteries. IMPRESSION: 1. Cardiomegaly without radiographic evidence of congestive failure. 2. There are small pleural effusion. No airspace consolidation is seen typical for pneumonia. Electronically signed by: Kavon Mohamud M.D. 10/16/2017 6:46 PM Dictated Date/Time: 10/16/2017 6:44 PM
[2017-10-16] MEDS: hydrOXYzine HCL 25 MG TAB PO PRN (20:35)
[2017-10-16] MEDS ORDERED: INSULIN GLARGINE SOLOSTAR 100 UNITS/ML 3 ML PEN SC SCH (21:00)
[2017-10-16] MEDS: ATORVASTATIN 40 MG TAB PO SCH (21:30)
[2017-10-16] MEDS: QUETIAPINE FUMARATE 25 MG TAB PO SCH (21:31)
[2017-10-17] MEDS: LEVALBUTEROL 0.63MG/3 ML NEB INH SCH ×3 (01:47→14:04)
[2017-10-17] MEDS: IPRATROPIUM BROMIDE NEB SOLN 0.02% 2.5 ML VIAL INH SCH ×3 (01:47→14:04)
[2017-10-17 01:49] VITALS: PULSE 68; O2SAT 99
[2017-10-17 01:50] VITALS: PULSE 68; O2SAT 99
[2017-10-17 07:03] VITALS: PULSE 72; O2SAT 98
[2017-10-17 07:17] VITALS: BP 120/62; PULSE 99; TEMP 36.6; O2SAT 99
[2017-10-17] MEDS: LOSARTAN POTASSIUM 25 MG TAB PO SCH (08:30)
[2017-10-17] MEDS: BISACODYL 5 MG TABEC PO SCH (08:30)
[2017-10-17] MEDS: VENLAFAXINE HCL XR 37.5 MG CAPXR PO SCH (08:30)
[2017-10-17] MEDS: METOPROLOL SUCC 25MG EXT REL TAB PO SCH (08:30)
[2017-10-17] MEDS: INSULIN ASPART 100 UNITS/ML 3 ML PEN SC SCH ×2 (08:31→11:57)
[2017-10-17] MEDS: GABAPENTIN 100 MG CAP PO SCH (08:32)
[2017-10-17 08:39] LABS: CALCIUM 8.5 mg/dl (8.5-10.1); CREATININE 0.54 mg/dl (0.60-1.20); POTASSIUM 3.3 mmol/L (3.5-5.1)
[2017-10-17] MEDS ORDERED: POTASSIUM CHLORIDE 20 MEQ TABCR PO STA (09:00)
[2017-10-17] MEDS: LEVOFLOXACIN 500 MG TAB PO SCH (10:29)
--- NOTE | 2017-10-17 13:15 | PULMONARY PROGRESS NOTE ---
DATE: 10/17/2017 SUBJECTIVE: The patient once again is anxious and has these "panic attacks." Her Ativan was discontinued because of the concerns of it contributing to respiratory depression. She states the panic attacks began a week before her admission here, and it is unclear to her whether the shortness of breath or the panic attack came first. She is on BiPAP therapy with a backup rate here that seems to alleviate some of her concerns and distress along with O2 supplementation. She does have an EMG coming up this week to discern whether or not she has neuromuscular disease as apparently she is having trouble grasping objects, and her arms are weaker. She denies hoarseness. She is not bringing up any sputum, denies pleuritic pain. She feels the medication that recently was tried for his sleep has been helpful. She is now on 40 mg daily of prednisone and was started on BuSpar 5 mg p.o. b.i.d. I agree that tends to give less respiratory depression. PHYSICAL EXAMINATION: VITAL SIGNS: Temperature 36.6, pulse 99 and regular, respiratory rate 19, blood pressure 120/62, and O2 saturation 99% on 3 L. SKIN: Warm and dry. HEENT: Atraumatic and normocephalic. PERRLA, EOMI. Conjunctivae pale. Sclerae are nonicteric. Fundi are poorly visualized. NECK: Neck veins are not distended at 45 degrees. No adenopathy in the supra or infraclavicular areas. LUNGS: Distant P&A with marked prolongation of the expiratory phase and hyperresonance noted. CARDIAC: Regular rhythm. I do not appreciate a gallop. GASTROINTESTINAL: Abdomen is soft and scaphoid. EXTREMITIES: No significant pedal edema, clubbing, or cyanosis. NEUROLOGIC: Intact. No lateralizing signs. LABORATORY DATA: ABGs on 10/15/2017, pH 7.37, PCO2 of 70, and PO2 of 79. Potassium 3.3 today, BUN and creatinine are stable at 24 and 0.5. IMAGING: Chest x-ray yesterday shows cardiomegaly, without signs of failure. There are small pleural effusions noted. OVERALL ASSESSMENT: An 82-year-old white female with severe end-stage chronic obstructive pulmonary disease, oxygen and steroid dependent, currently on BiPAP therapy, perhaps with an underlying neuromuscular disease that is currently being assessed. Apparently, Seroquel has worked for her in the past, and she has a history of having been on Effexor. She was started on BuSpar yesterday and it seems to be helping, but in review of her medications, certainly if she had been on Seroquel and/or Effexor chronically and this was stopped at any point, that could lead to panic attacks. I see that the Effexor is on her medication list. I am not sure how long she had been on Seroquel, but she felt that it helped her in the past. I agree with Dr. Porter voiding respiratory depressants in someone with marked chronic hypercarbia (although well compensated currently) is critically important. The patient is close to being able to be discharged to use her BIPAP at night and p.r.n. during the day along with continuous oxygen at 3 L.
[2017-10-17 14:04] VITALS: PULSE 102; O2SAT 93
[2017-10-17] MEDS ORDERED: PRED10TA PO (14:40)
[2017-10-17] MEDS ORDERED: LVQ500 PO (14:40)
[2017-10-17] MEDS ORDERED: XPNINS INH ×2 (14:40→15:35)
[2017-10-17] MEDS ORDERED: BSP5 PO (14:40)
[2017-10-17] MEDS ORDERED: ATRINS INH (14:40)
[2017-10-17] MEDS ORDERED: ATR25 PO (14:40)
--- NOTE | 2017-10-17 15:01 | Discharge Instructions ---
Discharge Instructions Date of Service Oct 17, 2017. Admission Reason for Admission: Copd Exacerbation, Uti Discharge Discharge Diagnosis / Problem: COPD exacerbation and UTI Discharge Goals Goal(s): Decrease discomfort, Diagnostic testing, Therapeutic intervention Activity Recommendations Activity Limitations: resume your previous activity . Instructions / Follow-Up Instructions / Follow-Up Ms. Biswas you were hospitalized for worsening COPD/shortness of breath and also found to have a bladder infection. You received nebulized medications, an antibiotic and steroid to help improve your shortness of breath. Your bladder infection also improved with the antibiotic. During the course of your hospitalization you also felt anxious (had panic attacks) at times which made you feel more short of breath. We started you on two new medications to help with your anxiety. Please follow the instructions below on how to care for yourself at home: FOR SHORTNESS OF BREATH -Please take prednisone (steroid) as instructed below for the next 4 weeks to help with your breathing Prednisone 40mg (4 pills (each pill is 10mg)) daily for the next 7 days until 10/23 Then take prednisone 30mg (3 pills) daily until 10/30 Then take prednisone 20mg (2 pills) daily until 11/06 And finally take prednisone 10mg (1 tab) daily until 11/13 -Take Levofloxacin 500mg (antibiotic) daily for the next 6 days -Use nebulized levalbuterol 4 times a day -Use ipratropium bromide nebulized 4 times a day -Use Pulmicort/Budesonide nebulized twice a day -Use Albuterol inhaler 3 puffs as needed for shortness of breath when you are OUT and ABOUT FOR ANXIETY -Continue taking Seroquel 12.5mg every night -Continue Effexor 37.5mg daily -Take Buspirone 5mg twice a day (if you feel that your anxiety is not well controlled you can take 10mg twice a day after 3 days (starting 10/19)) -You can also take Hydroxyzine (Vistaril) 25mg every 6 hours as needed for panic attacks in addition to the above medications if you feel like you are having a panic attack WHEN TO KNOW IF YOU SHOULD GO TO THE EMERGENCY ROOM/CALL 911 OR TAKE YOUR MEDICATION FOR ANXIETY -If you feel anxious and short of breath at the same time (as in cannot catch your breath), you should first use your pulse ox machine to check your oxygen level. -If you notice your oxygen level to be less than 90%, and you feel anxious you should either see your doctor or go to the nearest ED/call 911. -If your oxygen level is greater than 90% then you can more safely assume you are having a panic attack and try a hydroxyzine (Vistaril) 25mg pill to see if that calms you down -If you continue feeling anxious or short of breath despite taking a Vistaril then please go to the emergency room/call 911 PLEASE FOLLOW UP WITH YOUR PRIMARY CARE DOCTOR IN 1-2 DAYS PLEASE FOLLOW UP WITH DR. ALFONSO SCHEDULED Current Hospital Diet Patient's current hospital diet: Diabetes Type 2 Diet Discharge Diet Recommended Diet: Diabetes Type 2 Diet Pending Studies Studies pending at discharge: no Laboratory Results Hemoglobin A1c Test 07/26/17 14:05 Range/Units Estimated Average Glucose 143 mg/dl Hemoglobin A1c 6.6 H 4.5-5.6 % Medical Emergencies . Who to Call and When: Medical Emergencies: If at any time you feel your situation is an emergency, please call 911 immediately. . Non-Emergent Contact Non-Emergency issues call your: Primary Care Provider Call Non-Emergent contact if: temperature is above 101, your pain is worsening . . "Provider Documentation" section prepared by Bettina Lucia. .
[2017-10-17 15:03] VITALS: BP 120/62; PULSE 102; TEMP 36.6; O2SAT 93
[2017-10-17] MEDS: hydrOXYzine HCL 25 MG TAB PO PRN (15:34)
[2017-10-17] MEDS ORDERED: ATRINS NEB (15:35)
--- NOTE | 2017-10-17 16:34 | Discharge Summary ---
Discharge Summary Date of Service Oct 17, 2017. Discharge Summary Admission Date: Oct 14, 2017 at 03:05 Discharge Date: Oct 17, 2017 Discharge Disposition: Home Principal Diagnosis: COPD exacerbation and UTI Problems/Secondary Diagnoses: Acute on chronic respiratory failure Afib rate controlled anxiety DM 2 HLD psoriatric arthritis Procedures: SINGLE VIEW CHEST CLINICAL HISTORY: Dyspnea. FINDINGS: An AP, portable, upright chest radiograph is compared to study dated 10/13/2017 and correlated with chest CT dated 08/11/2017. The examination is degraded by portable technique and patient rotation. The heart is enlarged and there is atherosclerotic calcification of the thoracic aorta. The pulmonary vasculature is noncongested. Chronic interstitial thickening is unchanged. Small pleural effusions are identified an there is bibasilar atelectasis. There is no airspace consolidation typical for pneumonia. There is no pneumothorax. The skeletal structures are osteopenic. Degenerative change and scoliosis are noted in the thoracic spine. A left shoulder arthroplasty is in place. There are healed right-sided rib fractures. Surgical clips are noted in the left axilla. There is atherosclerotic calcification of the axillary arteries. IMPRESSION: 1. Cardiomegaly without radiographic evidence of congestive failure. 2. There are small pleural effusion. No airspace consolidation is seen typical for pneumonia. CHEST ONE VIEW PORTABLE HISTORY: Atypical CHEST PAIN COMPARISON: Chest 08/09/2017. FINDINGS: No pneumothorax. No pleural effusions. No focal lung consolidations to suggest pneumonia. Old, healed right rib fractures. The heart has slightly decreased in size. No evidence for pulmonary edema. Left shoulder prosthesis. IMPRESSION: No acute process. Consultations: Pulmonology Medication Reconciliation New Medications: Ipratropium [place] (Ipratropium [place]) 0.5 Mg/2.5 Ml Nebu 1 VIAL NEB QID for 30 Days, #120 VIAL 5 Refills Prednisone Tab (Prednisone) 10 Mg Tab 10 MG PO DAILY for 30 Days, #70 TAB Prednisone 40mg - 5/6 prednisone 30mg - 10/30 prednisone 20mg - 11/06 prednisone 10mg - 11/13 daily Buspirone HCl (Buspirone HCl) 5 Mg Tab 5 MG PO BID for 30 Days, #60 TAB Hydroxyzine HCl (Hydroxyzine HCl) 25 Mg Tab 25 MG PO Q6H PRN for Anxiety/Agitation for 30 Days, #120 TAB Levalbuterol (Levalbuterol HCl) 0.63 Mg/3 Ml Nebu 0.63 MG INH Q6R for 30 Days, #120 DOSE Levofloxacin (Levofloxacin) 500 Mg Tab 500 MG PO DAILY@11 for 6 Days, #6 TAB Changed Medications: Levalbuterol (Levalbuterol HCl) 0.63 Mg/3 Ml Nebu 1 DOSE INH QID for 30 Days, #120 DOSE (Changed from: TID) Continued Medications: Albuterol Hfa (Ventolin Hfa) 200 Puffs/78709 Mcg Aers 3 PUFFS INH DIRECTED PRN for "OUT & ABOUT", #1 INHALER Atorvastatin (Lipitor) 40 Mg Tab 40 MG PO QPM, TAB Budesonide (Pulmicort Respules 0.5MG/2ML) 0.5 Mg/2 Ml Nebu 2 ML INH BID, EA Ergocalciferol (Vitamin D 53747 Unit) 50,000 Unit Cap 68099 INTER.UNIT PO 2XWK, CAP TAKE ONE CAPSULE EVERY TUESDAY AND TUESDAY Etanercept (Enbrel) 25 Mg Inj 1 DOSE INJ WK TAKES ON TUESDAYS. Fexofenadine-Pseudoephedrine (Nallely-D 12 Hour Allergy) 1 Tab Tab 1 TAB PO BID PRN for Seasonal Allergies for 10 Days, #20 TAB Folic Acid (Folvite) 1 Mg Tab 1 MG PO DAILY, TAB Furosemide (Lasix) 40 Mg Tab 40 MG PO QAM, TAB Gabapentin (Neurontin) 100 Mg Cap 200 MG PO AMPM, CAP Home O2 Therapy (Oxygen) Gas 3-4 LITERS NA CONTINOUS, BTL Isosorbide Mononitrate Ext Rel (Imdur Ext Rel) 30 Mg Tabcr 30 MG PO QAM, TAB Losartan Potassium (Cozaar) 25 Mg Tab 25 MG PO DAILY, TAB Metformin Hcl (Glucophage) 500 Mg Tab 500 MG PO DAILY, TAB Methotrexate (Methotrexate) 2.5 Mg Tab 6 TAB PO WK, TAB TAKE THIS MEDICATION EVERY TUESDAY Metoprolol Succinate (Metoprolol Succinate ER) 25 Mg Tabcr 25 MG PO DAILY Ondasetron Odt (Zofran Odt) 4 Mg Tab 4 MG SL Q8 PRN for Nausea or Vomiting, #6 TAB Potassium Ext Rel (Klor-Con) 20 Meq Tabcr 20 MEQ PO BID, TAB Quetiapine Fumarate (Seroquel) 25 Mg Tab 12.5 MG PO HS, TAB Rivaroxaban (Xarelto) 20 Mg Tab 20 MG PO QPM, TAB Thiamine Mononitrate (Vitamin B1) 100 Mg Tab 200 MG PO BID Venlafaxine Hcl (Venlafaxine Hcl Er) 37.5 Mg Tab 37.5 MG PO DAILY Discharge Exam Review of Systems: Constitutional: No fever Respiratory: No shortness of breath Cardiovascular: No chest pain Abdomen: No pain, No nausea, No vomiting Genitourinary - Female: No dysuria, No urinary frequency Psychiatric: + anxiety (mild) Physical Exam: General Appearance: no apparent distress Eyes: normal inspection Neck: supple Respiratory/Chest: lungs clear, + decreased breath sounds (diffusely in posterior lung rust) Cardiovascular: regular rate, rhythm, no murmur Abdomen / GI: normal bowel sounds, non tender, soft Extremities: no calf tenderness, no pedal edema Neurologic/Psychiatric: alert, oriented x 3 Hospital Course 82 yoF with hx of COPD (on home O2 3-4 L continuous, BIPAP at night and during the day from 2pm-4pm), Afib, HLD, HTN, DM2 with neuropathy, psoriatic arthritis , depression and anxiety who presented with 1 week history of SOB associated with cough and fever. Pt also reported increased urinary frequency and was found to have a UTI. SOB, cough - likely from COPD exacerbation vs. bronchitis vs. pneumonia vs. Neuromuscular weakness - CXR negative - Received IV Solumedrol 40mg Q8H - Discharged with Prednisone taper x 4 weeks - Received Levaquin - discharged with more days to complete 10 day course - Continue Guaifenasin 200mg Q4H - Received and dced with Levalbuterol and Ipratropium Q6H nebs - Received Oxygen 3L-4 L continuous per home home regimen - Received Bipap qhs and 2hrs during the day as per home regimen - Continued home pulmicort/budesonide neb BID UTI - increased urinary frequency (improved) - Levaquin should provide adequate coverage Afib - SR 80-90s on monitor - Remained in Sinus rhythm - Continued home metoprolol 25mg daily and Xarelto 20mg HLD - Continued Lipitor 40mg daily HTN - BP stable - Continued Metoprolol 25mg daily and Losartan 25mg daily DM2, Neuropathy - metformin held (resumed on dc) - ISS - Continued home Gabapentin 200mg BID Psoriatic arthritis - Continued home Methotrexate, and Enbrel Depression/Anxiety - true panic vs. one associated with neuromuscular blockade - Continued home Seroquel 12.5mg QHS - Continued home Effexor 375mg daily - Started on Buspar 5mg BID (instructed to increase to 10mg BID started 5/2 if continues to be anxious) - Started on hydroxyzine HCL 25mg Q6H PRN for panic attacks DVT ppx: Xarelto Code status: full Resident Physician Supervision Note: I interviewed and examined the patient. Discussed with Dr. Lucia and agree with findings and plan as documented in the note. Any exceptions or clarifications are listed here: None Documented By: Rober Rashid wants to go home, feels up to going home extensive discussion on panic attack vs true respiratory distress - d/w her if normal pulse ox, can carefully try watchful waiting (especially since she's been confused w hypercapnea before) - but if low pulse ox, if doesn't seem improving, or any AMS, then would have to come to ER vitals noted nad breathing unlabored, pleasantly anxious chronic mixed hypoxic and hypercapnic respiratory failure - seems improved to around baseline. stable for home, O2, pulmicort BID, xopenex/ipratropium QID scheduled / albuterol prn sob/wheeze. anxiety w panic attacks - titrate up buspar, avoid benzos, cautious use of hydroxyzine prn breakthrough anxiety. discussed distinguishing anxiety from respiratory distress but also discussed it can be very difficult - if in doubt would prefer she is seen stable for home Total Time Spent: Greater than 30 minutes This includes examination of the patient, discharge planning, medication reconciliation, and communication with other providers. Discharge Instructions Please refer to the electronic Patient Visit Report (Discharge Instructions) for additional information. Additional Copies To Jovanny Rae M.D.
[2017-10-18] MEDS ORDERED: NITR-5 PO (10:00)
== END 2017-10-17 16:15 | disposition home or self-care (01) | DRG 190 ==
LOC: EDBD 22:30 → C.EDA 22:31 → C.2T 10-14 03:05 → ENRESERV 10-14 03:30 → C.MS2W 10-15 18:27
PROVIDERS: ADMIT Internal Medicine; ATTEND Family Medicine
DX: J44.1 Chronic obstructive pulmonary disease with (acute) exacerbation (principal); J96.20 Acute and chronic respiratory failure, unspecified whether with hypoxia or hypercapnia; N39.0 Urinary tract infection, site not specified; E11.40 Type 2 diabetes mellitus with diabetic neuropathy, unspecified; I10 Essential (primary) hypertension; Z79.84 Long term (current) use of oral hypoglycemic drugs; D64.9 Anemia, unspecified; L40.50 Arthropathic psoriasis, unspecified; I48.91 Unspecified atrial fibrillation; Z99.81 Dependence on supplemental oxygen; E78.5 Hyperlipidemia, unspecified; J98.4 Other disorders of lung; G47.39 Other sleep apnea

== ENCOUNTER → 2017-10-13 | Outpatient (CLI) | payer BC ==
[~2017-10-13] MED LIST changes: +ATR25 PO; +ATRINS INH; +ATRINS NEB; +BSP5 PO; +FEXO5TAB2 PO; +ISOS30TA35 PO; +LVQ500 PO; +NITR-5 PO; +ONDA4TAB10 SL; +PLMINSR5 INH; +POTA-639 PO; +PRED10TA PO; +QUET1TAB30 PO; +RIVA1TAB4 PO; +THIA1TAB11 PO; +XPNINS INH
== END | disposition home or self-care (01) ==
LOC: C.LAB1850 14:38
PROVIDERS: ATTEND Internal Medicine
DX: R35.0 Frequency of micturition (principal); R39.15 Urgency of urination

== ENCOUNTER → 2018-02-03 | Outpatient (CLI) | payer BC ==
[~2018-02-03] MED LIST changes: -ALL60 PO; +AMOX875T PO; -ATOR-24 PO; +ATRINS NEB; +BUSP5TAB59 PO; +CIPR0.3S OP; -CLR10 PO; -DLC5 PO; +DOXY-369 PO; -DXY100 PO; +EFFSR/75 PO; +ETAN50IN3 INJ; +FEXO1TAB45 PO; +FEXO5TAB2 PO; +HYDR-3124 PO; -IMDSR30 PO; -IPRASOL4 INH; +ISOS30TA35 PO; -MCRK20 PO; -METO5TAB2 PO; -MRLP17 PO; +ONDA4TAB10 SL; -PLMINS INH; +POTA-639 PO; -PRD10 PO; +QUET1TAB30 PO; +RIVA1TAB4 PO; -SENN-61 PO; -SRQ25 PO; +THIA1TAB11 PO; -THM100 PO; -VENL-271 PO; +XPNINS INH; -XRL10 PO
--- NOTE | 2018-02-03 11:55 | DIAGNOSTIC IMAGING REPORT ---
L-SPINE MIN 4 VIEWS ROUTINE CLINICAL HISTORY: 82 years-old Female presenting with Hip pain, left Left. TECHNIQUE: Frontal, bilateral oblique, lateral, and coned in lateral views of the lumbar spine were obtained. COMPARISON: 05/18/2017. FINDINGS: No significant scoliosis. Straightening of normal lumbar lordosis. Bilateral transpedicular screw and shaylee fixation of L3-L5. Laminectomy defects of L2-L4. Vertebral body heights and alignment maintained. Significant vertebral disc height loss with disc osteophyte complexes at every level. Flowing multilevel osteophytosis may indicate underlying diffuse idiopathic skeletal hyperostosis. Suspected multilevel osseous neural foraminal narrowing. No compression deformity. Atherosclerosis. Cholecystectomy clips. IMPRESSION: 1. Advanced multilevel degenerative changes in the spine with possible diffuse idiopathic skeletal hyperostosis. Osseous neural foraminal narrowing suspected. 2. Posterior lumbar fusion hardware. 3. No gross radiographic evidence of acute osseous injury. Electronically signed by: Gregorio Garrison M.D. 02/03/2018 11:54 AM Dictated Date/Time: 02/03/2018 11:51 AM
--- NOTE | 2018-02-03 11:59 | DIAGNOSTIC IMAGING REPORT ---
L HIP UNILATERAL 2 VIEWS CLINICAL HISTORY: Hip pain, leftLeft COMPARISON: None. DISCUSSION: Considerable degenerative change left hip and left sacroiliac joint. Benign bony exostosis lateral aspect left superior iliac wing. Postoperative changes low lumbar spine. There is no evidence for soft tissue swelling. IMPRESSION: Considerable degenerative change. No acute process. The above report was generated using voice recognition software. It may contain grammatical, syntax or spelling errors. Electronically signed by: Gilbert Stroud M.D. 02/03/2018 11:58 AM Dictated Date/Time: 02/03/2018 11:55 AM
[2018-02-03 12:10] LABS: BASO % 0.6 %; BASO ABS # 0.03 K/uL (0-0.2); EOS % 1.2 %; EOS ABS # 0.06 K/uL (0-0.5); IG# 0.02 K/uL (0.00-0.02); LYMPH % 21.9 %; LYMPH ABS # 1.11 K/uL (1.2-3.4); MEAN CELL VOLUME 104.5 fL (80-100); MEAN CORPUSCULAR HEMOGLOBIN 33.6 pg (25-34); MEAN CORPUSCULAR HGB CONC 32.1 g/dl (32-36); MEAN PLATELET VOLUME 9.5 fL (7.4-10.4); MONO % 6.1 %; MONO ABS # 0.31 K/uL (0.11-0.59); NEUT % 69.8 %; NEUT ABS # 3.53 K/uL (1.4-6.5); PLATELET COUNT 255 K/uL (130-400); RED CELL DISTRIBUTION WIDTH CV 14.9 % (11.5-14.5); WHITE BLOOD COUNT 5.06 K/uL (4.8-10.8)
[2018-02-03 12:27] LABS: ALBUMIN 3.6 gm/dl (3.4-5.0); ALKALINE PHOSPHATASE 86 U/L (45-117); ALT/SGPT 92 U/L (12-78); AST/SGOT 47 U/L (15-37); TOTAL PROTEIN 7.1 gm/dl (6.4-8.2)
== END | disposition home or self-care (01) ==
LOC: C.RAD1850 11:13
PROVIDERS: ATTEND Internal Medicine Rheumatology
DX: M25.552 Pain in left hip (principal); M47.9 Spondylosis, unspecified; Z98.1 Arthrodesis status

== ENCOUNTER 2018-08-01 17:45 | Inpatient (IN) ==
[2018-08-01] MEDS ORDERED: XOPENEX/ATROVENT 1.25mg/0.5MG NEB COMBO NEB STA (18:45)
[2018-08-01 18:47] LABS: Basophils # (auto) 0.03 K/uL (0-0.2); Basophils % (auto) 0.3 %; Eosinophils # (auto) 0.04 K/uL (0-0.5); Eosinophils % (auto) 0.4 %; Hematocrit (blood only) 38.3 % (37-47); Hemoglobin 12.3 g/dL (12.0-16.0); Immature Granulocytes # (auto) 0.05 K/uL (0.00-0.02); Immature Granulocytes % (auto) 0.5 %; Lymphocytes # (auto) 1.26 K/uL (1.2-3.4); Lymphocytes % (auto) 11.5 %; Mean Corpuscular Hgb Conc 32.1 g/dL (32-36); Mean Corpuscular Volume 96.2 fL (80-100); Mean Platelet Volume 9.8 fL (7.4-10.4); Monocytes # (auto) 0.99 K/uL (0.11-0.59); Neutrophils # (auto) 8.59 K/uL (1.4-6.5); Neutrophils % (auto) 78.3 %; Platelet Count 335 K/uL (130-400); RDW Standard Deviation 45.2 fL (36.4-46.3); Red Blood Count 3.98 M/uL (4.2-5.4); White Blood Count 10.96 K/uL (4.8-10.8)
[2018-08-01 18:49] LABS: HCO3 ABG 44 mmol/L (19-24); Oxygen Saturation ABG 90.9 % (90-95); PCO2 ABG 82 mmHg (35-46); PO2 ABG 63 mm/Hg (80-95); pH ABG 7.35 (7.35-7.45)
[2018-08-01 18:50] LABS: Allen Test POS (Pos)
--- NOTE | 2018-08-01 19:01 | XRay Report ---
XR chest 1V portable CLINICAL HISTORY: sob dyspnea COMPARISON STUDY: 07/04/2017 FINDINGS: Small parenchymal infiltrate right base. Chronic ectasia thoracic aorta. Multiple old right -sided rib fractures. Prior left shoulder arthroplasty. Left axillary dissection. IMPRESSION: Small parenchymal infiltrate right base. The above report was generated using voice recognition software. It may contain grammatical, syntax or spelling errors. Electronically signed by: Gilbert Stroud M.D. 08/01/2018 6:59 PM
[2018-08-01 19:08] LABS: Albumin Level 3.1 gm/dl (3.4-5.0); BUN Creatinine Ratio 34.9 (10-20); Calcium 9.2 mg/dl (8.5-10.1); Creatinine Clr Calc Pharmacy 68.3 ml/min; Est GFR (African American) 96.5; Est GFR (Non-African American) 83.3; Magnesium 1.9 mg/dl (1.8-2.4); Potassium 4.3 mmol/L (3.5-5.1)
[2018-08-01 19:16] LABS: Albumin Globulin Ratio 0.7 (0.9-2); Bilirubin,Total 0.3 mg/dl (0.2-1); Globulin 4.5 gm/dl (2.5-4.0); Total Protein 7.6 gm/dl (6.4-8.2); Troponin I 0.032 ng/ml (0-0.045)
[2018-08-01] MEDS ORDERED: methylPREDNISolone 125 MG/2 ML VIAL IV STA (19:39)
[2018-08-01] MEDS ORDERED: LEVOFLOXACIN/D5W 750 MG/150 ML BAG IV STA (19:39)
[2018-08-01 19:56] LABS: Influenza A virus by PCR Neg for Influ A (Neg); Influenza B virus by PCR Neg for Influ B (Neg)
[2018-08-01] MEDS ORDERED: FEXOFENADINE 60 MG TAB PO PRN (20:42)
[2018-08-01] MEDS ORDERED: ALBUTEROL HFA 8 GM INHALER INH PRN (20:42)
--- NOTE | 2018-08-01 21:14 | History & Physical Report ---
Date of Service August 01, 2018 Assessment & Plan (1) COPD exacerbation: COPD/PNA/Hypoxia -azith and ceftriaxone -solumedrol 30 TID -Duoneb q4sch, xopenex q4prn -Pt tolerating cpap well. 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 She is currently on hospice living at home. PMH significant for COPD, goal 88-92 %(sees Dr. 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 Most of history is provided by family, who state that in the past several days she has required the use of her CPAP machine more and more, but will still occasionally use NC. She has also been having a cough with clear sputum, some chills, but no fever. On EMS arrival, she was satting 78%, but after changing to EMS machine her oxygen level began to improve. She was placed on Bipap en route and was able to convert to CPAP in her room. She is hemodynamically stable on arrival. CXR shows small RLL infiltrate. ABG was performed: pH 7.35, PCO2 82, Po2 63, HCO3 44. Flu negative. Does have cardiac history, negative trop, negative BNP. Allergies Allergy/AdvReac Type Severity Reaction Status Date / Time No Known Allergies Allergy Unverified 07/04/18 12:16 Home Medications Home Medications Medication Instructions Recorded Confirmed Type albuterol sulfate [Ventolin HFA] 2 puff INHALATION Q4H PRN 07/04/18 08/01/18 History buspirone 5 mg PO Q12 07/04/18 08/01/18 History clobetasol 1 applic TOPICAL BID 07/04/18 08/01/18 History ergocalciferol (vitamin D2) 50,000 units PO WK 07/04/18 08/01/18 History [Vitamin D2] fexofenadine [Nallely Allergy] 60 mg PO Q12H PRN 07/04/18 08/01/18 History folic acid 1 mg PO DAILY 07/04/18 08/01/18 History furosemide 40 mg PO QAM 07/04/18 08/01/18 History gabapentin 200 mg PO BID 07/04/18 08/01/18 History hydroxyzine HCl 25 mg PO BID PRN 07/04/18 08/01/18 History ipratropium bromide 1 vial INHALATION QID 07/04/18 08/01/18 History isosorbide mononitrate 30 mg PO QAM 07/04/18 08/01/18 History levalbuterol HCl 0.63 mg INHALATION Q6H 07/04/18 08/01/18 History losartan 25 mg PO DAILY 07/04/18 08/01/18 History metformin 500 mg PO BID 07/04/18 08/01/18 History metoprolol succinate 25 mg PO DAILY 07/04/18 08/01/18 History potassium chloride [Klor-Con M20] 20 meq PO BID 07/04/18 08/01/18 History quetiapine 12.5 mg PO HS 07/04/18 08/01/18 History rivaroxaban [Xarelto] 20 mg PO PM 07/04/18 08/01/18 History thiamine mononitrate (vit B1) 200 mg PO BID 07/04/18 08/01/18 History [Vitamin B-1 (mononitrate)] venlafaxine 75 mg PO HS 07/04/18 08/01/18 History ipratropium bromide 2 spray INTRANASAL TID 08/01/18 08/01/18 History Past Med/Surg History Medical History Acid maltase deficiency (Chronic) Diabetes (Chronic) HTN (hypertension) (Chronic) Acute respiratory failure with hypoxia and hypercapnia Anxiety COPD (chronic obstructive pulmonary disease) COPD exacerbation Constipation Pneumonia involving right lung Social History marital status: Current Living Situation: Alone Current Living Situation Comment: hospice Other Information That Helps Us Care for You: No Feels Safe at Home: Yes Safety Concerns: Feels Safe At This Time Smoking Status: Never smoker Hx Alcohol Use: No Hx Substance Use: No Beliefs That Will Affect Care: None Preferred Language: Somali Communication Ability: Effective Waiter/Waitress Take Out Required: No Review of Systems All systems reviewed & are unremarkable except as noted in HPI & below Constitutional: + chills, + malaise and + weakness red eyes, sore eyes Respiratory: + cough and + dyspnea Cardiovascular: no chest pain Gastrointestinal: no abdominal pain and no change in bowel habits Integumentary: + sores Physical Exam 2 Vital Signs (Past 24 Hours): Last Vital Signs Temp 37.3 C 08/01/18 17:33 Pulse 87 08/01/18 19:53 Resp 16 08/01/18 19:53 BP 178/88 H 08/01/18 17:33 Pulse Ox 97 08/01/18 19:53 Constitutional: WD/WN, vitals as above Eyes: + eyelid abnormality (sores on medial aspect of eyelids) and + conjunctival abnormality (injection) ENMT: Ears: no hearing impairment Mouth: + dentures Neck: normal visual inspection Respiratory: normal respiratory effort (on cpap) Auscultation: + diminished lung sounds Cardiovascular: RRR, no murmur, no edema Gastrointestinal (Abdomen): normal bowel sounds, soft, nontender, no hepatosplenomegaly Skin: + lesion (numerous skin lesions. unable to examine sacrum) Neurologic: PERRL, EOMI, accommodation nl, no face palsy, no dysarthria Psychiatric: A+Ox3, euthymic affect Results & Data Laboratory Results 08/01/18 08/01/18 08/01/18 Range/Units 21:35 19:14 18:37 WBC (4.8-10.8) K/uL RBC (4.2-5.4) M/uL Hgb (12.0-16.0) g/dL Hct (37-47) % MCV (80-100) fL MCH (25-34) pg MCHC (32-36) g/dL RDW Std Deviation (36.4-46.3) fL RDW Coeff of Reina (11.5-14.5) % Plt Count (130-400) K/uL MPV (7.4-10.4) fL Immature Gran % (Auto) % Neut % (Auto) % Lymph % (Auto) % Rankin % (Auto) % Eos % (Auto) % Baso % (Auto) % Immature Gran # (Auto) (0.00-0.02) K/uL Neut # (Auto) (1.4-6.5) K/uL Lymph # (Auto) (1.2-3.4) K/uL Rankin # (Auto) (0.11-0.59) K/uL Eos # (Auto) (0-0.5) K/uL Baso # (Auto) (0-0.2) K/uL ABG pH 7.35 (7.35-7.45) ABG pCO2 82 H (35-46) mmHg ABG pO2 63 L (80-95) mm/Hg ABG HCO3 44 H (19-24) mmol/L ABG O2 Saturation 90.9 (90-95) % ABG Base Excess 14.8 H (-9-1.8) mEq/L Leonidas Test POS (Pos) Barometric Pressure 725.6 mm/Hg Oxygen Given 28% o2 Sodium (136-145) mmol/L Potassium (3.5-5.1) mmol/L Chloride (98-107) mmol/L Carbon Dioxide (21-32) mmol/L Anion Gap (3-11) BUN (7-18) mg/dl Creatinine (0.6-1.2) mg/dl Est Cr Clr Drug Dosing ml/min Est GFR ( Amer) Est GFR (Non-Af Amer) BUN/Creatinine Ratio (10-20) Glucose (70-99) mg/dl POC Lactic Acid Dg (0.90-1.70) mmol/L Calcium (8.5-10.1) mg/dl Magnesium (1.8-2.4) mg/dl Total Bilirubin (0.2-1) mg/dl AST (15-37) U/L ALT (12-78) U/L Alkaline Phosphatase (45-117) U/L Troponin I (0-0.045) ng/ml NT-Pro-B Natriuret Pep (0-1800) pg/ml Total Protein (6.4-8.2) gm/dl Albumin (3.4-5.0) gm/dl Globulin (2.5-4.0) gm/dl Albumin/Globulin Ratio (0.9-2) Lipase (73-393) U/L TSH (0.300-4.500) uIu/ml Urine Color Yellow Urine Appearance Cloudy H (Clear) Urine pH 7.5 (4.5-7.5) Ur Specific [place]ound 1.014 (1.000-1.030) Urine Protein 1+ H (Negative) Urine Glucose (UA) Negative (Negative) Urine Ketones Negative (Negative) Urine Blood 1+ H (Negative) Urine Nitrite Negative (Negative) Urine Bilirubin Negative (Negative) Urine Urobilinogen Negative (Negative) Ur Leukocyte Esterase 2+ H (Negative) Urine WBC (Auto) >30 H (0-5) /hpf Urine RBC (Auto) 0-4 (0-4) /hpf U Hyaline Cast (Auto) Pending U Epithel Cells (Auto) >30 H (0-5) /lpf Urine Bacteria (Auto) Negative (Negative) Influenza Type A (PCR) Neg for Influ A (Neg) Influenza Type B (PCR) Neg for Influ B (Neg) 08/01/18 08/01/18 08/01/18 Range/Units 18:36 18:30 18:30 WBC 10.96 H (4.8-10.8) K/uL RBC 3.98 L (4.2-5.4) M/uL Hgb 12.3 (12.0-16.0) g/dL Hct 38.3 (37-47) % MCV 96.2 (80-100) fL MCH 30.9 (25-34) pg MCHC 32.1 (32-36) g/dL RDW Std Deviation 45.2 (36.4-46.3) fL RDW Coeff of Reina 13.0 (11.5-14.5) % Plt Count 335 (130-400) K/uL MPV 9.8 (7.4-10.4) fL Immature Gran % (Auto) 0.5 % Neut % (Auto) 78.3 % Lymph % (Auto) 11.5 % Rankin % (Auto) 9.0 % Eos % (Auto) 0.4 % Baso % (Auto) 0.3 % Immature Gran # (Auto) 0.05 H (0.00-0.02) K/uL Neut # (Auto) 8.59 H (1.4-6.5) K/uL Lymph # (Auto) 1.26 (1.2-3.4) K/uL Rankin # (Auto) 0.99 H (0.11-0.59) K/uL Eos # (Auto) 0.04 (0-0.5) K/uL Baso # (Auto) 0.03 (0-0.2) K/uL ABG pH (7.35-7.45) ABG pCO2 (35-46) mmHg ABG pO2 (80-95) mm/Hg ABG HCO3 (19-24) mmol/L ABG O2 Saturation (90-95) % ABG Base Excess (-9-1.8) mEq/L Leonidas Test (Pos) Barometric Pressure mm/Hg Oxygen Given Sodium 135 L (136-145) mmol/L Potassium 4.3 (3.5-5.1) mmol/L Chloride 89 L (98-107) mmol/L Carbon Dioxide 39 H (21-32) mmol/L Anion Gap 7.0 (3-11) BUN 23 H (7-18) mg/dl Creatinine 0.65 (0.6-1.2) mg/dl Est Cr Clr Drug Dosing 68.3 ml/min Est GFR ( Amer) 96.5 Est GFR (Non-Af Amer) 83.3 BUN/Creatinine Ratio 34.9 H (10-20) Glucose 145 H (70-99) mg/dl POC Lactic Acid Dg 1.17 (0.90-1.70) mmol/L Calcium 9.2 (8.5-10.1) mg/dl Magnesium 1.9 (1.8-2.4) mg/dl Total Bilirubin 0.3 (0.2-1) mg/dl AST 45 H (15-37) U/L ALT 69 (12-78) U/L Alkaline Phosphatase 137 H (45-117) U/L Troponin I 0.032 (0-0.045) ng/ml NT-Pro-B Natriuret Pep 1137 (0-1800) pg/ml Total Protein 7.6 (6.4-8.2) gm/dl Albumin 3.1 L (3.4-5.0) gm/dl Globulin 4.5 H (2.5-4.0) gm/dl Albumin/Globulin Ratio 0.7 L (0.9-2) Lipase 169 (73-393) U/L TSH 2.300 (0.300-4.500) uIu/ml Urine Color Urine Appearance (Clear) Urine pH (4.5-7.5) Ur Specific Mound (1.000-1.030) Urine Protein (Negative) Urine Glucose (UA) (Negative) Urine Ketones (Negative) Urine Blood (Negative) Urine Nitrite (Negative) Urine Bilirubin (Negative) Urine Urobilinogen (Negative) Ur Leukocyte Esterase (Negative) Urine WBC (Auto) (0-5) /hpf Urine RBC (Auto) (0-4) /hpf U Hyaline Cast (Auto) U Epithel Cells (Auto) (0-5) /lpf Urine Bacteria (Auto) (Negative) Influenza Type A (PCR) (Neg) Influenza Type B (PCR) (Neg) Medications Administered Current Inpatient Medications Albuterol (Ventolin Hfa) 2 puffs INH Q4H PRN PRN Reason: Shortness Of Breath Or Wheezing Stop: 08/31/18 20:41 Buspirone HCl (Buspar) 5 mg PO Q12 [facility] Stop: 08/31/18 20:59 Fexofenadine HCl (Nallely) 60 mg PO Q12H PRN PRN Reason: Allergy Symptoms Stop: 08/31/18 20:41 Folic Acid (Folvite) 1 mg PO DAILY [facility] Stop: 09/01/18 08:59 Furosemide (Lasix) 40 mg PO QAM [facility] Stop: 09/01/18 08:59 Gabapentin (Neurontin) 200 mg PO BID [facility] Stop: 08/31/18 20:59 Hydroxyzine HCl (Vistaril) 25 mg PO BID PRN PRN Reason: Anxiety Stop: 08/31/18 21:25 Isosorbide Mononitrate (Imdur Extended Rel) 30 mg PO QAM [facility] Stop: 09/01/18 08:59 Losartan Potassium (Cozaar) 25 mg PO DAILY [facility] Stop: 09/01/18 08:59 Metoprolol Succinate (Toprol Xl) 25 mg PO DAILY [facility] Stop: 09/01/18 08:59 Potassium Chloride (Klor-Con M20) 20 meq PO BID [facility] Stop: 08/31/18 20:59 Quetiapine Fumarate (Seroquel) 12.5 mg PO HS [facility] Stop: 09/01/18 20:59 Rivaroxaban (Xarelto) 20 mg PO PM [facility] Stop: 08/31/18 20:59 Venlafaxine HCl (Effexor Extended Release) 75 mg PO HS [facility] Stop: 08/31/18 20:59 Code Status & VTE Plan Code Status DNR/DNI. Daughter has living will available at request VTE Prophylaxis Plan VTE Prophylaxis will be ordered: Yes Supervising Physician Co-Signing Physician Notes Patient seen and examined, chart reviewed, case discussed with Dr. Morrissey and I agree with her assessment and plan as documeted above. Briefly, patient is an 83yo female with history of COPD, acid-maltase deficiency with progressive weakness and debility presenting with COPD exacerbation and PNA. Patient hypoxic at home on CPAP, sats 78% On exam she is afebrile, hemodynamicall stable, tachypneic, saturating 94% on CPAP +Eyelid swelling on right +Adentulous Lungs with diminished air entry and diffuse wheezing Remainder of exam unremarkable Labs and images reviewed. WBC=10.96 ABG with 7.35/82/63/44, saturating 90.9%. CXR with small parenchymal infiltrate right base Assessment/Plan: 83yo female with COPD, acid/multase deficiency, progressive functional and respiratory decline. Patient is bedbound and uses her CPAP frequently for her COPD, hypoxic RF. She presents with COPD exacerbation and PNA -Admit to tele -Ceftriaxone and Azithromycin, Solumedrol, Nebs -O2 as needed, target saturation 88-92 as patient is a chronic retainer -ISS, may need basal as well in setting of IV steroid use. Monitor -Remainder of plan as above Resident Activity Tracking Resident Involvement: Resident Care Provided Care Provided: Adult [facility] Medicine _ (1) Pneumonia Aspiration pneumonia type: Laterality: unspecified laterality Lung location : unspecified part of lung Pneumonia type: due to unspecified organism Qualified Code(s): J18.9 - Pneumonia, unspecified organism
[2018-08-01 22:04] LABS: Appearance Urine Cloudy (Clear); Bacteria Urine Automated Negative (Negative); Bilirubin Urine Negative (Negative); Color Urine Yellow; Epithelial Cell Urine Auto >30 /lpf (0-5); Glucose Urine UA Negative (Negative); Ketones Urine Negative (Negative); Leukocyte Esterase Urine 2+ (Negative); Nitrite Urine Negative (Negative); Specific Gravity Urine 1.014 (1.000-1.030); Urobilinogen Urine Negative (Negative); WBC Urine Automated >30 /hpf (0-5); pH Urine 7.5 (4.5-7.5)
[2018-08-01 22:16] LABS: Protein Urine 1+ (Negative)
[2018-08-01] MEDS ORDERED: GLUCOSE 10 TABS/TUBE PO PRN (22:28)
[2018-08-01] MEDS ORDERED: LEVALBUTEROL HCL 1.25 MG/3 ML NEB NEB PRN (22:28)
[2018-08-01] MEDS ORDERED: DEXTROSE 50% 50 ML SYRINGE IV PRN (22:28)
[2018-08-01] MEDS ORDERED: GLUCAGON FOR INJ 1 MG VIAL SQ PRN (22:28)
[2018-08-01] MEDS ORDERED: GLUCOSE 40% GEL 15 GM TUBE PO PRN (22:28)
[2018-08-01] MEDS ORDERED: ACETAMINOPHEN 325 MG TAB PO PRN (22:28)
[2018-08-01] MEDS ORDERED: ALUMINUM/MAGNESIUM SUSP 30 ML UDC PO PRN (22:28)
[2018-08-01] MEDS ORDERED: POLYETHYLENE (MIRALAX) 17 GM PACK PO PRN (22:28)
[2018-08-01] MEDS: ALBUT/IPRATROP 3MG/0.5MG NEB 3 ML VIAL NEB SCH (23:05)
[2018-08-01] MEDS: RIVAROXABAN 20 MG TAB PO SCH (23:37)
[2018-08-01] MEDS: GABAPENTIN 100 MG CAP PO SCH (23:38)
[2018-08-01] MEDS: POTASSIUM CHLORIDE 20 MEQ TABCR PO SCH (23:38)
[2018-08-01] MEDS: cefTRIAXone SODIUM 1,000 MG in DEXTROSE 5% 50 ML IV SCH (23:39)
[2018-08-01] MEDS: VENLAFAXINE HCL XR 75 MG CAPXR PO SCH (23:39)
[2018-08-01] MEDS: SODIUM CHLORIDE 0.9% 1000ML 1,000 ML IV SCH (23:39)
[2018-08-01] MEDS: INSULIN GLARGINE SOLOSTAR 100 UNITS/ML 3 ML PEN SC SCH (23:46)
[2018-08-02] MEDS: AZITHROMYCIN 500 MG in DEXTROSE 5% 250 ML IV SCH (00:25)
--- NOTE | 2018-08-02 00:36 | Emergency Department Note ---
Entered by Renetta Nova acting as a scribe for Mirtha Garcia DO History of Present Illness General Chief complaint: Shortness of Breath/Dyspnea Stated complaint: SOB Time Seen by Provider: 08/01/18 17:49 Source: patient and family Mode of arrival: EMS Limitations: other (cognitive state) History of Present Illness Provider complaint: SOB Onset (ago): hour(s) (couple hours ago today) Location: chest Severity: moderate Exacerbated By: + none Associated symptoms: + confusion and + other (hallucinations) Patient is an 83 year old female presenting to the ED via EMS with SOB beginning today. Family shares that patient on hospice, and does use BIPAP at home, and has been using it more so in the past few days. Daughter in law shares that her SATs normally run about 92. Patient shares that she has been coughing more recently, with no phlegm build up. Patient states she has been taking her medications regularly. [id number] shares that patient�s called her today sharing patient was having hallucinations. Hallucinations were described as patient seeing birds in her home, and stating she wishes to be in her own bed, even though she was laying her bed. Patient was noted to have similar hallucinations when blood gas levels are off. Patient does use Albuterol BID, one in the morning and once at night before bed. Patient is supposed to use her Albuterol QID. shares that patient is aware she is at the hospital, and is aware that patient may be taken off hospice. Daughter-in -law states that she has been increasingly weak in the past 2 months, and did have a fall in Jun 2018. She shares patient has been laying down more since the fall, and her health has been slowly declining. Daughter in law shares that patient is not able to feed herself normally, and has been urinating in a bed cr for the past x3 weeks. Daughter in law denies patient complaining of fevers , or any other complaints or concerns at this time. Patient shares her appetite has changed, while shares it has been normal. Daughter in law shares that patient wishes to have enough done to be sent back to her personal home, and not placed in a caring facility. Patient is agreeable to admission if needed. Daughter in law shares patient does have a history of COPD, restrictive lung disease, acid maltase deficiency. HPI limited due to patient�s cognitive state. Home Medications Home Medications Medication Instructions Recorded Confirmed Type albuterol sulfate [Ventolin HFA] 2 puff INHALATION Q4H PRN 07/04/18 08/01/18 History buspirone 5 mg PO Q12 07/04/18 08/01/18 History clobetasol 1 applic TOPICAL BID 07/04/18 08/01/18 History ergocalciferol (vitamin D2) 50,000 units PO WK 07/04/18 08/01/18 History [Vitamin D2] fexofenadine [Nallely Allergy] 60 mg PO Q12H PRN 07/04/18 08/01/18 History folic acid 1 mg PO DAILY 07/04/18 08/01/18 History furosemide 40 mg PO QAM 07/04/18 08/01/18 History gabapentin 200 mg PO BID 07/04/18 08/01/18 History hydroxyzine HCl 25 mg PO BID PRN 07/04/18 08/01/18 History ipratropium bromide 1 vial INHALATION QID 07/04/18 08/01/18 History isosorbide mononitrate 30 mg PO QAM 07/04/18 08/01/18 History levalbuterol HCl 0.63 mg INHALATION Q6H 07/04/18 08/01/18 History losartan 25 mg PO DAILY 07/04/18 08/01/18 History metformin 500 mg PO BID 07/04/18 08/01/18 History metoprolol succinate 25 mg PO DAILY 07/04/18 08/01/18 History potassium chloride [Klor-Con M20] 20 meq PO BID 07/04/18 08/01/18 History quetiapine 12.5 mg PO HS 07/04/18 08/01/18 History rivaroxaban [Xarelto] 20 mg PO PM 07/04/18 08/01/18 History thiamine mononitrate (vit B1) 200 mg PO BID 07/04/18 08/01/18 History [Vitamin B-1 (mononitrate)] venlafaxine 75 mg PO HS 07/04/18 08/01/18 History ipratropium bromide 2 spray INTRANASAL TID 08/01/18 08/01/18 History Allergies Allergy/AdvReac Type Severity Reaction Status Date / Time No Known Allergies Allergy Unverified 07/04/18 12:16 Past Med/Surg History Medical History Acid maltase deficiency (Chronic) Diabetes (Chronic) HTN (hypertension) (Chronic) Acute respiratory failure with hypoxia and hypercapnia Anxiety COPD (chronic obstructive pulmonary disease) COPD exacerbation Constipation Pneumonia involving right lung Social History marital status: Current Living Situation: Alone Current Living Situation Comment: hospice Other Information That Helps Us Care for You: No Feels Safe at Home: Yes Safety Concerns: Feels Safe At This Time Smoking Status: Never smoker Hx Alcohol Use: No Hx Substance Use: No Beliefs That Will Affect Care: None Preferred Language: Romansh Communication Ability: Effective Events Intern Required: No Review of Systems See HPI for pertinent positives & negatives. Unobtainable due to cognitive status Physical Exam Vital Signs Vital Signs - 24 hr 08/01/18 17:33 08/01/18 17:40 08/01/18 18:12 Temperature 37.3 C Temperature Source Axillary Sepsis Recent Fever Within 48 Hours No Sepsis New/Unexplained Change in Mental Status No Sepsis Action Taken by Nursing No Action Required Pulse Rate 97 H 88 Pulse Rate [Right Finger] Pulse Rhythm [Right Finger] Pulse Strength [Right Finger] Respiratory Rate 16 22 Respiratory Effort / Characteristics Normal for Patient Respiratory Depth Respiratory Pattern Blood Pressure 178/88 H Blood Pressure [Right Arm] Blood Pressure Mean 118 Blood Pressure Mean [Right Arm] Blood Pressure Position Lying Blood Pressure Position [Right Arm] Pulse Oximetry 92 92 Oxygen Delivery Method CPAP CPAP Fraction of Inspired Oxygen 28 08/01/18 19:53 08/01/18 20:58 08/01/18 21:00 Temperature Temperature Source Sepsis Recent Fever Within 48 Hours Sepsis New/Unexplained Change in Mental Status Sepsis Action Taken by Nursing Pulse Rate 79 87 84 Pulse Rate [Right Finger] 87 Pulse Rhythm [Right Finger] Pulse Strength [Right Finger] Respiratory Rate 16 28 H 22 Respiratory Effort / Characteristics Non-Labored Spontaneous Respiratory Depth Normal Respiratory Pattern Regular Blood Pressure 163/83 H 149/71 H Blood Pressure [Right Arm] Blood Pressure Mean 109 97 Blood Pressure Mean [Right Arm] Blood Pressure Position Blood Pressure Position [Right Arm] Pulse Oximetry 97 95 95 Oxygen Delivery Method BiPAP Fraction of Inspired Oxygen 28 08/01/18 21:45 08/01/18 22:35 08/01/18 22:36 Temperature 36.5 C Temperature Source Oral Sepsis Recent Fever Within 48 Hours Sepsis New/Unexplained Change in Mental Status Sepsis Action Taken by Nursing Pulse Rate Pulse Rate [Right Finger] 85 Pulse Rhythm [Right Finger] Regular Pulse Strength [Right Finger] Normal Respiratory Rate 20 Respiratory Effort / Characteristics SOB on Exertion Non-Labored Spontaneous Respiratory Depth Normal Normal Respiratory Pattern Regular Regular Blood Pressure Blood Pressure [Right Arm] 157/65 H Blood Pressure Mean Blood Pressure Mean [Right Arm] 95 Blood Pressure Position Blood Pressure Position [Right Arm] Lying Pulse Oximetry 94 Oxygen Delivery Method BiPAP BiPAP BiPAP Fraction of Inspired Oxygen 08/01/18 22:41 08/01/18 23:07 08/01/18 23:08 Temperature Temperature Source Sepsis Recent Fever Within 48 Hours Sepsis New/Unexplained Change in Mental Status Sepsis Action Taken by Nursing Pulse Rate 86 90 Pulse Rate [Right Finger] 90 Pulse Rhythm [Right Finger] Pulse Strength [Right Finger] Respiratory Rate 17 17 Respiratory Effort / Characteristics Non-Labored Spontaneous Non-Labored Spontaneous Respiratory Depth Normal Respiratory Pattern Regular Blood Pressure Blood Pressure [Right Arm] Blood Pressure Mean Blood Pressure Mean [Right Arm] Blood Pressure Position Blood Pressure Position [Right Arm] Pulse Oximetry 95 95 Oxygen Delivery Method BiPAP Fraction of Inspired Oxygen 28 28 08/01/18 23:19 08/02/18 00:02 Temperature 37.1 C Temperature Source Oral Sepsis Recent Fever Within 48 Hours Sepsis New/Unexplained Change in Mental Status Sepsis Action Taken by Nursing Pulse Rate 88 Pulse Rate [Right Finger] 90 Pulse Rhythm [Right Finger] Pulse Strength [Right Finger] Respiratory Rate 18 Respiratory Effort / Characteristics Respiratory Depth Respiratory Pattern Blood Pressure Blood Pressure [Right Arm] 157/68 H Blood Pressure Mean Blood Pressure Mean [Right Arm] 97 Blood Pressure Position Blood Pressure Position [Right Arm] Pulse Oximetry 94 Oxygen Delivery Method Fraction of Inspired Oxygen GENERAL: alert, well appearing, well nourished, no distress, non-toxic. BIPAP in place. EYE EXAM: normal conjunctiva, PERRL and EOM's grossly intact OROPHARYNX: no exudate, no erythema, lips, buccal mucosa, and tongue normal and mucous membranes are dry NECK: supple, no nuchal rigidity, no adenopathy, non-tender LUNGS: Diminished breath sounds bilaterally. No wheezes, rhonci or rales. HEART: no murmurs, S1 normal and S2 normal ABDOMEN: abdomen soft, non-tender, normo-active bowel sounds, no masses, no rebound or guarding. BACK: Back is symmetrical on inspection and there is no deformity, no midline tenderness, no CVA tenderness. SKIN: no rashes and no bruising UPPER EXTREMITIES: upper extremities are grossly normal. Nml pulses b/l. FROM. LOWER EXTREMITIES: No pitting edema. Nml pulses b/l. NEURO EXAM: Normal sensorium, alert, awake, answering questions appropriately, nml sensory exam. Course 1753: Past medical records reviewed. The patient was evaluated in room A12B, and a complete history and physical examination were performed. 1929: Updated patient and family on patient�s pneumonia findings. Patient and family are agreeable to IV antibiotics and plan for admission. 2009: Discussed patient case with Dr. Sanches, who accepts patient for admission. Administered Medications Albuterol (Duoneb) 3 ml NEB Q4R SHAYNE Stop: 09/01/18 00:00 Last Admin: 08/01/18 23:05 Dose: 3 ml Buspirone HCl (Buspar) 5 mg PO Q12 SHAYNE Stop: 08/31/18 20:59 Last Admin: 08/01/18 23:38 Dose: 5 mg Gabapentin (Neurontin) 200 mg PO BID SHAYNE Stop: 08/31/18 20:59 Last Admin: 08/01/18 23:38 Dose: 200 mg Ceftriaxone Sodium 1,000 mg/ (Dextrose) 60 mls @ 100 mls/hr IV Q24H SHAYNE Stop: 08/08/18 22:59 Last Admin: 08/01/18 23:39 Dose: 100 mls/hr Sodium Chloride (Nss 1000ml) 1,000 mls @ 80 mls/hr IV .[id number] SHAYNE Stop: 08/31/18 22:44 Last Admin: 08/01/18 23:39 Dose: 80 mls/hr Insulin Glargine (Lantus Solostar Pen) 15 units SC BID SHAYNE Stop: 08/31/18 22:59 Last Admin: 08/01/18 23:46 Dose: 15 units Potassium Chloride (Klor-Con M20) 20 meq PO BID SHAYNE Stop: 08/31/18 20:59 Last Admin: 08/01/18 23:38 Dose: 20 meq Rivaroxaban (Xarelto) 20 mg PO PM SHAYNE Stop: 08/31/18 20:59 Last Admin: 08/01/18 23:37 Dose: 20 mg Venlafaxine HCl (Effexor Extended Release) 75 mg PO HS SHAYNE Stop: 08/31/18 20:59 Last Admin: 08/01/18 23:39 Dose: 75 mg Discontinued Medications Levofloxacin/Dextrose (Levaquin/D5w) 750 mg in 150 mls @ 100 mls/hr IV NOW STA Stop: 08/01/18 21:08 Last Infusion: 08/01/18 23:01 Dose: 0 mls/hr Admin: 08/01/18 20:59 Dose: 100 mls/hr Methylprednisolone (Solumedrol) 60 mg IV NOW STA Stop: 08/01/18 19:40 Last Admin: 08/01/18 21:00 Dose: 60 mg Miscellaneous (Levalbuterol/Ipratropium 1.25mg) 1 ea NEB NOW STA Stop: 08/01/18 18:46 Last Admin: 08/01/18 19:48 Dose: 1 ea Medical Decision Making Differential Diagnosis Differential diagnosis: Etiologies such as infections, reactive airway disease, pneumonia, pneumothorax , COPD, CHF, cardiac ischemia, pulmonary embolism, musculoskeletal, gastrointestinal, as well as others were entertained. Medical Records Attestation: I reviewed the patient's medical records. Home Medications Current Medication List: was personally reviewed by me Laboratory Data Attestation: I reviewed the patient's lab results. Result diagrams: 08/01/18 18:30 08/01/18 18:30 Lab Results 08/01/18 08/01/18 08/01/18 Range/Units 18:30 18:30 18:36 WBC 10.96 H (4.8-10.8) K/uL RBC 3.98 L (4.2-5.4) M/uL Hgb 12.3 (12.0-16.0) g/dL Hct 38.3 (37-47) % MCV 96.2 (80-100) fL MCH 30.9 (25-34) pg MCHC 32.1 (32-36) g/dL RDW Std Deviation 45.2 (36.4-46.3) fL RDW Coeff of Reina 13.0 (11.5-14.5) % Plt Count 335 (130-400) K/uL MPV 9.8 (7.4-10.4) fL Immature Gran % (Auto) 0.5 % Neut % (Auto) 78.3 % Lymph % (Auto) 11.5 % Starke % (Auto) 9.0 % Eos % (Auto) 0.4 % Baso % (Auto) 0.3 % Immature Gran # (Auto) 0.05 H (0.00-0.02) K/uL Neut # (Auto) 8.59 H (1.4-6.5) K/uL Lymph # (Auto) 1.26 (1.2-3.4) K/uL Starke # (Auto) 0.99 H (0.11-0.59) K/uL Eos # (Auto) 0.04 (0-0.5) K/uL Baso # (Auto) 0.03 (0-0.2) K/uL ABG pH (7.35-7.45) ABG pCO2 (35-46) mmHg ABG pO2 (80-95) mm/Hg ABG HCO3 (19-24) mmol/L ABG O2 Saturation (90-95) % ABG Base Excess (-9-1.8) mEq/L Leonidas Test (Pos) Barometric Pressure mm/Hg Oxygen Given Sodium 135 L (136-145) mmol/L Potassium 4.3 (3.5-5.1) mmol/L Chloride 89 L (98-107) mmol/L Carbon Dioxide 39 H (21-32) mmol/L Anion Gap 7.0 (3-11) BUN 23 H (7-18) mg/dl Creatinine 0.65 (0.6-1.2) mg/dl Est Cr Clr Drug Dosing 68.3 ml/min Est GFR ( Amer) 96.5 Est GFR (Non-Af Amer) 83.3 BUN/Creatinine Ratio 34.9 H (10-20) Glucose 145 H (70-99) mg/dl POC Glucose (70-99) POC Lactic Acid Dg 1.17 (0.90-1.70) mmol/L Calcium 9.2 (8.5-10.1) mg/dl Magnesium 1.9 (1.8-2.4) mg/dl Total Bilirubin 0.3 (0.2-1) mg/dl AST 45 H (15-37) U/L ALT 69 (12-78) U/L Alkaline Phosphatase 137 H (45-117) U/L Troponin I 0.032 (0-0.045) ng/ml NT-Pro-B Natriuret Pep 1137 (0-1800) pg/ml Total Protein 7.6 (6.4-8.2) gm/dl Albumin 3.1 L (3.4-5.0) gm/dl Globulin 4.5 H (2.5-4.0) gm/dl Albumin/Globulin Ratio 0.7 L (0.9-2) Lipase 169 (73-393) U/L TSH 2.300 (0.300-4.500) uIu/ml Urine Color Urine Appearance (Clear) Urine pH (4.5-7.5) Ur Specific Blessing (1.000-1.030) Urine Protein (Negative) Urine Glucose (UA) (Negative) Urine Ketones (Negative) Urine Blood (Negative) Urine Nitrite (Negative) Urine Bilirubin (Negative) Urine Urobilinogen (Negative) Ur Leukocyte Esterase (Negative) Urine WBC (Auto) (0-5) /hpf Urine RBC (Auto) (0-4) /hpf U Hyaline Cast (Auto) (0-5) /lpf U Epithel Cells (Auto) (0-5) /lpf Urine Bacteria (Auto) (Negative) Granular Casts (0) /lpf Influenza Type A (PCR) (Neg) Influenza Type B (PCR) (Neg) 08/01/18 08/01/18 08/01/18 Range/Units 18:37 19:14 21:35 WBC (4.8-10.8) K/uL RBC (4.2-5.4) M/uL Hgb (12.0-16.0) g/dL Hct (37-47) % MCV (80-100) fL MCH (25-34) pg MCHC (32-36) g/dL RDW Std Deviation (36.4-46.3) fL RDW Coeff of Reina (11.5-14.5) % Plt Count (130-400) K/uL MPV (7.4-10.4) fL Immature Gran % (Auto) % Neut % (Auto) % Lymph % (Auto) % Starke % (Auto) % Eos % (Auto) % Baso % (Auto) % Immature Gran # (Auto) (0.00-0.02) K/uL Neut # (Auto) (1.4-6.5) K/uL Lymph # (Auto) (1.2-3.4) K/uL Starke # (Auto) (0.11-0.59) K/uL Eos # (Auto) (0-0.5) K/uL Baso # (Auto) (0-0.2) K/uL ABG pH 7.35 (7.35-7.45) ABG pCO2 82 H (35-46) mmHg ABG pO2 63 L (80-95) mm/Hg ABG HCO3 44 H (19-24) mmol/L ABG O2 Saturation 90.9 (90-95) % ABG Base Excess 14.8 H (-9-1.8) mEq/L Leonidas Test POS (Pos) Barometric Pressure 725.6 mm/Hg Oxygen Given 28% o2 Sodium (136-145) mmol/L Potassium (3.5-5.1) mmol/L Chloride (98-107) mmol/L Carbon Dioxide (21-32) mmol/L Anion Gap (3-11) BUN (7-18) mg/dl Creatinine (0.6-1.2) mg/dl Est Cr Clr Drug Dosing ml/min Est GFR ( Amer) Est GFR (Non-Af Amer) BUN/Creatinine Ratio (10-20) Glucose (70-99) mg/dl POC Glucose (70-99) POC Lactic Acid Dg (0.90-1.70) mmol/L Calcium (8.5-10.1) mg/dl Magnesium (1.8-2.4) mg/dl Total Bilirubin (0.2-1) mg/dl AST (15-37) U/L ALT (12-78) U/L Alkaline Phosphatase (45-117) U/L Troponin I (0-0.045) ng/ml NT-Pro-B Natriuret Pep (0-1800) pg/ml Total Protein (6.4-8.2) gm/dl Albumin (3.4-5.0) gm/dl Globulin (2.5-4.0) gm/dl Albumin/Globulin Ratio (0.9-2) Lipase (73-393) U/L TSH (0.300-4.500) uIu/ml Urine Color Yellow Urine Appearance Cloudy H (Clear) Urine pH 7.5 (4.5-7.5) Ur Specific Blessing 1.014 (1.000-1.030) Urine Protein 1+ H (Negative) Urine Glucose (UA) Negative (Negative) Urine Ketones Negative (Negative) Urine Blood 1+ H (Negative) Urine Nitrite Negative (Negative) Urine Bilirubin Negative (Negative) Urine Urobilinogen Negative (Negative) Ur Leukocyte Esterase 2+ H (Negative) Urine WBC (Auto) >30 H (0-5) /hpf Urine RBC (Auto) 0-4 (0-4) /hpf U Hyaline Cast (Auto) 5-10 H (0-5) /lpf U Epithel Cells (Auto) >30 H (0-5) /lpf Urine Bacteria (Auto) Negative (Negative) Granular Casts 1-5 H (0) /lpf Influenza Type A (PCR) Neg for Influ A (Neg) Influenza Type B (PCR) Neg for Influ B (Neg) 08/01/18 Range/Units 23:46 WBC (4.8-10.8) K/uL RBC (4.2-5.4) M/uL Hgb (12.0-16.0) g/dL Hct (37-47) % MCV (80-100) fL MCH (25-34) pg MCHC (32-36) g/dL RDW Std Deviation (36.4-46.3) fL RDW Coeff of Reina (11.5-14.5) % Plt Count (130-400) K/uL MPV (7.4-10.4) fL Immature Gran % (Auto) % Neut % (Auto) % Lymph % (Auto) % Starke % (Auto) % Eos % (Auto) % Baso % (Auto) % Immature Gran # (Auto) (0.00-0.02) K/uL Neut # (Auto) (1.4-6.5) K/uL Lymph # (Auto) (1.2-3.4) K/uL Starke # (Auto) (0.11-0.59) K/uL Eos # (Auto) (0-0.5) K/uL Baso # (Auto) (0-0.2) K/uL ABG pH (7.35-7.45) ABG pCO2 (35-46) mmHg ABG pO2 (80-95) mm/Hg ABG HCO3 (19-24) mmol/L ABG O2 Saturation (90-95) % ABG Base Excess (-9-1.8) mEq/L Leonidas Test (Pos) Barometric Pressure mm/Hg Oxygen Given Sodium (136-145) mmol/L Potassium (3.5-5.1) mmol/L Chloride (98-107) mmol/L Carbon Dioxide (21-32) mmol/L Anion Gap (3-11) BUN (7-18) mg/dl Creatinine (0.6-1.2) mg/dl Est Cr Clr Drug Dosing ml/min Est GFR ( Amer) Est GFR (Non-Af Amer) BUN/Creatinine Ratio (10-20) Glucose (70-99) mg/dl POC Glucose 140 H (70-99) POC Lactic Acid Dg (0.90-1.70) mmol/L Calcium (8.5-10.1) mg/dl Magnesium (1.8-2.4) mg/dl Total Bilirubin (0.2-1) mg/dl AST (15-37) U/L ALT (12-78) U/L Alkaline Phosphatase (45-117) U/L Troponin I (0-0.045) ng/ml NT-Pro-B Natriuret Pep (0-1800) pg/ml Total Protein (6.4-8.2) gm/dl Albumin (3.4-5.0) gm/dl Globulin (2.5-4.0) gm/dl Albumin/Globulin Ratio (0.9-2) Lipase (73-393) U/L TSH (0.300-4.500) uIu/ml Urine Color Urine Appearance (Clear) Urine pH (4.5-7.5) Ur Specific Blessing (1.000-1.030) Urine Protein (Negative) Urine Glucose (UA) (Negative) Urine Ketones (Negative) Urine Blood (Negative) Urine Nitrite (Negative) Urine Bilirubin (Negative) Urine Urobilinogen (Negative) Ur Leukocyte Esterase (Negative) Urine WBC (Auto) (0-5) /hpf Urine RBC (Auto) (0-4) /hpf U Hyaline Cast (Auto) (0-5) /lpf U Epithel Cells (Auto) (0-5) /lpf Urine Bacteria (Auto) (Negative) Granular Casts (0) /lpf Influenza Type A (PCR) (Neg) Influenza Type B (PCR) (Neg) Imaging Data Radiologist's Impression: XR chest 1V portable CLINICAL HISTORY: sob dyspnea COMPARISON STUDY: 07/04/2017 FINDINGS: Small parenchymal infiltrate right base. Chronic ectasia thoracic aorta. Multiple old right-sided rib fractures. Prior left shoulder arthroplasty. Left axillary dissection. IMPRESSION: Small parenchymal infiltrate right base. The above report was generated using voice recognition software. It may contain grammatical, syntax or spelling errors. Electronically signed by: Gilbert Stroud M.D. 08/01/2018 6:59 PM ECG Data Attestation: I personally reviewed and interpreted this ECG as follows: Indication: SOB/dyspnea Rate (beats per minute): 86 Rhythm: sinus rhythm Findings: + other (normal axis, normal interval); no acute ischemic change and no ectopy Blood Pressure Blood Pressure Findings: Elevated blood pressure Blood Pressure Disposition: elevated BP felt to be situational MDM Narrative Patient brought from home despite hospice plan due to increased trouble breathing and low oxygen saturations while on home CPAP. Patient with COPD and additional pulmonary pathology requiring chronic home oxygen. Family states that she has slowly required more support than just nasal cannula and has been using her CPAP almost constantly. No recent fevers or chills, no known close contacts that have been ill, however patient has had more hallucinations which is serous sign of low oxygen on her. Patient and her with various opinions regarding her cough, sputum production, as well as appetite. Patient found to have pneumonia on chest x-ray. Patient does have an indwelling Ho due to her incontinence. UA likely colonized and abnormal secondary to this, however culture pending as a precaution. A new Ho catheter was placed on the emergency room. Patient maintained on BiPAP with additional settings here and given neb treatments. Given additional steroids and IV antibiotics started. Patient hemodynamically stable while here. All orders and treatment plans discussed with patient and family at bedside given her prior hospice wishes. Case discussed with hospitalist for additional evaluation and treatment. I do not suspect bacteremia/sepsis at this time. Impression & Plan Pneumonia, COPD exacerbation, Hypoxia, Hypercarbia, Indwelling Ho catheter present Critical Care Time I have personally spent 35 minutes of critical care time in the direct management of this patient. This includes bedside care, interpretation of diagnostic studies, and testing, discussion with consultants, patient, and family members, and other required patient management activities. This 35 minutes is in excess of all separately billable procedures. Critical Care Time: Yes Total Critical Care Time: 35 Discharge Plan Visit Data *Final* Discharge Date/Time: 08/01/18 21:45 Chief Complaint: Shortness of Breath/Dyspnea Stated Complaint: SOB ED Provider: Mirtha Garcia Discharge Problem: Pneumonia, COPD exacerbation, Hypoxia, Hypercarbia, Indwelling Ho catheter present Patient Disposition: Admitted As Inpatient Discharge Instructions Interventions: ED Discharge Assessment Last Done: 08/01/18 21:45 The scribe's documentation has been prepared under my direction and personally reviewed by me in its entirety. I confirm that the note above accurately reflects all work, treatment, procedures, and medical decision making performed by me.
[2018-08-02] MEDS: ALBUT/IPRATROP 3MG/0.5MG NEB 3 ML VIAL NEB SCH ×6 (03:20→22:56)
[2018-08-02] MEDS: methylPREDNISolone 30 MG in SYRINGE 0 ML IV SCH ×3 (05:40→21:08)
[2018-08-02 07:07] LABS: Basophils # (auto) 0.01 K/uL (0-0.2); Basophils % (auto) 0.1 %; Hematocrit (blood only) 41.1 % (37-47); Hemoglobin 13.3 g/dL (12.0-16.0); Immature Granulocytes # (auto) 0.05 K/uL (0.00-0.02); Immature Granulocytes % (auto) 0.7 %; Lymphocytes # (auto) 0.93 K/uL (1.2-3.4); Lymphocytes % (auto) 12.4 %; Mean Corpuscular Hgb Conc 32.4 g/dL (32-36); Mean Platelet Volume 9.7 fL (7.4-10.4); Monocytes % (auto) 2.7 %; Neutrophils # (auto) 6.34 K/uL (1.4-6.5); Neutrophils % (auto) 84.1 %; Platelet Count 337 K/uL (130-400); RDW Coefficient of Variation 12.9 % (11.5-14.5); RDW Standard Deviation 44.6 fL (36.4-46.3); Red Blood Count 4.28 M/uL (4.2-5.4); White Blood Count 7.53 K/uL (4.8-10.8)
[2018-08-02 08:02] LABS: BUN Creatinine Ratio 27.4 (10-20); Calcium 9.3 mg/dl (8.5-10.1); Creatinine Clr Calc Pharmacy 57.5 ml/min; Est GFR (African American) 94.6; Est GFR (Non-African American) 81.6; Potassium 4.6 mmol/L (3.5-5.1)
[2018-08-02] MEDS: POTASSIUM CHLORIDE 20 MEQ TABCR PO SCH ×2 (08:39→21:10)
[2018-08-02] MEDS: FOLIC ACID 1 MG TAB PO SCH (08:39)
[2018-08-02] MEDS: ISOSORBIDE MONO EXTENDED REL 30 MG TABCR PO SCH (08:39)
[2018-08-02] MEDS: LOSARTAN POTASSIUM 25 MG TAB PO SCH (08:39)
[2018-08-02] MEDS: FUROSEMIDE 40 MG TAB PO SCH (08:39)
[2018-08-02] MEDS: GABAPENTIN 100 MG CAP PO SCH ×2 (08:39→21:09)
[2018-08-02] MEDS: METOPROLOL SUCC 25MG EXT REL TAB PO SCH (08:39)
[2018-08-02] MEDS: INSULIN GLARGINE SOLOSTAR 100 UNITS/ML 3 ML PEN SC SCH ×2 (08:40→21:12)
[2018-08-02] MEDS: INSULIN ASPART 100 UNITS/ML 3 ML PEN SC SCH ×4 (08:49→21:09)
[2018-08-02 10:04] LABS: Estimated Average Glucose 126 mg/dl
--- NOTE | 2018-08-02 11:50 | Family Medicine Progress Note ---
Addendum entered and electronically signed by Tariq Bhatt DO 08/02/18 12: 06: Addendum (Blank) Addendum August 02, 2018 12:06 1) First problem should list: Acute and chronic respiratory failure with hypercapnia Original Note: Date of Service August 02, 2018 Assessment & Plan (1) COPD exacerbation: 83 y/o F with PMH DM, HTN, COPD, Anxiety, Pompe's presents with COPD exacerbation and found to have RLL Infiltrate on CXR. Acute on chronic respiratory failure - continue bipap support -Appears to be chronically retaining CO2. Today 40, 82 on admit - likely sec to PNA/copd exacerbation 1) COPD Exacerbation/PNA - cont azith and ceftriaxone -solumedrol 30 TID -Duoneb q4sch, xopenex q4prn -PT ordered 7) Delirium/hallucinations - notes hallucinations. Delirium could be multifactorial 2/2 new hospital environment/medication side effect/UTI/PNA -will cont monitor 2) Indwelling olsen present -UA: 2+ LE, WBCs, epithelial cells. Urine cx pending -Related to bed-bound status 3) Pompe/Acid maltase deficiency -Progressively worsening -Bed bound status -PT as above 4) DM -Well controlled per patient, on metformin -Placed in ISS for steroid coverage. Cont monitor BSGs 5) HTN -Continue home meds 6) Anxiety -Continue home meds DNR/DNI DVT Prophylaxis: Xarelto Dispo: Tele for further monitoring. Pt is hospice living at home Supervising Physician Co-Signing Physician Notes Resident Physician Supervision Note: I independently interviewed and examined the patient and verified the hawkins history and physical, reviewed labs and image studies, discussed the case with the resident Dr. Bhatt and agree with the findings and care plan. Subjective 83 y/o F found in bed this AM in mild distress. Pt notes she was somewhat SOB. Improvement noted after BIPAP readjusted. Pt not able to ambulate, is going to work with PT. No issues with PO intake. notes pt has been having hallucinations. Pt has no other acute concerns or complaints. Review of Systems All systems reviewed & are unremarkable except as noted in HPI & below Physical Exam 2 Vital Signs (Past 24 Hours): Last Vital Signs Temp 36.6 C 08/02/18 11:31 Pulse 84 08/02/18 11:31 Resp 18 08/02/18 11:31 BP 162/82 H 08/02/18 11:31 Pulse Ox 99 08/02/18 11:31 Constitutional: WD/WN, vitals as above + obese Eyes: PERRL, conjunctivae normal, anicteric sclerae ENMT: external ear and nose normal, oropharynx normal Respiratory: on BIPAP. Decreased breath sounds auscultated Cardiovascular: RRR, no murmur, no edema Gastrointestinal (Abdomen): normal bowel sounds, soft, nontender, no hepatosplenomegaly Skin: no rashes, warm and dry Psychiatric: Mood: + anxious mood Results & Data Laboratory Results Laboratory Results - last 24 hr 08/01/18 08/01/18 08/01/18 18:30 18:30 18:36 WBC 10.96 H RBC 3.98 L Hgb 12.3 Hct 38.3 MCV 96.2 MCH 30.9 MCHC 32.1 RDW Std Deviation 45.2 RDW Coeff of Reina 13.0 Plt Count 335 MPV 9.8 Immature Gran % (Auto) 0.5 Neut % (Auto) 78.3 Lymph % (Auto) 11.5 [place] % (Auto) 9.0 Eos % (Auto) 0.4 Baso % (Auto) 0.3 Immature Gran # (Auto) 0.05 H Neut # (Auto) 8.59 H Lymph # (Auto) 1.26 [place] # (Auto) 0.99 H Eos # (Auto) 0.04 Baso # (Auto) 0.03 ABG pH ABG pCO2 ABG pO2 ABG HCO3 ABG O2 Saturation ABG Base Excess Leonidas Test Barometric Pressure Oxygen Given Sodium 135 L Potassium 4.3 Chloride 89 L Carbon Dioxide 39 H Anion Gap 7.0 BUN 23 H Creatinine 0.65 Est Cr Clr Drug Dosing 68.3 Est GFR ( Amer) 96.5 Est GFR (Non-Af Amer) 83.3 BUN/Creatinine Ratio 34.9 H Glucose 145 H POC Glucose Estimat Average Glucose Hemoglobin A1c POC Lactic Acid Dg 1.17 Calcium 9.2 Magnesium 1.9 Total Bilirubin 0.3 AST 45 H ALT 69 Alkaline Phosphatase 137 H Troponin I 0.032 NT-Pro-B Natriuret Pep 1137 Total Protein 7.6 Albumin 3.1 L Globulin 4.5 H Albumin/Globulin Ratio 0.7 L Lipase 169 TSH 2.300 Urine Color Urine Appearance Urine pH Ur Specific [place] Urine Protein Urine Glucose (UA) Urine Ketones Urine Blood Urine Nitrite Urine Bilirubin Urine Urobilinogen Ur Leukocyte Esterase Urine WBC (Auto) Urine RBC (Auto) U Hyaline Cast (Auto) U Epithel Cells (Auto) Urine Bacteria (Auto) Granular Casts Influenza Type A (PCR) Influenza Type B (PCR) 08/01/18 08/01/18 08/01/18 18:37 19:14 21:35 WBC RBC Hgb Hct MCV MCH MCHC RDW Std Deviation RDW Coeff of Reina Plt Count MPV Immature Gran % (Auto) Neut % (Auto) Lymph % (Auto) [place] % (Auto) Eos % (Auto) Baso % (Auto) Immature Gran # (Auto) Neut # (Auto) Lymph # (Auto) [place] # (Auto) Eos # (Auto) Baso # (Auto) ABG pH 7.35 ABG pCO2 82 H ABG pO2 63 L ABG HCO3 44 H ABG O2 Saturation 90.9 ABG Base Excess 14.8 H Leonidas Test POS Barometric Pressure 725.6 Oxygen Given 28% o2 Sodium Potassium Chloride Carbon Dioxide Anion Gap BUN Creatinine Est Cr Clr Drug Dosing Est GFR ( Amer) Est GFR (Non-Af Amer) BUN/Creatinine Ratio Glucose POC Glucose Estimat Average Glucose Hemoglobin A1c POC Lactic Acid Dg Calcium Magnesium Total Bilirubin AST ALT Alkaline Phosphatase Troponin I NT-Pro-B Natriuret Pep Total Protein Albumin Globulin Albumin/Globulin Ratio Lipase TSH Urine Color Yellow Urine Appearance Cloudy H Urine pH 7.5 Ur Specific [place] 1.014 Urine Protein 1+ H Urine Glucose (UA) Negative Urine Ketones Negative Urine Blood 1+ H Urine Nitrite Negative Urine Bilirubin Negative Urine Urobilinogen Negative Ur Leukocyte Esterase 2+ H Urine WBC (Auto) >30 H Urine RBC (Auto) 0-4 U Hyaline Cast (Auto) 5-10 H U Epithel Cells (Auto) >30 H Urine Bacteria (Auto) Negative Granular Casts 1-5 H Influenza Type A (PCR) Neg for Influ A Influenza Type B (PCR) Neg for Influ B 08/01/18 08/02/18 08/02/18 23:46 06:47 06:47 WBC 7.53 RBC 4.28 Hgb 13.3 Hct 41.1 MCV 96.0 MCH 31.1 MCHC 32.4 RDW Std Deviation 44.6 RDW Coeff of Reina 12.9 Plt Count 337 MPV 9.7 Immature Gran % (Auto) 0.7 Neut % (Auto) 84.1 Lymph % (Auto) 12.4 [place] % (Auto) 2.7 Eos % (Auto) 0.0 Baso % (Auto) 0.1 Immature Gran # (Auto) 0.05 H Neut # (Auto) 6.34 Lymph # (Auto) 0.93 L [place] # (Auto) 0.20 Eos # (Auto) 0.00 Baso # (Auto) 0.01 ABG pH ABG pCO2 ABG pO2 ABG HCO3 ABG O2 Saturation ABG Base Excess [place] Test Barometric Pressure Oxygen Given Sodium Potassium Chloride Carbon Dioxide Anion Gap BUN Creatinine Est Cr Clr Drug Dosing Est GFR ( Amer) Est GFR (Non-Af Amer) BUN/Creatinine Ratio Glucose POC Glucose 140 H Estimat Average Glucose 126 Hemoglobin A1c 6.0 H POC Lactic Acid Dg Calcium Magnesium Total Bilirubin AST ALT Alkaline Phosphatase Troponin I NT-Pro-B Natriuret Pep Total Protein Albumin Globulin Albumin/Globulin Ratio Lipase TSH Urine Color Urine Appearance Urine pH Ur Specific [place] Urine Protein Urine Glucose (UA) Urine Ketones Urine Blood Urine Nitrite Urine Bilirubin Urine Urobilinogen Ur Leukocyte Esterase Urine WBC (Auto) Urine RBC (Auto) U Hyaline Cast (Auto) U Epithel Cells (Auto) Urine Bacteria (Auto) Granular Casts Influenza Type A (PCR) Influenza Type B (PCR) 08/02/18 08/02/18 08/02/18 06:47 07:25 11:20 WBC RBC Hgb Hct MCV MCH MCHC RDW Std Deviation RDW Coeff of Reina Plt Count MPV Immature Gran % (Auto) Neut % (Auto) Lymph % (Auto) [place] % (Auto) Eos % (Auto) Baso % (Auto) Immature Gran # (Auto) Neut # (Auto) Lymph # (Auto) [place] # (Auto) Eos # (Auto) Baso # (Auto) ABG pH ABG pCO2 ABG pO2 ABG HCO3 ABG O2 Saturation ABG Base Excess [place] Test Barometric Pressure Oxygen Given Sodium 135 L Potassium 4.6 Chloride 91 L Carbon Dioxide 40 H Anion Gap 4.0 BUN 19 H Creatinine 0.69 Est Cr Clr Drug Dosing 57.5 Est GFR ( Amer) 94.6 Est GFR (Non-Af Amer) 81.6 BUN/Creatinine Ratio 27.4 H Glucose 133 H POC Glucose 133 H 147 H Estimat Average Glucose Hemoglobin A1c POC Lactic Acid Dg Calcium 9.3 Magnesium Total Bilirubin AST ALT Alkaline Phosphatase Troponin I NT-Pro-B Natriuret Pep Total Protein Albumin Globulin Albumin/Globulin Ratio Lipase TSH Urine Color Urine Appearance Urine pH Ur Specific [place] Urine Protein Urine Glucose (UA) Urine Ketones Urine Blood Urine Nitrite Urine Bilirubin Urine Urobilinogen Ur Leukocyte Esterase Urine WBC (Auto) Urine RBC (Auto) U Hyaline Cast (Auto) U Epithel Cells (Auto) Urine Bacteria (Auto) Granular Casts Influenza Type A (PCR) Influenza Type B (PCR) Medications Administered Current Inpatient Medications Acetaminophen (Tylenol) 650 mg PO Q4H PRN PRN Reason: Pain or Fever Stop: 08/31/18 22:27 Al Hydrox/Mg Hydrox/Simethicone (Maalox) 15 ml PO Q4H PRN PRN Reason: Dyspepsia Stop: 08/31/18 22:27 Albuterol (Ventolin Hfa) 2 puffs INH Q4H PRN PRN Reason: Shortness Of Breath Or Wheezing Stop: 08/31/18 20:41 Albuterol (Duoneb) 3 ml NEB Q4R [facility] Stop: 09/01/18 00:00 Last Admin: 08/02/18 07:15 Dose: 3 ml Buspirone HCl (Buspar) 5 mg PO Q12 [facility] Stop: 08/31/18 20:59 Last Admin: 08/02/18 08:39 Dose: 5 mg Dextrose (Dextrose 50%) 25 - 50 ml IV UD PRN; Protocol PRN Reason: Hypoglycemia Protocol Stop: 08/31/18 22:27 Fexofenadine HCl (Nallely) 60 mg PO Q12H PRN PRN Reason: Allergy Symptoms Stop: 08/31/18 20:41 Folic Acid (Folvite) 1 mg PO DAILY [facility] Stop: 09/01/18 08:59 Last Admin: 08/02/18 08:39 Dose: 1 mg Furosemide (Lasix) 40 mg PO QAM [facility] Stop: 09/01/18 08:59 Last Admin: 08/02/18 08:39 Dose: 40 mg Gabapentin (Neurontin) 200 mg PO BID [facility] Stop: 08/31/18 20:59 Last Admin: 08/02/18 08:39 Dose: 200 mg Glucagon (Glucagen) 1 mg SQ UD PRN; Protocol PRN Reason: Hypoglycemia Protocol Stop: 08/31/18 22:27 Glucose (Dex4 Glucose) 4 - 8 tabs PO UD PRN; Protocol PRN Reason: Hypoglycemia Protocol Stop: 08/31/18 22:27 Glucose (Glucose 40%) 15 - 30 gm PO UD PRN; Protocol PRN Reason: Hypoglycemia Protocol Stop: 08/31/18 22:27 Hydroxyzine HCl (Vistaril) 25 mg PO BID PRN PRN Reason: Anxiety Stop: 08/31/18 21:25 Last Admin: 08/02/18 11:23 Dose: 25 mg Azithromycin 500 mg/ Dextrose 255 mls @ 125 mls/hr IV Q24H [facility] Stop: 08/09/18 00:00 Last Infusion: 08/02/18 02:52 Dose: Infused Ceftriaxone Sodium 1,000 mg/ (Dextrose) 60 mls @ 100 mls/hr IV Q24H [facility] Stop: 08/08/18 22:59 Last Infusion: 08/02/18 00:26 Dose: Infused Sodium Chloride (Nss 1000ml) 1,000 mls @ 80 mls/hr IV .[id number] [facility] Stop: 08/31/18 22:44 Last Admin: 08/01/18 23:39 Dose: 80 mls/hr Methylprednisolone 30 mg/ (Syringe) 0.48 mls @ 1.5 mls/min IV Q8H [facility] Stop: 09/01/18 05:59 Last Admin: 08/02/18 05:40 Dose: 1.5 mls/min Insulin Aspart (Novolog Flexpen) 0 units SC ACHS [facility] Stop: 09/01/18 07:29 Last Admin: 08/02/18 08:49 Dose: Not Given Insulin Glargine (Lantus Solostar Pen) 15 units SC BID [facility] Stop: 08/31/18 22:59 Last Admin: 08/02/18 08:40 Dose: 15 units Isosorbide Mononitrate (Imdur Extended Rel) 30 mg PO QAM [facility] Stop: 09/01/18 08:59 Last Admin: 08/02/18 08:39 Dose: 30 mg Levalbuterol HCl (Xopenex 1.25mg/3ml Neb) 1.25 mg NEB Q4H PRN PRN Reason: Shortness Of Breath Or Wheezing Stop: 08/31/18 22:27 Losartan Potassium (Cozaar) 25 mg PO DAILY [facility] Stop: 09/01/18 08:59 Last Admin: 08/02/18 08:39 Dose: 25 mg Magnesium Hydroxide (Milk Of Magnesia) 30 ml PO Q12H PRN PRN Reason: Constipation Stop: 08/31/18 22:27 Metoprolol Succinate (Toprol Xl) 25 mg PO DAILY [facility] Stop: 09/01/18 08:59 Last Admin: 08/02/18 08:39 Dose: 25 mg Miscellaneous (Carbohydrates For Hypoglycemia) 15 - 30 gm PO UD PRN PRN Reason: Hypoglycemia Treatment Stop: 08/31/18 22:27 Polyethylene Glycol (Miralax Powder Packet) 17 gm PO DAILY PRN PRN Reason: Constipation Stop: 08/31/18 22:27 Potassium Chloride (Klor-Con M20) 20 meq PO BID [facility] Stop: 08/31/18 20:59 Last Admin: 08/02/18 08:39 Dose: 20 meq Quetiapine Fumarate (Seroquel) 12.5 mg PO HS [facility] Stop: 09/01/18 20:59 Rivaroxaban (Xarelto) 20 mg PO PM [facility] Stop: 08/31/18 20:59 Last Admin: 08/01/18 23:37 Dose: 20 mg Venlafaxine HCl (Effexor Extended Release) 75 mg PO HS [facility] Stop: 08/31/18 20:59 Last Admin: 08/01/18 23:39 Dose: 75 mg Resident Activity Tracking Resident Involvement: Resident Care Provided Care Provided: Adult Hospital Medicine
[2018-08-02] MEDS: SODIUM CHLORIDE 0.9% 1000ML 1,000 ML IV SCH (14:23)
[2018-08-02] MEDS: QUETIAPINE FUMARATE 25 MG TABLET PO SCH (21:03)
[2018-08-02] MEDS: RIVAROXABAN 20 MG TAB PO SCH (21:08)
[2018-08-02] MEDS: VENLAFAXINE HCL XR 75 MG CAPXR PO SCH (21:11)
[2018-08-02] MEDS: cefTRIAXone SODIUM 1,000 MG in DEXTROSE 5% 50 ML IV SCH (23:41)
[2018-08-03] MEDS: AZITHROMYCIN 500 MG in DEXTROSE 5% 250 ML IV SCH ×2 (00:10→23:58)
[2018-08-03] MEDS: ALBUT/IPRATROP 3MG/0.5MG NEB 3 ML VIAL NEB SCH ×6 (04:10→23:03)
[2018-08-03] MEDS: SODIUM CHLORIDE 0.9% 1000ML 1,000 ML IV SCH ×2 (05:30→14:39)
[2018-08-03] MEDS: methylPREDNISolone 30 MG in SYRINGE 0 ML IV SCH ×3 (05:31→22:10)
[2018-08-03 07:17] LABS: Basophils # (auto) 0.01 K/uL (0-0.2); Basophils % (auto) 0.1 %; Hemoglobin 12.5 g/dL (12.0-16.0); Immature Granulocytes # (auto) 0.07 K/uL (0.00-0.02); Immature Granulocytes % (auto) 0.6 %; Lymphocytes % (auto) 10.3 %; Mean Corpuscular Hgb Conc 32.1 g/dL (32-36); Mean Corpuscular Volume 96.3 fL (80-100); Mean Platelet Volume 9.7 fL (7.4-10.4); Monocytes # (auto) 0.83 K/uL (0.11-0.59); Monocytes % (auto) 7.2 %; Neutrophils # (auto) 9.49 K/uL (1.4-6.5); Neutrophils % (auto) 81.8 %; Platelet Count 369 K/uL (130-400); RDW Coefficient of Variation 12.9 % (11.5-14.5); RDW Standard Deviation 44.9 fL (36.4-46.3); Red Blood Count 4.05 M/uL (4.2-5.4)
[2018-08-03 07:52] LABS: BUN Creatinine Ratio 31.2 (10-20); Calcium 8.7 mg/dl (8.5-10.1); Creatinine Clr Calc Pharmacy 64.2 ml/min; Est GFR (African American) 95.5; Est GFR (Non-African American) 82.4; Potassium 4.4 mmol/L (3.5-5.1)
[2018-08-03] MEDS: INSULIN GLARGINE SOLOSTAR 100 UNITS/ML 3 ML PEN SC SCH ×2 (09:18→21:28)
[2018-08-03] MEDS: ISOSORBIDE MONO EXTENDED REL 30 MG TABCR PO SCH (09:19)
[2018-08-03] MEDS: METOPROLOL SUCC 25MG EXT REL TAB PO SCH (09:19)
[2018-08-03] MEDS: GABAPENTIN 100 MG CAP PO SCH ×2 (09:19→21:42)
[2018-08-03] MEDS: LOSARTAN POTASSIUM 25 MG TAB PO SCH (09:19)
[2018-08-03] MEDS: FOLIC ACID 1 MG TAB PO SCH (09:19)
[2018-08-03] MEDS: POTASSIUM CHLORIDE 20 MEQ TABCR PO SCH ×2 (09:19→21:26)
[2018-08-03] MEDS: FUROSEMIDE 40 MG TAB PO SCH (09:19)
[2018-08-03] MEDS: INSULIN ASPART 100 UNITS/ML 3 ML PEN SC SCH ×4 (09:24→21:28)
--- NOTE | 2018-08-03 17:11 | Family Medicine Progress Note ---
Date of Service August 03, 2018 Assessment & Plan (1) COPD exacerbation: 83 y/o F with PMH DM, HTN, COPD, Anxiety, Pompe's presents with COPD exacerbation and found to have RLL Infiltrate on CXR. 1) Acute on chronic respiratory failure - ? sec to PNA/copd exacerbation - continue bipap /cpap support -Appears to be chronically retaining CO2. Today 39, 82 on admit - cont azith and ceftriaxone -solumedrol 30 TID -Duoneb q4sch, xopenex q4prn -PT/OT: recommend snf placement -moved off tele onto med/surg today 2) Delirium/hallucinations - improving - notes hallucinations. Delirium could be multifactorial 2/2 new hospital environment/medication side effect/UTI/PNA -supportive care -will cont monitor 3) Indwelling olsen present -UA: 2+ LE, WBCs, epithelial cells. Urine cx negative -Related to bed-bound status 4) Pompe/Acid maltase deficiency -Progressively worsening -Bed bound status -PT as above 5) DM -Well controlled per patient, on metformin -Placed in ISS for steroid coverage. Cont monitor BSGs 6) HTN -Continue home meds 7) Anxiety -Continue home meds DNR/DNI DVT Prophylaxis: Xarelto Dispo: Med/surg. Likely snf placement (Daughter in law prefers [facility]). Pt is hospice living at home Supervising Physician Co-Signing Physician Notes Resident Physician Supervision Note: I independently interviewed and examined the patient and verified the hawkins history and physical, reviewed labs and image studies, discussed the case with the resident Dr. Bhatt and agree with the findings and care plan. Subjective 83 y/o F found in bed this AM in mild distress. Pt notes her breathing has improved, still on CPAP. Pt not able to ambulate, is going to work with PT. No issues with PO intake. notes pt has been having hallucinations. Pt has no other acute concerns or complaints. Physical Exam 2 Vital Signs (Past 24 Hours): Last Vital Signs Temp 36.5 C 08/03/18 16:00 Pulse 45 L 08/03/18 16:00 Resp 19 08/03/18 16:00 BP 148/77 H 08/03/18 16:00 Pulse Ox 97 08/03/18 16:00 Constitutional: WD/WN, vitals as above + obese Eyes: PERRL, conjunctivae normal, anicteric sclerae ENMT: external ear and nose normal, oropharynx normal Respiratory: on CPAP. Decreased breath sounds auscultated Cardiovascular: RRR, no murmur, no edema Gastrointestinal (Abdomen): normal bowel sounds, soft, nontender, no hepatosplenomegaly Skin: no rashes, warm and dry Psychiatric: Mood: + anxious mood Results & Data Laboratory Results Laboratory Results - last 24 hr 08/02/18 08/03/18 08/03/18 20:34 06:42 06:42 WBC 11.60 H RBC 4.05 L Hgb 12.5 Hct 39.0 MCV 96.3 MCH 30.9 MCHC 32.1 RDW Std Deviation 44.9 RDW Coeff of Reina 12.9 Plt Count 369 MPV 9.7 Immature Gran % (Auto) 0.6 Neut % (Auto) 81.8 Lymph % (Auto) 10.3 [place] % (Auto) 7.2 Eos % (Auto) 0.0 Baso % (Auto) 0.1 Immature Gran # (Auto) 0.07 H Neut # (Auto) 9.49 H Lymph # (Auto) 1.20 [place] # (Auto) 0.83 H Eos # (Auto) 0.00 Baso # (Auto) 0.01 Sodium 136 Potassium 4.4 Chloride 95 L Carbon Dioxide 39 H Anion Gap 2.0 L BUN 21 H Creatinine 0.67 Est Cr Clr Drug Dosing 64.2 Est GFR ( Amer) 95.5 Est GFR (Non-Af Amer) 82.4 BUN/Creatinine Ratio 31.2 H Glucose 118 H POC Glucose 131 H Calcium 8.7 08/03/18 08/03/18 08/03/18 07:10 07:42 11:16 WBC RBC Hgb Hct MCV MCH MCHC RDW Std Deviation RDW Coeff of Reina Plt Count MPV Immature Gran % (Auto) Neut % (Auto) Lymph % (Auto) [place] % (Auto) Eos % (Auto) Baso % (Auto) Immature Gran # (Auto) Neut # (Auto) Lymph # (Auto) [place] # (Auto) Eos # (Auto) Baso # (Auto) Sodium Potassium Chloride Carbon Dioxide Anion Gap BUN Creatinine Est Cr Clr Drug Dosing Est GFR ( Amer) Est GFR (Non-Af Amer) BUN/Creatinine Ratio Glucose POC Glucose 136 H 117 H 176 H Calcium 08/03/18 16:40 WBC RBC Hgb Hct MCV MCH MCHC RDW Std Deviation RDW Coeff of Reina Plt Count MPV Immature Gran % (Auto) Neut % (Auto) Lymph % (Auto) [place] % (Auto) Eos % (Auto) Baso % (Auto) Immature Gran # (Auto) Neut # (Auto) Lymph # (Auto) [place] # (Auto) Eos # (Auto) Baso # (Auto) Sodium Potassium Chloride Carbon Dioxide Anion Gap BUN Creatinine Est Cr Clr Drug Dosing Est GFR ( Amer) Est GFR (Non-Af Amer) BUN/Creatinine Ratio Glucose POC Glucose 128 H Calcium Medications Administered Current Inpatient Medications Acetaminophen (Tylenol) 650 mg PO Q4H PRN PRN Reason: Pain or Fever Stop: 08/31/18 22:27 Al Hydrox/Mg Hydrox/Simethicone (Maalox) 15 ml PO Q4H PRN PRN Reason: Dyspepsia Stop: 08/31/18 22:27 Albuterol (Ventolin Hfa) 2 puffs INH Q4H PRN PRN Reason: Shortness Of Breath Or Wheezing Stop: 08/31/18 20:41 Albuterol (Duoneb) 3 ml NEB Q4R [facility] Stop: 09/01/18 00:00 Last Admin: 08/03/18 15:03 Dose: 3 ml Buspirone HCl (Buspar) 5 mg PO Q12 [facility] Stop: 08/31/18 20:59 Last Admin: 08/03/18 09:20 Dose: 5 mg Dextrose (Dextrose 50%) 25 - 50 ml IV UD PRN; Protocol PRN Reason: Hypoglycemia Protocol Stop: 08/31/18 22:27 Fexofenadine HCl (Nallely) 60 mg PO Q12H PRN PRN Reason: Allergy Symptoms Stop: 08/31/18 20:41 Folic Acid (Folvite) 1 mg PO DAILY [facility] Stop: 09/01/18 08:59 Last Admin: 08/03/18 09:19 Dose: 1 mg Furosemide (Lasix) 40 mg PO QAM [facility] Stop: 09/01/18 08:59 Last Admin: 08/03/18 09:19 Dose: 40 mg Gabapentin (Neurontin) 200 mg PO BID [facility] Stop: 08/31/18 20:59 Last Admin: 08/03/18 09:19 Dose: 200 mg Glucagon (Glucagen) 1 mg SQ UD PRN; Protocol PRN Reason: Hypoglycemia Protocol Stop: 08/31/18 22:27 Glucose (Dex4 Glucose) 4 - 8 tabs PO UD PRN; Protocol PRN Reason: Hypoglycemia Protocol Stop: 08/31/18 22:27 Glucose (Glucose 40%) 15 - 30 gm PO UD PRN; Protocol PRN Reason: Hypoglycemia Protocol Stop: 08/31/18 22:27 Hydroxyzine HCl (Vistaril) 25 mg PO BID PRN PRN Reason: Anxiety Stop: 08/31/18 21:25 Last Admin: 08/03/18 12:10 Dose: 25 mg Azithromycin 500 mg/ Dextrose 255 mls @ 125 mls/hr IV Q24H [facility] Stop: 08/09/18 00:00 Last Infusion: 08/03/18 02:20 Dose: Infused Ceftriaxone Sodium 1,000 mg/ (Dextrose) 60 mls @ 100 mls/hr IV Q24H [facility] Stop: 08/08/18 22:59 Last Infusion: 08/03/18 00:15 Dose: Infused Methylprednisolone 30 mg/ (Syringe) 0.48 mls @ 1.5 mls/min IV Q8H [facility] Stop: 09/01/18 05:59 Last Admin: 08/03/18 13:15 Dose: 1.5 mls/min Insulin Aspart (Novolog Flexpen) 0 units SC ACHS [facility] Stop: 09/01/18 07:29 Last Admin: 08/03/18 13:12 Dose: 3 units Insulin Glargine (Lantus Solostar Pen) 15 units SC BID [facility] Stop: 08/31/18 22:59 Last Admin: 08/03/18 09:18 Dose: 15 units Isosorbide Mononitrate (Imdur Extended Rel) 30 mg PO QAM [facility] Stop: 09/01/18 08:59 Last Admin: 08/03/18 09:19 Dose: 30 mg Levalbuterol HCl (Xopenex 1.25mg/3ml Neb) 1.25 mg NEB Q4H PRN PRN Reason: Shortness Of Breath Or Wheezing Stop: 08/31/18 22:27 Losartan Potassium (Cozaar) 25 mg PO DAILY [facility] Stop: 09/01/18 08:59 Last Admin: 08/03/18 09:19 Dose: 25 mg Magnesium Hydroxide (Milk Of Magnesia) 30 ml PO Q12H PRN PRN Reason: Constipation Stop: 08/31/18 22:27 Metoprolol Succinate (Toprol Xl) 25 mg PO DAILY [facility] Stop: 09/01/18 08:59 Last Admin: 08/03/18 09:19 Dose: 25 mg Miscellaneous (Carbohydrates For Hypoglycemia) 15 - 30 gm PO UD PRN PRN Reason: Hypoglycemia Treatment Stop: 08/31/18 22:27 Polyethylene Glycol (Miralax Powder Packet) 17 gm PO DAILY PRN PRN Reason: Constipation Stop: 08/31/18 22:27 Potassium Chloride (Klor-Con M20) 20 meq PO BID [facility] Stop: 08/31/18 20:59 Last Admin: 08/03/18 09:19 Dose: 20 meq Quetiapine Fumarate (Seroquel) 12.5 mg PO HS [facility] Stop: 09/01/18 20:59 Last Admin: 08/02/18 21:03 Dose: 12.5 mg Rivaroxaban (Xarelto) 20 mg PO PM [facility] Stop: 08/31/18 20:59 Last Admin: 08/02/18 21:08 Dose: 20 mg Venlafaxine HCl (Effexor Extended Release) 75 mg PO HS [facility] Stop: 08/31/18 20:59 Last Admin: 08/02/18 21:11 Dose: 75 mg Resident Activity Tracking Resident Involvement: Resident Care Provided Care Provided: Adult Hospital Medicine
[2018-08-03] MEDS: QUETIAPINE FUMARATE 25 MG TABLET PO SCH (21:24)
[2018-08-03] MEDS: RIVAROXABAN 20 MG TAB PO SCH (21:24)
[2018-08-03] MEDS: VENLAFAXINE HCL XR 75 MG CAPXR PO SCH (21:25)
[2018-08-03] MEDS: cefTRIAXone SODIUM 1,000 MG in DEXTROSE 5% 50 ML IV SCH (23:26)
[2018-08-04] MEDS: ALBUT/IPRATROP 3MG/0.5MG NEB 3 ML VIAL NEB SCH ×6 (03:13→23:44)
[2018-08-04 06:09] LABS: Hematocrit (blood only) 38.8 % (37-47); Hemoglobin 12.1 g/dL (12.0-16.0); Immature Granulocytes # (auto) 0.04 K/uL (0.00-0.02); Immature Granulocytes % (auto) 0.3 %; Lymphocytes # (auto) 1.03 K/uL (1.2-3.4); Lymphocytes % (auto) 8.8 %; Mean Corpuscular Hgb Conc 31.2 g/dL (32-36); Mean Corpuscular Volume 98.2 fL (80-100); Mean Platelet Volume 9.7 fL (7.4-10.4); Monocytes # (auto) 0.79 K/uL (0.11-0.59); Monocytes % (auto) 6.7 %; Neutrophils # (auto) 9.89 K/uL (1.4-6.5); Neutrophils % (auto) 84.2 %; Platelet Count 366 K/uL (130-400); RDW Coefficient of Variation 13.1 % (11.5-14.5); RDW Standard Deviation 47.4 fL (36.4-46.3); Red Blood Count 3.95 M/uL (4.2-5.4); White Blood Count 11.75 K/uL (4.8-10.8)
[2018-08-04] MEDS: methylPREDNISolone 30 MG in SYRINGE 0 ML IV SCH ×3 (06:35→22:08)
[2018-08-04 06:52] LABS: Albumin Globulin Ratio 0.8 (0.9-2); Albumin Level 3.2 gm/dl (3.4-5.0); BUN Creatinine Ratio 35.8 (10-20); Bilirubin,Total 0.2 mg/dl (0.2-1); Calcium 8.9 mg/dl (8.5-10.1); Creatinine Clr Calc Pharmacy 58.2 ml/min; Est GFR (African American) 88.1; Globulin 4.2 gm/dl (2.5-4.0); Potassium 4.7 mmol/L (3.5-5.1); Total Protein 7.4 gm/dl (6.4-8.2)
[2018-08-04] MEDS: FUROSEMIDE 40 MG TAB PO SCH (08:47)
[2018-08-04] MEDS: GABAPENTIN 100 MG CAP PO SCH ×2 (08:47→20:40)
[2018-08-04] MEDS: LOSARTAN POTASSIUM 25 MG TAB PO SCH (08:47)
[2018-08-04] MEDS: FOLIC ACID 1 MG TAB PO SCH (08:49)
[2018-08-04] MEDS: POTASSIUM CHLORIDE 20 MEQ TABCR PO SCH ×2 (08:49→20:41)
[2018-08-04] MEDS: METOPROLOL SUCC 25MG EXT REL TAB PO SCH (08:49)
[2018-08-04] MEDS: ISOSORBIDE MONO EXTENDED REL 30 MG TABCR PO SCH (08:49)
[2018-08-04] MEDS: MAGNESIUM HYDROXIDE SUSP 30 ML UDC PO PRN (08:54)
[2018-08-04] MEDS: INSULIN GLARGINE SOLOSTAR 100 UNITS/ML 3 ML PEN SC SCH ×2 (09:33→20:43)
[2018-08-04] MEDS: INSULIN ASPART 100 UNITS/ML 3 ML PEN SC SCH ×4 (09:34→20:42)
--- NOTE | 2018-08-04 17:53 | Family Medicine Progress Note ---
Date of Service August 04, 2018 Assessment & Plan (1) Pneumonia: 83 y/o F with PMH DM, HTN, COPD, Anxiety, Pompe's presents with COPD exacerbation and found to have RLL Infiltrate on CXR. 1) Acute on chronic respiratory failure - ? sec to PNA/copd exacerbation - continue bipap /cpap support -Appears to be chronically retaining CO2. Today 38, 82 on admit - cont azith and ceftriaxone -solumedrol 30 TID -Duoneb q4sch, xopenex q4prn -PT/OT: recommend snf placement 2) Delirium/hallucinations - improving - notes hallucinations. Delirium could be multifactorial 2/2 new hospital environment/medication side effect/UTI/PNA -supportive care -will cont monitor 3) Indwelling olsen present -UA: 2+ LE, WBCs, epithelial cells. Urine cx negative -Related to bed-bound status 4) Pompe/Acid maltase deficiency -Progressively worsening -Bed bound status -PT as above 5) DM -Well controlled per patient, on metformin -Placed in ISS for steroid coverage. Cont monitor BSGs 6) HTN -Continue home meds 7) Anxiety -Continue home meds DNR/DNI DVT Prophylaxis: Xarelto Dispo: Med/surg. Likely snf placement (Daughter in law prefers [facility]). Pt is hospice living at home Subjective 83 y/o F found in bed this AM in mild distress. Pt notes her breathing has improved, still on BIPAP. Pt has gotten her own BIPAP that she uses at home and notes it is easier to breath now. Pt not able to ambulate. No issues with PO intake. notes pt hallucinations have improved. Pt has no other acute concerns or complaints. Physical Exam 2 Vital Signs (Past 24 Hours): Last Vital Signs Temp 36.8 C 08/04/18 15:11 Pulse 75 08/04/18 15:55 Resp 22 08/04/18 15:55 BP 157/67 H 08/04/18 17:05 Pulse Ox 94 08/04/18 15:55 Constitutional: WD/WN, vitals as above + obese Eyes: PERRL, conjunctivae normal, anicteric sclerae ENMT: external ear and nose normal, oropharynx normal Respiratory: on BIPAP. Decreased breath sounds auscultated Cardiovascular: RRR, no murmur, no edema Gastrointestinal (Abdomen): normal bowel sounds, soft, nontender, no hepatosplenomegaly Skin: no rashes, warm and dry Psychiatric: Mood: + anxious mood Results & Data Laboratory Results Laboratory Results - last 24 hr 08/03/18 08/04/18 08/04/18 20:39 05:53 05:53 WBC 11.75 H RBC 3.95 L Hgb 12.1 Hct 38.8 MCV 98.2 MCH 30.6 MCHC 31.2 L RDW Std Deviation 47.4 H RDW Coeff of Reina 13.1 Plt Count 366 MPV 9.7 Immature Gran % (Auto) 0.3 Neut % (Auto) 84.2 Lymph % (Auto) 8.8 [place] % (Auto) 6.7 Eos % (Auto) 0.0 Baso % (Auto) 0.0 Immature Gran # (Auto) 0.04 H Neut # (Auto) 9.89 H Lymph # (Auto) 1.03 L [place] # (Auto) 0.79 H Eos # (Auto) 0.00 Baso # (Auto) 0.00 Sodium 138 Potassium 4.7 Chloride 98 Carbon Dioxide 38 H Anion Gap 2.0 L BUN 27 H Creatinine 0.74 Est Cr Clr Drug Dosing 58.2 Est GFR ( Amer) 88.1 Est GFR (Non-Af Amer) 76.0 BUN/Creatinine Ratio 35.8 H Glucose 125 H POC Glucose 143 H Calcium 8.9 Total Bilirubin 0.2 AST 61 H ALT 127 H Alkaline Phosphatase 109 Total Protein 7.4 Albumin 3.2 L Globulin 4.2 H Albumin/Globulin Ratio 0.8 L 08/04/18 08/04/18 08/04/18 07:38 11:16 16:51 WBC RBC Hgb Hct MCV MCH MCHC RDW Std Deviation RDW Coeff of Reina Plt Count MPV Immature Gran % (Auto) Neut % (Auto) Lymph % (Auto) [place] % (Auto) Eos % (Auto) Baso % (Auto) Immature Gran # (Auto) Neut # (Auto) Lymph # (Auto) [place] # (Auto) Eos # (Auto) Baso # (Auto) Sodium Potassium Chloride Carbon Dioxide Anion Gap BUN Creatinine Est Cr Clr Drug Dosing Est GFR ( Amer) Est GFR (Non-Af Amer) BUN/Creatinine Ratio Glucose POC Glucose 116 H 149 H 135 H Calcium Total Bilirubin AST ALT Alkaline Phosphatase Total Protein Albumin Globulin Albumin/Globulin Ratio Medications Administered Current Inpatient Medications Acetaminophen (Tylenol) 650 mg PO Q4H PRN PRN Reason: Pain or Fever Stop: 08/31/18 22:27 Al Hydrox/Mg Hydrox/Simethicone (Maalox) 15 ml PO Q4H PRN PRN Reason: Dyspepsia Stop: 08/31/18 22:27 Albuterol (Ventolin Hfa) 2 puffs INH Q4H PRN PRN Reason: Shortness Of Breath Or Wheezing Stop: 08/31/18 20:41 Albuterol (Duoneb) 3 ml NEB Q4R SHAYNE Stop: 09/01/18 00:00 Last Admin: 08/04/18 15:35 Dose: 3 ml Buspirone HCl (Buspar) 5 mg PO Q12 SHAYNE Stop: 08/31/18 20:59 Last Admin: 08/04/18 08:50 Dose: 5 mg Dextrose (Dextrose 50%) 25 - 50 ml IV UD PRN; Protocol PRN Reason: Hypoglycemia Protocol Stop: 08/31/18 22:27 Fexofenadine HCl (Nallely) 60 mg PO Q12H PRN PRN Reason: Allergy Symptoms Stop: 08/31/18 20:41 Folic Acid (Folvite) 1 mg PO DAILY [facility] Stop: 09/01/18 08:59 Last Admin: 08/04/18 08:49 Dose: 1 mg Furosemide (Lasix) 40 mg PO QAM SHAYNE Stop: 09/01/18 08:59 Last Admin: 08/04/18 08:47 Dose: 40 mg Gabapentin (Neurontin) 200 mg PO BID SHAYNE Stop: 08/31/18 20:59 Last Admin: 08/04/18 08:47 Dose: 200 mg Glucagon (Glucagen) 1 mg SQ UD PRN; Protocol PRN Reason: Hypoglycemia Protocol Stop: 08/31/18 22:27 Glucose (Dex4 Glucose) 4 - 8 tabs PO UD PRN; Protocol PRN Reason: Hypoglycemia Protocol Stop: 08/31/18 22:27 Glucose (Glucose 40%) 15 - 30 gm PO UD PRN; Protocol PRN Reason: Hypoglycemia Protocol Stop: 08/31/18 22:27 Hydroxyzine HCl (Vistaril) 25 mg PO TID PRN PRN Reason: Anxiety Stop: 08/31/18 21:25 Last Admin: 02/15/19 13:27 Dose: 25 mg Azithromycin 500 mg/ Dextrose 255 mls @ 125 mls/hr IV Q24H [facility] Stop: 08/09/18 00:00 Last Infusion: 08/04/18 02:02 Dose: Infused Ceftriaxone Sodium 1,000 mg/ (Dextrose) 60 mls @ 100 mls/hr IV Q24H [facility]AYNE Stop: 08/08/18 22:59 Last Infusion: 08/04/18 00:02 Dose: Infused Methylprednisolone 30 mg/ (Syringe) 0.48 mls @ 1.5 mls/min IV Q8H SHAYNE Stop: 09/01/18 05:59 Last Admin: 08/04/18 12:56 Dose: 1.5 mls/min Insulin Aspart (Novolog Flexpen) 0 units SC ACHS [facility] Stop: 09/01/18 07:29 Last Admin: 08/04/18 12:51 Dose: 7 units Insulin Glargine (Lantus Solostar Pen) 15 units SC BID [facility] Stop: 08/31/18 22:59 Last Admin: 08/04/18 09:33 Dose: 15 units Isosorbide Mononitrate (Imdur Extended Rel) 30 mg PO QAM [facility] Stop: 09/01/18 08:59 Last Admin: 08/04/18 08:49 Dose: 30 mg Levalbuterol HCl (Xopenex 1.25mg/3ml Neb) 1.25 mg NEB Q4H PRN PRN Reason: Shortness Of Breath Or Wheezing Stop: 08/31/18 22:27 Losartan Potassium (Cozaar) 25 mg PO DAILY [facility] Stop: 09/01/18 08:59 Last Admin: 08/04/18 08:47 Dose: 25 mg Magnesium Hydroxide (Milk Of Magnesia) 30 ml PO Q12H PRN PRN Reason: Constipation Stop: 08/31/18 22:27 Last Admin: 08/04/18 08:54 Dose: 30 ml Metoprolol Succinate (Toprol Xl) 25 mg PO DAILY COUNT [facility] Stop: 09/01/18 08:59 Last Admin: 08/04/18 08:49 Dose: 25 mg Miscellaneous (Carbohydrates For Hypoglycemia) 15 - 30 gm PO UD PRN PRN Reason: Hypoglycemia Treatment Stop: 08/31/18 22:27 Polyethylene Glycol (Miralax Powder Packet) 17 gm PO DAILY PRN PRN Reason: Constipation Stop: 08/31/18 22:27 Potassium Chloride (Klor-Con M20) 20 meq PO BID [facility] Stop: 08/31/18 20:59 Last Admin: 08/04/18 08:49 Dose: 20 meq Quetiapine Fumarate (Seroquel) 12.5 mg PO HS [facility] Stop: 09/01/18 20:59 Last Admin: 08/03/18 21:24 Dose: 12.5 mg Rivaroxaban (Xarelto) 20 mg PO PM COUNT [facility]CLUD[facility] Stop: 08/31/18 20:59 Last Admin: 08/03/18 21:24 Dose: 20 mg Venlafaxine HCl (Effexor Extended Release) 75 mg PO [facility] Stop: 08/31/18 20:59 Last Admin: 08/03/18 21:25 Dose: 75 mg Resident Activity Tracking Resident Involvement: Resident Care Provided Care Provided: [facility] _ (1) Pneumonia Aspiration pneumonia type: Laterality: unspecified laterality Lung location : unspecified part of lung Pneumonia type: due to unspecified organism Qualified Code(s): J18.9 - Pneumonia, unspecified organism
[2018-08-04] MEDS: RIVAROXABAN 20 MG TAB PO SCH (20:38)
[2018-08-04] MEDS: QUETIAPINE FUMARATE 25 MG TABLET PO SCH (20:39)
[2018-08-04] MEDS: VENLAFAXINE HCL XR 75 MG CAPXR PO SCH (20:41)
[2018-08-04] MEDS: cefTRIAXone SODIUM 1,000 MG in DEXTROSE 5% 50 ML IV SCH (22:45)
[2018-08-05] MEDS: ALBUT/IPRATROP 3MG/0.5MG NEB 3 ML VIAL NEB SCH ×6 (04:47→23:21)
[2018-08-05] MEDS: methylPREDNISolone 30 MG in SYRINGE 0 ML IV SCH ×3 (05:49→21:34)
[2018-08-05 06:27] LABS: Basophils # (auto) 0.01 K/uL (0-0.2); Basophils % (auto) 0.1 %; Hematocrit (blood only) 39.7 % (37-47); Hemoglobin 12.1 g/dL (12.0-16.0); Lymphocytes # (auto) 1.09 K/uL (1.2-3.4); Lymphocytes % (auto) 10.5 %; Mean Corpuscular Hgb Conc 30.5 g/dL (32-36); Mean Corpuscular Volume 99.7 fL (80-100); Mean Platelet Volume 9.5 fL (7.4-10.4); Monocytes # (auto) 0.89 K/uL (0.11-0.59); Monocytes % (auto) 8.6 %; Neutrophils # (auto) 8.25 K/uL (1.4-6.5); Neutrophils % (auto) 79.8 %; Platelet Count 351 K/uL (130-400); RDW Coefficient of Variation 13.2 % (11.5-14.5); RDW Standard Deviation 48.1 fL (36.4-46.3); Red Blood Count 3.98 M/uL (4.2-5.4); White Blood Count 10.34 K/uL (4.8-10.8)
[2018-08-05 06:59] LABS: Albumin Globulin Ratio 0.8 (0.9-2); Albumin Level 3.2 gm/dl (3.4-5.0); BUN Creatinine Ratio 51.3 (10-20); Bilirubin,Total 0.2 mg/dl (0.2-1); Calcium 8.8 mg/dl (8.5-10.1); Creatinine Clr Calc Pharmacy 64.2 ml/min; Est GFR (African American) 95.5; Est GFR (Non-African American) 82.4; Globulin 4.2 gm/dl (2.5-4.0); Total Protein 7.4 gm/dl (6.4-8.2)
[2018-08-05] MEDS: METOPROLOL SUCC 25MG EXT REL TAB PO SCH (08:41)
[2018-08-05] MEDS: ISOSORBIDE MONO EXTENDED REL 30 MG TABCR PO SCH (08:41)
[2018-08-05] MEDS: FOLIC ACID 1 MG TAB PO SCH (08:42)
[2018-08-05] MEDS: LOSARTAN POTASSIUM 25 MG TAB PO SCH (08:42)
[2018-08-05] MEDS: GABAPENTIN 100 MG CAP PO SCH ×2 (08:42→21:22)
[2018-08-05] MEDS: FUROSEMIDE 40 MG TAB PO SCH (08:42)
[2018-08-05] MEDS: POTASSIUM CHLORIDE 20 MEQ TABCR PO SCH ×2 (08:43→21:21)
[2018-08-05] MEDS: INSULIN ASPART 100 UNITS/ML 3 ML PEN SC SCH ×4 (08:53→21:23)
[2018-08-05] MEDS: INSULIN GLARGINE SOLOSTAR 100 UNITS/ML 3 ML PEN SC SCH ×2 (08:54→21:23)
--- NOTE | 2018-08-05 13:37 | Family Medicine Progress Note ---
Date of Service August 05, 2018 Assessment & Plan (1) Pneumonia: 83 y/o F with PMH DM, HTN, COPD, Anxiety, Pompe's presents with COPD exacerbation and found to have RLL Infiltrate on CXR. 1) Acute on chronic respiratory failure - ? sec to PNA/copd exacerbation - continue bipap /cpap support -Appears to be chronically retaining CO2. Today 39, 82 on admit - cont azith and ceftriaxone -solumedrol 30 TID - wean in am -Duoneb q4sch, xopenex q4prn -PT/OT: recommend snf placement 2) Delirium/hallucinations - improving - notes hallucinations. Delirium could be multifactorial 2/2 new hospital environment/medication side effect/UTI/PNA -supportive care -will cont monitor 3) Indwelling olsen present -UA: 2+ LE, WBCs, epithelial cells. Urine cx negative -Related to bed-bound status 4) Pompe/Acid maltase deficiency -Progressively worsening -Bed bound status -PT as above 5) DM -Well controlled per patient, on metformin -Placed in ISS for steroid coverage. Cont monitor BSGs 6) HTN -Continue home meds 7) Anxiety -Continue home meds -Has been getting very anxious here. Vistaril dose increased to TID. oversedation from vistaril likely contributes some to CO2 retension. Follow. DNR/DNI DVT Prophylaxis: Xarelto Dispo: Med/surg. Likely snf placement (Daughter in law prefers [facility]). Pt is hospice living at home Supervising Physician Co-Signing Physician Notes Resident Physician Supervision Note: I independently interviewed and examined the patient and verified the hawkins history and physical, reviewed labs and image studies, discussed the case with the resident Dr. Bhatt and agree with the findings and care plan. Subjective 83 y/o F found in bed this AM in mild distress. Pt notes her breathing has improved, still on BIPAP. Pt has gotten her own BIPAP that she uses at home and notes it is easier to breath now. Pt not able to ambulate. No issues with PO intake. notes pt hallucinations have improved. Pt has no other acute concerns or complaints. Physical Exam 2 Vital Signs (Past 24 Hours): Last Vital Signs Temp 36.6 C 08/05/18 07:36 Pulse 80 08/05/18 11:57 Resp 20 08/05/18 11:24 BP 116/67 08/05/18 11:57 Pulse Ox 97 08/05/18 11:24 Constitutional: WD/WN, vitals as above + obese Eyes: PERRL, conjunctivae normal, anicteric sclerae ENMT: external ear and nose normal, oropharynx normal Respiratory: on BIPAP, Anterior mildly decreased but CTAB. Posterior not able to be auscultated 2/2 pt not being able to sit up Cardiovascular: RRR, no murmur, no edema Gastrointestinal (Abdomen): normal bowel sounds, soft, nontender, no hepatosplenomegaly Skin: no rashes, warm and dry Psychiatric: Mood: + anxious mood Results & Data Laboratory Results Laboratory Results - last 24 hr 08/04/18 08/04/18 08/05/18 16:51 20:28 05:58 WBC 10.34 RBC 3.98 L Hgb 12.1 Hct 39.7 MCV 99.7 MCH 30.4 MCHC 30.5 L RDW Std Deviation 48.1 H RDW Coeff of Reina 13.2 Plt Count 351 MPV 9.5 Immature Gran % (Auto) 1.0 Neut % (Auto) 79.8 Lymph % (Auto) 10.5 [place] % (Auto) 8.6 Eos % (Auto) 0.0 Baso % (Auto) 0.1 Immature Gran # (Auto) 0.10 H Neut # (Auto) 8.25 H Lymph # (Auto) 1.09 L [place] # (Auto) 0.89 H Eos # (Auto) 0.00 Baso # (Auto) 0.01 Sodium Potassium Chloride Carbon Dioxide Anion Gap BUN Creatinine Est Cr Clr Drug Dosing Est GFR ( Amer) Est GFR (Non-Af Amer) BUN/Creatinine Ratio Glucose POC Glucose 135 H 181 H Calcium Total Bilirubin AST ALT Alkaline Phosphatase Total Protein Albumin Globulin Albumin/Globulin Ratio 08/05/18 08/05/18 08/05/18 05:58 07:49 11:38 WBC RBC Hgb Hct MCV MCH MCHC RDW Std Deviation RDW Coeff of Reina Plt Count MPV Immature Gran % (Auto) Neut % (Auto) Lymph % (Auto) [place] % (Auto) Eos % (Auto) Baso % (Auto) Immature Gran # (Auto) Neut # (Auto) Lymph # (Auto) [place] # (Auto) Eos # (Auto) Baso # (Auto) Sodium 140 Potassium 5.0 Chloride 101 Carbon Dioxide 39 H Anion Gap 0 L BUN 34 H Creatinine 0.67 Est Cr Clr Drug Dosing 64.2 Est GFR ( Amer) 95.5 Est GFR (Non-Af Amer) 82.4 BUN/Creatinine Ratio 51.3 H Glucose 156 H POC Glucose 129 H 153 H Calcium 8.8 Total Bilirubin 0.2 AST 37 ALT 102 H Alkaline Phosphatase 102 Total Protein 7.4 Albumin 3.2 L Globulin 4.2 H Albumin/Globulin Ratio 0.8 L Medications Administered Current Inpatient Medications Acetaminophen (Tylenol) 650 mg PO Q4H PRN PRN Reason: Pain or Fever Stop: 08/31/18 22:27 Al Hydrox/Mg Hydrox/Simethicone (Maalox) 15 ml PO Q4H PRN PRN Reason: Dyspepsia Stop: 08/31/18 22:27 Albuterol (Ventolin Hfa) 2 puffs INH Q4H PRN PRN Reason: Shortness Of Breath Or Wheezing Stop: 08/31/18 20:41 Albuterol (Duoneb) 3 ml NEB Q4R SHAYNE Stop: 09/01/18 00:00 Last Admin: 08/05/18 11:18 Dose: 3 ml Buspirone HCl (Buspar) 5 mg PO Q12 SHAYNE Stop: 08/31/18 20:59 Last Admin: 08/05/18 08:41 Dose: 5 mg Dextrose (Dextrose 50%) 25 - 50 ml IV UD PRN; Protocol PRN Reason: Hypoglycemia Protocol Stop: 08/31/18 22:27 Fexofenadine HCl (Nallely) 60 mg PO Q12H PRN PRN Reason: Allergy Symptoms Stop: 08/31/18 20:41 Folic Acid (Folvite) 1 mg PO DAILY SHAYEN Stop: 09/01/18 08:59 Last Admin: 08/05/18 08:42 Dose: 1 mg Furosemide (Lasix) 40 mg PO QAM SHAYNE Stop: 09/01/18 08:59 Last Admin: 08/05/18 08:42 Dose: 40 mg Gabapentin (Neurontin) 200 mg PO BID SHAYNE Stop: 08/31/18 20:59 Last Admin: 08/05/18 08:42 Dose: 200 mg Glucagon (Glucagen) 1 mg SQ UD PRN; Protocol PRN Reason: Hypoglycemia Protocol Stop: 08/31/18 22:27 Glucose (Dex4 Glucose) 4 - 8 tabs PO UD PRN; Protocol PRN Reason: Hypoglycemia Protocol Stop: 08/31/18 22:27 Glucose (Glucose 40%) 15 - 30 gm PO UD PRN; Protocol PRN Reason: Hypoglycemia Protocol Stop: 08/31/18 22:27 Hydroxyzine HCl (Vistaril) 25 mg PO TID PRN PRN Reason: Anxiety Stop: 08/31/18 21:25 Last Admin: 08/05/18 09:00 Dose: 25 mg Azithromycin 500 mg/ Dextrose 255 mls @ 125 mls/hr IV Q24H SHAYNE Stop: 08/09/18 00:00 Last Infusion: 08/05/18 02:00 Dose: 0 mls/hr Ceftriaxone Sodium 1,000 mg/ (Dextrose) 60 mls @ 100 mls/hr IV Q24H SHAYNE Stop: 08/08/18 22:59 Last Infusion: 08/05/18 03:37 Dose: Infused Methylprednisolone 30 mg/ (Syringe) 0.48 mls @ 1.5 mls/min IV Q8H [facility]AYNE Stop: 09/01/18 05:59 Last Admin: 08/05/18 05:49 Dose: 1.5 mls/min Insulin Aspart (Novolog Flexpen) 0 units SC ACHS [facility] Stop: 09/01/18 07:29 Last Admin: 08/05/18 08:53 Dose: 6 units Insulin Glargine (Lantus Solostar Pen) 15 units SC BID [facility] Stop: 08/31/18 22:59 Last Admin: 08/05/18 08:54 Dose: 15 units Isosorbide Mononitrate (Imdur Extended Rel) 30 mg PO QAM SHAYNE Stop: 09/01/18 08:59 Last Admin: 08/05/18 08:41 Dose: 30 mg Levalbuterol HCl (Xopenex 1.25mg/3ml Neb) 1.25 mg NEB Q4H PRN PRN Reason: Shortness Of Breath Or Wheezing Stop: 08/31/18 22:27 Losartan Potassium (Cozaar) 25 mg PO DAILY [facility] Stop: 09/01/18 08:59 Last Admin: 08/05/18 08:42 Dose: 25 mg Magnesium Hydroxide (Milk Of Magnesia) 30 ml PO Q12H PRN PRN Reason: Constipation Stop: 08/31/18 22:27 Last Admin: 08/04/18 08:54 Dose: 30 ml Metoprolol Succinate (Toprol Xl) 25 mg PO DAILY [facility] Stop: 09/01/18 08:59 Last Admin: 08/05/18 08:41 Dose: 25 mg Miscellaneous (Carbohydrates For Hypoglycemia) 15 - 30 gm PO UD PRN PRN Reason: Hypoglycemia Treatment Stop: 08/31/18 22:27 Polyethylene Glycol (Miralax Powder Packet) 17 gm PO DAILY PRN PRN Reason: Constipation Stop: 08/31/18 22:27 Potassium Chloride (Klor-Con M20) 20 meq PO BID [facility] Stop: 08/31/18 20:59 Last Admin: 08/05/18 08:43 Dose: 20 meq Quetiapine Fumarate (Seroquel) 12.5 mg PO HS [facility] Stop: 09/01/18 20:59 Last Admin: 08/04/18 20:39 Dose: 12.5 mg Rivaroxaban (Xarelto) 20 mg PO PM [facility] Stop: 08/31/18 20:59 Last Admin: 08/04/18 20:38 Dose: 20 mg Venlafaxine HCl (Effexor Extended Release) 75 mg PO HS [facility] Stop: 08/31/18 20:59 Last Admin: 08/04/18 20:41 Dose: 75 mg Resident Activity Tracking Resident Involvement: Resident Care Provided Care Provided: [facility] _ (1) Pneumonia Aspiration pneumonia type: Laterality: unspecified laterality Lung location : unspecified part of lung Pneumonia type: due to unspecified organism Qualified Code(s): J18.9 - Pneumonia, unspecified organism
[2018-08-05] MEDS: VENLAFAXINE HCL XR 75 MG CAPXR PO SCH (21:21)
[2018-08-05] MEDS: QUETIAPINE FUMARATE 25 MG TABLET PO SCH (21:22)
[2018-08-05] MEDS: RIVAROXABAN 20 MG TAB PO SCH (21:23)
[2018-08-05] MEDS: cefTRIAXone SODIUM 1,000 MG in DEXTROSE 5% 50 ML IV SCH (22:13)
[2018-08-05] MEDS: AZITHROMYCIN 500 MG in DEXTROSE 5% 250 ML IV SCH ×2 (23:46)
[2018-08-06] MEDS: ALBUT/IPRATROP 3MG/0.5MG NEB 3 ML VIAL NEB SCH ×6 (04:02→23:05)
[2018-08-06] MEDS: methylPREDNISolone 30 MG in SYRINGE 0 ML IV SCH (06:01)
[2018-08-06 06:22] LABS: Basophils # (auto) 0.01 K/uL (0-0.2); Basophils % (auto) 0.1 %; Hematocrit (blood only) 40.2 % (37-47); Hemoglobin 12.2 g/dL (12.0-16.0); Immature Granulocytes # (auto) 0.07 K/uL (0.00-0.02); Immature Granulocytes % (auto) 0.7 %; Lymphocytes # (auto) 1.17 K/uL (1.2-3.4); Lymphocytes % (auto) 10.9 %; Mean Corpuscular Hgb Conc 30.3 g/dL (32-36); Mean Corpuscular Volume 99.5 fL (80-100); Mean Platelet Volume 9.5 fL (7.4-10.4); Monocytes # (auto) 0.76 K/uL (0.11-0.59); Monocytes % (auto) 7.1 %; Neutrophils # (auto) 8.75 K/uL (1.4-6.5); Neutrophils % (auto) 81.2 %; Platelet Count 341 K/uL (130-400); RDW Coefficient of Variation 13.1 % (11.5-14.5); RDW Standard Deviation 47.6 fL (36.4-46.3); Red Blood Count 4.04 M/uL (4.2-5.4); White Blood Count 10.76 K/uL (4.8-10.8)
[2018-08-06 06:55] LABS: Albumin Globulin Ratio 0.8 (0.9-2); Albumin Level 3.2 gm/dl (3.4-5.0); BUN Creatinine Ratio 55.8 (10-20); Bilirubin,Total 0.2 mg/dl (0.2-1); Calcium 8.5 mg/dl (8.5-10.1); Creatinine Clr Calc Pharmacy 66.2 ml/min; Est GFR (African American) 96.5; Est GFR (Non-African American) 83.3; Potassium 4.7 mmol/L (3.5-5.1); Total Protein 7.2 gm/dl (6.4-8.2)
[2018-08-06] MEDS: ISOSORBIDE MONO EXTENDED REL 30 MG TABCR PO SCH (09:03)
[2018-08-06] MEDS: LOSARTAN POTASSIUM 25 MG TAB PO SCH (09:03)
[2018-08-06] MEDS: METOPROLOL SUCC 25MG EXT REL TAB PO SCH (09:03)
[2018-08-06] MEDS: POTASSIUM CHLORIDE 20 MEQ TABCR PO SCH ×2 (09:04→21:19)
[2018-08-06] MEDS: GABAPENTIN 100 MG CAP PO SCH ×2 (09:04→21:18)
[2018-08-06] MEDS: FOLIC ACID 1 MG TAB PO SCH (09:04)
[2018-08-06] MEDS: FUROSEMIDE 40 MG TAB PO SCH (09:04)
[2018-08-06] MEDS: INSULIN GLARGINE SOLOSTAR 100 UNITS/ML 3 ML PEN SC SCH ×2 (09:19→21:31)
[2018-08-06] MEDS: INSULIN ASPART 100 UNITS/ML 3 ML PEN SC SCH ×4 (09:20→21:32)
--- NOTE | 2018-08-06 10:38 | Family Medicine Progress Note ---
Date of Service August 06, 2018 Assessment & Plan (1) Pneumonia: 83 y/o F with PMH DM, HTN, COPD, Anxiety, Pompe's presents with COPD exacerbation and found to have RLL Infiltrate on CXR. 1) Acute on chronic respiratory failure - ? sec to PNA/copd exacerbation - continue bipap /cpap support -Appears to be chronically retaining CO2. Today 42, 82 on admit - cont azith and ceftriaxone -D/C solumedrol 30 TID today, switch to PO Prednisone 40 mg, will cont wean -Duoneb q4sch, xopenex q4prn -PT/OT: recommend snf placement 2) Delirium/hallucinations - resolved - notes hallucinations on admission. Delirium could be multifactorial 2/ 2 new hospital environment/medication side effect/UTI/PNA -supportive care -will cont monitor 3) Indwelling olsen present -UA: 2+ LE, WBCs, epithelial cells. Urine cx negative -Related to bed-bound status 4) Pompe/Acid maltase deficiency -Progressively worsening -Bed bound status -PT as above 5) DM -Well controlled per patient, on metformin -Placed in ISS for steroid coverage. Cont monitor BSGs 6) HTN -Continue home meds 7) Anxiety -Continue home meds -Has been getting very anxious here. Vistaril dose increased to TID. Over sedation from vistaril likely contributes some to CO2 retention. Will cont follow. DNR/DNI DVT Prophylaxis: Xarelto Dispo: Med/surg. Likely snf placement tomorrow (Daughter in law prefers [facility]). Pt is hospice living at home Supervising Physician Co-Signing Physician Notes Resident Physician Supervision Note: I independently interviewed and examined the patient and verified the hawkins history and physical, reviewed labs and image studies, discussed the case with the resident Dr. Bhatt and agree with the findings and care plan. Subjective 83 y/o F found in bed this AM in NAD eating breakfast, temporarily removed BIPAP and on O2. Pt notes her breathing has improved, still on BIPAP. Pt has gotten her own BIPAP that she uses at home and notes it is easier to breath now. Pt not able to ambulate. Ongoing weakness. No issues with PO intake. notes pt hallucinations have improved. Pt has no other acute concerns or complaints. States ok with plan to move her to [facility]. Physical Exam 2 Vital Signs (Past 24 Hours): Last Vital Signs Temp 36.5 C 08/06/18 07:19 Pulse 78 08/06/18 07:25 Resp 12 08/06/18 07:25 BP 159/74 H 08/06/18 07:19 Pulse Ox 97 08/06/18 07:25 Constitutional: WD/WN, vitals as above + obese Eyes: PERRL, conjunctivae normal, anicteric sclerae ENMT: external ear and nose normal, oropharynx normal Respiratory: on BIPAP, Anterior mildly decreased but CTAB. Posterior not able to be auscultated 2/2 pt not being able to sit up Cardiovascular: RRR, no murmur, no edema Gastrointestinal (Abdomen): normal bowel sounds, soft, nontender, no hepatosplenomegaly Skin: no rashes, warm and dry Psychiatric: Mood: + anxious mood Results & Data Laboratory Results Laboratory Results - last 24 hr 08/05/18 08/05/18 08/05/18 11:38 16:45 20:07 WBC RBC Hgb Hct MCV MCH MCHC RDW Std Deviation RDW Coeff of Reina Plt Count MPV Immature Gran % (Auto) Neut % (Auto) Lymph % (Auto) Ray % (Auto) Eos % (Auto) Baso % (Auto) Immature Gran # (Auto) Neut # (Auto) Lymph # (Auto) Ray # (Auto) Eos # (Auto) Baso # (Auto) Sodium Potassium Chloride Carbon Dioxide Anion Gap BUN Creatinine Est Cr Clr Drug Dosing Est GFR ( Amer) Est GFR (Non-Af Amer) BUN/Creatinine Ratio Glucose POC Glucose 153 H 73 122 H Calcium Total Bilirubin AST ALT Alkaline Phosphatase Total Protein Albumin Globulin Albumin/Globulin Ratio 08/06/18 08/06/18 08/06/18 05:50 05:50 07:37 WBC 10.76 RBC 4.04 L Hgb 12.2 Hct 40.2 MCV 99.5 MCH 30.2 MCHC 30.3 L RDW Std Deviation 47.6 H RDW Coeff of Reina 13.1 Plt Count 341 MPV 9.5 Immature Gran % (Auto) 0.7 Neut % (Auto) 81.2 Lymph % (Auto) 10.9 Ray % (Auto) 7.1 Eos % (Auto) 0.0 Baso % (Auto) 0.1 Immature Gran # (Auto) 0.07 H Neut # (Auto) 8.75 H Lymph # (Auto) 1.17 L Ray # (Auto) 0.76 H Eos # (Auto) 0.00 Baso # (Auto) 0.01 Sodium 140 Potassium 4.7 Chloride 97 L Carbon Dioxide 42 H* Anion Gap 2.0 L BUN 36 H Creatinine 0.65 Est Cr Clr Drug Dosing 66.2 Est GFR ( Amer) 96.5 Est GFR (Non-Af Amer) 83.3 BUN/Creatinine Ratio 55.8 H Glucose 106 H POC Glucose 113 H Calcium 8.5 Total Bilirubin 0.2 AST 22 ALT 80 H Alkaline Phosphatase 92 Total Protein 7.2 Albumin 3.2 L Globulin 4.0 Albumin/Globulin Ratio 0.8 L Medications Administered Current Inpatient Medications Acetaminophen (Tylenol) 650 mg PO Q4H PRN PRN Reason: Pain or Fever Stop: 08/31/18 22:27 Al Hydrox/Mg Hydrox/Simethicone (Maalox) 15 ml PO Q4H PRN PRN Reason: Dyspepsia Stop: 08/31/18 22:27 Albuterol (Ventolin Hfa) 2 puffs INH Q4H PRN PRN Reason: Shortness Of Breath Or Wheezing Stop: 08/31/18 20:41 Albuterol (Duoneb) 3 ml NEB Q4R SHAYNE Stop: 09/01/18 00:00 Last Admin: 08/06/18 07:23 Dose: 3 ml Buspirone HCl (Buspar) 5 mg PO Q12 SHAYNE Stop: 08/31/18 20:59 Last Admin: 08/06/18 09:04 Dose: 5 mg Dextrose (Dextrose 50%) 25 - 50 ml IV UD PRN; Protocol PRN Reason: Hypoglycemia Protocol Stop: 08/31/18 22:27 Fexofenadine HCl (Nallely) 60 mg PO Q12H PRN PRN Reason: Allergy Symptoms Stop: 08/31/18 20:41 Folic Acid (Folvite) 1 mg PO DAILY SHAYNE Stop: 09/01/18 08:59 Last Admin: 08/06/18 09:04 Dose: 1 mg Furosemide (Lasix) 40 mg PO QAM SHAYNE Stop: 09/01/18 08:59 Last Admin: 08/06/18 09:04 Dose: 40 mg Gabapentin (Neurontin) 200 mg PO BID [facility] Stop: 08/31/18 20:59 Last Admin: 08/06/18 09:04 Dose: 200 mg Glucagon (Glucagen) 1 mg SQ UD PRN; Protocol PRN Reason: Hypoglycemia Protocol Stop: 08/31/18 22:27 Glucose (Dex4 Glucose) 4 - 8 tabs PO UD PRN; Protocol PRN Reason: Hypoglycemia Protocol Stop: 08/31/18 22:27 Glucose (Glucose 40%) 15 - 30 gm PO UD PRN; Protocol PRN Reason: Hypoglycemia Protocol Stop: 08/31/18 22:27 Hydroxyzine HCl (Vistaril) 25 mg PO TID PRN PRN Reason: Anxiety Stop: 08/31/18 21:25 Last Admin: 08/05/18 15:55 Dose: 25 mg Azithromycin 500 mg/ Dextrose 255 mls @ 125 mls/hr IV Q24H SHAYNE Stop: 08/09/18 00:00 Last Infusion: 08/06/18 02:00 Dose: Infused Ceftriaxone Sodium 1,000 mg/ (Dextrose) 60 mls @ 100 mls/hr IV Q24H SHAYNE Stop: 08/08/18 22:59 Last Infusion: 08/05/18 22:47 Dose: Infused Methylprednisolone 30 mg/ (Syringe) 0.48 mls @ 1.5 mls/min IV Q8H [facility] Stop: 09/01/18 05:59 Last Admin: 08/06/18 06:01 Dose: 1.5 mls/min Insulin Aspart (Novolog Flexpen) 0 units SC ACHS SHAYNE Stop: 09/01/18 07:29 Last Admin: 08/06/18 09:20 Dose: 7 units Insulin Glargine (Lantus Solostar Pen) 15 units SC BID [facility] Stop: 08/31/18 22:59 Last Admin: 08/06/18 09:19 Dose: 15 units Isosorbide Mononitrate (Imdur Extended Rel) 30 mg PO QAM [facility] Stop: 09/01/18 08:59 Last Admin: 08/06/18 09:03 Dose: 30 mg Levalbuterol HCl (Xopenex 1.25mg/3ml Neb) 1.25 mg NEB Q4H PRN PRN Reason: Shortness Of Breath Or Wheezing Stop: 08/31/18 22:27 Losartan Potassium (Cozaar) 25 mg PO DAILY [facility] Stop: 09/01/18 08:59 Last Admin: 08/06/18 09:03 Dose: 25 mg Magnesium Hydroxide (Milk Of Magnesia) 30 ml PO Q12H PRN PRN Reason: Constipation Stop: 08/31/18 22:27 Last Admin: 08/04/18 08:54 Dose: 30 ml Metoprolol Succinate (Toprol Xl) 25 mg PO DAILY SHAYNE Stop: 09/01/18 08:59 Last Admin: 08/06/18 09:03 Dose: 25 mg Miscellaneous (Carbohydrates For Hypoglycemia) 15 - 30 gm PO UD PRN PRN Reason: Hypoglycemia Treatment Stop: 08/31/18 22:27 Polyethylene Glycol (Miralax Powder Packet) 17 gm PO DAILY PRN PRN Reason: Constipation Stop: 08/31/18 22:27 Potassium Chloride (Klor-Con M20) 20 meq PO BID [facility] Stop: 08/31/18 20:59 Last Admin: 08/06/18 09:04 Dose: 20 meq Quetiapine Fumarate (Seroquel) 12.5 mg PO [facility] Stop: 09/01/18 20:59 Last Admin: 08/05/18 21:22 Dose: 12.5 mg Rivaroxaban (Xarelto) 20 mg PO PM [facility] Stop: 08/31/18 20:59 Last Admin: 08/05/18 21:23 Dose: 20 mg Venlafaxine HCl (Effexor Extended Release) 75 mg PO HS [facility] Stop: 08/31/18 20:59 Last Admin: 08/05/18 21:21 Dose: 75 mg Resident Activity Tracking Resident Involvement: Resident Care Provided Care Provided: [facility] Medicine _ (1) Pneumonia Aspiration pneumonia type: Laterality: unspecified laterality Lung location : unspecified part of lung Pneumonia type: due to unspecified organism Qualified Code(s): J18.9 - Pneumonia, unspecified organism
[2018-08-06] MEDS ORDERED: predniSONE 20 MG TAB PO ONE (12:00)
[2018-08-06] MEDS: MAGNESIUM HYDROXIDE SUSP 30 ML UDC PO PRN (15:57)
[2018-08-06] MEDS: VENLAFAXINE HCL XR 75 MG CAPXR PO SCH (21:17)
[2018-08-06] MEDS: QUETIAPINE FUMARATE 25 MG TABLET PO SCH (21:17)
[2018-08-06] MEDS: RIVAROXABAN 20 MG TAB PO SCH (21:17)
[2018-08-06] MEDS: cefTRIAXone SODIUM 1,000 MG in DEXTROSE 5% 50 ML IV SCH (23:47)
[2018-08-07] MEDS: AZITHROMYCIN 500 MG in DEXTROSE 5% 250 ML IV SCH (00:49)
[2018-08-07] MEDS: ALBUT/IPRATROP 3MG/0.5MG NEB 3 ML VIAL NEB SCH ×6 (03:03→23:20)
[2018-08-07 07:28] LABS: Basophils # (auto) 0.01 K/uL (0-0.2); Basophils % (auto) 0.1 %; Eosinophils # (auto) 0.02 K/uL (0-0.5); Eosinophils % (auto) 0.1 %; Hematocrit (blood only) 41.9 % (37-47); Hemoglobin 12.7 g/dL (12.0-16.0); Immature Granulocytes # (auto) 0.16 K/uL (0.00-0.02); Immature Granulocytes % (auto) 1.2 %; Lymphocytes # (auto) 2.47 K/uL (1.2-3.4); Lymphocytes % (auto) 18.1 %; Mean Corpuscular Hgb Conc 30.3 g/dL (32-36); Mean Corpuscular Volume 99.5 fL (80-100); Mean Platelet Volume 9.7 fL (7.4-10.4); Monocytes # (auto) 1.76 K/uL (0.11-0.59); Monocytes % (auto) 12.9 %; Neutrophils # (auto) 9.22 K/uL (1.4-6.5); Neutrophils % (auto) 67.6 %; Platelet Count 350 K/uL (130-400); RDW Coefficient of Variation 13.2 % (11.5-14.5); RDW Standard Deviation 47.9 fL (36.4-46.3); Red Blood Count 4.21 M/uL (4.2-5.4); White Blood Count 13.64 K/uL (4.8-10.8)
[2018-08-07 08:12] LABS: Albumin Globulin Ratio 0.8 (0.9-2); Albumin Level 3.1 gm/dl (3.4-5.0); BUN Creatinine Ratio 53.1 (10-20); Bilirubin,Total 0.2 mg/dl (0.2-1); Calcium 8.8 mg/dl (8.5-10.1); Creatinine Clr Calc Pharmacy 61.5 ml/min; Est GFR (African American) 94.2; Est GFR (Non-African American) 81.3; Total Protein 7.1 gm/dl (6.4-8.2)
[2018-08-07] MEDS: FOLIC ACID 1 MG TAB PO SCH (08:35)
[2018-08-07] MEDS: METOPROLOL SUCC 25MG EXT REL TAB PO SCH (08:35)
[2018-08-07] MEDS: FUROSEMIDE 40 MG TAB PO SCH (08:35)
[2018-08-07] MEDS: ISOSORBIDE MONO EXTENDED REL 30 MG TABCR PO SCH (08:35)
[2018-08-07] MEDS: POTASSIUM CHLORIDE 20 MEQ TABCR PO SCH ×2 (08:35→22:08)
[2018-08-07] MEDS: LOSARTAN POTASSIUM 25 MG TAB PO SCH (08:36)
[2018-08-07] MEDS: GABAPENTIN 100 MG CAP PO SCH ×2 (08:37→22:12)
[2018-08-07] MEDS: INSULIN ASPART 100 UNITS/ML 3 ML PEN SC SCH ×4 (08:40→22:13)
[2018-08-07] MEDS: INSULIN GLARGINE SOLOSTAR 100 UNITS/ML 3 ML PEN SC SCH ×2 (08:42→22:14)
--- NOTE | 2018-08-07 16:31 | Family Medicine Progress Note ---
Date of Service August 07, 2018 Assessment & Plan (1) Pneumonia: 83 y/o F with PMH DM, HTN, COPD, Anxiety, Pompe's presents with COPD exacerbation and found to have RLL Infiltrate on CXR. 1) Acute on chronic respiratory failure - ? sec to PNA/copd exacerbation - continue bipap /cpap support -Appears to be chronically retaining CO2. Today 44, 82 on admit - cont azith and ceftriaxone -Cont PO Prednisone 40 mg, will cont taper on d/c -Duoneb q4sch, xopenex q4prn -PT/OT: recommend snf placement 2) Delirium/hallucinations - resolved - notes hallucinations on admission. Delirium could be multifactorial 2/ 2 new hospital environment/medication side effect/UTI/PNA -supportive care -will cont monitor 3) Indwelling olsen present -UA: 2+ LE, WBCs, epithelial cells. Urine cx negative -Related to bed-bound status 4) Pompe/Acid maltase deficiency -Progressively worsening -Bed bound status -PT as above 5) DM -Well controlled per patient, on metformin -Placed in ISS for steroid coverage. Cont monitor BSGs 6) HTN -Continue home meds 7) Anxiety -Continue home meds -Has been getting very anxious here. Vistaril dose increased to TID. Oversedation from vistaril likely contributes some to CO2 retention. Will cont follow. DNR/DNI DVT Prophylaxis: Xarelto Dispo: Likely snf placement tomorrow to [facility]. Pt is hospice living at home Supervising Physician Co-Signing Physician Notes I personally examined the patient and verified all hawkins points of history and exam, discussed case, and agree with decision making with Dr Bhatt feeling "about the same" ready to go to [facility] - then wonders about transition home vs "what if i got home and realized i would need to go back?" answered all questions to the best of my ability. 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 bipap/supportive care, [facility] w hospice help once set up. otherwise as above Subjective 83 y/o F found in bed this AM in NAD. Pt notes her breathing has improved, still on BIPAP. Some ongoing weakness. Pt has gotten her own BIPAP that she uses at home and notes it is easier to breath now. Pt not able to ambulate. No issues with PO intake. notes pt hallucinations have improved. Pt has no other acute concerns or complaints. States ok with plan to move her to [facility]. Physical Exam 2 Vital Signs (Past 24 Hours): Last Vital Signs Temp 36.4 C L 08/07/18 08:00 Pulse 89 08/07/18 16:08 Resp 16 08/07/18 16:08 BP 109/68 08/07/18 15:00 Pulse Ox 97 08/07/18 16:08 Constitutional: WD/WN, vitals as above + obese Eyes: PERRL, conjunctivae normal, anicteric sclerae ENMT: external ear and nose normal, oropharynx normal Respiratory: on BIPAP, Anterior mildly decreased but CTAB. Posterior not able to be auscultated 2/2 pt not being able to sit up Cardiovascular: RRR, no murmur, no edema Gastrointestinal (Abdomen): normal bowel sounds, soft, nontender, no hepatosplenomegaly Skin: no rashes, warm and dry Psychiatric: Mood: + anxious mood Results & Data Laboratory Results Laboratory Results - last 24 hr 08/06/18 08/06/18 08/07/18 16:59 20:27 07:07 WBC 13.64 H RBC 4.21 Hgb 12.7 Hct 41.9 MCV 99.5 MCH 30.2 MCHC 30.3 L RDW Std Deviation 47.9 H RDW Coeff of Reina 13.2 Plt Count 350 MPV 9.7 Immature Gran % (Auto) 1.2 Neut % (Auto) 67.6 Lymph % (Auto) 18.1 [place] % (Auto) 12.9 Eos % (Auto) 0.1 Baso % (Auto) 0.1 Immature Gran # (Auto) 0.16 H Neut # (Auto) 9.22 H Lymph # (Auto) 2.47 [place] # (Auto) 1.76 H Eos # (Auto) 0.02 Baso # (Auto) 0.01 Sodium Potassium Chloride Carbon Dioxide Anion Gap BUN Creatinine Est Cr Clr Drug Dosing Est GFR ( Amer) Est GFR (Non-Af Amer) BUN/Creatinine Ratio Glucose POC Glucose 148 H 164 H Calcium Total Bilirubin AST ALT Alkaline Phosphatase Total Protein Albumin Globulin Albumin/Globulin Ratio 08/07/18 08/07/18 08/07/18 07:07 07:59 11:55 WBC RBC Hgb Hct MCV MCH MCHC RDW Std Deviation RDW Coeff of Reina Plt Count MPV Immature Gran % (Auto) Neut % (Auto) Lymph % (Auto) [place] % (Auto) Eos % (Auto) Baso % (Auto) Immature Gran # (Auto) Neut # (Auto) Lymph # (Auto) [place] # (Auto) Eos # (Auto) Baso # (Auto) Sodium 141 Potassium 5.0 Chloride 97 L Carbon Dioxide 44 H* Anion Gap 0 L BUN 37 H Creatinine 0.70 Est Cr Clr Drug Dosing 61.5 Est GFR ( Amer) 94.2 Est GFR (Non-Af Amer) 81.3 BUN/Creatinine Ratio 53.1 H Glucose 65 L POC Glucose 70 125 H Calcium 8.8 Total Bilirubin 0.2 AST 29 ALT 84 H Alkaline Phosphatase 90 Total Protein 7.1 Albumin 3.1 L Globulin 4.0 Albumin/Globulin Ratio 0.8 L Medications Administered Current Inpatient Medications Acetaminophen (Tylenol) 650 mg PO Q4H PRN PRN Reason: Pain or Fever Stop: 08/31/18 22:27 Al Hydrox/Mg Hydrox/Simethicone (Maalox) 15 ml PO Q4H PRN PRN Reason: Dyspepsia Stop: 08/31/18 22:27 Albuterol (Ventolin Hfa) 2 puffs INH Q4H PRN PRN Reason: Shortness Of Breath Or Wheezing Stop: 08/31/18 20:41 Albuterol (Duoneb) 3 ml NEB Q4R SHAYNE Stop: 09/01/18 00:00 Last Admin: 08/07/18 16:06 Dose: 3 ml Buspirone HCl (Buspar) 5 mg PO Q12 SHAYNE Stop: 08/31/18 20:59 Last Admin: 08/07/18 08:34 Dose: 5 mg Dextrose (Dextrose 50%) 25 - 50 ml IV UD PRN; Protocol PRN Reason: Hypoglycemia Protocol Stop: 08/31/18 22:27 Fexofenadine HCl (Nallely) 60 mg PO Q12H PRN PRN Reason: Allergy Symptoms Stop: 08/31/18 20:41 Folic Acid (Folvite) 1 mg PO DAILY SHAYNE Stop: 09/01/18 08:59 Last Admin: 08/07/18 08:35 Dose: 1 mg Furosemide (Lasix) 40 mg PO QAM [facility]NE Stop: 09/01/18 08:59 Last Admin: 08/07/18 08:35 Dose: 40 mg Gabapentin (Neurontin) 200 mg PO BID [facility] Stop: 08/31/18 20:59 Last Admin: 08/07/18 08:37 Dose: 200 mg Glucagon (Glucagen) 1 mg SQ UD PRN; Protocol PRN Reason: Hypoglycemia Protocol Stop: 08/31/18 22:27 Glucose (Dex4 Glucose) 4 - 8 tabs PO UD PRN; Protocol PRN Reason: Hypoglycemia Protocol Stop: 08/31/18 22:27 Glucose (Glucose 40%) 15 - 30 gm PO UD PRN; Protocol PRN Reason: Hypoglycemia Protocol Stop: 08/31/18 22:27 Hydroxyzine HCl (Vistaril) 25 mg PO TID PRN PRN Reason: Anxiety Stop: 08/31/18 21:25 Last Admin: 08/07/18 09:13 Dose: 25 mg Azithromycin 500 mg/ Dextrose 255 mls @ 125 mls/hr IV Q24H [facility] Stop: 08/09/18 00:00 Last Infusion: 08/07/18 02:59 Dose: Infused Ceftriaxone Sodium 1,000 mg/ (Dextrose) 60 mls @ 100 mls/hr IV Q24H [facility] Stop: 08/08/18 22:59 Last Infusion: 08/07/18 00:23 Dose: Infused Insulin Aspart (Novolog Flexpen) 0 units SC ACHS SHAYNE Stop: 09/01/18 07:29 Last Admin: 08/07/18 13:03 Dose: 3 units Insulin Glargine (Lantus Solostar Pen) 15 units SC BID [facility] Stop: 08/31/18 22:59 Last Admin: 08/07/18 08:42 Dose: 15 units Isosorbide Mononitrate (Imdur Extended Rel) 30 mg PO QAM [facility] Stop: 09/01/18 08:59 Last Admin: 08/07/18 08:35 Dose: 30 mg Levalbuterol HCl (Xopenex 1.25mg/3ml Neb) 1.25 mg NEB Q4H PRN PRN Reason: Shortness Of Breath Or Wheezing Stop: 08/31/18 22:27 Losartan Potassium (Cozaar) 25 mg PO DAILY [facility] Stop: 09/01/18 08:59 Last Admin: 08/07/18 08:36 Dose: 25 mg Magnesium Hydroxide (Milk Of Magnesia) 30 ml PO Q12H PRN PRN Reason: Constipation Stop: 08/31/18 22:27 Last Admin: 08/06/18 15:57 Dose: 30 ml Metoprolol Succinate (Toprol Xl) 25 mg PO DAILY [facility] Stop: 09/01/18 08:59 Last Admin: 08/07/18 08:35 Dose: 25 mg Miscellaneous (Carbohydrates For Hypoglycemia) 15 - 30 gm PO UD PRN PRN Reason: Hypoglycemia Treatment Stop: 08/31/18 22:27 Polyethylene Glycol (Miralax Powder Packet) 17 gm PO DAILY PRN PRN Reason: Constipation Stop: 08/31/18 22:27 Potassium Chloride (Klor-Con M20) 20 meq PO BID [facility] Stop: 08/31/18 20:59 Last Admin: 08/07/18 08:35 Dose: 20 meq Quetiapine Fumarate (Seroquel) 12.5 mg PO HS [facility] Stop: 09/01/18 20:59 Last Admin: 08/06/18 21:17 Dose: 12.5 mg Rivaroxaban (Xarelto) 20 mg PO PM [facility] Stop: 08/31/18 20:59 Last Admin: 08/06/18 21:17 Dose: 20 mg Venlafaxine HCl (Effexor Extended Release) 75 mg PO HS [facility] Stop: 08/31/18 20:59 Last Admin: 08/06/18 21:17 Dose: 75 mg Resident Activity Tracking Resident Involvement: Resident Care Provided Care Provided: [facility] Medicine _ (1) Pneumonia Aspiration pneumonia type: Laterality: unspecified laterality Lung location : unspecified part of lung Pneumonia type: due to unspecified organism Qualified Code(s): J18.9 - Pneumonia, unspecified organism
[2018-08-07] MEDS: cefTRIAXone SODIUM 1,000 MG in DEXTROSE 5% 50 ML IV SCH (22:07)
[2018-08-07] MEDS: VENLAFAXINE HCL XR 75 MG CAPXR PO SCH (22:08)
[2018-08-07] MEDS: QUETIAPINE FUMARATE 25 MG TABLET PO SCH (22:08)
[2018-08-07] MEDS: RIVAROXABAN 20 MG TAB PO SCH (22:09)
[2018-08-08] MEDS: AZITHROMYCIN 500 MG in DEXTROSE 5% 250 ML IV SCH (00:26)
[2018-08-08] MEDS: ALBUT/IPRATROP 3MG/0.5MG NEB 3 ML VIAL NEB SCH ×6 (03:15→22:50)
[2018-08-08 06:57] LABS: Basophils # (auto) 0.01 K/uL (0-0.2); Basophils % (auto) 0.1 %; Eosinophils # (auto) 0.16 K/uL (0-0.5); Eosinophils % (auto) 1.2 %; Hematocrit (blood only) 38.3 % (37-47); Hemoglobin 11.8 g/dL (12.0-16.0); Immature Granulocytes % (auto) 1.5 %; Lymphocytes # (auto) 2.99 K/uL (1.2-3.4); Lymphocytes % (auto) 22.4 %; Mean Corpuscular Hgb Conc 30.8 g/dL (32-36); Mean Corpuscular Volume 99.5 fL (80-100); Mean Platelet Volume 9.6 fL (7.4-10.4); Monocytes # (auto) 1.63 K/uL (0.11-0.59); Monocytes % (auto) 12.2 %; Neutrophils # (auto) 8.34 K/uL (1.4-6.5); Neutrophils % (auto) 62.6 %; Platelet Count 342 K/uL (130-400); RDW Coefficient of Variation 13.6 % (11.5-14.5); RDW Standard Deviation 48.9 fL (36.4-46.3); Red Blood Count 3.85 M/uL (4.2-5.4); White Blood Count 13.33 K/uL (4.8-10.8)
[2018-08-08 07:41] LABS: Albumin Globulin Ratio 0.9 (0.9-2); BUN Creatinine Ratio 58.5 (10-20); Bilirubin,Total 0.3 mg/dl (0.2-1); Calcium 8.5 mg/dl (8.5-10.1); Creatinine Clr Calc Pharmacy 58.2 ml/min; Est GFR (African American) 88.1; Globulin 3.4 gm/dl (2.5-4.0); Potassium 4.6 mmol/L (3.5-5.1); Total Protein 6.4 gm/dl (6.4-8.2)
[2018-08-08] MEDS: CARBOHYDRATES FOR HYPOGLYCEMIA PO PRN ×3 (07:54→17:07)
[2018-08-08] MEDS: GABAPENTIN 100 MG CAP PO SCH ×2 (08:21→20:41)
[2018-08-08] MEDS: METOPROLOL SUCC 25MG EXT REL TAB PO SCH (08:21)
[2018-08-08] MEDS: FOLIC ACID 1 MG TAB PO SCH (08:21)
[2018-08-08] MEDS: POTASSIUM CHLORIDE 20 MEQ TABCR PO SCH ×2 (08:22→20:41)
[2018-08-08] MEDS: ISOSORBIDE MONO EXTENDED REL 30 MG TABCR PO SCH (08:22)
[2018-08-08] MEDS: LOSARTAN POTASSIUM 25 MG TAB PO SCH (08:22)
[2018-08-08] MEDS: INSULIN GLARGINE SOLOSTAR 100 UNITS/ML 3 ML PEN SC SCH (08:44)
[2018-08-08] MEDS: INSULIN ASPART 100 UNITS/ML 3 ML PEN SC SCH ×4 (08:46→20:38)
[2018-08-08] MEDS: FUROSEMIDE 40 MG TAB PO SCH (09:00)
--- NOTE | 2018-08-08 16:48 | Family Medicine Progress Note ---
Date of Service August 08, 2018 Assessment & Plan (1) Pneumonia: 83 y/o F with PMH DM, HTN, COPD, Anxiety, Pompe's presents with COPD exacerbation and found to have RLL Infiltrate on CXR. 1) Acute on chronic respiratory failure - ? sec to PNA/copd exacerbation - continue bipap /cpap support -Appears to be chronically retaining CO2. Today 44, 82 on admit - cont azith and ceftriaxone -Cont PO Prednisone 40 mg, will cont taper on d/c -Duoneb q4sch, xopenex q4prn -PT/OT: recommend snf placement 2) Delirium/hallucinations - resolved - notes hallucinations on admission. Delirium could be multifactorial 2/ 2 new hospital environment/medication side effect/UTI/PNA -supportive care -will cont monitor 3) Indwelling olsen present -UA: 2+ LE, WBCs, epithelial cells. Urine cx negative -Related to bed-bound status 4) Pompe/Acid maltase deficiency -Progressively worsening -Bed bound status -PT as above 5) DM -Well controlled per patient, on metformin -Placed in ISS for steroid coverage. Cont monitor BSGs 6) HTN -Continue home meds 7) Anxiety -Continue home meds -Has been getting very anxious here. Vistaril dose increased to TID. Oversedation from vistaril likely contributes some to CO2 retention. Will cont follow. DNR/DNI DVT Prophylaxis: [place] Dispo: Home Hospice tomorrow Supervising Physician Co-Signing Physician Notes I personally examined the patient and verified all hawkins points of history and exam, discussed case, and agree with decision making with Dr Bhatt sleeping comfortably. plan w pt/family has been changed to home w hospice vitals noted nad breathing unlabored no pallor or icterus, appearing comfortable on bipap end stage lung disease - appearing comfortable. for home w hospice once all is set up. otherwise as above Subjective 83 y/o F found in bed this AM in NAD. Pt had low BSG 56 this AM, which increased with breakfast shortly thereafter. Pt notes her breathing has improved , still on BIPAP. Some ongoing weakness. Pt has gotten her own BIPAP that she uses at home and notes it is easier to breath now. Pt not able to ambulate. No issues with PO intake. notes pt hallucinations have improved. Pt has no other acute concerns or complaints. States ok with plan to move her to home hospice after dicussion with family. Constitutional: + chills, + malaise and + weakness Respiratory: + cough and + dyspnea Integumentary: + sores Physical Exam 2 Vital Signs (Past 24 Hours): Last Vital Signs Temp 36.6 C 08/08/18 07:30 Pulse 87 08/08/18 10:52 Resp 16 08/08/18 10:52 BP 140/80 08/08/18 07:30 Pulse Ox 96 08/08/18 10:52 Constitutional: WD/WN, vitals as above + obese Eyes: PERRL, conjunctivae normal, anicteric sclerae ENMT: external ear and nose normal, oropharynx normal Respiratory: Anterior CTAB, breathing unlabored Cardiovascular: RRR, no murmur, no edema Gastrointestinal (Abdomen): normal bowel sounds, soft, nontender, no hepatosplenomegaly Skin: no rashes, warm and dry Psychiatric: Mood: + anxious mood Results & Data Laboratory Results Laboratory Results - last 24 hr 08/07/18 08/07/18 08/08/18 17:10 20:26 06:43 WBC 13.33 H RBC 3.85 L Hgb 11.8 L Hct 38.3 MCV 99.5 MCH 30.6 MCHC 30.8 L RDW Std Deviation 48.9 H RDW Coeff of Reina 13.6 Plt Count 342 MPV 9.6 Immature Gran % (Auto) 1.5 Neut % (Auto) 62.6 Lymph % (Auto) 22.4 [place] % (Auto) 12.2 Eos % (Auto) 1.2 Baso % (Auto) 0.1 Immature Gran # (Auto) 0.20 H Neut # (Auto) 8.34 H Lymph # (Auto) 2.99 [place] # (Auto) 1.63 H Eos # (Auto) 0.16 Baso # (Auto) 0.01 Sodium Potassium Chloride Carbon Dioxide Anion Gap BUN Creatinine Est Cr Clr Drug Dosing Est GFR ( Amer) Est GFR (Non-Af Amer) BUN/Creatinine Ratio Glucose POC Glucose 110 H 78 Calcium Total Bilirubin AST ALT Alkaline Phosphatase Total Protein Albumin Globulin Albumin/Globulin Ratio 08/08/18 08/08/18 08/08/18 06:43 08:14 08:36 WBC RBC Hgb Hct MCV MCH MCHC RDW Std Deviation RDW Coeff of Reina Plt Count MPV Immature Gran % (Auto) Neut % (Auto) Lymph % (Auto) [place] % (Auto) Eos % (Auto) Baso % (Auto) Immature Gran # (Auto) Neut # (Auto) Lymph # (Auto) [place] # (Auto) Eos # (Auto) Baso # (Auto) Sodium 139 Potassium 4.6 Chloride 95 L Carbon Dioxide 44 H* Anion Gap 0 L BUN 43 H Creatinine 0.74 Est Cr Clr Drug Dosing 58.2 Est GFR ( Amer) 88.1 Est GFR (Non-Af Amer) 76.0 BUN/Creatinine Ratio 58.5 H Glucose 40 L* POC Glucose 56 L* 121 H Calcium 8.5 Total Bilirubin 0.3 AST 24 ALT 70 Alkaline Phosphatase 84 Total Protein 6.4 Albumin 3.0 L Globulin 3.4 Albumin/Globulin Ratio 0.9 08/08/18 12:11 WBC RBC Hgb Hct MCV MCH MCHC RDW Std Deviation RDW Coeff of Reina Plt Count MPV Immature Gran % (Auto) Neut % (Auto) Lymph % (Auto) [place] % (Auto) Eos % (Auto) Baso % (Auto) Immature Gran # (Auto) Neut # (Auto) Lymph # (Auto) [place] # (Auto) Eos # (Auto) Baso # (Auto) Sodium Potassium Chloride Carbon Dioxide Anion Gap BUN Creatinine Est Cr Clr Drug Dosing Est GFR ( Amer) Est GFR (Non-Af Amer) BUN/Creatinine Ratio Glucose POC Glucose 131 H Calcium Total Bilirubin AST ALT Alkaline Phosphatase Total Protein Albumin Globulin Albumin/Globulin Ratio Medications Administered Current Inpatient Medications Acetaminophen (Tylenol) 650 mg PO Q4H PRN PRN Reason: Pain or Fever Stop: 08/31/18 22:27 Al Hydrox/Mg Hydrox/Simethicone (Maalox) 15 ml PO Q4H PRN PRN Reason: Dyspepsia Stop: 08/31/18 22:27 Albuterol (Ventolin Hfa) 2 puffs INH Q4H PRN PRN Reason: Shortness Of Breath Or Wheezing Stop: 08/31/18 20:41 Albuterol (Duoneb) 3 ml NEB Q4R [facility] Stop: 09/01/18 00:00 Last Admin: 08/08/18 15:36 Dose: 3 ml Buspirone HCl (Buspar) 5 mg PO Q12 [facility] Stop: 08/31/18 20:59 Last Admin: 08/08/18 08:22 Dose: 5 mg Dextrose (Dextrose 50%) 25 - 50 ml IV UD PRN; Protocol PRN Reason: Hypoglycemia Protocol Stop: 08/31/18 22:27 Fexofenadine HCl (Nallely) 60 mg PO Q12H PRN PRN Reason: Allergy Symptoms Stop: 08/31/18 20:41 Folic Acid (Folvite) 1 mg PO DAILY [facility] Stop: 09/01/18 08:59 Last Admin: 08/08/18 08:21 Dose: 1 mg Furosemide (Lasix) 40 mg PO QAM [facility] Stop: 09/01/18 08:59 Last Admin: 08/08/18 09:00 Dose: 40 mg Gabapentin (Neurontin) 200 mg PO BID [facility] Stop: 08/31/18 20:59 Last Admin: 08/08/18 08:21 Dose: 200 mg Glucagon (Glucagen) 1 mg SQ UD PRN; Protocol PRN Reason: Hypoglycemia Protocol Stop: 08/31/18 22:27 Glucose (Dex4 Glucose) 4 - 8 tabs PO UD PRN; Protocol PRN Reason: Hypoglycemia Protocol Stop: 08/31/18 22:27 Glucose (Glucose 40%) 15 - 30 gm PO UD PRN; Protocol PRN Reason: Hypoglycemia Protocol Stop: 08/31/18 22:27 Hydroxyzine HCl (Vistaril) 25 mg PO TID PRN PRN Reason: Anxiety Stop: 08/31/18 21:25 Last Admin: 08/08/18 08:43 Dose: 25 mg Azithromycin 500 mg/ Dextrose 255 mls @ 125 mls/hr IV Q24H [facility] Stop: 08/09/18 00:00 Last Infusion: 08/08/18 02:29 Dose: Infused Ceftriaxone Sodium 1,000 mg/ (Dextrose) 60 mls @ 100 mls/hr IV Q24H [facility] Stop: 08/08/18 22:59 Last Infusion: 08/07/18 22:43 Dose: Infused Insulin Aspart (Novolog Flexpen) 0 units SC ACHS [facility] Stop: 09/01/18 07:29 Last Admin: 08/08/18 13:12 Dose: 8 units Insulin Glargine (Lantus Solostar Pen) 10 units SC BID [facility] Stop: 09/07/18 08:59 Last Admin: 08/08/18 08:44 Dose: 10 units Isosorbide Mononitrate (Imdur Extended Rel) 30 mg PO QAM [facility] Stop: 09/01/18 08:59 Last Admin: 08/08/18 08:22 Dose: 30 mg Levalbuterol HCl (Xopenex 1.25mg/3ml Neb) 1.25 mg NEB Q4H PRN PRN Reason: Shortness Of Breath Or Wheezing Stop: 08/31/18 22:27 Losartan Potassium (Cozaar) 25 mg PO DAILY [facility] Stop: 09/01/18 08:59 Last Admin: 08/08/18 08:22 Dose: 25 mg Magnesium Hydroxide (Milk Of Magnesia) 30 ml PO Q12H PRN PRN Reason: Constipation Stop: 08/31/18 22:27 Last Admin: 08/06/18 15:57 Dose: 30 ml Metoprolol Succinate (Toprol Xl) 25 mg PO DAILY [facility] Stop: 09/01/18 08:59 Last Admin: 08/08/18 08:21 Dose: 25 mg Miscellaneous (Carbohydrates For Hypoglycemia) 15 - 30 gm PO UD PRN PRN Reason: Hypoglycemia Treatment Stop: 08/31/18 22:27 Last Admin: 08/08/18 08:18 Dose: 30 gm Polyethylene Glycol (Miralax Powder Packet) 17 gm PO DAILY PRN PRN Reason: Constipation Stop: 08/31/18 22:27 Potassium Chloride (Klor-Con M20) 20 meq PO BID [facility] Stop: 08/31/18 20:59 Last Admin: 08/08/18 08:22 Dose: 20 meq Quetiapine Fumarate (Seroquel) 12.5 mg PO HS [facility] Stop: 09/01/18 20:59 Last Admin: 08/07/18 22:08 Dose: 12.5 mg Rivaroxaban (Xarelto) 20 mg PO PM [facility] Stop: 08/31/18 20:59 Last Admin: 08/07/18 22:09 Dose: 20 mg Venlafaxine HCl (Effexor Extended Release) 75 mg PO HS [facility] Stop: 08/31/18 20:59 Last Admin: 08/07/18 22:08 Dose: 75 mg Resident Activity Tracking Resident Involvement: Resident Care Provided Care Provided: [facility] Medicine _ (1) Pneumonia Aspiration pneumonia type: Laterality: unspecified laterality Lung location : unspecified part of lung Pneumonia type: due to unspecified organism Qualified Code(s): J18.9 - Pneumonia, unspecified organism
[2018-08-08] MEDS: QUETIAPINE FUMARATE 25 MG TABLET PO SCH (20:40)
[2018-08-08] MEDS: RIVAROXABAN 20 MG TAB PO SCH (20:41)
[2018-08-08] MEDS: VENLAFAXINE HCL XR 75 MG CAPXR PO SCH (20:42)
[2018-08-09] MEDS: AZITHROMYCIN 500 MG in DEXTROSE 5% 250 ML IV SCH (01:10)
[2018-08-09] MEDS: ALBUT/IPRATROP 3MG/0.5MG NEB 3 ML VIAL NEB SCH ×6 (03:43→22:59)
[2018-08-09 05:54] LABS: Basophils # (auto) 0.01 K/uL (0-0.2); Basophils % (auto) 0.1 %; Eosinophils # (auto) 0.22 K/uL (0-0.5); Eosinophils % (auto) 1.7 %; Hematocrit (blood only) 37.9 % (37-47); Hemoglobin 11.5 g/dL (12.0-16.0); Immature Granulocytes # (auto) 0.24 K/uL (0.00-0.02); Immature Granulocytes % (auto) 1.9 %; Lymphocytes # (auto) 2.71 K/uL (1.2-3.4); Lymphocytes % (auto) 21.3 %; Mean Corpuscular Hgb Conc 30.3 g/dL (32-36); Mean Corpuscular Volume 100.3 fL (80-100); Mean Platelet Volume 9.5 fL (7.4-10.4); Monocytes # (auto) 1.34 K/uL (0.11-0.59); Monocytes % (auto) 10.5 %; Neutrophils # (auto) 8.23 K/uL (1.4-6.5); Neutrophils % (auto) 64.5 %; Platelet Count 289 K/uL (130-400); RDW Coefficient of Variation 13.6 % (11.5-14.5); RDW Standard Deviation 49.4 fL (36.4-46.3); Red Blood Count 3.78 M/uL (4.2-5.4); White Blood Count 12.75 K/uL (4.8-10.8)
[2018-08-09 06:49] LABS: Albumin Globulin Ratio 0.9 (0.9-2); BUN Creatinine Ratio 50.7 (10-20); Bilirubin,Total 0.3 mg/dl (0.2-1); Calcium 8.4 mg/dl (8.5-10.1); Creatinine Clr Calc Pharmacy 46.8 ml/min; Est GFR (African American) 67.7; Est GFR (Non-African American) 58.4; Globulin 3.3 gm/dl (2.5-4.0); Potassium 4.8 mmol/L (3.5-5.1); Total Protein 6.3 gm/dl (6.4-8.2)
[2018-08-09] MEDS: GABAPENTIN 100 MG CAP PO SCH ×2 (08:46→20:51)
[2018-08-09] MEDS: ISOSORBIDE MONO EXTENDED REL 30 MG TABCR PO SCH (08:47)
[2018-08-09] MEDS: METOPROLOL SUCC 25MG EXT REL TAB PO SCH (08:47)
[2018-08-09] MEDS: FOLIC ACID 1 MG TAB PO SCH (08:47)
[2018-08-09] MEDS: FUROSEMIDE 40 MG TAB PO SCH (08:47)
[2018-08-09] MEDS: LOSARTAN POTASSIUM 25 MG TAB PO SCH (08:47)
[2018-08-09] MEDS: POTASSIUM CHLORIDE 20 MEQ TABCR PO SCH ×2 (08:48→20:51)
[2018-08-09] MEDS: INSULIN ASPART 100 UNITS/ML 3 ML PEN SC SCH ×4 (08:50→20:52)
[2018-08-09] MEDS ORDERED: predniSONE 20 MG TAB PO SCH (09:00)
--- NOTE | 2018-08-09 14:17 | Family Medicine Progress Note ---
Date of Service August 09, 2018 Assessment & Plan (1) Pneumonia: 83 y/o F with PMH DM, HTN, COPD, Anxiety, Pompe's presents with COPD exacerbation and found to have RLL Infiltrate on CXR. 1) Acute on chronic respiratory failure - ? sec to PNA/copd exacerbation - continue bipap /cpap support -Appears to be chronically retaining CO2. Today 43, 82 on admit - d/c azith and ceftriaxone 08/09 -Cont PO Prednisone 40 mg, will cont taper 30 mg in AM -Duoneb q4sch, xopenex q4prn -PT/OT: recommend snf placement. Pt and family have chosen to pursue home hospice 2) Delirium/hallucinations - resolved - notes hallucinations on admission. Delirium could be multifactorial 2/ 2 new hospital environment/medication side effect/UTI/PNA -supportive care -will cont monitor 3) Indwelling olsen present -UA: 2+ LE, WBCs, epithelial cells. Urine cx negative -Related to bed-bound status 4) Pompe/Acid maltase deficiency -Progressively worsening -Bed bound status -PT as above 5) DM -Well controlled per patient, on metformin -Placed in ISS for steroid coverage. Cont monitor BSGs. Lantus resumed today 6) HTN -Continue home meds 7) Anxiety -Continue home meds -Has been getting very anxious here. Vistaril dose increased to TID. Oversedation from vistaril likely contributes some to CO2 retention. Will cont follow. DNR/DNI DVT Prophylaxis: Xarelto Dispo: Home Hospice pending process Supervising Physician Co-Signing Physician Notes I personally examined the patient and verified all hawkins points of history and exam, discussed case, and agree with decision making with Dr Bhatt sleeping comfortably. plan is now more up in the air as hospice apparently not able to start right away. family re-considering [facility]. vitals noted nad breathing unlabored no pallor or icterus, appearing comfortable on bipap end stage lung disease - appearing comfortable. discharge planning by family - ?home hospice vs [facility] otherwise as above Subjective 83 y/o F found in bed this AM in NAD. Pt's BSG's have been running better after d/c basal lantus. Pt notes her breathing about the same, still on BIPAP. Some ongoing weakness. Pt has gotten her own BIPAP that she uses at home and notes it is easier to breath now. Pt not able to ambulate. No issues with PO intake. notes pt hallucinations have improved. Pt has no other acute concerns or complaints. States ok with plan to move her to home hospice after dicussion with family. Awaiting home hospice process. Physical Exam 2 Vital Signs (Past 24 Hours): Last Vital Signs Temp 36.6 C 08/09/18 08:44 Pulse 75 08/09/18 11:40 Resp 14 08/09/18 11:40 BP 133/77 08/09/18 08:44 Pulse Ox 96 08/09/18 11:40 Constitutional: WD/WN, vitals as above + obese Eyes: PERRL, conjunctivae normal, anicteric sclerae ENMT: external ear and nose normal, oropharynx normal Respiratory: CTAB anterior, posterior not auscultated Cardiovascular: RRR, no murmur, no edema Gastrointestinal (Abdomen): normal bowel sounds, soft, nontender, no hepatosplenomegaly Skin: no rashes, warm and dry Psychiatric: Mood: + anxious mood Results & Data Laboratory Results Laboratory Results - last 24 hr 08/08/18 08/08/18 08/08/18 16:55 16:56 17:26 WBC RBC Hgb Hct MCV MCH MCHC RDW Std Deviation RDW Coeff of Reina Plt Count MPV Immature Gran % (Auto) Neut % (Auto) Lymph % (Auto) [place] % (Auto) Eos % (Auto) Baso % (Auto) Immature Gran # (Auto) Neut # (Auto) Lymph # (Auto) [place] # (Auto) Eos # (Auto) Baso # (Auto) Sodium Potassium Chloride Carbon Dioxide Anion Gap BUN Creatinine Est Cr Clr Drug Dosing Est GFR ( Amer) Est GFR (Non-Af Amer) BUN/Creatinine Ratio Glucose POC Glucose 56 L* 48 L* 58 L* Calcium Total Bilirubin AST ALT Alkaline Phosphatase Total Protein Albumin Globulin Albumin/Globulin Ratio 08/08/18 08/08/18 08/09/18 17:51 20:22 05:36 WBC 12.75 H RBC 3.78 L Hgb 11.5 L Hct 37.9 MCV 100.3 H MCH 30.4 MCHC 30.3 L RDW Std Deviation 49.4 H RDW Coeff of Reina 13.6 Plt Count 289 MPV 9.5 Immature Gran % (Auto) 1.9 Neut % (Auto) 64.5 Lymph % (Auto) 21.3 [place] % (Auto) 10.5 Eos % (Auto) 1.7 Baso % (Auto) 0.1 Immature Gran # (Auto) 0.24 H Neut # (Auto) 8.23 H Lymph # (Auto) 2.71 [place] # (Auto) 1.34 H Eos # (Auto) 0.22 Baso # (Auto) 0.01 Sodium Potassium Chloride Carbon Dioxide Anion Gap BUN Creatinine Est Cr Clr Drug Dosing Est GFR ( Amer) Est GFR (Non-Af Amer) BUN/Creatinine Ratio Glucose POC Glucose 137 H 132 H Calcium Total Bilirubin AST ALT Alkaline Phosphatase Total Protein Albumin Globulin Albumin/Globulin Ratio 08/09/18 08/09/18 08/09/18 05:36 07:49 11:07 WBC RBC Hgb Hct MCV MCH MCHC RDW Std Deviation RDW Coeff of Reina Plt Count MPV Immature Gran % (Auto) Neut % (Auto) Lymph % (Auto) [place] % (Auto) Eos % (Auto) Baso % (Auto) Immature Gran # (Auto) Neut # (Auto) Lymph # (Auto) [place] # (Auto) Eos # (Auto) Baso # (Auto) Sodium 138 Potassium 4.8 Chloride 94 L Carbon Dioxide 43 H* Anion Gap 1.0 L BUN 47 H Creatinine 0.92 Est Cr Clr Drug Dosing 46.8 Est GFR ( Amer) 67.7 Est GFR (Non-Af Amer) 58.4 BUN/Creatinine Ratio 50.7 H Glucose 75 POC Glucose 71 124 H Calcium 8.4 L Total Bilirubin 0.3 AST 25 ALT 64 Alkaline Phosphatase 90 Total Protein 6.3 L Albumin 3.0 L Globulin 3.3 Albumin/Globulin Ratio 0.9 Medications Administered Current Inpatient Medications Acetaminophen (Tylenol) 650 mg PO Q4H PRN PRN Reason: Pain or Fever Stop: 08/31/18 22:27 Al Hydrox/Mg Hydrox/Simethicone (Maalox) 15 ml PO Q4H PRN PRN Reason: Dyspepsia Stop: 08/31/18 22:27 Albuterol (Ventolin Hfa) 2 puffs INH Q4H PRN PRN Reason: Shortness Of Breath Or Wheezing Stop: 08/31/18 20:41 Albuterol (Duoneb) 3 ml NEB Q4R SHAYNE Stop: 09/01/18 00:00 Last Admin: 08/09/18 11:39 Dose: 3 ml Buspirone HCl (Buspar) 5 mg PO Q12 [facility]NE Stop: 08/31/18 20:59 Last Admin: 08/09/18 08:46 Dose: 5 mg Dextrose (Dextrose 50%) 25 - 50 ml IV UD PRN; Protocol PRN Reason: Hypoglycemia Protocol Stop: 08/31/18 22:27 Fexofenadine HCl (Nallely) 60 mg PO Q12H PRN PRN Reason: Allergy Symptoms Stop: 08/31/18 20:41 Folic Acid (Folvite) 1 mg PO DAILY [facility] Stop: 09/01/18 08:59 Last Admin: 08/09/18 08:47 Dose: 1 mg Furosemide (Lasix) 40 mg PO QAM [facility] Stop: 09/01/18 08:59 Last Admin: 08/09/18 08:47 Dose: 40 mg Gabapentin (Neurontin) 200 mg PO BID [facility] Stop: 08/31/18 20:59 Last Admin: 08/09/18 08:46 Dose: 200 mg Glucagon (Glucagen) 1 mg SQ UD PRN; Protocol PRN Reason: Hypoglycemia Protocol Stop: 08/31/18 22:27 Glucose (Dex4 Glucose) 4 - 8 tabs PO UD PRN; Protocol PRN Reason: Hypoglycemia Protocol Stop: 08/31/18 22:27 Glucose (Glucose 40%) 15 - 30 gm PO UD PRN; Protocol PRN Reason: Hypoglycemia Protocol Stop: 08/31/18 22:27 Last Admin: 08/08/18 17:30 Dose: 15 gm Hydroxyzine HCl (Vistaril) 25 mg PO TID PRN PRN Reason: Anxiety Stop: 08/31/18 21:25 Last Admin: 08/09/18 08:46 Dose: 25 mg Insulin Aspart (Novolog Flexpen) 0 units SC ACHS [facility] Stop: 09/01/18 07:29 Last Admin: 08/09/18 13:07 Dose: 6 units Insulin Glargine (Lantus Solostar Pen) 10 units SC BID [facility] Stop: 09/07/18 08:59 Last Admin: 08/08/18 08:44 Dose: 10 units Isosorbide Mononitrate (Imdur Extended Rel) 30 mg PO QAM [facility] Stop: 09/01/18 08:59 Last Admin: 08/09/18 08:47 Dose: 30 mg Levalbuterol HCl (Xopenex 1.25mg/3ml Neb) 1.25 mg NEB Q4H PRN PRN Reason: Shortness Of Breath Or Wheezing Stop: 08/31/18 22:27 Losartan Potassium (Cozaar) 25 mg PO DAILY [facility] Stop: 09/01/18 08:59 Last Admin: 08/09/18 08:47 Dose: 25 mg Magnesium Hydroxide (Milk Of Magnesia) 30 ml PO Q12H PRN PRN Reason: Constipation Stop: 08/31/18 22:27 Last Admin: 08/06/18 15:57 Dose: 30 ml Metoprolol Succinate (Toprol Xl) 25 mg PO DAILY [facility] Stop: 09/01/18 08:59 Last Admin: 08/09/18 08:47 Dose: 25 mg Miscellaneous (Carbohydrates For Hypoglycemia) 15 - 30 gm PO UD PRN PRN Reason: Hypoglycemia Treatment Stop: 08/31/18 22:27 Last Admin: 08/08/18 17:07 Dose: 30 gm Polyethylene Glycol (Miralax Powder Packet) 17 gm PO DAILY PRN PRN Reason: Constipation Stop: 08/31/18 22:27 Potassium Chloride (Klor-Con M20) 20 meq PO BID [facility] Stop: 08/31/18 20:59 Last Admin: 08/09/18 08:48 Dose: 20 meq Prednisone (Prednisone) 40 mg PO QAM [facility] Stop: 09/08/18 08:59 Last Admin: 08/09/18 08:46 Dose: 40 mg Quetiapine Fumarate (Seroquel) 12.5 mg PO HS [facility] Stop: 09/01/18 20:59 Last Admin: 08/08/18 20:40 Dose: 12.5 mg Rivaroxaban (Xarelto) 20 mg PO PM [facility] Stop: 08/31/18 20:59 Last Admin: 08/08/18 20:41 Dose: 20 mg Venlafaxine HCl (Effexor Extended Release) 75 mg PO HS [facility] Stop: 08/31/18 20:59 Last Admin: 08/08/18 20:42 Dose: 75 mg Resident Activity Tracking Resident Involvement: Resident Care Provided Care Provided: [facility] Medicine _ (1) Pneumonia Aspiration pneumonia type: Laterality: unspecified laterality Lung location : unspecified part of lung Pneumonia type: due to unspecified organism Qualified Code(s): J18.9 - Pneumonia, unspecified organism
[2018-08-09] MEDS ORDERED: BISACODYL 5 MG TABEC PO ONE (19:25)
[2018-08-09] MEDS: QUETIAPINE FUMARATE 25 MG TABLET PO SCH (20:50)
[2018-08-09] MEDS: RIVAROXABAN 20 MG TAB PO SCH (20:50)
[2018-08-09] MEDS: VENLAFAXINE HCL XR 75 MG CAPXR PO SCH (20:52)
[2018-08-10] MEDS: ALBUT/IPRATROP 3MG/0.5MG NEB 3 ML VIAL NEB SCH ×3 (02:59→11:27)
[2018-08-10 06:58] LABS: Basophils # (auto) 0.02 K/uL (0-0.2); Basophils % (auto) 0.2 %; Eosinophils # (auto) 0.09 K/uL (0-0.5); Eosinophils % (auto) 0.7 %; Hematocrit (blood only) 37.2 % (37-47); Hemoglobin 11.6 g/dL (12.0-16.0); Immature Granulocytes # (auto) 0.13 K/uL (0.00-0.02); Lymphocytes # (auto) 2.57 K/uL (1.2-3.4); Lymphocytes % (auto) 19.9 %; Mean Corpuscular Hgb Conc 31.2 g/dL (32-36); Mean Corpuscular Volume 97.4 fL (80-100); Mean Platelet Volume 9.5 fL (7.4-10.4); Monocytes # (auto) 1.24 K/uL (0.11-0.59); Monocytes % (auto) 9.6 %; Neutrophils # (auto) 8.89 K/uL (1.4-6.5); Neutrophils % (auto) 68.6 %; Platelet Count 313 K/uL (130-400); RDW Coefficient of Variation 13.6 % (11.5-14.5); RDW Standard Deviation 48.7 fL (36.4-46.3); Red Blood Count 3.82 M/uL (4.2-5.4); White Blood Count 12.94 K/uL (4.8-10.8)
[2018-08-10] MEDS ORDERED: SODIUM CHLORIDE 0.9% 500 ML IV SCH (07:15)
[2018-08-10 07:37] LABS: Albumin Level 3.1 gm/dl (3.4-5.0); BUN Creatinine Ratio 65.8 (10-20); Calcium 8.8 mg/dl (8.5-10.1); Creatinine Clr Calc Pharmacy 55.9 ml/min; Est GFR (African American) 83.9; Est GFR (Non-African American) 72.4; Potassium 4.3 mmol/L (3.5-5.1)
[2018-08-10 07:40] LABS: Albumin Globulin Ratio 0.8 (0.9-2); Bilirubin,Total 0.3 mg/dl (0.2-1); Globulin 3.7 gm/dl (2.5-4.0); Total Protein 6.8 gm/dl (6.4-8.2)
[2018-08-10] MEDS: METOPROLOL SUCC 25MG EXT REL TAB PO SCH (08:36)
[2018-08-10] MEDS: ISOSORBIDE MONO EXTENDED REL 30 MG TABCR PO SCH (08:36)
[2018-08-10] MEDS: GABAPENTIN 100 MG CAP PO SCH (08:37)
[2018-08-10] MEDS: POTASSIUM CHLORIDE 20 MEQ TABCR PO SCH (08:37)
[2018-08-10] MEDS: LOSARTAN POTASSIUM 25 MG TAB PO SCH (08:38)
[2018-08-10] MEDS: FOLIC ACID 1 MG TAB PO SCH (08:38)
[2018-08-10] MEDS: FUROSEMIDE 40 MG TAB PO SCH (08:38)
[2018-08-10] MEDS: INSULIN ASPART 100 UNITS/ML 3 ML PEN SC SCH ×2 (08:40→13:08)
[2018-08-10] MEDS ORDERED: predniSONE 10 MG TABLET PO SCH (09:00)
[2018-08-10] MEDS: INSULIN GLARGINE SOLOSTAR 100 UNITS/ML 3 ML PEN SC SCH (12:23)
--- NOTE | 2018-08-10 12:36 | Discharge Summary ---
Addendum entered and electronically signed by Tariq Bhatt DO 08/10/18 13: 23: Addendum (Blank) Addendum August 10, 2018 13:22 Original Note: Date of Service August 10, 2018 Admission HPI Per Admitting Provider Patient is a pleasant 83yoF who presents via EMS, accompanied by daughter and , for complaints of dyspnea, cough, chills for the past several days. She is currently on hospice living at home. PMH significant for COPD, goal 88-92 %(sees Dr. 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 Most of history is provided by family, who state that in the past several days she has required the use of her CPAP machine more and more, but will still occasionally use NC. She has also been having a cough with clear sputum, some chills, but no fever. On EMS arrival, she was satting 78%, but after changing to EMS machine her oxygen level began to improve. She was placed on Bipap en route and was able to convert to CPAP in her room. She is hemodynamically stable on arrival. CXR shows small RLL infiltrate. ABG was performed: pH 7.35, PCO2 82, Po2 63, HCO3 44. Flu negative. Does have cardiac history, negative trop, negative BNP. Principal Diagnosis copd/pna Discharge Exam Constitutional WD/WN, vitals as above + obese Eyes PERRL, conjunctivae normal, anicteric sclerae ENMT external ear and nose normal, oropharynx normal Cardiovascular RRR, no murmur, no edema Gastrointestinal (Abdomen) normal bowel sounds, soft, nontender, no hepatosplenomegaly Skin no rashes, warm and dry Psychiatric Mood: + anxious mood Discharge Data Allergies Allergy/AdvReac Type Severity Reaction Status Date / Time No Known Allergies Allergy Unverified 07/04/18 12:16 Consultations 08/01/18 19:41 ED Decision to Admit Stat 08/01/18 22:28 Consult Case Management - Discharge Planning Routine Hospital Course (1) Pneumonia: 83 y/o F with PMH DM, HTN, COPD, Anxiety, and Pompe's who presents to [facility] 08/02 with complaints of dyspnea, cough, chills for the past several days. 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 Family stated that in the past several days prior to admission, pt required the use of her CPAP machine more and more, but still occasionally used NC. Pt had cough with clear sputum, some chills, but no fever. In ER, CXR showed a small RLL infiltrate. ABG showed: pH 7.35, PCO2 82, Po2 63, HCO3 44. The following was the medical management during pt's stay here. 1) Acute on chronic respiratory failure -Pt's respiratory failure likely 2/2 PNA/COPD exacerbation. Pt was continued on bipap /cpap support with O2 support whenever eating. She noted that her breathing improved day after day. Labs indicated that pt appeared to be chronically retaining CO2. On d/c CO2 was 43, 82 on admit. Pt was tx with IV azith and ceftriaxone, which ran its full course. Pt also was on IV solumedrol, which was weaned to PO Prednisone 40 mg, and pt will continue to taper (2 more days of 30 mg, 3 days of 20 mg, and 3 days of 10 mg). Currently on 30 mg. Pt also given Duoneb and xopenex as needed. 2) Delirium/hallucinations -Pt's noted hallucinations on admission, which resolved shortly after admission. Delirium could have been multifactorial 2/2 new hospital environment/ medication side effect/UTI/PNA. Pt was monitored for this and it did not return. Supportive care was given. Initial UA was: 2+ LE, WBCs, epithelial cells. Urine cx was negative. 4) Pompe/Acid maltase deficiency -Pt was on home hospice before admission for Pompe's, and she had been progressively worsening/Bed bound status. I do believe that the family needs some education on the matter, as there seems to be confusion as to what will [facility]. /Daughter in law seemed to be at odds about what the course was going forward, wavering back between home hospice and snf placement. They will go to [facility] for now and the topic of home hospice should be revisited. PT/OT worked with pt here and and recommended snf placement. Noted that pt was at baseline, which is bed bound, and not able to walk, which was confirmed by . 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 5) DM -Pt's DM is well controlled, per family and is normally on metformin. She was placed in [facility] for steroid coverage here. 6) HTN -Pt was continued on home meds 7) Anxiety -Pt was continue home meds. Pt had been getting very anxious here and Vistaril dose was increased to TID. Oversedation from vistaril likely contributed to some of pt's CO2 retention. DVT Prophylaxis was with Xarelto. At time of d/c, pt had no other acute concerns or complaints. Total Time Total Time Spent Total Time Spent (In Minutes): <30 min Discharge Plan Discharge Items Patient Disposition: Transfer [facility] Reason For Visit: PNA,COPD EXACERBATION Discharge Diagnosis: copd exacerbation/pneumonia Discharge Goals: Decrease discomfort, Improve disease control and Improve function Activity: Per 'Additional Instructions' section Non-emergency contact: Primary Care Provider Call non-emergency contact if: you have any medication questions and your symptoms worsen Diet: Carb Consistent or DM2 Addtl Provider Instructions: You were admitted for COPD exacerbation and pneumonia. Please follow the below instructions on discharge: -You will continue your steroid taper at [facility] as follows: 2 more days of 30 mg, 3 days of 20 mg, and 3 days of 10 mg. -You have completed your full course of antibiotics and do not need any more. -Tell your doctor if you feel you have similar symptoms coming on that brought you to the hospital initially -Continue to work with PT/OT services Prescriptions: New prednisone 10 mg tablet 10 mg PO DAILY Qty: 15 RF: 0 Continue quetiapine 25 mg tablet 12.5 mg PO HS RF: 0 furosemide 40 mg tablet 40 mg PO QAM RF: 0 buspirone 5 mg tablet 5 mg PO Q12 RF: 0 metformin 500 mg tablet 500 mg PO BID RF: 0 venlafaxine 75 mg capsule,extended release 24hr 75 mg PO HS RF: 0 fexofenadine [Nallely Allergy] 60 mg Tablet 60 mg PO Q12H PRN (Reason: Allergy Symptoms) RF: 0 levalbuterol HCl 0.63 mg/3 mL solution for nebulization 0.63 mg Inhalation Q6H RF: 0 isosorbide mononitrate 30 mg tablet extended release 24 hr 30 mg PO QAM RF: 0 potassium chloride 20 mEq tablet,ER particles/crystals 20 meq PO BID RF: 0 losartan 25 mg tablet 25 mg PO DAILY RF: 0 folic acid 1 mg tablet 1 mg PO DAILY RF: 0 hydroxyzine HCl 25 mg tablet 25 mg PO BID PRN (Reason: Anxiety) RF: 0 gabapentin 100 mg capsule 200 mg PO BID RF: 0 metoprolol succinate 25 mg tablet extended release 24 hr 25 mg PO DAILY RF: 0 ergocalciferol (vitamin D2) [Vitamin D2] 50,000 unit Capsule 50,000 units PO WK RF: 0 albuterol sulfate 90 mcg/actuation HFA aerosol inhaler 2 puff Inhalation Q4H PRN (Reason: Shortness Of Breath Or Wheezing) RF: 0 ipratropium bromide 0.02 % solution 1 vial Inhalation QID RF: 0 clobetasol 0.05 % lotion 1 applic topical BID RF: 0 thiamine mononitrate (vit B1) 100 mg tablet 200 mg PO BID RF: 0 rivaroxaban 20 mg tablet 20 mg PO PM RF: 0 ipratropium bromide 42 mcg (0.06 %) spray,non-aerosol 2 spray Intranasal TID RF: 0 Stand-Alone Forms: [facility] Discharge Orders: Discharge Order (Routine); Ordered 08/10/18 Ordered By: Tariq Bhatt Skilled Items Patient informed of condition?: Yes DNR: Yes Discharge Level of Care: Skilled Communicable Disease: No Discharge Prognosis: Stable Admission Data Admit Date/Time: 08/01/18 20:59 Attending Provider: Rober Rashid Admit Provider: Angelina Morrissey Primary Care Provider: Dave Odell Other Providers: Rebecca Sanches Madhavi Service: Medical Other Interventions: Discharge Summary Assessment (RN) Last Done: 08/10/18 13:14 DC Date/Time DO NOT enter until pt leaves facility: 08/10/18 14:10 Supervising Physician Co-Signing Physician Notes I personally examined the patient and verified all hawkins points of history and exam, discussed case, and agree with decision making with Dr Bhatt Feeling up to going to [facility], seems excited to leave the hospital. No new problems. vitals noted nad breathing unlabored no pallor or icterus, appearing comfortable on bipap, conversational. Skin shows no rashes no pallor or icterus. Neuro shows no focal deficits. end stage lung disease - appearing comfortable. She is now not opting for hospice care, although certainly with her severe restrictive pattern and her glycogen-storage disease appearing to be driving her respiratory failure, this should certainly be ongoing discussions. She is stable for transfer to SNF. Supportive care, BiPAP, close follow-up. otherwise as above Resident Activity Tracking Resident Involvement: Resident Care Provided Care Provided: Adult [facility] Medicine
== END 2018-08-10 14:10 | DRG 190 ==
LOC: ED 17:45 → SUATTDRO 20:59 → 2S 20:59 → 4W 08-03 16:30

== ENCOUNTER 2018-08-16 17:05 | Inpatient (IN) ==
[2018-08-16] MEDS ORDERED: methylPREDNISolone 125 MG/2 ML VIAL IV STA (17:29)
[2018-08-16] MEDS ORDERED: ALBUT/IPRATROP 3MG/0.5MG NEB 3 ML VIAL NEB STA (17:29)
--- NOTE | 2018-08-16 18:06 | XRay Report ---
XR chest 1V portable CLINICAL HISTORY: 83 years-old Female presenting with sob, hx of copd. TECHNIQUE: Portable upright AP view of the chest was obtained. COMPARISON: 08/01/2018. FINDINGS: Atherosclerosis of the aortic arch. Cardiac silhouette normal in size. Right basilar opacity unchange d. No large effusion or pneumothorax. Heterogeneous radiolucency of the lungs. Degenerative changes o f the thoracic spine. Left shoulder arthroplasty. Left axilla surgical clips. Degenerative changes of the right glenohumeral joint. Old rib fractures noted. Upper abdomen normal. IMPRESSION: 1. Unchanged right basilar opacity, likely atelectasis. No new focal opacity. 2. Suspected underlying emphysema. Electronically signed by: Gregorio Garrison M.D. 08/16/2018 6:04 PM
[2018-08-16 18:08] LABS: iSTAT Arterial Blood Gas HCO3 45 meg/L (19-24); iSTAT Arterial Blood Gas pCO2 85 mmHg (35-46); iSTAT Arterial Blood Gas pH 7.33 (7.35-7.45); iSTAT Carbon Dioxide > 40 mEq/l (24-31); iSTAT Hematocrit 40 % (37-47); iSTAT Hemoglobin 13.6 g/dl (12.0-16.0); iSTAT Potassium 4.8 mEq/L (3.3-5.0); iSTAT Sodium 133 mEq/L (135-144)
[2018-08-16] MEDS ORDERED: SODIUM CHLORIDE 0.9% 500 ML IV SCH (18:15)
[2018-08-16 18:19] LABS: Basophils # (auto) 0.02 K/uL (0-0.2); Basophils % (auto) 0.1 %; Hematocrit (blood only) 39.6 % (37-47); Hemoglobin 12.5 g/dL (12.0-16.0); Immature Granulocytes # (auto) 0.15 K/uL (0.00-0.02); Immature Granulocytes % (auto) 0.8 %; Lymphocytes # (auto) 0.89 K/uL (1.2-3.4); Lymphocytes % (auto) 4.8 %; Mean Corpuscular Hgb Conc 31.6 g/dL (32-36); Mean Corpuscular Volume 96.1 fL (80-100); Mean Platelet Volume 9.6 fL (7.4-10.4); Monocytes # (auto) 0.86 K/uL (0.11-0.59); Monocytes % (auto) 4.6 %; Neutrophils # (auto) 16.79 K/uL (1.4-6.5); Neutrophils % (auto) 89.7 %; Platelet Count 375 K/uL (130-400); RDW Coefficient of Variation 13.2 % (11.5-14.5); RDW Standard Deviation 46.2 fL (36.4-46.3); Red Blood Count 4.12 M/uL (4.2-5.4); White Blood Count 18.71 K/uL (4.8-10.8)
--- NOTE | 2018-08-16 18:20 | Emergency Department Note ---
ED Visit Note I assisted in the care of this patient with Dr. Rober Tapia. . Resident Activity Tracking Resident Involvement: Resident Care Provided Care Provided: Adult ED
[2018-08-16 18:37] LABS: INR 1.1 (0.9-1.1); Partial Thromboplastin Time 27.2 Seconds (21.0-31.0); Prothrombin Time 11.4 Seconds (9.0-12.0)
[2018-08-16 18:37] LABS: Alanine Aminotransferase 126 U/L (12-78); Albumin Level 3.4 gm/dl (3.4-5.0); Aspartate Aminotransferase 59 U/L (15-37); BUN Creatinine Ratio 44.2 (10-20); Blood Urea Nitrogen 26 mg/dl (7-18); Calcium 8.7 mg/dl (8.5-10.1); Carbon Dioxide 40 mmol/L (21-32); Chloride 90 mmol/L (98-107); Est GFR (African American) 99.1; Est GFR (Non-African American) 85.5; Glucose 164 mg/dl (70-99); Sodium 132 mmol/L (136-145)
[2018-08-16 18:42] LABS: Albumin Globulin Ratio 0.9 (0.9-2); Alkaline Phosphatase 94 U/L (45-117); Bilirubin,Total 0.4 mg/dl (0.2-1); Globulin 3.9 gm/dl (2.5-4.0); Total Protein 7.3 gm/dl (6.4-8.2); Troponin I 0.042 ng/ml (0-0.045)
--- NOTE | 2018-08-16 20:04 | History & Physical Report ---
Date of Service August 16, 2018 Assessment & Plan (1) Acute respiratory failure with hypoxia and hypercapnia: Ms. 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 The patient received nebulizers, 125 mg of IV Solu-Medrol and a 500 mL bolus of normal saline in the emergency department. -admit to med/surg with telemetry monitoring -Patient's acute respiratory failure is likely secondary to CPAP machine not working, and her new baseline with end-stage restrictive lung disease, as opposed to new pulmonary process -The patient is afebrile, her chest x-ray did not show any new acute processes. Her lung examination reveals diminished lung sounds, without wheezing -WCC is elevated, but pt was recently on steroids -ABG shows respiratory acidosis w/a CO2 of 85 (similar to ABG on prior presentation to hospital) -No role for antibiotics or IV steroids for a pulmonary process at this point -Continue BiPAP support -Continue home nebulizer treatments Altered Mental Status -resolved at time of my exam -likely secondary to hypoxia w/CPAP machine not functioning correctly -continue to monitor Urinary Tract Infection -pt's UA positive for blood, nitrites, leukocyte esterase, WBC and bacteria -urine culture ordered and pending -likely not related to her AMS, but will treat with w/cefoxitin 1g q8h -prior urine cx from review of outpt records in September 2017 showed growth of ESBL that was resistant to ampicillin, ceftriaxone, cefepime, cipro and levaquin, but surprisingly sensitive to cefoxitin Acid Maltase Deficiency -progressive, end stage. Pt requiring BiPAP almost continuously at this point -palliative & CM management consult ordered given disparity between family's wishes for the pt going forward w/home hospice vs. SNF Diabetes Mellitus -Hold home medications and place on insulin sliding scale Hypertension/CAD -continue home losartan, isosorbide dinitrate, metoprolol and furosemide -contunue home potassium supplementation Atrial Fibrillation -Per review of outpatient records, she has a history of atrial fibrillation. Currently in sinus rhythm. -contunue home Xarelto & metoprolol Anxiety -continue home buspirone, seroquel, venlafaxine and prn hydroxyzine Code status: DNR/DNI as per discussion with patient Disposition: admit to med/surg with telemetry monitoring DVT Prophylaxis: Continue home Xarelto. F/E/N: Heart healthy and diabetic diet. Pt with low sodium of 132 and low chloride of 90. Pt also has elevated BUN of 26 and normal creatinine, suggesting dehydration. Pt received 500ml bolus in ED, will give NS at 100 mls/hr x1 bag given poor PO intake w/bipap on. (2) HTN (hypertension): (3) Diabetes: (4) Acid maltase deficiency: (5) Indwelling Olsen catheter present: (6) Pneumonia: (7) COPD (chronic obstructive pulmonary disease): (8) Anxiety: (9) Altered mental status: History of Present Illness Primary Care Provider: Dave Odell MD Ms. 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 Per review of chart, EMS had reported that her CPAP machine was not functioning correctly, and that her oxygen saturations were in the 70s upon their arrival. EMS applied their own CPAP machine and her oxygen saturations came up to 92-93% after approximately 20 minutes. Upon arrival to the emergency department, the patient was more active and awake. Per discussion with family, the patient has not had any fever or chills. The family was concerned due to the fact that Ms. Biswas did not recognize her this morning, and was progressively more confused. With regards to her acid maltase deficiency, her disease has progressed and affected her motor function, and she has been bedbound for the past 2 months. She has been requiring her CPAP more and more, and now wears it approximately 90%. She was recently admitted to [facility] and discharged 1 week ago. At that time, she was admitted for COPD exacerbation and pneumonia. She was treated with Rocephin and azithromycin, as well as a steroid taper, which she has now finished. Prior to her last admission, she had been on home hospice, however she was discharged to [facility]. There was some conflict within the family regarding going to [facility] versus home hospice at that time, and they opted not to restart hospice care. Allergies Allergy/AdvReac Type Severity Reaction Status Date / Time No Known Allergies Allergy Unverified 08/16/18 20:22 Home Medications Home Medications Medication Instructions Recorded Confirmed Type Cavilon Af 1 applic TOPICAL AMPM 08/16/18 08/16/18 History Prune Juice/Stewed Prunes 1 dose PO UD PRN 08/16/18 08/16/18 History acetaminophen [Tylenol] 650 mg PO Q6H PRN 08/16/18 08/16/18 History albuterol sulfate 2 inh INHALATION Q4 PRN 08/16/18 08/16/18 History buspirone 5 mg PO Q12 08/16/18 08/16/18 History ergocalciferol (vitamin D2) 50,000 unit PO WK 08/16/18 08/16/18 History fexofenadine [Nallely Allergy] 60 mg PO Q12H PRN 08/16/18 08/16/18 History folic acid 1 mg PO DAILY 08/16/18 08/16/18 History furosemide [Lasix] 40 mg PO DAILY 08/16/18 08/16/18 History gabapentin [Neurontin] 200 mg PO BID 08/16/18 08/16/18 History hydroxyzine HCl 25 mg PO Q12 PRN 08/16/18 08/16/18 History insulin lispro [Humalog U-100 1 sliding scale dose SUBCUT UD PRN 08/16/18 08/16/18 History Insulin] ipratropium bromide 1 vial INHALATION QID 08/16/18 08/16/18 History ipratropium bromide 2 puff INHALATION TID 08/16/18 08/16/18 History isosorbide mononitrate 30 mg PO DAILY 08/16/18 08/16/18 History levalbuterol HCl 0.63 mg INHALATION Q6 08/16/18 08/16/18 History losartan 25 mg PO DAILY 08/16/18 08/16/18 History magnesium hydroxide [Milk of 30 ml PO UD PRN 08/16/18 08/16/18 History Magnesia] menthol-zinc oxide [Calmoseptine] 1 applic TOPICAL QS 08/16/18 08/16/18 History menthol-zinc oxide [Calmoseptine] 1 applic TOPICAL UD PRN 08/16/18 08/16/18 History metformin 500 mg PO BID 08/16/18 08/16/18 History metoprolol succinate 25 mg PO DAILY 08/16/18 08/16/18 History potassium chloride 20 meq PO BID 08/16/18 08/16/18 History prednisone 10 mg PO DAILY 08/16/18 08/16/18 History quetiapine [Seroquel] 12.5 mg PO DAILY 08/16/18 08/16/18 History rivaroxaban 20 mg PO DAILY 08/16/18 08/16/18 History thiamine mononitrate (vit B1) 200 mg PO BID 08/16/18 08/16/18 History venlafaxine 75 mg PO QPM 08/16/18 08/16/18 History Past Med/Surg History Medical History Acid maltase deficiency (Chronic) Diabetes (Chronic) HTN (hypertension) (Chronic) Acute respiratory failure with hypoxia and hypercapnia Anxiety COPD (chronic obstructive pulmonary disease) COPD exacerbation Constipation Pneumonia involving right lung Social History Preferred Language: Pashto Communication Ability: Effective 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 Constitutional: no fever and no chills Respiratory: + dyspnea Physical Exam Vital Signs (Past 24 Hours): Last Vital Signs Temp 36.9 C 08/16/18 17:18 Pulse 93 H 08/16/18 19:27 Resp 22 08/16/18 19:27 BP 144/99 H 08/16/18 19:27 Pulse Ox 99 08/16/18 19:27 Constitutional: well developed, well nourished and cooperative on bipap Eyes: PERRL, conjunctivae normal, anicteric sclerae Respiratory: Auscultation: + diminished lung sounds Cardiovascular: RRR, no murmur, no edema Gastrointestinal (Abdomen): Percussion/Palpation: abdomen soft; abdomen nontender, no guarding and abdomen not rigid Psychiatric: A+Ox3, euthymic affect Genitourinary: olsen in place Results & Data Laboratory Results Laboratory Results - last 24 hr 08/16/18 08/16/18 08/16/18 17:45 17:45 17:46 WBC 18.71 H RBC 4.12 L Hgb 12.5 POC Hgb Hct 39.6 POC Hct MCV 96.1 MCH 30.3 MCHC 31.6 L RDW Std Deviation 46.2 RDW Coeff of Reina 13.2 Plt Count 375 MPV 9.6 Immature Gran % (Auto) 0.8 Neut % (Auto) 89.7 Lymph % (Auto) 4.8 Gibson % (Auto) 4.6 Eos % (Auto) 0.0 Baso % (Auto) 0.1 Immature Gran # (Auto) 0.15 H Neut # (Auto) 16.79 H Lymph # (Auto) 0.89 L Gibson # (Auto) 0.86 H Eos # (Auto) 0.00 Baso # (Auto) 0.02 PT 11.4 INR 1.1 APTT 27.2 PTT Ratio 1.0 POC pH POC pCO2 POC pO2 POC HCO3 POC Total CO2 POC Base Excess POC Sodium Sodium 132 L POC Potassium Potassium 5.0 Chloride 90 L Carbon Dioxide 40 H Anion Gap 2.0 L BUN 26 H Creatinine 0.60 Est Cr Clr Drug Dosing Not Reportable Est GFR ( Amer) 99.1 Est GFR (Non-Af Amer) 85.5 BUN/Creatinine Ratio 44.2 H Glucose 164 H Calcium 8.7 Magnesium 2.0 Total Bilirubin 0.4 AST 59 H ALT 126 H Alkaline Phosphatase 94 Troponin I 0.042 Total Protein 7.3 Albumin 3.4 Globulin 3.9 Albumin/Globulin Ratio 0.9 08/16/18 17:50 WBC RBC Hgb POC Hgb 13.6 Hct POC Hct 40 MCV MCH MCHC RDW Std Deviation RDW Coeff of Reina Plt Count MPV Immature Gran % (Auto) Neut % (Auto) Lymph % (Auto) Gibson % (Auto) Eos % (Auto) Baso % (Auto) Immature Gran # (Auto) Neut # (Auto) Lymph # (Auto) Gibson # (Auto) Eos # (Auto) Baso # (Auto) PT INR APTT PTT Ratio POC pH 7.33 L POC pCO2 85 H POC pO2 98 H POC HCO3 45 H POC Total CO2 > 40 H* POC Base Excess 19.0 H POC Sodium 133 L Sodium POC Potassium 4.8 Potassium Chloride Carbon Dioxide Anion Gap BUN Creatinine Est Cr Clr Drug Dosing Est GFR ( Amer) Est GFR (Non-Af Amer) BUN/Creatinine Ratio Glucose Calcium Magnesium Total Bilirubin AST ALT Alkaline Phosphatase Troponin I Total Protein Albumin Globulin Albumin/Globulin Ratio Supervising Physician Co-Signing Physician Notes 83 y/o F Hx end-stage restrictive lung disease secondary to acid maltase deficiency, COPD, DM II, CAD, HTN, anxiety - resides at [facility] where she became progressively confused and hypoxic. She had been sating in the 70% range, however, this may have been due to failure of her BiPAP machine as when EMS applied a different machine, both her saturations and mental status gradually improved. The pt was recently admitted for COPD exacerbation and PNM. She was also hospice status as early as a week ago which was revoked by family recently. She is presently bedbound and requiring PPV the majority of the day. OE: The pt is awake and alert at the time of admission S1,2 faint, R Very poor BL air movement NT, ND No CCE P: The pt's presentation was most likely due to failure of her BiPAP rather than any acute lung process. The issue now is that her disease is advancing to the point that she may not be able to be managed in a NH and would be better served in an LTAC facility. A trach/vent could also be considered if she does not want to return to hospice care. Palliative is consulted as a decision will need to be reached in conjunction with family. Resident Activity Tracking Resident Involvement: Resident Care Provided Care Provided: Adult Hospital Medicine (1) Pneumonia Laterality: unspecified laterality Lung location: unspecified part of lung Pneumonia type: due to unspecified organism Qualified Code(s): J18.9 - Pneumonia, unspecified organism
--- NOTE | 2018-08-16 20:08 | Emergency Department Note ---
Entered by Santo Madrigal acting as a scribe for Rober Tapia DO History of Present Illness General Chief complaint: Shortness of Breath/Dyspnea Stated complaint: lethargic Time Seen by Provider: 08/16/18 17:19 Source: patient and EMS Limitations: clinical acuity History of Present Illness Provider complaint: SOB Onset (ago): hour(s) Location: chest (OB) Pain Consistency: + other (acute worsening) Quality: + other (SOB) Associated symptoms: no chest pain, no headaches and no nausea/vomiting Treatments prior to arrival: other (C-pap) The patient is an 83 year old female who presents to the Emergency Room from [facility] with complaints an acute worsening of her chronic shortness of breath. The patient presents via EMS who states that the patient was on C-pap upon their arrival, but was in the 70s% oxygen saturation. They placed her on their C-pap machine and she improved to 92%. The patient states that she "needed a new mask" for her C-pap. Staff at [facility] told EMS that she has been "lethargic" recently as well. The patient denies any new cough, headache, nausea, vomiting diarrhea, or cough. Review of the patient's EMR shows that she was admitted on August 10, 6 days ago for pneumonia, sob, cough, and chills. The patient has an acid maltase deficiency and has been having worsening cough and chest-wall weakness. She has been using C-pap more often. Was on home Hospice before being sent to [facility]. Allergies Allergy/AdvReac Type Severity Reaction Status Date / Time No Known Allergies Allergy Unverified 07/04/18 12:16 Past Med/Surg History Medical History Acid maltase deficiency (Chronic) Diabetes (Chronic) HTN (hypertension) (Chronic) Acute respiratory failure with hypoxia and hypercapnia Anxiety COPD (chronic obstructive pulmonary disease) COPD exacerbation Constipation Pneumonia involving right lung Social History Preferred Language: Sinhala Beliefs That Will Affect Care: None marital status: Current Living Situation: Alone Current Living Situation Comment: hospice Feels Safe at Home: Yes Smoking Status: Unknown if ever smoked Hx Alcohol Use: No Hx Substance Use: No Review of Systems See HPI for pertinent positives & negatives. and A total of 10 systems reviewed and were otherwise negative Physical Exam Vital Signs Vital Signs - 24 hr 08/16/18 17:18 08/16/18 17:35 08/16/18 17:50 Temperature 36.9 C Temperature Source Axillary Sepsis Recent Fever Within 48 Hours No Sepsis New/Unexplained Change in Mental Status No Sepsis Action Taken by Nursing No Action Required Pulse Rate 104 H 98 H Pulse Rate [Apical] 98 H Pulse Rate from SpO2 Sensor Respiratory Rate 19 20 20 Respiratory Effort / Characteristics Spontaneous Spontaneous Respiratory Depth Normal Respiratory Pattern Regular Blood Pressure 178/105 H Blood Pressure [Right Arm] Blood Pressure Mean 129 Blood Pressure Mean [Right Arm] Pulse Oximetry 96 98 98 Oxygen Delivery Method BiPAP BiPAP Fraction of Inspired Oxygen 40 40 08/16/18 18:05 08/16/18 18:30 08/16/18 19:02 Temperature Temperature Source Sepsis Recent Fever Within 48 Hours Sepsis New/Unexplained Change in Mental Status Sepsis Action Taken by Nursing Pulse Rate 90 93 H Pulse Rate [Apical] 99 H Pulse Rate from SpO2 Sensor 90 93 H Respiratory Rate 25 H 15 19 Respiratory Effort / Characteristics Respiratory Depth Respiratory Pattern Blood Pressure 117/58 L 139/75 Blood Pressure [Right Arm] 139/72 Blood Pressure Mean 77 96 Blood Pressure Mean [Right Arm] 94 Pulse Oximetry 99 98 98 Oxygen Delivery Method BiPAP BiPAP BiPAP Fraction of Inspired Oxygen 08/16/18 19:27 Temperature Temperature Source Sepsis Recent Fever Within 48 Hours Sepsis New/Unexplained Change in Mental Status Sepsis Action Taken by Nursing Pulse Rate 93 H Pulse Rate [Apical] Pulse Rate from SpO2 Sensor 93 H Respiratory Rate 22 Respiratory Effort / Characteristics Respiratory Depth Respiratory Pattern Blood Pressure 144/99 H Blood Pressure [Right Arm] Blood Pressure Mean 114 Blood Pressure Mean [Right Arm] Pulse Oximetry 99 Oxygen Delivery Method BiPAP Fraction of Inspired Oxygen GENERAL: Lying in bed, ill appearing, on Bi-pap, mild distress. EYE EXAM: normal conjunctiva. OROPHARYNX: no exudate, no erythema, lips, buccal mucosa, and tongue normal and mucous membranes are DRY. NECK: supple, no nuchal rigidity, no adenopathy, non-tender LUNGS: Diminished at bilateral bases. Normal chest wall mechanics HEART: no murmurs, S1 normal and S2 normal ABDOMEN: abdomen soft, non-tender, normo-active bowel, sounds, no masses, no re bound or guarding. BACK: Back is symmetrical on inspection and there is no deformity, no midline tenderness, no CVA tenderness. SKIN: no rashes and no bruising UPPER EXTREMITIES: upper extremities are grossly normal. LOWER EXTREMITIES: No pitting edema. Calves equal bilaterally. NEURO EXAM: Awakens to yelling. Oriented to person, not place/time. Course ED COURSE: Vital signs were reviewed and showed hypertension. The patients medical record was reviewed The above diagnostic studies were performed and reviewed. ED treatments and interventions as stated above. 1707: The patient was evaluated in room C8. A complete history and physical examination was performed. 1939: I reviewed the patient's case with Dr. Ana Ponce - Hospitalist Resident. She will evaluate the patient for further management. Administered Medications Discontinued Medications Albuterol (Duoneb) 3 ml NEB NOW STA Stop: 08/16/18 17:30 Last Admin: 08/16/18 17:49 Dose: 3 ml Documented by: [id number] Sodium Chloride (Nss) 500 mls @ 999 mls/hr IV .Q31M SHAYNE Stop: 08/16/18 18:45 Last Infusion: 08/16/18 19:46 Dose: 0 mls/hr Documented by: [id number] Admin: 08/16/18 18:55 Dose: 999 mls/hr Documented by: [id number] Methylprednisolone (Solumedrol) 125 mg IV NOW STA Stop: 08/16/18 17:30 Last Admin: 08/16/18 18:09 Dose: 125 mg Documented by: [id number] Medical Decision Making Differential Diagnosis Differential diagnosis: Etiologies such as infections, reactive airway disease, COPD, pneumonia, pleural effusion, pulmonary edema, ARDS, pneumothorax, CHF, cardiac ischemia, cardiac tamponade, dysrhythmia, anemia, pulmonary embolism, musculoskeletal, gastrointe stinal process, as well as others were entertained. Medical Records Attestation: I reviewed the patient's medical records. Home Medications Current Medication List: was personally reviewed by me Laboratory Data Attestation: I reviewed the patient's lab results. Result diagrams: 08/16/18 17:45 08/16/18 17:45 Lab Results 08/16/18 08/16/18 08/16/18 Range/Units 17:45 17:45 17:46 WBC 18.71 H (4.8-10.8) K/uL RBC 4.12 L (4.2-5.4) M/uL Hgb 12.5 (12.0-16.0) g/dL POC Hgb (12.0-16.0) g/dl Hct 39.6 (37-47) % POC Hct (37-47) % MCV 96.1 (80-100) fL MCH 30.3 (25-34) pg MCHC 31.6 L (32-36) g/dL RDW Std Deviation 46.2 (36.4-46.3) fL RDW Coeff of Reina 13.2 (11.5-14.5) % Plt Count 375 (130-400) K/uL MPV 9.6 (7.4-10.4) fL Immature Gran % (Auto) 0.8 % Neut % (Auto) 89.7 % Lymph % (Auto) 4.8 % [place] % (Auto) 4.6 % Eos % (Auto) 0.0 % Baso % (Auto) 0.1 % Immature Gran # (Auto) 0.15 H (0.00-0.02) K/uL Neut # (Auto) 16.79 H (1.4-6.5) K/uL Lymph # (Auto) 0.89 L (1.2-3.4) K/uL [place] # (Auto) 0.86 H (0.11-0.59) K/uL Eos # (Auto) 0.00 (0-0.5) K/uL Baso # (Auto) 0.02 (0-0.2) K/uL PT 11.4 (9.0-12.0) Seconds INR 1.1 (0.9-1.1) APTT 27.2 (21.0-31.0) Seconds PTT Ratio 1.0 POC pH (7.35-7.45) POC pCO2 (35-46) mmHg POC pO2 (80-95) mmHg POC HCO3 (19-24) machelle/L POC Total CO2 (24-31) mEq/l POC Base Excess (-9-1.8) machelle/L POC Sodium (135-144) mEq/L Sodium 132 L (136-145) mmol/L POC Potassium (3.3-5.0) mEq/L Potassium 5.0 (3.5-5.1) mmol/L Chloride 90 L (98-107) mmol/L Carbon Dioxide 40 H (21-32) mmol/L Anion Gap 2.0 L (3-11) BUN 26 H (7-18) mg/dl Creatinine 0.60 (0.6-1.2) mg/dl Est Cr Clr Drug Dosing Not Reportable Est GFR ( Amer) 99.1 Est GFR (Non-Af Amer) 85.5 BUN/Creatinine Ratio 44.2 H (10-20) Glucose 164 H (70-99) mg/dl Calcium 8.7 (8.5-10.1) mg/dl Magnesium 2.0 (1.8-2.4) mg/dl Total Bilirubin 0.4 (0.2-1) mg/dl AST 59 H (15-37) U/L ALT 126 H (12-78) U/L Alkaline Phosphatase 94 (45-117) U/L Troponin I 0.042 (0-0.045) ng/ml Total Protein 7.3 (6.4-8.2) gm/dl Albumin 3.4 (3.4-5.0) gm/dl Globulin 3.9 (2.5-4.0) gm/dl Albumin/Globulin Ratio 0.9 (0.9-2) 08/16/18 Range/Units 17:50 WBC (4.8-10.8) K/uL RBC (4.2-5.4) M/uL Hgb (12.0-16.0) g/dL POC Hgb 13.6 (12.0-16.0) g/dl Hct (37-47) % POC Hct 40 (37-47) % MCV (80-100) fL MCH (25-34) pg MCHC (32-36) g/dL RDW Std Deviation (36.4-46.3) fL RDW Coeff of Reina (11.5-14.5) % Plt Count (130-400) K/uL MPV (7.4-10.4) fL Immature Gran % (Auto) % Neut % (Auto) % Lymph % (Auto) % [place] % (Auto) % Eos % (Auto) % Baso % (Auto) % Immature Gran # (Auto) (0.00-0.02) K/uL Neut # (Auto) (1.4-6.5) K/uL Lymph # (Auto) (1.2-3.4) K/uL [place] # (Auto) (0.11-0.59) K/uL Eos # (Auto) (0-0.5) K/uL Baso # (Auto) (0-0.2) K/uL PT (9.0-12.0) Seconds INR (0.9-1.1) APTT (21.0-31.0) Seconds PTT Ratio POC pH 7.33 L (7.35-7.45) POC pCO2 85 H (35-46) mmHg POC pO2 98 H (80-95) mmHg POC HCO3 45 H (19-24) machelle/L POC Total CO2 > 40 H* (24-31) mEq/l POC Base Excess 19.0 H (-9-1.8) machelle/L POC Sodium 133 L (135-144) mEq/L Sodium (136-145) mmol/L POC Potassium 4.8 (3.3-5.0) mEq/L Potassium (3.5-5.1) mmol/L Chloride (98-107) mmol/L Carbon Dioxide (21-32) mmol/L Anion Gap (3-11) BUN (7-18) mg/dl Creatinine (0.6-1.2) mg/dl Est Cr Clr Drug Dosing Est GFR ( Amer) Est GFR (Non-Af Amer) BUN/Creatinine Ratio (10-20) Glucose (70-99) mg/dl Calcium (8.5-10.1) mg/dl Magnesium (1.8-2.4) mg/dl Total Bilirubin (0.2-1) mg/dl AST (15-37) U/L ALT (12-78) U/L Alkaline Phosphatase (45-117) U/L Troponin I (0-0.045) ng/ml Total Protein (6.4-8.2) gm/dl Albumin (3.4-5.0) gm/dl Globulin (2.5-4.0) gm/dl Albumin/Globulin Ratio (0.9-2) Imaging Data Attestation: I personally reviewed and interpreted this imaging study as follows: Radiologist's Impression: XR chest 1V portable CLINICAL HISTORY: 83 years-old Female presenting with sob, hx of copd. TECHNIQUE: Portable upright AP view of the chest was obtained. COMPARISON: 08/01/2018. FINDINGS: Atherosclerosis of the aortic arch. Cardiac silhouette normal in size. Right basilar opacity unchanged. No large effusion or pneumothorax. Heterogeneous radiolucency of the lungs. Degenerative changes of the thoracic spine. Left shoulder arthroplasty. Left axilla surgical clips. Degenerative changes of the right glenohumeral joint. Old rib fractures noted. Upper abdomen normal. IMPRESSION: 1. Unchanged right basilar opacity, likely atelectasis. No new focal opacity. 2. Suspected underlying emphysema. Electronically signed by: Gregorio Garrison M.D. 08/16/2018 6:04 PM ECG Data Attestation: I personally reviewed and interpreted this ECG as follows: Indication: SOB/dyspnea Rate (beats per minute): 99 Rhythm: sinus rhythm Findings: + other (Poor baseline in inferior and high lateral) and + acute ischemic change Blood Pressure Blood Pressure Findings: Elevated blood pressure Blood Pressure Disposition: further management by hospitalist GABY Narrative Patient is an 83-year-old female who presents to the ER for shortness of breath from [facility]. Patient was found to be confused with a pulse ox of 70% and was referred and brought in by EMS. She was placed on BiPAP. I [facility] she is normally on 3 L and intermittently CPAP which she has been using much more frequently. She was recently admitted and discharged for pneumonia and hypoxia along with respiratory failure. Patient was initially on hospice but that has been reverted per review of the chart. Vitals were obtained and show that she is mildly hypertensive. She is placed on BiPAP and has not been hypoxic while on that. Labs shows a leukocytosis of 18.7 thousand. Do favor secondary to steroids. No significant anemia. INR is unremarkable. ABG with a pH of 7.3 and a CO2 of 85. BMP with mild hyponatremia. CO2 is elevated as expected at 40. Creatinine was unremarkable. Mild transaminitis. Troponin was detectable but not positive. Chest x-ray shows no acute infiltrates. Patient remained on BiPAP. She was given steroids and neb treatments. was updated at bedside. Patient was seen independently of the resident. Patient was admitted to the hospital for respiratory failure and altered mental status likely secondary to hypoxia. Impression & Plan Acute respiratory failure with hypoxia and hypercapnia, COPD exacerbation Critical Care Time I have personally spent 35 minutes of critical care time in the direct management of this patient. This includes bedside care, interpretation of diagnostic studies, and testing, discussion with consultants, patient, and family members, and other required patient management activities. This 35 minutes is in excess of all separately billable procedures. Critical Care Time: Yes Total Critical Care Time: 35 Discharge Plan Visit Data Chief Complaint: Shortness of Breath/Dyspnea Stated Complaint: lethargic ED Provider: Rober Tapia ED Midlevel Provider: Bettina Lucia Discharge Problem: Acute respiratory failure with hypoxia and hypercapnia, COPD exacerbation Patient Disposition: Being Evaluated by Hospitalist Forms Stand Alone Forms: My [facility] Referrals Referrals: Dave Odell MD [Primary Care Provider] - The scribe's documentation has been prepared under my direction and personally reviewed by me in its entirety. I confirm that the note above accurately reflects all work, treatment, procedures, and medical decision making performed by me.
[2018-08-16 20:22] LABS: Appearance Urine Cloudy (Clear); Bacteria Urine Automated 3+ (Negative); Bilirubin Urine Negative (Negative); Blood Urine 1+ (Negative); Color Urine Yellow; Glucose Urine UA Negative (Negative); Ketones Urine Negative (Negative); Leukocyte Esterase Urine 2+ (Negative); Nitrite Urine Positive (Negative); Protein Urine Negative (Negative); Specific Gravity Urine 1.021 (1.000-1.030); Urobilinogen Urine Negative (Negative); WBC Urine Automated >30 /hpf (0-5)
[2018-08-16] MEDS ORDERED: MAGNESIUM HYDROXIDE SUSP 30 ML UDC PO PRN (22:34)
[2018-08-16] MEDS ORDERED: GLUCOSE 40% GEL 15 GM TUBE PO PRN (22:34)
[2018-08-16] MEDS ORDERED: FEXOFENADINE 60 MG TAB PO PRN (22:34)
[2018-08-16] MEDS ORDERED: ACETAMINOPHEN 325 MG TAB PO PRN (22:34)
[2018-08-16] MEDS ORDERED: MENTHOL-ZINC OXIDE 360 APPLN/120 GM TUBE EXT PRN (22:34)
[2018-08-16] MEDS ORDERED: DEXTROSE 50% 50 ML SYRINGE IV PRN (22:34)
[2018-08-16] MEDS ORDERED: GLUCOSE 10 TABS/TUBE PO PRN (22:34)
[2018-08-16] MEDS ORDERED: CARBOHYDRATES FOR HYPOGLYCEMIA PO PRN (22:34)
[2018-08-16] MEDS ORDERED: IPRATROPIUM BROMIDE HFA INHALER INH SCH (22:34)
[2018-08-16] MEDS ORDERED: GLUCAGON FOR INJ 1 MG VIAL SQ PRN (22:34)
[2018-08-16] MEDS ORDERED: SODIUM CHLORIDE 0.9% 1000ML 1,000 ML IV SCH (22:45)
[2018-08-16] MEDS ORDERED: ALBUTEROL HFA 8 GM INHALER INH PRN (23:00)
[2018-08-16] MEDS: THIAMINE HCL 100 MG TAB PO SCH (23:45)
[2018-08-16] MEDS: POTASSIUM CHLORIDE 20 MEQ TABCR PO SCH (23:46)
[2018-08-16] MEDS: GABAPENTIN 100 MG CAP PO SCH (23:47)
[2018-08-16] MEDS: VENLAFAXINE HCL XR 75 MG CAPXR PO SCH (23:47)
[2018-08-16] MEDS: INSULIN ASPART 100 UNITS/ML 3 ML PEN SC SCH (23:48)
[2018-08-17] MEDS: LEVALBUTEROL HCL 0.63 MG/3 ML NEB INH SCH ×4 (01:22→19:24)
[2018-08-17] MEDS: IPRATROPIUM BROMIDE NEB SOLN 0.02% 2.5 ML VIAL INH SCH ×3 (07:22→19:24)
[2018-08-17] MEDS ORDERED: IPRATROPIUM BROMIDE NEB SOLN 0.02% 2.5 ML VIAL INH SCH (08:00)
--- NOTE | 2018-08-17 09:11 | Family Medicine Progress Note ---
Date of Service August 17, 2018 Assessment & Plan (1) Acute respiratory failure with hypoxia and hypercapnia: Ms. 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 The patient received nebulizers, 125 mg of IV Solu-Medrol and a 500 mL bolus of normal saline in the emergency department. -admitted to med/surg with telemetry monitoring, transferred to med/surg as family did not want telemetry. Family does not want patient to suffer. They do not want further labs to be drawn. They would like to continue IVF and antibiotic treatment for UTI, as well as BIPAP. After discussion with Palliative care, agree to use Morphine for comfort for pain/dypsnea/anxiety. is aware of possible respiratory depression/sedation with Morphine. -Patient's acute respiratory failure is likely secondary to BiPAP machine not working, and her new baseline with end-stage restrictive lung disease, as opposed to new pulmonary process -The patient is afebrile, her chest x-ray did not show any new acute processes. Her lung examination reveals diminished lung sounds, without wheezing -WCC is elevated, but pt was recently on steroids and had a steroid bolus yesterday. Agree with Pulmonology with giving daily Prednisone to prevent adrenal insufficiency. Prednisone 20mg PO ordered. -ABG shows respiratory acidosis w/a CO2 of 85 (similar to ABG on prior presentation to hospital) -No role for antibiotics or IV steroids for a pulmonary process at this point. -Continue BiPAP support -Continue home nebulizer treatments Altered Mental Status -present -likely secondary to hypoxia -continue to monitor Urinary Tract Infection -pt's UA positive for blood, nitrites, leukocyte esterase, WBC and bacteria -urine culture ordered and grew gram negative bacilli >100,000 -likely not related to her AMS, but will treat with w/cefoxitin 1g q8h -prior urine cx from review of outpt records in September 2017 showed growth of ESBL that was resistant to ampicillin, ceftriaxone, cefepime, cipro and levaquin, but sensitive to cefoxitin Acid Maltase Deficiency -progressive, end stage. Pt requiring BiPAP almost continuously at this point -on admit, palliative & CM management consult ordered given disparity between family's wishes for the pt going forward w/home hospice vs. SNF -discussed with palliative and agree with treatment plan Diabetes Mellitus -Hold home medications and place on insulin sliding scale Hypertension/CAD -continue home losartan, isosorbide dinitrate, metoprolol and furosemide -contunue home potassium supplementation Atrial Fibrillation -Per review of outpatient records, she has a history of atrial fibrillation. Currently in sinus rhythm. -contunue home Xarelto & metoprolol Anxiety -continue home buspirone, seroquel, venlafaxine and prn hydroxyzine. Morphine 2mg IV q2hr PRN also ordered. Code status: DNR/DNI as per discussion with patient Disposition: admit to med/surg with telemetry monitoring DVT Prophylaxis: Continue home Xarelto. F/E/N: Heart healthy and diabetic diet. Pt with low sodium of 132 and low chloride of 90. Pt also has elevated BUN of 26 and normal creatinine, suggesting dehydration. Pt received 500ml bolus in ED, will give NS at 100 mls/hr x1 bag given poor PO intake w/bipap on. (2) HTN (hypertension): (3) Diabetes: (4) Acid maltase deficiency: (5) Indwelling Ho catheter present: (6) Pneumonia: (7) COPD (chronic obstructive pulmonary disease): (8) Anxiety: (9) Altered mental status: Supervising Physician Co-Signing Physician Notes I saw the patient separate from the resident physician and confirmed hawkins portions of the history and physical exam.. I also spoke with the granddaughter who was at bedside. I agree with the impression and plan as noted in the resident documentation. IMPRESSION Metabolic encephalopathy secondary to hypercapnia and hypoxia; this may be related to a CPAP function as suggested in the prehospital notes, or it could have been mucous plugging and progression of disease. There is really no way to verify. 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 Deja was unable to talk this morning with BiPAP in place. History was taken from Spouse who is at bedside. Patient resides at [facility] and there is suspicion that her Trilogy BiPAP was not functioning as well for unknown reason. Spouse states that they lost one of her masks for machine and that "it wasn't hooked up to oxygen." Spouse states patient is on BiPAP all day and is only off of it for meals for which she is on NC with supplemental oxygen. Previously, patient was on hospice for severe restrictive lung disease secondary two pompe and also for chronic respiratory failure. Her home hospice was revoked twice due to wanting to be transported to hospital for treatment. She was recently hospitalized here with discharge on 08/10/18 after 9 day stay. She was discharged to [facility] as spouse was unable to take care of her at home. Physical Exam Vital Signs (Past 24 Hours): Last Vital Signs Temp 36.9 C 08/17/18 07:04 Pulse 82 08/17/18 07:22 Resp 17 08/17/18 07:22 BP 168/86 H 08/17/18 07:04 Pulse Ox 95 08/17/18 07:22 Constitutional: + acute distress and + altered mental status on BiPAP Neck: normal visual inspection Respiratory: + tachypneic Auscultation: + diminished lung sounds Cardiovascular: Rate/Rhythm: regular rate and regular rhythm Extremities: no edema Musculoskeletal: Head/Neck/Chest: normocephalic and head atraumatic Neurologic: unable to follow commands, intermittently does open eyes briefly on command Results & Data Laboratory Results Laboratory Results - last 24 hr 08/16/18 08/16/18 08/16/18 17:45 17:45 17:46 WBC 18.71 H RBC 4.12 L Hgb 12.5 POC Hgb Hct 39.6 POC Hct MCV 96.1 MCH 30.3 MCHC 31.6 L RDW Std Deviation 46.2 RDW Coeff of Reina 13.2 Plt Count 375 MPV 9.6 Immature Gran % (Auto) 0.8 Neut % (Auto) 89.7 Lymph % (Auto) 4.8 [place] % (Auto) 4.6 Eos % (Auto) 0.0 Baso % (Auto) 0.1 Immature Gran # (Auto) 0.15 H Neut # (Auto) 16.79 H Lymph # (Auto) 0.89 L [place] # (Auto) 0.86 H Eos # (Auto) 0.00 Baso # (Auto) 0.02 PT 11.4 INR 1.1 APTT 27.2 PTT Ratio 1.0 POC pH POC pCO2 POC pO2 POC HCO3 POC Total CO2 POC Base Excess POC Sodium Sodium 132 L POC Potassium Potassium 5.0 Chloride 90 L Carbon Dioxide 40 H Anion Gap 2.0 L BUN 26 H Creatinine 0.60 Est Cr Clr Drug Dosing Not Reportable Est GFR ( Amer) 99.1 Est GFR (Non-Af Amer) 85.5 BUN/Creatinine Ratio 44.2 H Glucose 164 H POC Glucose Calcium 8.7 Magnesium 2.0 Total Bilirubin 0.4 AST 59 H ALT 126 H Alkaline Phosphatase 94 Troponin I 0.042 Total Protein 7.3 Albumin 3.4 Globulin 3.9 Albumin/Globulin Ratio 0.9 Urine Color Urine Appearance Urine pH Ur Specific [place] Urine Protein Urine Glucose (UA) Urine Ketones Urine Blood Urine Nitrite Urine Bilirubin Urine Urobilinogen Ur Leukocyte Esterase Urine WBC (Auto) Urine RBC (Auto) U Hyaline Cast (Auto) U Epithel Cells (Auto) Urine Bacteria (Auto) 08/16/18 08/16/18 08/16/18 17:50 19:44 23:07 WBC RBC Hgb POC Hgb 13.6 Hct POC Hct 40 MCV MCH MCHC RDW Std Deviation RDW Coeff of Reina Plt Count MPV Immature Gran % (Auto) Neut % (Auto) Lymph % (Auto) [place] % (Auto) Eos % (Auto) Baso % (Auto) Immature Gran # (Auto) Neut # (Auto) Lymph # (Auto) [place] # (Auto) Eos # (Auto) Baso # (Auto) PT INR APTT PTT Ratio POC pH 7.33 L POC pCO2 85 H POC pO2 98 H POC HCO3 45 H POC Total CO2 > 40 H* POC Base Excess 19.0 H POC Sodium 133 L Sodium POC Potassium 4.8 Potassium Chloride Carbon Dioxide Anion Gap BUN Creatinine Est Cr Clr Drug Dosing Est GFR ( Amer) Est GFR (Non-Af Amer) BUN/Creatinine Ratio Glucose POC Glucose 134 H Calcium Magnesium Total Bilirubin AST ALT Alkaline Phosphatase Troponin I Total Protein Albumin Globulin Albumin/Globulin Ratio Urine Color Yellow Urine Appearance Cloudy H Urine pH 5.0 Ur Specific [place] 1.021 Urine Protein Negative Urine Glucose (UA) Negative Urine Ketones Negative Urine Blood 1+ H Urine Nitrite Positive H Urine Bilirubin Negative Urine Urobilinogen Negative Ur Leukocyte Esterase 2+ H Urine WBC (Auto) >30 H Urine RBC (Auto) 5-10 H U Hyaline Cast (Auto) 10-30 H U Epithel Cells (Auto) 5-10 H Urine Bacteria (Auto) 3+ H 08/17/18 08/17/18 08/17/18 07:44 09:16 09:16 WBC 17.16 H RBC 4.25 Hgb 13.3 POC Hgb Hct 41.6 POC Hct MCV 97.9 MCH 31.3 MCHC 32.0 RDW Std Deviation 47.1 H RDW Coeff of Reina 13.3 Plt Count 352 MPV 9.6 Immature Gran % (Auto) 1.2 Neut % (Auto) 81.7 Lymph % (Auto) 8.1 [place] % (Auto) 8.9 Eos % (Auto) 0.0 Baso % (Auto) 0.1 Immature Gran # (Auto) 0.20 H Neut # (Auto) 14.04 H Lymph # (Auto) 1.39 [place] # (Auto) 1.52 H Eos # (Auto) 0.00 Baso # (Auto) 0.01 PT INR APTT PTT Ratio POC pH POC pCO2 POC pO2 POC HCO3 POC Total CO2 POC Base Excess POC Sodium Sodium 135 L POC Potassium Potassium Chloride 94 L Carbon Dioxide 36 H Anion Gap 5.0 BUN 27 H Creatinine 0.84 Est Cr Clr Drug Dosing 51.3 Est GFR ( Amer) 75.5 Est GFR (Non-Af Amer) 65.2 BUN/Creatinine Ratio 31.6 H Glucose 143 H POC Glucose 177 H Calcium 9.1 Magnesium Total Bilirubin 0.4 AST ALT 155 H Alkaline Phosphatase 96 Troponin I Total Protein 7.4 Albumin 3.6 Globulin 3.8 Albumin/Globulin Ratio 0.9 Urine Color Urine Appearance Urine pH Ur Specific [place] Urine Protein Urine Glucose (UA) Urine Ketones Urine Blood Urine Nitrite Urine Bilirubin Urine Urobilinogen Ur Leukocyte Esterase Urine WBC (Auto) Urine RBC (Auto) U Hyaline Cast (Auto) U Epithel Cells (Auto) Urine Bacteria (Auto) 08/17/18 08/17/18 08/17/18 10:28 11:58 16:48 WBC RBC Hgb POC Hgb Hct POC Hct MCV MCH MCHC RDW Std Deviation RDW Coeff of Reina Plt Count MPV Immature Gran % (Auto) Neut % (Auto) Lymph % (Auto) [place] % (Auto) Eos % (Auto) Baso % (Auto) Immature Gran # (Auto) Neut # (Auto) Lymph # (Auto) [place] # (Auto) Eos # (Auto) Baso # (Auto) PT INR APTT PTT Ratio POC pH POC pCO2 POC pO2 POC HCO3 POC Total CO2 POC Base Excess POC Sodium Sodium POC Potassium Potassium 4.9 Chloride Carbon Dioxide Anion Gap BUN Creatinine Est Cr Clr Drug Dosing Est GFR ( Amer) Est GFR (Non-Af Amer) BUN/Creatinine Ratio Glucose POC Glucose 123 H 156 H Calcium Magnesium Total Bilirubin AST 57 H ALT Alkaline Phosphatase Troponin I Total Protein Albumin Globulin Albumin/Globulin Ratio Urine Color Urine Appearance Urine pH Ur Specific [place] Urine Protein Urine Glucose (UA) Urine Ketones Urine Blood Urine Nitrite Urine Bilirubin Urine Urobilinogen Ur Leukocyte Esterase Urine WBC (Auto) Urine RBC (Auto) U Hyaline Cast (Auto) U Epithel Cells (Auto) Urine Bacteria (Auto) Medications Administered Buspirone HCl (Buspar) 5 mg PO Q12 [facility] Stop: 09/15/18 22:33 Last Admin: 08/17/18 11:00 Dose: 5 mg Documented by: [id number] Admin: 08/16/18 23:46 Dose: 5 mg Documented by: [id number] Folic Acid (Folvite) 1 mg PO DAILY [facility] Stop: 09/16/18 08:59 Last Admin: 08/17/18 10:06 Dose: Not Given Documented by: [id number] Furosemide (Lasix) 40 mg PO DAILY [facility] Stop: 09/16/18 08:59 Last Admin: 08/17/18 11:02 Dose: 40 mg Documented by: [id number] Gabapentin (Neurontin) 200 mg PO BID [facility] Stop: 09/15/18 22:33 Last Admin: 08/17/18 11:02 Dose: 200 mg Documented by: [id number] Admin: 08/16/18 23:47 Dose: 200 mg Documented by: [id number] Hydroxyzine HCl (Vistaril) 25 mg PO Q8 PRN PRN Reason: Anxiety Stop: 09/16/18 14:21 Last Admin: 08/17/18 15:24 Dose: 25 mg Documented by: [id number] Cefoxitin Sodium 1,000 mg/ (Dextrose) 60 mls @ 100 mls/hr IV Q8 [facility] Stop: 08/21/18 22:44 Last Infusion: 08/17/18 15:31 Dose: 0 mls/hr Documented by: [id number] Admin: 08/17/18 14:31 Dose: 100 mls/hr Documented by: [id number] Infusion: 08/17/18 06:32 Dose: 0 mls/hr Documented by: [id number] Admin: 08/17/18 05:31 Dose: 100 mls/hr Documented by: [id number] Infusion: 08/17/18 02:19 Dose: 0 mls/hr Documented by: [id number] Admin: 08/16/18 23:44 Dose: 100 mls/hr Documented by: [id number] Insulin Aspart (Novolog Flexpen) 0 units SC ACHS [facility] Stop: 09/15/18 22:59 Last Admin: 08/17/18 13:18 Dose: Not Given Documented by: [id number] Cosigned by: [id number] Admin: 08/17/18 10:00 Dose: Not Given Documented by: [id number] Cosigned by: [id number] Admin: 08/16/18 23:48 Dose: Not Given Documented by: [id number] Ipratropium [place] (Atrovent 0.02% 0.5mg/2.5ml) 0.5 mg INH Q6R [facility] Stop: 09/16/18 07:59 Last Admin: 08/17/18 13:59 Dose: 0.5 mg Documented by: [id number] Admin: 08/17/18 07:22 Dose: 0.5 mg Documented by: [id number] Isosorbide Mononitrate (Imdur Extended Rel) 30 mg PO DAILY [facility] Stop: 09/16/18 08:59 Last Admin: 08/17/18 11:01 Dose: 30 mg Documented by: [id number] Levalbuterol HCl (Xopenex 0.63 Mg/3 Ml Neb) 0.63 mg INH Q6R [facility] Stop: 09/16/18 01:59 Last Admin: 08/17/18 14:00 Dose: 0.63 mg Documented by: [id number] Admin: 08/17/18 07:22 Dose: 0.63 mg Documented by: [id number] Admin: 08/17/18 01:22 Dose: 0.63 mg Documented by: [id number] Losartan Potassium (Cozaar) 25 mg PO DAILY [facility] Stop: 09/16/18 08:59 Last Admin: 08/17/18 11:00 Dose: 25 mg Documented by: [id number] Metoprolol Succinate (Toprol Xl) 25 mg PO DAILY [facility] Stop: 09/16/18 08:59 Last Admin: 08/17/18 11:03 Dose: 25 mg Documented by: [id number] Potassium Chloride (Klor-Con M20) 20 meq PO BID [facility] Stop: 09/15/18 22:33 Last Admin: 08/17/18 11:01 Dose: 20 meq Documented by: [id number] Admin: 08/16/18 23:46 Dose: 20 meq Documented by: [id number] Quetiapine Fumarate (Seroquel) 12.5 mg PO DAILY [facility] Stop: 09/16/18 08:59 Last Admin: 08/17/18 11:03 Dose: 12.5 mg Documented by: [id number] Rivaroxaban (Xarelto) 20 mg PO DAILY [facility] Stop: 09/16/18 08:59 Last Admin: 08/17/18 11:04 Dose: 20 mg Documented by: [id number] Thiamine HCl (Vitamin B-1) 200 mg PO BID [facility] Stop: 09/15/18 22:33 Last Admin: 08/17/18 10:07 Dose: Not Given Documented by: [id number] Admin: 08/16/18 23:45 Dose: 200 mg Documented by: [id number] Venlafaxine HCl (Effexor Extended Release) 75 mg PO HS [facility] Stop: 09/15/18 22:59 Last Admin: 08/16/18 23:47 Dose: 75 mg Documented by: [id number] (1) Pneumonia Laterality: unspecified laterality Lung location: unspecified part of lung Pneumonia type: due to unspecified organism Qualified Code(s): J18.9 - Pneumonia, unspecified organism
[2018-08-17 09:23] LABS: Basophils # (auto) 0.01 K/uL (0-0.2); Basophils % (auto) 0.1 %; Hematocrit (blood only) 41.6 % (37-47); Hemoglobin 13.3 g/dL (12.0-16.0); Immature Granulocytes % (auto) 1.2 %; Lymphocytes # (auto) 1.39 K/uL (1.2-3.4); Lymphocytes % (auto) 8.1 %; Mean Corpuscular Volume 97.9 fL (80-100); Mean Platelet Volume 9.6 fL (7.4-10.4); Monocytes # (auto) 1.52 K/uL (0.11-0.59); Monocytes % (auto) 8.9 %; Neutrophils # (auto) 14.04 K/uL (1.4-6.5); Neutrophils % (auto) 81.7 %; Platelet Count 352 K/uL (130-400); RDW Coefficient of Variation 13.3 % (11.5-14.5); RDW Standard Deviation 47.1 fL (36.4-46.3); Red Blood Count 4.25 M/uL (4.2-5.4); White Blood Count 17.16 K/uL (4.8-10.8)
[2018-08-17] MEDS: INSULIN ASPART 100 UNITS/ML 3 ML PEN SC SCH ×4 (10:00→20:46)
[2018-08-17] MEDS: FUROSEMIDE 40 MG TAB PO SCH ×2 (10:06→11:02)
[2018-08-17] MEDS: ISOSORBIDE MONO EXTENDED REL 30 MG TABCR PO SCH ×2 (10:06→11:01)
[2018-08-17] MEDS: POTASSIUM CHLORIDE 20 MEQ TABCR PO SCH ×3 (10:06→20:21)
[2018-08-17] MEDS: FOLIC ACID 1 MG TAB PO SCH (10:06)
[2018-08-17] MEDS: LOSARTAN POTASSIUM 25 MG TAB PO SCH ×2 (10:06→11:00)
[2018-08-17] MEDS: QUETIAPINE FUMARATE 25 MG TABLET PO SCH ×2 (10:07→11:03)
[2018-08-17] MEDS: RIVAROXABAN 20 MG TAB PO SCH ×2 (10:07→11:04)
[2018-08-17] MEDS: THIAMINE HCL 100 MG TAB PO SCH ×2 (10:07→20:22)
[2018-08-17] MEDS: GABAPENTIN 100 MG CAP PO SCH ×3 (10:07→20:21)
[2018-08-17] MEDS: METOPROLOL SUCC 25MG EXT REL TAB PO SCH ×2 (10:07→11:03)
[2018-08-17 10:09] LABS: Albumin Level 3.6 gm/dl (3.4-5.0); BUN Creatinine Ratio 31.6 (10-20); Calcium 9.1 mg/dl (8.5-10.1); Creatinine Clr Calc Pharmacy 51.3 ml/min; Est GFR (African American) 75.5; Est GFR (Non-African American) 65.2
--- NOTE | 2018-08-17 10:09 | Palliative Care Consultation ---
Date of Consultation August 17, 2018 Assessment & Plan (1) Goals of care, counseling/discussion: -83 year old female patient with PMH acid maltase deficiency (Pompe disease), severe restrictive lung disease 2/2 Pompe, possible COPD, htn, CAD, chronic respiratory failure, anxiety, and others, presented to the hospital last evening with altered mental status and respiratory failure. Patient was just in hospital beginning of July with COPD exacerbation and pneumonia. Prior to hospitalization, she was on home hospice care, but revoked twice due to wanting to come to hospital for treatment. She was discharged to [facility] long-term as her could no longer care for her at home. She has severe restrictive lung disease related to her acid maltase deficiency and is now essentially dependent on bipap for the majority of time. Per report, when EMS arrived to [facility], her bipap was not functioning properly and O2 sats were in the 70s. After being switched to EMS' machine, patient's sats improved to 92-93%. In ED, UA showed possible UTI, has history of ESBL in the past. She was started on IV cefoxitin and IVF, placed on bipap on telemetry unit. ABG showed compensated respiratory failure with CO2 retention. CXR reports shows no concern for infectious process. She is afebrile and VS stable/WNL. This morning, patient remains lethargic. Given her end-stage lung disease and readmission, palliative care is consulted to discuss goals of care. -Met with patient and her , Haines Zulay, in room 287-2. Patient is lethargic but does open eyes and smile. She cannot follow commands or answer questions during my visit. -Patient's stated that he does not want her to suffer. They tried to draw blood from patient several times and were unable. He stated he does not want further labs to be drawn. For now, continue IVF and abx, as well as bipap, to see if there is any improvement. -If patient experiences pain/SOB/anxiety, okay to give medications for comfort such as morphine. understands secondary side effects of morphine such as respiratory depression and sedation. -If patient wakes up enough to be able to take medications, okay to give regular meds and feed her. -Update given to Dr. Almonte. Dr. Almonte contacted patient's granddaughter who is on her way to hospital as well. -Will continue to reevaluate and determine goals of care/plan based on how patient does. (2) Altered mental status: (3) COPD exacerbation: (4) Acid maltase deficiency: Supervising Physician Co-Signing Physician Notes Chart reviewed, patient seen and examined-no family at bedside Collaborated with SRAVANI Israel PE: Patient appears comfortable on her BiPAP HEENT: EOMI Respiratory: Poor breath sounds bilaterally CV: Regular rate, no edema Abdomen: Soft, no grimace with palpation Neuro: Patient responds to voice and touch, lethargic Agree with above note, assessment and plan as per SRAVANI Israel. Will continue to follow to assist family with medical decision making History of Present Illness Attending Physician: Helio Carbajal DO History of Present Illness This 83 year old female patient with PMH acid maltase deficiency (Pompe disease), severe restrictive lung disease 2/2 Pompe, possible COPD, htn, CAD, chronic respiratory failure, anxiety, and others, presented to the hospital last evening with altered mental status and respiratory failure. Patient was just in hospital beginning of July with COPD exacerbation and pneumonia. Prior to hospitalization, she was on home hospice care, but revoked twice due to wanting to come to hospital for treatment. She was discharged to [facility] long-term as her could no longer care for her at home. She has severe restrictive lung disease related to her acid maltase deficiency and is now essentially dependent on bipap for the majority of time. Per report, when EMS arrived to [facility], her bipap was not functioning properly and O2 sats were in the 70s. After being switched to EMS' machine, patient's sats improved to 92-93%. In ED, UA showed possible UTI, has history of ESBL in the past. She was started on IV cefoxitin and IVF, placed on bipap on telemetry unit. ABG showed compensated respiratory failure with CO2 retention. CXR reports shows no concern for inf ectious process. She is afebrile and VS stable/WNL. This morning, patient remains lethargic. Given her end-stage lung disease and readmission, palliative care is consulted to discuss goals of care. Thank you kindly for this consult. I will follow as needed. Allergies Allergy/AdvReac Type Severity Reaction Status Date / Time No Known Allergies Allergy Unverified 08/16/18 20:22 Home Medications Home Medications Medication Instructions Recorded Confirmed Type Cavilon Af 1 applic TOPICAL AMPM 08/16/18 08/16/18 History Prune Juice/Stewed Prunes 1 dose PO UD PRN 08/16/18 08/16/18 History acetaminophen [Tylenol] 650 mg PO Q6H PRN 08/16/18 08/16/18 History albuterol sulfate 2 inh INHALATION Q4 PRN 08/16/18 08/16/18 History buspirone 5 mg PO Q12 08/16/18 08/16/18 History ergocalciferol (vitamin D2) 50,000 unit PO WK 08/16/18 08/16/18 History fexofenadine [Nallely Allergy] 60 mg PO Q12H PRN 08/16/18 08/16/18 History folic acid 1 mg PO DAILY 08/16/18 08/16/18 History furosemide [Lasix] 40 mg PO DAILY 08/16/18 08/16/18 History gabapentin [Neurontin] 200 mg PO BID 08/16/18 08/16/18 History hydroxyzine HCl 25 mg PO Q12 PRN 08/16/18 08/16/18 History insulin lispro [Humalog U-100 1 sliding scale dose SUBCUT UD PRN 08/16/18 08/16/18 History Insulin] ipratropium bromide 1 vial INHALATION QID 08/16/18 08/16/18 History ipratropium bromide 2 puff INHALATION TID 08/16/18 08/16/18 History isosorbide mononitrate 30 mg PO DAILY 08/16/18 08/16/18 History levalbuterol HCl 0.63 mg INHALATION Q6 08/16/18 08/16/18 History losartan 25 mg PO DAILY 08/16/18 08/16/18 History magnesium hydroxide [Milk of 30 ml PO UD PRN 08/16/18 08/16/18 History Magnesia] menthol-zinc oxide [Calmoseptine] 1 applic TOPICAL QS 08/16/18 08/16/18 History menthol-zinc oxide [Calmoseptine] 1 applic TOPICAL UD PRN 08/16/18 08/16/18 History metformin 500 mg PO BID 08/16/18 08/16/18 History metoprolol succinate 25 mg PO DAILY 08/16/18 08/16/18 History potassium chloride 20 meq PO BID 08/16/18 08/16/18 History prednisone 10 mg PO DAILY 08/16/18 08/16/18 History quetiapine [Seroquel] 12.5 mg PO DAILY 08/16/18 08/16/18 History rivaroxaban 20 mg PO DAILY 08/16/18 08/16/18 History thiamine mononitrate (vit B1) 200 mg PO BID 08/16/18 08/16/18 History venlafaxine 75 mg PO QPM 08/16/18 08/16/18 History Patient History Medical History Acid maltase deficiency (Chronic) Diabetes (Chronic) HTN (hypertension) (Chronic) Acute respiratory failure with hypoxia and hypercapnia Anxiety COPD (chronic obstructive pulmonary disease) COPD exacerbation Constipation Pneumonia involving right lung Social History Communication Ability: Impaired Beliefs That Will Affect Care: None marital status: Current Living Situation: Custodial Current Living Situation Comment: hospice Feels Safe at Home: Yes Safety Concerns: Feels Safe At This Time Smoking Status: Never smoker Hx Alcohol Use: No Hx Substance Use: No Review of Systems unable to obtain due to confusion/altered mental status Physical Exam Vital Signs (Past 24 Hours): Last Vital Signs Temp 36.9 C 08/17/18 07:04 Pulse 82 08/17/18 07:22 Resp 17 08/17/18 07:22 BP 168/86 H 08/17/18 07:04 Pulse Ox 95 08/17/18 07:22 Constitutional: + ill appearing (deconditioned); no acute distress ENMT: Mouth: + dry oral mucous membranes Neck: normal visual inspection and trachea midline Respiratory: + abnormal respiratory effort (poor respiratory effort) and not tachypneic Auscultation: + diminished lung sounds Cardiovascular: RRR, no murmur, no edema Gastrointestinal (Abdomen): Inspection/Auscultation: abdomen normal to inspection and normal bowel sounds; abdomen not distended Percussion/Palpation: abdomen soft Skin: no rashes, warm and dry Neurologic: awake (does wake but is very lethargic, nearly obtunded) Time Spent Midlevel 70 minutes with >50% of time spent at bedside with patient and discussing condition and GOC; as well as collaborating with physician to coordinate care.
[2018-08-17] MEDS ORDERED: MoRPHine SULFATE 4 MG/ML 1 ML CARP\\VIAL IV PRN (10:10)
[2018-08-17 10:11] LABS: Albumin Globulin Ratio 0.9 (0.9-2); Bilirubin,Total 0.4 mg/dl (0.2-1); Globulin 3.8 gm/dl (2.5-4.0); Total Protein 7.4 gm/dl (6.4-8.2)
[2018-08-17 11:06] LABS: Potassium 4.9 mmol/L (3.5-5.1)
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
[2018-08-17] MEDS ORDERED: predniSONE 20 MG TAB PO SCH (14:30)
[2018-08-17] MEDS: VENLAFAXINE HCL XR 75 MG CAPXR PO SCH (20:21)
[2018-08-18] MEDS: IPRATROPIUM BROMIDE NEB SOLN 0.02% 2.5 ML VIAL INH SCH ×4 (01:55→19:08)
[2018-08-18] MEDS: LEVALBUTEROL HCL 0.63 MG/3 ML NEB INH SCH ×4 (01:55→19:09)
[2018-08-18] MEDS: FOLIC ACID 1 MG TAB PO SCH (07:53)
[2018-08-18] MEDS: THIAMINE HCL 100 MG TAB PO SCH ×2 (07:53→20:56)
[2018-08-18] MEDS: FUROSEMIDE 40 MG TAB PO SCH (07:53)
[2018-08-18] MEDS: POTASSIUM CHLORIDE 20 MEQ TABCR PO SCH ×2 (07:53→20:55)
[2018-08-18] MEDS: ISOSORBIDE MONO EXTENDED REL 30 MG TABCR PO SCH (07:54)
[2018-08-18] MEDS: QUETIAPINE FUMARATE 25 MG TABLET PO SCH (07:54)
[2018-08-18] MEDS: METOPROLOL SUCC 25MG EXT REL TAB PO SCH (07:54)
[2018-08-18] MEDS: GABAPENTIN 100 MG CAP PO SCH ×2 (07:55→20:55)
[2018-08-18] MEDS: INSULIN ASPART 100 UNITS/ML 3 ML PEN SC SCH ×4 (07:55→20:50)
[2018-08-18] MEDS: LOSARTAN POTASSIUM 25 MG TAB PO SCH (07:56)
[2018-08-18] MEDS: RIVAROXABAN 20 MG TAB PO SCH (07:56)
--- NOTE | 2018-08-18 13:23 | Palliative Care Progress Note ---
Date of Service August 18, 2018 Assessment & Plan (1) Goals of care, counseling/discussion: Patient's goal is returned to [facility]-patient states she would want to come back to the hospital for treatment if needed. Patient restated she would want to be a DNR-with no intubation, no chest compressions, no shock Of note-patient's would want aggressive care for her-patient was very clear with her wishes, states she does have a POLST form at [facility] (2) Altered mental status: Improved on her BiPAP as well as treatment for her UTI (3) COPD exacerbation: Improved (4) Acid maltase deficiency: Subjective Patient awake, alert and oriented on exam today Patient's at bedside. Patient's urine came back as E. coli-ESBL, sensitive to cefoxitin Patient denies any discomfort, feels she is back to her prior baseline. Patient reiterated her CODE STATUS is DNR-she would not want intubation, shock, or chest compressions. Review of Systems Patient denies fever, chills, chest pain, increased shortness of breath, or abdominal pain Physical Exam Vital Signs (Past 24 Hours): Last Vital Signs Temp 36.9 C 08/18/18 07:09 Pulse 85 08/18/18 07:22 Resp 16 08/18/18 07:22 BP 132/81 08/18/18 07:09 Pulse Ox 97 08/18/18 07:22 Physical Exam: PE: Patient appears comfortable-BiPAP in place, sats 95% HEENT: EOMI, normal hearing CV: Regular rate and rhythm Abdomen: Soft, nontender, obese Neuro: Patient awake and alert and oriented x4 Time Spent Attending Total time spent 35 minutes with greater than 50% of the time spent at bedside discussing patient's goals of care as well as her CODE STATUS with both the patient and her .
--- NOTE | 2018-08-18 15:42 | Progress Note ---
DATE: 08/18/2018 PULMONARY PROGRESS NOTE TIME: 3:20 p.m. SUBJECTIVE: The patient is on BiPAP almost all the time. She thinks that she feels a little less short of breath. Nursing staff tells me that when she is off BiPAP to try and eat a little bit soon afterwards, she wants the BiPAP back on because she is very winded. She seems brighter than yesterday. There are no signs of confusion. She thinks she just feels very weak. OBJECTIVE: GENERAL: The patient appears comfortable from a breathing perspective. She is on BiPAP. Today, she has a noticeable air leak. This was not happening yesterday. They put a nasal guard on to try and protect her nose. I took that out to see if it would help her air leak. It may have helped a little. Her nose is a little red, but she states it is always red. VITAL SIGNS: Heart rate was 79 per minute. Rhythm regular. Blood pressure 132/81. Temperature is 36.9. Maximum temperature in the past 24 hours is 37.1. LUNGS: Lung rust revealed diminished breath sounds bilaterally. Respiratory rate 18. Saturation 94% on BiPAP at 30% with current pressures 14/8. EXTREMITIES: Showed no cyanosis, clubbing or edema. She is weak in the arms and in the legs, more than expected. LABORATORY DATA: Blood sugar today was as high as 104. It appears that no other labs were done today. Urine culture is positive for E. coli ESBL. Because of this, the patient is in isolation. IMPRESSION: 1. Respiratory failure - acute on chronic with hypoxia and hypercarbia. 2. Severe restrictive lung disease. 3. 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 4. Chronic obstructive pulmonary disease. 5. Urinary tract infection - Escherichia coli ESBL. COMMENTS: The patient may be slightly better. I am going to decrease the BiPAP in light of the air leak. We will try her at 12/8. Would continue with her other medications which include the neb treatments with levalbuterol and ipratropium. It appears that she got prednisone 20 mg yesterday. She should be maintained on 10 mg daily as she has been on it chronically.
--- NOTE | 2018-08-18 17:06 | Family Medicine Progress Note ---
Date of Service August 18, 2018 Assessment & Plan (1) Acute respiratory failure with hypoxia and hypercapnia: Ms. 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 The patient received nebulizers, 125 mg of IV Solu-Medrol and a 500 mL bolus of normal saline in the emergency department. -Agree with Pulmonology with giving daily Prednisone to prevent adrenal insufficiency. Prednisone 20mg PO day 07/25. -No role for antibiotics or IV steroids for a pulmonary process at this point. -Continue BiPAP support -Continue home nebulizer treatments -Planning for discharge back to [facility] tomorrow, was unable to get transportation today -patient wishes to be DNR/DNI, Polst form completed by Palliative care Code status: DNR/DNI DVT Prophylaxis: Continue home Xarelto. (2) HTN (hypertension): -continue home losartan, isosorbide dinitrate, metoprolol and furosemide -continue home potassium supplementation (3) Diabetes: -Hold home medications-->insulin sliding scale (4) Acid maltase deficiency: -progressive, end stage. Pt requiring BiPAP almost continuously at this point (5) Indwelling Olsen catheter present: olsen cath care (6) Pneumonia: this is not pneumonia (7) COPD (chronic obstructive pulmonary disease): - continue with Xopenex q6 scheduled (8) Anxiety: -continue home buspirone, seroquel, venlafaxine and prn hydroxyzine. Morphine 2mg IV q2hr PRN also ordered. (9) Altered mental status: -resolved -event could be related to hypoxia versus acute UTI -continue to monitor (10) UTI due to extended-spectrum beta lactamase (ESBL) producing Escherichia coli: -pt's UA positive for blood, nitrites, leukocyte esterase, WBC and bacteria -urine culture ordered and grew gram negative bacilli >100,000 that is ESBL -treating with w/cefoxitin 1g q8h, will treat for 7 days (21 total doses), has completed 6/21 doses. Expected to be discharged with transport between morning and afternoon dose. If true will have completed 8/21 doses, and will need 13 more or 3 1/3 days. -US guided peripheral vascular access ordered for antibiotic use at [facility] -prior urine cx from review of outpt records in September 2017 showed growth of ESBL that was resistant to ampicillin, ceftriaxone, cefepime, cipro and levaquin, but sensitive to cefoxitin, same as this visit (11) CAD (coronary artery disease): -continue home losartan, isosorbide dinitrate, metoprolol and furosemide (12) Atrial fibrillation: -Per review of outpatient records, she has a history of atrial fibrillation. Currently in sinus rhythm. -contunue home Xarelto & metoprolol Supervising Physician Co-Signing Physician Notes Patient seen and examined with Dr. Almonte. Agree with history, physical exam findings, assessment and plan of care as outlined. In brief, Ms Biswas is an 83 year old female with complex medical hx significant for end stage restrictive lung disease, Pompe disease, COPD, DM, CAD, HTN and anxiety admitted with acute respiratory failure. On BiPAP this afternoon. Alert and able to answer questions. Lungs with coarse breath sounds throughout. 1. UTI with ESBL. ON cefoxitin. Will need midline to be discharged and receive this medication. 2. restrictive lung disease. appreciate pulm input. prednisone. respiratory support with BiPAP. appreciate palliative care's assistance with goals of care. New POLST completed today--DNR/DNI. Dipso: dc back to [facility] tomorrow. Transport arranged from ~10am. Subjective Deja is alert today and able to respond to questions and follows commands. Spoke with Palliative care who state patient expressed DNR/DNI and Palliative care competed Polst form. Patient is agreeable to return to [facility] with IV antibiotics for UTI. Physical Exam Vital Signs (Past 24 Hours): Last Vital Signs Temp 37.4 C 08/18/18 15:00 Pulse 78 08/18/18 15:00 Resp 22 08/18/18 15:00 BP 118/72 08/18/18 15:00 Pulse Ox 100 08/18/18 15:00 Constitutional: cooperative Eyes: + anicteric sclerae Neck: normal visual inspection Respiratory: Auscultation: + diminished lung sounds on BiPAP Cardiovascular: Rate/Rhythm: regular rate and regular rhythm Extremities: no edema Gastrointestinal (Abdomen): Percussion/Palpation: abdomen soft Musculoskeletal: Head/Neck/Chest: normocephalic and head atraumatic Neurologic: moves all extremities and awake Psychiatric: Orientation: alert and cooperative Eye Contact: good eye contact Results & Data Laboratory Results Laboratory Results - last 24 hr 08/17/18 08/17/18 08/17/18 14:49 16:48 20:35 POC Glucose 156 H 107 H Nasal Screen MRSA (PCR) Negative 08/18/18 08/18/18 07:54 11:40 POC Glucose 70 104 H Nasal Screen MRSA (PCR) Medications Administered Buspirone HCl (Buspar) 5 mg PO Q12 SHAYNE Stop: 09/15/18 22:33 Last Admin: 08/18/18 07:56 Dose: 5 mg Documented by: [id number] Admin: 08/17/18 20:21 Dose: Not Given Documented by: [id number] Admin: 08/17/18 11:00 Dose: 5 mg Documented by: [id number] Admin: 08/16/18 23:46 Dose: 5 mg Documented by: [id number] Folic Acid (Folvite) 1 mg PO DAILY SHAYNE Stop: 09/16/18 08:59 Last Admin: 08/18/18 07:53 Dose: 1 mg Documented by: [id number] Admin: 08/17/18 10:06 Dose: Not Given Documented by: [id number] Furosemide (Lasix) 40 mg PO DAILY SHAYNE Stop: 09/16/18 08:59 Last Admin: 08/18/18 07:53 Dose: 40 mg Documented by: [id number] Admin: 08/17/18 11:02 Dose: 40 mg Documented by: [id number] Gabapentin (Neurontin) 200 mg PO BID SHAYNE Stop: 09/15/18 22:33 Last Admin: 08/18/18 07:55 Dose: 200 mg Documented by: [id number] Admin: 08/17/18 20:21 Dose: Not Given Documented by: [id number] Admin: 08/17/18 11:02 Dose: 200 mg Documented by: [id number] Admin: 08/16/18 23:47 Dose: 200 mg Documented by: [id number] Hydroxyzine HCl (Vistaril) 25 mg PO Q8 PRN PRN Reason: Anxiety Stop: 09/16/18 14:21 Last Admin: 08/18/18 07:53 Dose: 25 mg Documented by: [id number] Admin: 08/17/18 15:24 Dose: 25 mg Documented by: [id number] Cefoxitin Sodium 1,000 mg/ (Dextrose) 60 mls @ 100 mls/hr IV Q8 SHAYNE Stop: 08/21/18 22:44 Last Infusion: 08/18/18 15:49 Dose: 0 mls/hr Documented by: [id number] Admin: 08/18/18 15:03 Dose: 100 mls/hr Documented by: [id number] Infusion: 08/18/18 06:27 Dose: 0 mls/hr Documented by: [id number] Admin: 08/18/18 05:49 Dose: 100 mls/hr Documented by: [id number] Infusion: 08/17/18 22:17 Dose: 0 mls/hr Documented by: [id number] Admin: 08/17/18 21:19 Dose: 100 mls/hr Documented by: [id number] Infusion: 08/17/18 15:31 Dose: 0 mls/hr Documented by: [id number] Admin: 08/17/18 14:31 Dose: 100 mls/hr Documented by: [id number] Infusion: 08/17/18 06:32 Dose: 0 mls/hr Documented by: [id number] Admin: 08/17/18 05:31 Dose: 100 mls/hr Documented by: [id number] Infusion: 08/17/18 02:19 Dose: 0 mls/hr Documented by: [id number] Admin: 08/16/18 23:44 Dose: 100 mls/hr Documented by: [id number] Insulin Aspart (Novolog Flexpen) 0 units SC ACHS SHAYNE Stop: 09/15/18 22:59 Last Admin: 08/18/18 13:32 Dose: Not Given Documented by: [id number] Cosigned by: [id number] Admin: 08/18/18 07:55 Dose: Not Given Documented by: [id number] Cosigned by: [id number] Admin: 08/17/18 20:46 Dose: Not Given Documented by: [id number] Cosigned by: [id number] Admin: 08/17/18 17:22 Dose: Not Given Documented by: [id number] Cosigned by: [id number] Admin: 08/17/18 13:18 Dose: Not Given Documented by: [id number] Cosigned by: [id number] Admin: 08/17/18 10:00 Dose: Not Given Documented by: [id number] Cosigned by: [id number] Admin: 08/16/18 23:48 Dose: Not Given Documented by: [id number] Ipratropium Dermott (Atrovent 0.02% 0.5mg/2.5ml) 0.5 mg INH Q6R SHAYNE Stop: 09/16/18 07:59 Last Admin: 08/18/18 14:19 Dose: 0.5 mg Documented by: [id number] Admin: 08/18/18 07:20 Dose: 0.5 mg Documented by: [id number] Admin: 08/18/18 01:55 Dose: 0.5 mg Documented by: [id number] Admin: 08/17/18 19:24 Dose: 0.5 mg Documented by: [id number] Admin: 08/17/18 13:59 Dose: 0.5 mg Documented by: [id number] Admin: 08/17/18 07:22 Dose: 0.5 mg Documented by: [id number] Isosorbide Mononitrate (Imdur Extended Rel) 30 mg PO DAILY SHAYNE Stop: 09/16/18 08:59 Last Admin: 08/18/18 07:54 Dose: 30 mg Documented by: [id number] Admin: 08/17/18 11:01 Dose: 30 mg Documented by: [id number] Levalbuterol HCl (Xopenex 0.63 Mg/3 Ml Neb) 0.63 mg INH Q6R SHAYNE Stop: 09/16/18 01:59 Last Admin: 08/18/18 14:19 Dose: 0.63 mg Documented by: [id number] Admin: 08/18/18 07:20 Dose: 0.63 mg Documented by: [id number] Admin: 08/18/18 01:55 Dose: 0.63 mg Documented by: [id number] Admin: 08/17/18 19:24 Dose: 0.63 mg Documented by: [id number] Admin: 08/17/18 14:00 Dose: 0.63 mg Documented by: [id number] Admin: 08/17/18 07:22 Dose: 0.63 mg Documented by: [id number] Admin: 08/17/18 01:22 Dose: 0.63 mg Documented by: [id number] Losartan Potassium (Cozaar) 25 mg PO DAILY SHAYNE Stop: 09/16/18 08:59 Last Admin: 08/18/18 07:56 Dose: 25 mg Documented by: [id number] Admin: 08/17/18 11:00 Dose: 25 mg Documented by: [id number] Metoprolol Succinate (Toprol Xl) 25 mg PO DAILY SHAYNE Stop: 09/16/18 08:59 Last Admin: 08/18/18 07:54 Dose: 25 mg Documented by: [id number] Admin: 08/17/18 11:03 Dose: 25 mg Documented by: [id number] Potassium Chloride (Klor-Con M20) 20 meq PO BID SHAYNE Stop: 09/15/18 22:33 Last Admin: 08/18/18 07:53 Dose: 20 meq Documented by: [id number] Admin: 08/17/18 20:21 Dose: Not Given Documented by: [id number] Admin: 08/17/18 11:01 Dose: 20 meq Documented by: [id number] Admin: 08/16/18 23:46 Dose: 20 meq Documented by: [id number] Quetiapine Fumarate (Seroquel) 12.5 mg PO DAILY SHAYNE Stop: 09/16/18 08:59 Last Admin: 08/18/18 07:54 Dose: 12.5 mg Documented by: [id number] Admin: 08/17/18 11:03 Dose: 12.5 mg Documented by: [id number] Rivaroxaban (Xarelto) 20 mg PO DAILY SHAYNE Stop: 09/16/18 08:59 Last Admin: 08/18/18 07:56 Dose: 20 mg Documented by: [id number] Admin: 08/17/18 11:04 Dose: 20 mg Documented by: [id number] Thiamine HCl (Vitamin B-1) 200 mg PO BID SHAYNE Stop: 09/15/18 22:33 Last Admin: 08/18/18 07:53 Dose: 200 mg Documented by: [id number] Admin: 08/17/18 20:22 Dose: Not Given Documented by: [id number] Admin: 08/17/18 10:07 Dose: Not Given Documented by: [id number] Admin: 08/16/18 23:45 Dose: 200 mg Documented by: [id number] Venlafaxine HCl (Effexor Extended Release) 75 mg PO HS SHAYNE Stop: 09/15/18 22:59 Last Admin: 08/17/18 20:21 Dose: Not Given Documented by: [id number] Admin: 08/16/18 23:47 Dose: 75 mg Documented by: [id number] (1) Pneumonia Laterality: unspecified laterality Lung location: unspecified part of lung Pneumonia type: due to unspecified organism Qualified Code(s): J18.9 - Pneumonia, unspecified organism
[2018-08-18] MEDS: VENLAFAXINE HCL XR 75 MG CAPXR PO SCH (20:54)
[2018-08-19] MEDS: LEVALBUTEROL HCL 0.63 MG/3 ML NEB INH SCH ×3 (02:03→13:45)
[2018-08-19] MEDS: IPRATROPIUM BROMIDE NEB SOLN 0.02% 2.5 ML VIAL INH SCH ×3 (02:04→13:45)
[2018-08-19] MEDS: THIAMINE HCL 100 MG TAB PO SCH (08:47)
[2018-08-19] MEDS: GABAPENTIN 100 MG CAP PO SCH (08:47)
[2018-08-19] MEDS: FUROSEMIDE 40 MG TAB PO SCH (08:48)
[2018-08-19] MEDS: RIVAROXABAN 20 MG TAB PO SCH (08:48)
[2018-08-19] MEDS: QUETIAPINE FUMARATE 25 MG TABLET PO SCH (08:48)
[2018-08-19] MEDS: FOLIC ACID 1 MG TAB PO SCH (08:48)
[2018-08-19] MEDS: ISOSORBIDE MONO EXTENDED REL 30 MG TABCR PO SCH (08:48)
[2018-08-19] MEDS: METOPROLOL SUCC 25MG EXT REL TAB PO SCH (08:48)
[2018-08-19] MEDS: LOSARTAN POTASSIUM 25 MG TAB PO SCH (08:48)
[2018-08-19] MEDS: POTASSIUM CHLORIDE 20 MEQ TABCR PO SCH (08:49)
--- NOTE | 2018-08-19 09:51 | Discharge Summary ---
Date of Service August 19, 2018 Admission HPI Per Admitting Provider Ms. 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 due to confusion and hypoxia (O2 sats down to 70% while on CPAP). Per review of chart, EMS had reported that her CPAP machine was not functioning correctly, and that her oxygen saturations were in the 70s upon their arrival. EMS applied their own CPAP machine and her oxygen saturations came up to 92-93% after vanessa roximately 20 minutes. Upon arrival to the emergency department, the patient was more active and awake. Per discussion with family, the patient has not had any fever or chills. The family was concerned due to the fact that Ms. Biswas did not recognize her this morning, and was progressively more confused. With regards to her acid maltase deficiency, her disease has progressed and affected her motor function, and she has been bedbound for the past 2 months. She has been requiring her CPAP more and more, and now wears it approximately 90%. She was recently admitted to [facility] and discharged 1 week ago. At that time, she was admitted for COPD exacerbation and pneumonia. She was treated with Rocephin and azithromycin, as well as a steroid taper, which she has now finished. Prior to her last admission, she had been on home hospice, however she was discharged to [facility]. There was some conflict within the family regarding going to [facility] versus home hospice at that time, and they opted not to restart hospice care. Admission Exam Per Admitting Provider Constitutional: well developed, well nourished and cooperative on bipap Eyes: PERRL, conjunctivae normal, anicteric sclerae Respiratory: Auscultation: + diminished lung sounds Cardiovascular: RRR, no murmur, no edema Gastrointestinal (Abdomen): Percussion/Palpation: abdomen soft; abdomen nontender, no guarding and abdomen not rigid Psychiatric: A+Ox3, euthymic affect Genitourinary: olsen in place Principal Diagnosis UTI ESBL+ and Acute Hypoxic Respiratory Failure 2/2 to COPD Exacerbation Discharge Exam Constitutional WD/WN, vitals as above + ill appearing and + obese bipap in place Eyes normal visual rust by confrontation Neck trachea midline, no thyromegaly Respiratory normal respiratory effort, lungs clear to auscultation (requires Bipap 24/7) Cardiovascular RRR, no murmur, no edema Gastrointestinal (Abdomen) normal bowel sounds, soft, nontender, no hepatosplenomegaly Skin no rashes, warm and dry Pads on her heels Discharge Data Allergies Allergy/AdvReac Type Severity Reaction Status Date / Time No Known Allergies Allergy Unverified 08/16/18 20:22 Consultations 08/16/18 19:25 ED Decision to Admit Stat 08/16/18 22:34 Consult Case Management - Discharge Planning Routine Consult Palliative Care Routine 08/17/18 09:32 Consult Pulmonology Routine Ordered Studies 08/18/18 16:37 US guide vascular access Routine Hospital Course (1) Acute respiratory failure with hypoxia and hypercapnia: Ms. 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 due to confusion and hypoxia (O2 sats down to 70% while on CPAP). The patient received nebulizers, 125 mg of IV Solu-Medrol and a 500 mL bolus of normal saline in the emergency department. -Pulmonology was consulted recommended daily Prednisone to prevent adrenal insufficiency. Prednisone 20mg PO day 3/5. No IV steroids or Abx were given for pulmonary infection -Maintained on continuous BiPAP support -Continued home nebulizer treatments -Palliative care was consulted for goals of car planning, patient wishes to be DNR/DNI, POLST form completed Code status: DNR/DNI DVT Prophylaxis: Continue home Xarelto. (2) UTI due to extended-spectrum beta lactamase (ESBL) producing Escherichia coli: - Urine culture grew out ESBL - hx of ESBL (resistant to amp, ceftiaxone, cirpo, levaquin; sensitive to cefoxitin) - Continue cefoxitin 1g q8h, will treat for 7 days (21 total doses), has completed 8/21 doses. Expected to be discharged today after dose 8 but before dose 9. -US guided peripheral vascular access ordered for antibiotic use at [facility] (3) Acid maltase deficiency: -progressive, end stage. Pt requires BiPAP almost continuously at this point (4) HTN (hypertension): -continued home losartan, isosorbide dinitrate, metoprolol and furosemide -continued home potassium supplementation (5) Diabetes: -Hold home medications and placed on insulin sliding scale -Resume Home Meds on D/C (6) Indwelling Olsen catheter present: Continued olsen cath care (7) COPD (chronic obstructive pulmonary disease): - continued Xopenex q6 scheduled (8) Anxiety: -continued home buspirone, seroquel, venlafaxine and prn hydroxyzine. -Morphine 2mg IV q2hr PRN also ordered. (9) Altered mental status: -resolved -event could have be related to hypoxia versus acute UTI (10) CAD (coronary artery disease): -continued home losartan, isosorbide dinitrate, metoprolol and furosemide (11) Atrial fibrillation: - Currently in sinus rhythm. -contunued home Xarelto & metoprolol Total Time Total Time Spent Total Time Spent (In Minutes): 60 Discharge Plan Discharge Items Patient Disposition: Trans Resident Long-Term Care Reason For Visit: ACUTE HYPOXIC RESPIRATORY FAILURE Discharge Diagnosis: Acute Respiratory Failure in the Setting of COPD exacerbation and ESBL UTI Discharge Goals: Therapeutic intervention Activity: Resume your previous activity Non-emergency contact: Primary Care Provider Call non-emergency contact if: you have any medication questions, your symptoms worsen and your temperature is above 101 Follow-up/Referrals: Dave Odell MD [Primary Care Provider] - Diet: Carb Consistent or DM2 Addtl Provider Instructions: Care instructions: You were admitted to [facility] for treatment of COPD exacerbation and Urinary Tract Infection. A discharge summary will be sent to your primary care physician to ensure continuity of care. Please bring this discharge summary with you to your next office appointment so that your provider can review it at that time. Follow-up appointments: - Keep all your follow-up appointments as already scheduled. If you cannot make an appointment, notify your provider. - We request you schedule a follow-up appointment with your primary care darren ivory within one week of discharge. Please call their office to do so Medications: - Your medication list has been reviewed and reconciled upon discharge to ensure accuracy and continuity of care. - You are provided with a list of all your current medications at this time. Please review this list closely and make note of any changes. - Please take all of your medications exactly as prescribed. - Tell your primary care provider if you cannot afford your medications. - Call your primary care provider if you are having any side effects or any other problems. - Call your primary care provider before taking any over the counter medications or supplements, including herbals and vitamins, because some of these may interact with your current medications and/or make your symptoms worse. It has been our privilege to take care of you during your hospital stay. Symptoms: Please call your primary care provider for symptoms including, but not limited to: fevers (temperatures > 38.3 degrees C), chills, intractable nausea or vomiting, diarrhea, rash, shortness of breath, bleeding, pain, or if you experience any worsening of the symptoms that brought you to the hospital. For EMERGENCY and VERY SERIOUS health-related issues, such as chest pain, shortness of breath, or sudden onset of the symptoms that brought you to the hospital, you may need to call 911 or go directly to the Emergency Room Prescriptions: New ondansetron 4 mg Tablet,Disintegrating 4 mg PO Q6H PRN (Reason: nausea) Qty: 30 RF: 0 cefoxitin 1 gram recon soln 1 gm IV Q8H Qty: 13 RF: 0 Continued quetiapine [Seroquel] 25 mg tablet 12.5 mg PO DAILY RF: 0 furosemide [Lasix] 40 mg Tablet 40 mg PO DAILY RF: 0 metformin 500 mg tablet 500 mg PO BID RF: 0 acetaminophen [Tylenol] 325 mg Tablet 650 mg PO Q6H PRN (Reason: Fever Or Pain) RF: 0 prednisone 10 mg Tablet 10 mg PO DAILY RF: 0 venlafaxine 75 mg Tablet 75 mg PO QPM RF: 0 fexofenadine [Nallely Allergy] 60 mg Tablet 60 mg PO Q12H PRN (Reason: Allergy Symptoms) RF: 0 levalbuterol HCl 0.63 mg/3 mL Solution For Nebulization 0.63 mg INHALATION Q6 RF: 0 magnesium hydroxide [Milk of Magnesia] 400 mg/5 mL Suspension 30 ml PO UD PRN (Reason: Constipation) RF: 0 losartan 25 mg Tablet 25 mg PO DAILY RF: 0 folic acid 1 mg Tablet 1 mg PO DAILY RF: 0 hydroxyzine HCl 25 mg Tablet 25 mg PO Q12 PRN (Reason: Anxiety) RF: 0 gabapentin [Neurontin] 100 mg Capsule 200 mg PO BID RF: 0 metoprolol succinate 25 mg Tablet Extended Release 24 Hr 25 mg PO DAILY RF: 0 ergocalciferol (vitamin D2) 50,000 unit Capsule 50,000 unit PO WK RF: 0 Humalog U-100 Insulin 100 unit/mL Solution 1 sliding scale dose SUBCUT UD PRN (Reason: ELAVATED BSG) RF: 0 ipratropium bromide 0.02 % Solution 1 vial INHALATION QID RF: 0 ipratropium bromide 17 mcg/actuation Hfa Aerosol Inhaler 2 puff INHALATION TID RF: 0 thiamine mononitrate (vit B1) 100 mg Tablet 200 mg PO BID RF: 0 rivaroxaban 20 mg Tablet 20 mg PO DAILY RF: 0 potassium chloride 20 mEq Tablet Extended Release 20 meq PO BID RF: 0 albuterol sulfate 90 mcg/actuation Aerosol Powdr Breath Activated 2 inh INHALATION Q4 PRN (Reason: COPD) RF: 0 Prune Juice/Stewed Prunes 1 dose PO UD PRN (Reason: Constipation) RF: 0 Calmoseptine 0.44-20.6 % Ointment 1 applic TOPICAL UD PRN (Reason: SKIN PROTECTION) RF: 0 Calmoseptine 0.44-20.6 % Ointment 1 applic TOPICAL QS RF: 0 Cavilon Af 1 applic topical AMPM RF: 0 isosorbide mononitrate 30 mg tablet extended release 24 hr 30 mg PO DAILY RF: 0 Changed buspirone 5 mg Tablet 5 mg PO BID Qty: 0 RF: 0 Stand-Alone Forms: [facility] Discharge Orders: Discharge Order (Routine); Ordered 08/19/18 Ordered By: Pineda Sanches Admission Data Admit Date/Time: 08/16/18 20:29 Attending Provider: Lior Farah Admit Provider: Ana Ferris Primary Care Provider: Dave Odell Other Providers: Bhupinder Gonzalez ; Leonor Schneider ; Bryan Porter Service: Telemetry Other Interventions: Discharge Summary Assessment (RN) Last Done: 08/19/18 14:32 Supervising Physician Co-Signing Physician Notes Patient seen and examined with Dr. Sanches. Agree with history, physical exam findings, assessment and plan of care as outlined. Reviewed hospital course. Agree. In brief, Ms Biswas is an 83 year old female with complex medical hx significant for end stage restrictive lung disease, Pompe disease, COPD, DM, CAD, HTN and anxiety admitted with acute respiratory failure. On BiPAP this morning. Alert and able to answer questions. Lungs with coarse breath sounds throughout. 1. UTI with ESBL. On cefoxitin. PIV to go to [facility] to continue cefoxitin course. 2. restrictive lung disease. appreciate pulm input. prednisone. respiratory support with BiPAP--requires BiPAP continuously at this point appreciate palliative care's assistance with goals of care. New POLST completed--DNR/DNI. Dipso: dc back to [facility] today Resident Activity Tracking Resident Involvement: Resident Care Provided Care Provided: Adult Hospital Medicine
[2018-08-19] MEDS ORDERED: ONDANSETRON 4 MG OD TAB PO PRN (10:12)
[2018-08-19] MEDS: INSULIN ASPART 100 UNITS/ML 3 ML PEN SC SCH ×2 (10:16→13:11)
--- NOTE | 2018-08-19 12:28 | Progress Note ---
DATE: 08/19/2018 PULMONARY PROGRESS NOTE TIME: 12:10 p.m. SUBJECTIVE: The patient feels about the same. She thinks she might be a little more short of breath than yesterday. It is hard to communicate because she has BiPAP in place. They have been trying to get IV access today using ultrasound and they are still working on that. The patient seems to have less air leak from the BiPAP since the pressures were lowered a bit. OBJECTIVE: GENERAL: She looks reasonably comfortable. VITAL SIGNS: Temperature is 36.3. She has had no fevers. Maximum temperature was 37.4. Heart rate 81. Rhythm regular. Blood pressure 149/66. LUNGS: Lung rust are difficult to examine as the patient is supine and cannot move much as she is getting her IV access done. LUNGS: The breath sounds are clearly diminished. Her excursions are very small. Saturation is 94% on 4 liters plus BiPAP. LABORATORY DATA: Blood sugar today was as high as 160. IMPRESSION: 1. Respiratory failure - acute on chronic with hypoxia and hypercarbia. 2. 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 3. Mild chronic obstructive pulmonary disease. 4. Atelectasis right lung base. The patient's status remains very marginal. They are trying to get her back to the intermediate today. The patient told me she felt like she is okay to go. Prognosis remains very poor. We need to be diligent about keeping her oxygen saturations on the low side such as between 88 and 92%. This is important to stimulate ventilation a bit if we can. She is getting cefoxitin apparently for the ESBL infection. Would continue with her neb treatments. Back at the home, the prednisone can ultimately be decreased down to 10 mg per day, but would not taper off.
[2018-08-21] MEDS ORDERED: ERGOCALCIFEROL 50,000 UNITS CAP PO SCH (09:00)
== END 2018-08-19 16:26 | DRG 189 ==
LOC: ED 17:05 → 2N 20:29 → SUATTDRO 20:29 → 2N 22:14 → 2W 08-18 08:37